=== PATIENT | female | born 1955 | race African-American/Black ===

== ENCOUNTER 2017-07-08 17:13 | Inpatient (IN) | payer MEDICARE, MEDICAID ==
[2017-07-08 17:47] LABS: #Eosinphils 0.1 thou/uL (0.0-0.7); #Lymphocytes 1.6 thou/uL (1.20-3.40); #Monocytes 0.5 thou/uL (0.11-0.59); #Neutrophils 2.5 thou/uL (1.40-6.50); %Basophils 0.7 % (0.0-1.0); %Eosinophils 2.2 % (0.0-10.0); %Lymphocytes 33.7 % (21.0-51.0); %Monocytes 11.2 % (0.0-10.0); Hematocrit 31.4 % (36.0-47.0); Mean Platelet Volume 9.4 fL (7.4-10.4); Red Blood Cell (RBC) Count 3.44 mill/uL (4.20-5.40); White Blood Cell (WBC) Count 4.7 thou/uL (4.8-10.8)
[2017-07-08 17:50] LABS: PTT 38.6 SEC (22.9-36.1); Prothrombin Time 14.4 SEC (12.0-14.7)
[2017-07-08] MEDS ORDERED: Nitroglycerin 2% Ointment 1 INCH/1 GM Packet ONE (18:01)
[2017-07-08 18:07] LABS: ALT (SGPT) 12 U/L (8-55); AST (SGOT) 22 U/L (5-34); Alkaline Phosphatase 155 U/L (40-150); Anion Gap 27 mmol/L (10-20); BUN (Urea Nitrogen) 70 mg/dL (9.8-20.1); Bilirubin, Total 0.5 mg/dL (0.2-1.2); CK (CPK) 141 U/L (29-168); Calc. Creatinine Clearance 0 mL/min (70-130); Calcium 7.8 mg/dL (7.8-10.44); Carbon Dioxide 21 mmol/L (23-31); Chloride 103 mmol/L (98-107); Estimated GFR-MDRD 5; Globulin 4.5 g/dL (2.4-3.5); Protein, Total 8.1 g/dL (6.0-8.3)
[2017-07-08] MEDS ORDERED: Acetaminophen 500 MG TAB ONE (18:34)
--- NOTE | 2017-07-08 19:10 | RAD ---
FRONTAL VIEW CHEST: 07/08/17 COMPARISON: 04/14/17 INDICATION: Chest pain. FINDINGS: There is an enlarged cardiac silhouette with bilateral pulmonary vascular congestion. Bibasilar alve olar opacities are present. No significant effusion or discrete pneumothorax. Chest is otherwise sim ilar in appearance. IMPRESSION: 1. Findings which favor decompensated CHF with superimposed edema. 2. Pneumonia not excluded. Recommend correlation clinically as well as imaging followup to conf irm resolution. POS: CARLOS
[2017-07-09] MEDS ORDERED: Acetaminophen 325 MG TAB PO PRN (00:55)
[2017-07-09] MEDS ORDERED: hydrALAZINE 20 MG/ML VIAL SLOW IVP PRN (00:55)
[2017-07-09] MEDS ORDERED: Zolpidem Tartrate 5 MG TAB PO PRN (00:55)
[2017-07-09] MEDS ORDERED: Morphine PF 1 MG/ML SYR IVP PRN (00:57)
[2017-07-09] MEDS ORDERED: Dextrose 50% Abboject 50 ML SYRINGE SLOW IVP PRN (01:58)
[2017-07-09] MEDS ORDERED: Dextrose 5% in Water 1,000 ML IV PRN (01:58)
[2017-07-09] MEDS ORDERED: HumaLOG 300 UNITS/3 ML VIAL SC PRN (01:58)
[2017-07-09] MEDS ORDERED: Nitroglycerin 0.4 MG TAB (25 Tab Bottle) PO PRN (01:58)
[2017-07-09] MEDS ORDERED: Nitroglycerin 2% Ointment 1 INCH/1 GM Packet TOP SCH (02:00)
[2017-07-09] MEDS ORDERED: Vancomycin HCl 1 GM in Premix Bag 1 BAG IVPB SCH ×2 (02:15→02:30)
[2017-07-09] MEDS ORDERED: HOLD VANCOMYCIN FOR LEVEL >20 FS SCH (02:30)
[2017-07-09] MEDS ORDERED: Vancomycin HCl 1.25 GM in Sodium Chloride 0.9% 250 ML 250 ML IVPB SCH ×4 (02:30)
[2017-07-09] MEDS ORDERED: Vancomycin HCl 750 MG in Sodium Chloride 0.9% 250 ML 250 ML IVPB SCH (02:30)
[2017-07-09 02:47] LABS: #Basophils 0.1 thou/uL (0.0-0.2); #Eosinphils 0.1 thou/uL (0.0-0.7); #Lymphocytes 1.6 thou/uL (1.20-3.40); #Monocytes 0.7 thou/uL (0.11-0.59); #Neutrophils 2.2 thou/uL (1.40-6.50); %Basophils 1.4 % (0.0-1.0); %Eosinophils 3.2 % (0.0-10.0); %Lymphocytes 33.8 % (21.0-51.0); %Monocytes 14.7 % (0.0-10.0); Hematocrit 29.8 % (36.0-47.0); Mean Platelet Volume 9.8 fL (7.4-10.4); Red Blood Cell (RBC) Count 3.24 mill/uL (4.20-5.40); White Blood Cell (WBC) Count 4.6 thou/uL (4.8-10.8)
[2017-07-09] MEDS: HYDROcodone/Acetaminophen 5/325 mg Tablet PO PRN ×3 (02:59→14:15)
[2017-07-09 03:13] LABS: Troponin I 0.077 ng/mL (< 0.028)
[2017-07-09 03:40] LABS: Anion Gap 18 mmol/L (10-20); BUN (Urea Nitrogen) 40 mg/dL (9.8-20.1); Calc. Creatinine Clearance 0 mL/min (70-130); Calcium 8.3 mg/dL (7.8-10.44); Carbon Dioxide 23 mmol/L (23-31); Chloride 101 mmol/L (98-107); Estimated GFR-MDRD 8
[2017-07-09] MEDS ORDERED: Piperacillin/Tazobactam 3.375 GM in Sodium Chloride 0.9% 100 ML IVPB SCH ×2 (04:00→06:00)
--- NOTE | 2017-07-09 05:38 | HP ---
CHIEF COMPLAINT: \\\\"I missed dialysis and I have chest pain\\\\". HISTORY OF PRESENT ILLNESS: This is a 61-year-old pleasant lady who went for dialysis today, but anuj pacheco missed it, so when she was coming back on her way from [place] started having some chest pain and h ence she came into the hospital for further evaluation and treatment. The pain was pressure-like in nature, not radiating anywhere, not associated with shortness of breath and not exacerbated or reli eved by anything. The patient also of note has been being treated for a left ring finger cellulitis /gangrene for the past whole month with clindamycin. She has also developed diarrhea which has been on and off and severe for the last 2-3 weeks. The patient denies any fever or chills currently. T he patient complains of extreme pain in the left ring finger. She was apparently going to have one of the surgeons at [facility] and Brenda at [facility] to take a look at it, but she could not make it so far. She has also end-stage renal disease and Dr. Monreal is her product safety associate. PAST MEDICAL HISTORY: Diastolic congestive heart failure with ejection fraction of 50%, end-stage r enal disease with dialysis Thursday, Thursday, Thursday, insulin-dependent diabetes, COPD, hypertension , hyperlipidemia, depression and anxiety. PAST SURGICAL HISTORY: Carpal tunnel surgery, fistula placed in the left arm. ALLERGIES: LISINOPRIL, TRAMADOL, HEPARIN, AMITRIPTYLINE. MEDICATIONS: Please see MAR. FAMILY HISTORY: Mom with diabetes and myocardial infarction, sister with unknown type of cancer. SOCIAL HISTORY: She used to smoke a pack every 2-3 days for a couple of years when she was younger. Drinks alcohol occasionally. No drug use. She is , has 1 child who is . REVIEW OF SYSTEMS: Significant for left finger pain, chest pain, shortness of breath, otherwise no fever, no chills, no headache, no appetite change, no . No cough. Positive for diarrhea, 2-3 times a day at least, no dysuria, no polyuria, no memory or mood changes. No neck pain. PHYSICAL EXAMINATION: VITAL SIGNS: Blood pressure is 172/77, breathing at 18-20 per minute, afebrile with a pulse of 90. GENERAL: Patient is lying in bed in mild to moderate distress because of the left finger pain. HEENT: Atraumatic, normocephalic. Pupils equally round, react to light. Extraocular movements int act. Mucous membranes are moist. NECK: Supple. No JVD. CHEST: Chest wall examination, there is pressure on the chest wall over the chest pain, reproduces the pain. RESPIRATORY: Some bibasilar rales, otherwise clear on the upper zones. HEART: S1, S2 normal. No murmurs or gallops. ABDOMEN: Soft, obese, bowel sounds present. No tenderness. EXTREMITIES: No cyanosis, clubbing, edema. Distal pulses present. NEUROLOGICAL: Alert, awake, oriented. No cranial deficits. No sensorimotor deficits. SKIN: Skin over the left finger is covered in dressing. The patient's finger shows some gangrenous changes. LABORATORY DATA: EKG normal sinus rhythm at 70. Chest x-ray: Cardiomegaly and congestion. WBC co unt is 4.7, creatinine is 9.8, hemoglobin is 10.6, INR 1.1, potassium is 4.5, creatinine is 9.8. So dium is 146. ASSESSMENT AND PLAN: 1. Diastolic congestive heart failure exacerbation because the patient missed dialysis. Patient patino s already got 2 hours of dialysis this evening and she is feeling much better. We will trend tropon ins and do the need for. 2. Chest pain, rule out acute coronary syndrome. We will trend troponins, appears to be more chest wall in nature. We will give some pain medications as well. 3. End-stage renal disease. Dr. Monreal has been consulted. 4. Left finger pain with gangrenous changes probably secondary to vascular disease and diabetic c er, diabetic infection. We will consult Dr. Patterson, IV vancomycin and Zosyn and see if there could b e surgical interventions this hospital stay. 5. Diarrhea, rule out Clostridium difficile. We will do cultures. The patient has been on clindam ycin for the last 1 month. 6. Nausea and vomiting on and off because of antibiotic use. We will give Zofran and p.o. Pepcid. 7. Diabetes. We will continue insulin sliding scale. 8. Chronic obstructive pulmonary disease, p.r.n. nebs. 9. SCDs for deep venous thrombosis prophylaxis. I will work with the consultants in further caring for the patient. Follow blood cultures as well.
[2017-07-09 07:57] VITALS: BMI 32.2
[2017-07-09 08:08] LABS: Troponin I 0.071 ng/mL (< 0.028)
--- NOTE | 2017-07-09 09:11 | CON ---
DATE OF CONSULTATION: 07/08/2017 Please note that patient was seen in the ER on 07/08/2017. CONSULTING PHYSICIAN: Dr. Gutierrez. REASON FOR CONSULTATION: End-stage renal disease evaluation and care. REASON FOR ADMISSION: Chest pain. HISTORY OF PRESENT ILLNESS: This is a 61-year-old female with history of CHF and end-stage renal disease, type 2 diabetes, COPD, hypertension who came to the hospital with chest pain. She missed dialysis this week and she had a few hours of dialysis Thursday. No fever or chills. No nausea, vomiting, no shortness of breath or chest pain. PAST MEDICAL HISTORY: Positive for congestive heart failure, end-stage renal disease, type 2 diabetes, hypertension, COPD, hyperlipidemia, depression and anxiety. PAST SURGICAL HISTORY: Dialysis access surgery, carpal tunnel surgery. HOME MEDICATIONS: Include Coreg, PhosLo, Lipitor, albuterol, Desyrel, prednisone, Renvela, Zoloft, Lyrica, Protonix, Cozaar, Humulin 70-30. ALLERGIES: LISINOPRIL, AMITRIPTYLINE, TRAMADOL, HEPARIN. SOCIAL HISTORY: She smokes half a pack a day and occasional alcohol use, no illicit drug abuse. FAMILY HISTORY: Positive for heart disease. REVIEW OF SYSTEMS: The following complete review of systems was negative, unless otherwise mentioned in the HPI or below: Constitutional: Weight loss or gain, ability to conduct usual activities. Skin: Rash, itching. Eyes: Double vision, pain. Ent/mouth: Nose bleeding, neck stiffness, pain, tenderness. Cardiovascular: Palpitations, dyspnea on exertion, orthopnea. Respiratory: Shortness of breath, wheezing, cough, hemoptysis, fever or night sweats. Gastrointestinal: Poor appetite, abdominal pain, heartburn, nausea,vomiting, constipation, or diarrhea. Genitourinary: Urgency, frequency, dysuria, nocturia. Musculoskeletal: Pain, swelling. Neurologic/psychiatric: Anxiety, depression. Allergy/immunologic: Skin rash, bleeding tendency. PHYSICAL EXAMINATION: GENERAL: This is a well-built female in no apparent distress. VITAL SIGNS: Temperature 97, pulse 60, respirations 18, blood pressure 190/80. HEENT: Atraumatic, normocephalic. Oral mucosa is moist. NECK: Supple, no masses. CARDIOVASCULAR: S1, S2 heard. Rate and rhythm regular. RESPIRATORY: Clear. ABDOMEN: Soft. MUSCULOSKELETAL: 1+ edema. DERMATOLOGIC: No skin rash. NEUROLOGIC: Alert, awake. PSYCHIATRIC: Mood and affect normal. LABS: Hemoglobin 10.3, potassium is 3.6, BUN 40, creatinine 6.3, but yesterday was 4.5, BUN 70, creatinine 9.8. ASSESSMENT AND PLAN: 1. End-stage renal disease. Plan is to continue on dialysis. We will have 2 hours of dialysis on 07/08/2017 and then continue on dialysis Thursday, Thursday , and Thursday. Advised to limit the fluid. 2. Fluid overload. Limit fluid intake and continue on dialysis as tolerated. 3. Hypertension, stable. 4. Edema. 5. Cardiorenal syndrome. 6. Anemia, mild. 7. Noncompliance, counseled. The plan is to continue dialysis as tolerated. We will remove fluid with dialysis. Thank you for the consult. CELINE
[2017-07-09 13:35] LABS: Vancomycin, Random 16.9 ug/mL (See Comment)
--- NOTE | 2017-07-09 14:07 | CON ---
DATE OF CONSULTATION: 07/09/2017 REASON FOR CONSULTATION: Ischemia, left hand. HISTORY OF PRESENT ILLNESS: A 61-year-old patient who has a history of type 2 diabetes with end-stage renal disease on hemodialysis through an AV fistula, ischemic cardiomyopathy, COPD, hypertension who missed one dialysis treatment and developed chest pain and then she noticed progressively worsening pain in the left hand ring finger with changes consistent with ischemia. The changes actually had been noticed quite a few weeks before admission and failed management with outpatient antimicrobial therapy. She developed diarrhea for the past 2-3 weeks, possibly antibiotic associated. No fever, chills or headaches, no change in visual symptoms, sore throat, odynophagia, dysphagia, no dyspnea, no cough or sputum production. She has noticed pain in the left lateral rib cage region for the past few days. She did have some coughing spells recently, which subsided. PAST MEDICAL HISTORY: CHF associated with ischemic cardiomyopathy, EF 50%, end- stage renal disease associated with diabetes mellitus type 2 with dialysis through an AV fistula in the left upper extremity, COPD, hypertension, hyperlipidemia, depression. PAST SURGICAL HISTORY: Carpal tunnel surgery. ALLERGIES: LISINOPRIL, TRAMADOL, HEPARIN, AMITRIPTYLINE. FAMILY HISTORY: Type 2 diabetes, coronary artery disease. CURRENT MEDICATIONS: Hydrocodone, DuoNeb, Coreg, Pepcid, glucagon, insulin, Apresoline, Nitrostat, Zosyn, and vancomycin. SOCIAL HISTORY: Former smoker, quit many years ago. Drinks occasionally. . PHYSICAL EXAMINATION: VITAL SIGNS: T-max 98.5, blood pressure 160/60, pulse 63, respirations 16-18, O2 sat 98%. SKIN: Shows a dark discoloration of the distal aspect of the left index finger. No lymphadenopathy. HEENT: Ocular movements are conjugate. The left upper extremity AV fistula is accessed at this time. NECK: No jugular venous distention. LUNGS: Clear. HEART: S1, S2, regular rate. ABDOMEN: Soft, distended. No ascites. Question of bladder distention. EXTREMITIES: No joint inflammatory activity elsewhere outside the area of involvement. Pulses are diminished in dorsalis pedis. I could not feel any radialis or ulnar pulses in either hand. NEUROLOGIC: Awake and alert, oriented. Follows commands. LABORATORY DATA: White cell count 4.6, hemoglobin 10.3, platelets 100, 46% neutrophils. INR 1.1. Sodium 138, creatinine 6.39, alkaline phosphatase 155, transaminases normal, bilirubin 0.5. CK was 141. X-RAY FINDINGS: Chest x-ray, CHF. ASSESSMENT: 1. Coronary artery disease. 2. Peripheral vascular disease. 3. End-stage renal disease on hemodialysis through an AV fistula in the left upper extremity. 4. Ischemia with gangrenous changes, left fourth finger. DISCUSSION: The changes are consistent ischemia with gangrenous changes most likely due to peripheral vascular disease with superimposed steal syndrome associated with AV fistula. We would recommend a vascular evaluation of the left upper extremity, may need a procedure to increase the arterial inflow towards the left hand to prevent progression of the changes towards the other digits. Typically those procedures are done by the same surgeon that worked on her AV fistula, in her case, dr. Tesfaye in [place]. HEALTH SYSTEMDayami
[2017-07-09] MEDS: Vancomycin HCl 500 MG in Sodium Chloride 0.9% 100 ML IVPB SCH (14:16)
[2017-07-09 14:17] LABS: Troponin I 0.059 ng/mL (< 0.028)
[2017-07-09] MEDS: Carvedilol 3.125 MG TAB PO SCH ×2 (16:30→21:21)
[2017-07-09] MEDS: Pregabalin 75 MG CAP PO SCH ×2 (16:30→21:22)
[2017-07-09] MEDS: Ondansetron HCl/PF 4 MG/2 ML Vial IVP PRN (16:32)
[2017-07-09] MEDS: Aspirin 81 mg Enteric Coated Tablet PO SCH (16:37)
[2017-07-09] MEDS: Famotidine 20 MG TAB PO SCH (16:37)
[2017-07-09] MEDS: Piperacillin/Tazobactam 2.25 GM in Sodium Chloride 0.9% 100 ML IVPB SCH (18:30)
[2017-07-09] MEDS ORDERED: Insulin NPH/Reg Insulin Hm 300 UNITS/3 ML VIAL SC SCH (21:00)
[2017-07-09] MEDS: cloNIDine 0.3 MG TAB PO SCH (21:22)
[2017-07-09] MEDS: Zolpidem Tartrate 5 MG TAB PO SCH (21:22)
[2017-07-09] MEDS: Insulin Detemir 100 UNITS/ML 25 UNITS in Pre-Filled Syringe 1 EACH SC SCH (21:23)
--- NOTE | 2017-07-09 23:24 | PRG ---
DATE OF SERVICE: 07/09/2017 SUBJECTIVE: The patient was seen and examined at the bedside and overnight events noted. The patie nt denies any shortness of breath, chest pain, or palpitation. No history of nausea, vomiting, diar erica, fever, chills, or cramps. OBJECTIVE: GENERAL: This is a well-built female in no apparent distress. VITAL SIGNS: Temperature 97, pulse 65, respiratory rate 18, blood pressure 162/69. HEENT: Atraumatic, normocephalic. Oral mucosa is moist. NECK: Supple. CARDIOVASCULAR: S1, S2 heard. Rate and rhythm regular. RESPIRATORY: Clear to auscultation. GASTROINTESTINAL: Abdomen is soft. MUSCULOSKELETAL: No tenderness. No edema. DERMATOLOGIC: No skin rash. NEUROLOGIC: Alert, awake, and oriented x3. No focal neurologic deficits. Moving all the extremitie s. PSYCHIATRIC: Mood and affect normal. LABORATORY DATA: Potassium is 3.6, BUN is 40, creatinine is 6.3. ASSESSMENT AND PLAN: 1. End-stage renal disease. Continue dialysis Thursday, Thursday, Thursday. The plan is to have 2-ho ur dialysis today and then Thursday, Thursday, Thursday. 2. Fluid overload. 3. Hypertension. 4. Edema. 5. was consulted. The plan is to continue dialysis as tolerated Thursday, Thursday, and Thursday.
[2017-07-10] MEDS: Piperacillin/Tazobactam 2.25 GM in Sodium Chloride 0.9% 100 ML IVPB SCH (05:16)
[2017-07-10] MEDS: HYDROcodone/Acetaminophen 5/325 mg Tablet PO PRN ×3 (05:19→20:32)
[2017-07-10 06:50] LABS: Vancomycin, Random 17.2 ug/mL (See Comment)
[2017-07-10] MEDS: Sevelamer Carbonate 800 MG TAB PO SCH ×3 (08:30→16:07)
[2017-07-10] MEDS: Ondansetron HCl/PF 4 MG/2 ML Vial IVP PRN (08:33)
[2017-07-10] MEDS: cloNIDine 0.3 MG TAB PO SCH ×2 (08:40→20:30)
[2017-07-10] MEDS: Carvedilol 3.125 MG TAB PO SCH ×2 (08:45→20:30)
[2017-07-10] MEDS: Pregabalin 75 MG CAP PO SCH ×2 (08:45→20:31)
[2017-07-10] MEDS ORDERED: Insulin NPH/Reg Insulin Hm 300 UNITS/3 ML VIAL SC SCH (09:00)
[2017-07-10] MEDS: Insulin Detemir 100 UNITS/ML 20 UNITS in Pre-Filled Syringe 1 EACH SC SCH (09:00)
[2017-07-10] MEDS: Vancomycin HCl 500 MG in Sodium Chloride 0.9% 100 ML IVPB SCH (11:58)
--- NOTE | 2017-07-10 13:20 | PRG ---
DATE OF SERVICE: 07/10/2017 HISTORY: Ms. Contreras is being dialyzed, still with quite a bit of pain in the ring finger, left valentine d. She is having some tenderness and pain in the left costal area as well. No headaches, no respir atory symptoms, no abdominal pain or diarrhea. OBJECTIVE: VITAL SIGNS: Temperature max 98.6, blood pressure 118/61, pulse 64, respirations 16. GENERAL: Awake, alert, oriented. LUNGS: Clear. EXTREMITIES: The left hand fourth digit with ischemic changes in the distal aspect. No inflammator y changes noted. CHEST: Tenderness on the left rib cage region lateral aspect. ABDOMEN: Soft. Not distended. NEUROLOGIC: Unchanged. White cell count 4.6. Chemistry not remarkable. Microbiology with negative blood cultures thus far . ASSESSMENT AND DISCUSSION: Coronary disease with peripheral vascular disease, end-stage renal disea se on hemodialysis through AV fistula and ischemia with gangrenous changes tip of the left fourth fi nger. Again, changes consistent ischemia with most likely the peripheral vascular disease plus supe rimposed steal syndrome associated with AV fistula. She will need vascular evaluation to revise the AV fistula to increase the flow towards the hand. Discontinue antimicrobial therapy at this point in time. Check x-ray of the left ribcage area. May have had a small hairline fracture associated w ith coughing spells.
--- NOTE | 2017-07-10 15:18 | RAD ---
LEFT RIBS 3 VIEWS: HISTORY: A 61-year-old female with point tenderness over lower left ribs. FINDINGS: Left axillary and subclavian vascular stents. No evidence for acute rib fracture. No pneumothorax or pleural effusion. IMPRESSION: No rib fracture. No pneumothorax or pleural effusion or other acute process. POS: CARLOS
--- NOTE | 2017-07-10 15:37 | PDOC.PN ---
- Subjective Encounter Start Date: 07/09/17 Encounter Start Time: 16:00 Subjective: f/u volume overload and dyspnea in context of ESRD with HD. -: Improved resp after HD. - Objective MAR Reviewed: Yes Vital Signs & Weight: Vital Signs (12 hours) Temp Pulse Resp BP BP BP Pulse Ox 07/10/17 13:56 97.7 F 63 18 122/83 97 07/10/17 12:03 97.7 F 64 16 118/61 98 07/10/17 08:40 170/76 H 07/10/17 08:25 98.6 F 57 L 18 98 07/10/17 06:49 95 07/10/17 03:47 57 L 18 165/77 H Weight Admit Weight 176 lb 3.2 oz Weight 155 lb I&O: 07/09/17 07/10/17 07/11/17 06:59 06:59 06:59 Intake Total 850 480 Output Total 2800 1898 Balance -1950 -1418 Result Diagrams: 07/09/17 02:21 07/09/17 02:21 Additional Labs: Accuchecks 07/10/17 07/10/17 07/09/17 13:22 05:34 20:27 POC Glucose 101 92 83 07/09/17 17:08 POC Glucose 87 Microbiology 07/09/17 02:52 Venous blood - Right Hand Blood Culture - Preliminary Specimen has been received and culture in progress. No Growth to date. 07/09/17 02:21 Venous blood - Right Hand Blood Culture - Preliminary Specimen has been received and culture in progress. No Growth to date. Radiology Reviewed by me: Yes (PCXR - pulm edema) EKG Reviewed by me: Yes (Tele - SR) Phys Exam - Physical Examination Constitutional: NAD HEENT: PERRLA, oral pharynx no lesions Neck: no JVD, supple basilar coarse sounds Respiratory: wheezing present Cardiovascular: RRR Gastrointestinal: soft, non-tender, no distention, positive bowel sounds L ring finger with gangrene at the tip Musculoskeletal: pulses present Neurological: normal sensation, moves all 4 limbs Psychiatric: A&O x 3 Skin: normal turgor, cap refill <2 seconds Dx/Plan (1) Acute pulmonary edema Code(s): J81.0 - ACUTE PULMONARY EDEMA Status: Acute Comment: Improved, continue volume removal with HD, monitor clinically (2) CHF, acute on chronic Code(s): I50.9 - HEART FAILURE, UNSPECIFIED Status: Acute Qualifiers: Congestive heart failure type: combined Qualified Code(s): I50.43 - Acute on chronic combined systolic (congestive) and diastolic (congestive) heart failure Comment: Likely volume mediated to ESRD, improved after HD (3) Gangrene of finger of left hand Code(s): I96 - GANGRENE, NOT ELSEWHERE CLASSIFIED Status: Acute Comment: Supportive care, may need surgical intervention (4) Noncompliance with treatment plan Code(s): Z91.11 - PATIENT'S NONCOMPLIANCE WITH DIETARY REGIMEN Status: Chronic (5) Peripheral neuropathy Code(s): G62.9 - POLYNEUROPATHY, UNSPECIFIED Status: Chronic Comment: Continue Lyrica 150mg BID (6) Volume overload Code(s): E87.70 - FLUID OVERLOAD, UNSPECIFIED Status: Acute Qualifiers: Hypervolemia type: other Qualified Code(s): E87.79 - Other fluid overload Comment: See above (7) Anemia in chronic kidney disease (CKD) Code(s): N18.9 - CHRONIC KIDNEY DISEASE, UNSPECIFIED; D63.1 - ANEMIA IN CHRONIC KIDNEY DISEASE Status: Chronic (8) DM type 2 (diabetes mellitus, type 2) Status: Chronic Qualifiers: Diabetes mellitus complication status: with neurologic complications (9) ESRD (end stage renal disease) on dialysis Code(s): N18.6 - END STAGE RENAL DISEASE; Z99.2 - DEPENDENCE ON RENAL DIALYSIS Status: Chronic Comment: HD per Renal service (10) Hepatitis C Code(s): B19.20 - UNSPECIFIED VIRAL HEPATITIS C WITHOUT HEPATIC COMA Status: Chronic Qualifiers: Viral hepatitis chronicity: chronic Hepatic coma status: without hepatic coma Qualified Code(s): B18.2 - Chronic viral hepatitis C Comment: Chronic, stable - Plan continue antibiotics, PT/OT, social sciences research scientist Stable currently -: Continue local WCT -: Continue Vancomycin sliding scale -: Continue ASA, Coreg -: AM lab: BMP, CBC * .
--- NOTE | 2017-07-10 16:05 | PDOC.PN ---
- Subjective Encounter Start Date: 07/10/17 Encounter Start Time: 14:00 Subjective: f/u volume overload due to missed HD. Feels much better and less SOB > -: Ambulating without difficulty. - Objective MAR Reviewed: Yes Vital Signs & Weight: Vital Signs (12 hours) Temp Pulse Resp BP BP BP Pulse Ox 07/10/17 13:56 97.7 F 63 18 122/83 97 07/10/17 12:03 97.7 F 64 16 118/61 98 07/10/17 08:40 170/76 H 07/10/17 08:25 98.6 F 57 L 18 98 07/10/17 06:49 95 Weight Admit Weight 176 lb 3.2 oz Weight 155 lb I&O: 07/09/17 07/10/17 07/11/17 06:59 06:59 06:59 Intake Total 850 480 Output Total 2800 1898 Balance -1950 -1418 Result Diagrams: 07/09/17 02:21 07/09/17 02:21 Additional Labs: Accuchecks 07/10/17 07/10/17 07/09/17 13:22 05:34 20:27 POC Glucose 101 92 83 07/09/17 17:08 POC Glucose 87 Microbiology 07/09/17 02:52 Venous blood - Right Hand Blood Culture - Preliminary Specimen has been received and culture in progress. No Growth to date. 07/09/17 02:21 Venous blood - Right Hand Blood Culture - Preliminary Specimen has been received and culture in progress. No Growth to date. Laboratory Tests 07/08/17 07/09/17 07/09/17 17:34 02:21 07:36 Troponin I 0.080 H 0.077 H 0.071 H Random Vancomycin 07/09/17 07/09/17 07/10/17 13:00 13:00 06:24 Troponin I 0.059 H Random Vancomycin 16.9 17.2 EKG Reviewed by me: Yes (Tele - SR) Phys Exam - Physical Examination Constitutional: NAD HEENT: PERRLA, oral pharynx no lesions Neck: no JVD, supple few basilar crackles Cardiovascular: RRR Gastrointestinal: soft, non-tender, no distention, positive bowel sounds Musculoskeletal: no edema, pulses present Neurological: normal sensation, moves all 4 limbs Psychiatric: A&O x 3 Skin: normal turgor, cap refill <2 seconds Dx/Plan (1) Acute pulmonary edema Code(s): J81.0 - ACUTE PULMONARY EDEMA Status: Acute Comment: Improved, continue volume removal with HD, monitor clinically, encourage compliance with HD as outpt (2) CHF, acute on chronic Code(s): I50.9 - HEART FAILURE, UNSPECIFIED Status: Acute Qualifiers: Congestive heart failure type: combined Qualified Code(s): I50.43 - Acute on chronic combined systolic (congestive) and diastolic (congestive) heart failure Comment: Likely volume mediated to ESRD, improved after HD, Diastolic dysfunction with EF 50%, Grade I/III diastolic dysfxn (3) Gangrene of finger of left hand Code(s): I96 - GANGRENE, NOT ELSEWHERE CLASSIFIED Status: Acute Comment: Supportive care, may need surgical intervention (4) Noncompliance with treatment plan Code(s): Z91.11 - PATIENT'S NONCOMPLIANCE WITH DIETARY REGIMEN Status: Chronic (5) Peripheral neuropathy Code(s): G62.9 - POLYNEUROPATHY, UNSPECIFIED Status: Chronic Comment: Continue Lyrica 150mg BID (6) Volume overload Code(s): E87.70 - FLUID OVERLOAD, UNSPECIFIED Status: Acute Qualifiers: Hypervolemia type: other Qualified Code(s): E87.79 - Other fluid overload Comment: See above, resolving (7) Anemia in chronic kidney disease (CKD) Code(s): N18.9 - CHRONIC KIDNEY DISEASE, UNSPECIFIED; D63.1 - ANEMIA IN CHRONIC KIDNEY DISEASE Status: Chronic Comment: H/H stable (8) DM type 2 (diabetes mellitus, type 2) Status: Chronic Qualifiers: Diabetes mellitus complication status: with neurologic complications (9) ESRD (end stage renal disease) on dialysis Code(s): N18.6 - END STAGE RENAL DISEASE; Z99.2 - DEPENDENCE ON RENAL DIALYSIS Status: Chronic Comment: HD per Renal service (10) Hepatitis C Code(s): B19.20 - UNSPECIFIED VIRAL HEPATITIS C WITHOUT HEPATIC COMA Status: Chronic Qualifiers: Viral hepatitis chronicity: chronic Hepatic coma status: without hepatic coma Qualified Code(s): B18.2 - Chronic viral hepatitis C Comment: Chronic, stable - Plan PT/OT, geriatric social worker, out of bed/ambulate, DVT proph w/SCDs Stable overall -: Continue HD per Renal service -: Continue Vancomycin sliding scale with HD -: Resume home insulin regimen -: OOB/ambulate * AM lab: BMP, CBC * Likely home in 24h
[2017-07-10] MEDS: predniSONE 5 MG TAB PO SCH (16:06)
[2017-07-10] MEDS: Famotidine 20 MG TAB PO SCH (16:06)
[2017-07-10] MEDS: Aspirin 81 mg Enteric Coated Tablet PO SCH (16:06)
[2017-07-10] MEDS: Zolpidem Tartrate 5 MG TAB PO SCH (20:30)
[2017-07-10] MEDS: Insulin Detemir 100 UNITS/ML 25 UNITS in Pre-Filled Syringe 1 EACH SC SCH (20:32)
--- NOTE | 2017-07-10 21:44 | PRG ---
DATE OF SERVICE: 07/10/2017 SUBJECTIVE: Patient was seen and examined at bedside and overnight events noted. Patient denies an y shortness of breath or chest pain or palpitation. No history of nausea or vomiting or diarrhea or fever or chills or cramps. OBJECTIVE: GENERAL: This is a well-built female, in no apparent distress. VITAL SIGNS: Temperature 97, pulse 63, respiratory rate 18, blood pressure 122/83. HEENT: Atraumatic, normocephalic, Oral mucosa is moist. NECK: Supple. CARDIOVASCULAR: S1, S2 heard, rate and rhythm regular. RESPIRATORY: Clear to auscultation. GASTROINTESTINAL: Abdomen is soft. MUSCULOSKELETAL: No tenderness, no edema. DERMATOLOGIC: No skin rash. NEUROLOGIC: Alert and awake and oriented x3. No focal neurologic deficits. Moving all the extremi ties. PSYCHIATRIC: Mood and affect normal. LABORATORY DATA: Not done today. ASSESSMENT AND PLAN: 1. End-stage renal disease. Continue on hemodialysis as tolerated. 2. Hypertension, stable. 3. Edema, controlled. 4. Anemia, chronic. 5. Noncompliance, counseled. 6. Fluid overload. Remove fluid with dialysis as tolerated. Plan is to continue on dialysis as tolerated Thursday, Thursday, and Thursday.
[2017-07-11 05:56] LABS: Hematocrit 38.8 % (36.0-47.0); Mean Platelet Volume 9.2 fL (7.4-10.4); Neutrophil 48 % (42-75); Red Blood Cell (RBC) Count 4.25 mill/uL (4.20-5.40); White Blood Cell (WBC) Count 4.2 thou/uL (4.8-10.8)
[2017-07-11 05:59] LABS: Anion Gap 16 mmol/L (10-20); BUN (Urea Nitrogen) 20 mg/dL (9.8-20.1); Calc. Creatinine Clearance 16 mL/min (70-130); Calcium 9.1 mg/dL (7.8-10.44); Carbon Dioxide 27 mmol/L (23-31); Chloride 97 mmol/L (98-107); Estimated GFR-MDRD 14
[2017-07-11] MEDS: HYDROcodone/Acetaminophen 5/325 mg Tablet PO PRN ×3 (06:20→16:45)
[2017-07-11] MEDS: Carvedilol 3.125 MG TAB PO SCH (09:01)
[2017-07-11] MEDS: Aspirin 81 mg Enteric Coated Tablet PO SCH (09:01)
[2017-07-11] MEDS: predniSONE 5 MG TAB PO SCH (09:01)
[2017-07-11] MEDS: Famotidine 20 MG TAB PO SCH (09:01)
[2017-07-11] MEDS: cloNIDine 0.3 MG TAB PO SCH (09:01)
[2017-07-11] MEDS: Sevelamer Carbonate 800 MG TAB PO SCH ×3 (09:01→16:45)
[2017-07-11] MEDS: Insulin Detemir 100 UNITS/ML 20 UNITS in Pre-Filled Syringe 1 EACH SC SCH (09:05)
[2017-07-11] MEDS: Pregabalin 75 MG CAP PO SCH (09:11)
--- NOTE | 2017-07-11 12:33 | PRG ---
DATE OF SERVICE: 07/11/2017 SUBJECTIVE: Patient was seen and examined at bedside and overnight events noted. Patient denies an y shortness of breath or chest pain or palpitation. No history of nausea or vomiting or diarrhea or fever or chills or cramps. OBJECTIVE: GENERAL: This is a well-built female in no apparent distress. VITAL SIGNS: Temperature 97.9, pulse 61, respiratory rate 18, blood pressure 111/56. HEENT: Atraumatic, normocephalic. Oral mucosa is moist. NECK: Supple. CARDIOVASCULAR: S1 and S2 heard, rate and rhythm regular. RESPIRATORY: Clear to auscultation. GASTROINTESTINAL: Abdomen is soft. MUSCULOSKELETAL: No tenderness, no edema. DERMATOLOGIC: No skin rash. NEUROLOGIC: Alert and awake and oriented X3. No focal neurologic deficits. Moving all the extremi ties. PSYCHIATRIC: Mood and affect normal. LABORATORY DATA: Potassium is 4.1, BUN is 20, creatinine 3.9. ASSESSMENT AND PLAN: 1. End-stage renal disease. Continue dialysis on Thursday, Thursday, and Thursday feeling much better . 2. Edema. 3. Fluid overload, status post ultrafiltration and feels better. 4. Hypertension. 5. Noncompliance. The patient was counseled to have regular session of dialysis. We will continue on dialysis Thursday, Thursday, and Thursday.
--- NOTE | 2017-07-11 17:00 | DIS ---
DATE OF ADMISSION: 07/08/2017 DATE OF DISCHARGE: 07/11/2017 DISCHARGE DIAGNOSES: 1. Acute volume overload in the context of missed hemodialysis, resolved. 2. End-stage renal disease with hemodialysis. 3. Acute on chronic congestive heart failure with ejection fraction of 50%. Grade I/III diastolic dysfunction. 4. Gangrene of the left ring finger distal tip. 5. Medical noncompliance. 6. Peripheral neuropathy secondary to end-stage renal disease and diabetes mellitus. 7. Anemia of chronic kidney disease. CONSULTATIONS: Dr. Monreal with Nephrology Service. Dr. Patterson with Infectious Disease Service. PERTINENT LAB AND X-RAY FINDINGS: Creatinine ranged between 3.99-9.86 with estimated GFR ranging be tween 5-14. Troponin I ranged between 0.059-0.080. BNP 2854, previously noted 2032 on 03/03/2017. CBC showed a hemoglobin ranging between 10.3-12.5, platelet count ranged between 100-134. Hepatiti s B surface antigen nonreactive on 07/08/2017. Blood cultures x2 dated 07/09/2017 showed no growth to date. Portable chest x-ray dated 07/08/2017 showed pulmonary edema. Two views of the lower left ribs showed no evidence for acute fracture. HOSPITAL COURSE: The patient was admitted to the telemetry unit after initially presenting with enma st pain, shortness of breath in the context of missed hemodialysis. The patient underwent urgent he modialysis with volume removal and overall improvement in dyspnea and pulmonary edema. The patient with prior 2D transthoracic echocardiogram showing ejection fraction of 50% with grade I/III diastol ic dysfunction. The patient with history of missed hemodialysis and noncompliance. The patient was also noted with left ring finger distal gangrenous changes previously treated with antibiotic thera py including clindamycin. The patient was evaluated with recommendations for outpatient evaluation of AV fistula for possible steal syndrome. No antibiotic therapy was recommended per Infectious Dis ease Service. Overall, the patient remained clinically stable and ready for discharge on 07/11/2017 . DISCHARGE MEDICATIONS: 1. Albuterol sulfate 2 puffs inhaled q.6 hours p.r.n. 2. Enteric coated aspirin 81 mg 1 tab p.o. daily. 3. Lipitor 20 mg p.o. at bedtime. 4. Calcium acetate 2000 mg p.o. t.i.d. 5. Coreg 3.125 mg p.o. b.i.d. 6. Drake 5/325 mg 1 tab p.o. q.6 hours p.r.n. pain, #20 given, no refills. 7. NPH insulin 20 units subcutaneously q.a.m. and 25 units subcutaneously at bedtime. 8. Cozaar 50 mg 1 tab p.o. daily. 9. Meloxicam 7.5 mg 1 tab p.o. b.i.d. 10. Protonix 40 mg one tab p.o. daily. 11. Lyrica 150 mg p.o. b.i.d. 12. Zoloft 100 mg p.o. at bedtime. 13. Renvela 1600 mg p.o. t.i.d. 14. Ambien 10 mg p.o. at bedtime. 15. Clonidine 0.3 mg p.o. b.i.d. 16. Prednisone 5 mg p.o. q.a.m. 17. Trazodone 100 mg p.o. at bedtime. FOLLOWUP: The patient will follow up with Dr. Payam Carrasquillo on 07/14/2017 at 11:00 a.m. The beti ent will follow up with Dr. Monreal with hemodialysis on Thursday, Thursday, and Thursday. CONDITION ON DISCHARGE: Fair. ACTIVITY: Ad óscar. DIET: Heart healthy ADA and renal. CODE STATUS: Full. DISPOSITION: Home on 07/11/2017. Total time for preparing and coordinating discharge 34 minutes.
[2017-07-11 17:20] VITALS: BP 169/77; TEMP 97.5
--- NOTE | 2017-08-28 15:00 | EKG ---
Test Reason : Blood Pressure : / mmHG Vent. Rate : 070 BPM Atrial Rate : 070 BPM P-R Int : 176 ms QRS Dur : 086 ms QT Int : 468 ms P-R-T Axes : 074 -03 001 degrees QTc Int : 505 ms Normal sinus rhythm Possible Left atrial enlargement Septal infarct , age undetermined Prolonged QT Abnormal ECG Confirmed by CHIN YANG, MARTIN Zaman ([id number]), photo editor DANTE HERNANDEZ ([id number]) on 08/28/2017 2:59:43 PM Referred By: Confirmed By:MARTIN NEELY MD
== END 2017-07-11 17:38 | disposition home or self-care (01) | DRG 291 ==
LOC: ERS 17:13 → 2NO 23:16
PROVIDERS: ADMIT Internal Medicine; ATTEND Internal Medicine
PROC: 5A1D70Z Performance of Urinary Filtration, Intermittent, Less than 6 Hours Per Day (ICD-10-PCS; principal; 2017-07-08)
DX: I13.2 Hypertensive heart and chronic kidney disease with heart failure and with stage 5 chronic kidney disease, or end stage renal disease (principal); N18.6 End stage renal disease; E11.52 Type 2 diabetes mellitus with diabetic peripheral angiopathy with gangrene; I50.43 Acute on chronic combined systolic (congestive) and diastolic (congestive) heart failure; E11.22 Type 2 diabetes mellitus with diabetic chronic kidney disease; Z99.2 Dependence on renal dialysis; G62.9 Polyneuropathy, unspecified; Z91.15 Patient's noncompliance with renal dialysis; D63.1 Anemia in chronic kidney disease; Z91.11 Patient's noncompliance with dietary regimen; B18.2 Chronic viral hepatitis C; I73.9 Peripheral vascular disease, unspecified; I25.5 Ischemic cardiomyopathy; Z87.891 Personal history of nicotine dependence
CPT/HCPCS: 36415; 36416; 71010; 80048; 80053; 80202; 82550; 82553; 83880; 84484; 85007; 85025; 85027; 85610; 85730; 87040; 87340; 90935; 93005; 93798; 94760; 96374; A4216; G0257; J1815; J2270; J2274; J2405; J2543; J3370; J7050

== ENCOUNTER 2017-08-04 11:32 | Observation (INO) | payer MEDICARE, MEDICAID ==
[2017-08-04 12:05] LABS: #Eosinphils 0.1 thou/uL (0.0-0.7); #Monocytes 0.5 thou/uL (0.11-0.59); %Basophils 0.5 % (0.0-1.0); %Eosinophils 1.8 % (0.0-10.0); %Lymphocytes 22.2 % (21.0-51.0); %Monocytes 10.8 % (0.0-10.0); Hematocrit 35.4 % (36.0-47.0); Mean Platelet Volume 8.4 fL (7.4-10.4); Red Blood Cell (RBC) Count 3.91 mill/uL (4.20-5.40); White Blood Cell (WBC) Count 4.7 thou/uL (4.8-10.8)
[2017-08-04 12:27] LABS: ALT (SGPT) 15 U/L (8-55); AST (SGOT) 32 U/L (5-34); Alkaline Phosphatase 120 U/L (40-150); Anion Gap 19 mmol/L (10-20); BUN (Urea Nitrogen) 40 mg/dL (9.8-20.1); Bilirubin, Total 0.7 mg/dL (0.2-1.2); CK (CPK) 167 U/L (29-168); Calc. Creatinine Clearance 0 mL/min (70-130); Calcium 9.3 mg/dL (7.8-10.44); Carbon Dioxide 30 mmol/L (23-31); Chloride 94 mmol/L (98-107); Estimated GFR-MDRD 8; Globulin 5.1 g/dL (2.4-3.5)
[2017-08-04] MEDS ORDERED: Nitroglycerin 2% Ointment 1 INCH/1 GM Packet ONE (12:28)
--- NOTE | 2017-08-04 12:29 | RAD ---
PORTABLE CHEST: Date: 08/04/17 HISTORY: Cough. Shortness of breath. COMPARISON: 03/03/17. FINDINGS: Heart size is borderline enlarged considering portable technique. There are atherosclerotic changes o f the aorta. There is some linear scarring in the left base. No signs of overt failure or any definit e focal infiltrates. IMPRESSION: 1. Borderline heart size. 2. Linear scarring left lung base. POS: C
[2017-08-04 12:32] LABS: Troponin I 0.128 ng/mL (< 0.028)
[2017-08-04] MEDS ORDERED: Acetaminophen 500 MG TAB ONE (13:22)
[2017-08-04] MEDS ORDERED: Furosemide 40 MG/4 ML VIAL ONE (13:22)
[2017-08-04] MEDS ORDERED: Magnesium Sulfate 1 GM, Admixture Fee 1 EACH in Sodium Chloride 0.9% 100 ML IVPB SCH (14:00)
[2017-08-04] MEDS ORDERED: Ondansetron HCl/PF 4 MG/2 ML Vial ONE (14:29)
[2017-08-04 15:26] LABS: Troponin I 0.133 ng/mL (< 0.028)
[2017-08-04] MEDS ORDERED: Acetaminophen 325 MG TAB PO PRN (17:27)
[2017-08-04] MEDS ORDERED: hydrALAZINE 20 MG/ML VIAL SLOW IVP PRN (17:27)
[2017-08-04] MEDS ORDERED: Ondansetron HCl/PF 4 MG/2 ML Vial IVP PRN (17:27)
[2017-08-04] MEDS ORDERED: Benzonatate 100 MG CAP PO PRN (17:27)
[2017-08-04] MEDS ORDERED: Dextrose 50% Abboject 50 ML SYRINGE SLOW IVP PRN (17:27)
[2017-08-04] MEDS ORDERED: Ondansetron ODT 4 MG TAB PO PRN (17:27)
[2017-08-04] MEDS ORDERED: Dextrose 5% in Water 1,000 ML IV PRN (17:27)
[2017-08-04] MEDS ORDERED: HumaLOG 300 UNITS/3 ML VIAL SC PRN ×2 (17:27)
[2017-08-04 17:30] VITALS: BMI 30.7
[2017-08-04] MEDS ORDERED: Calcium Acetate 667 MG CAP PO SCH (18:45)
[2017-08-04] MEDS ORDERED: Sevelamer Carbonate 800 MG TAB PO SCH (18:45)
[2017-08-04] MEDS ORDERED: cefTRIAXone\\ROCEPHIN 1 GM in Syringe 10 ML SLOW IVP SCH (20:00)
[2017-08-04] MEDS: Atorvastatin Calcium 20 MG TAB PO SCH (20:12)
[2017-08-04] MEDS: cloNIDine 0.3 MG TAB PO SCH (20:12)
[2017-08-04] MEDS: Pregabalin 75 MG CAP PO SCH (20:12)
[2017-08-04] MEDS: traZODone HCl 50 MG TAB PO SCH (20:12)
[2017-08-04] MEDS: Carvedilol 3.125 MG TAB PO SCH (20:13)
[2017-08-04] MEDS: Famotidine/PF 20 mg/2ml Vial SLOW IVP SCH (20:19)
--- NOTE | 2017-08-04 20:30 | HP ---
PRIMARY CARE PHYSICIAN: Dr. Kaplan. CHIEF COMPLAINT: Shortness of breath. HISTORY OF PRESENT ILLNESS: Ms. Contreras is a pleasant 61-year-old female who presents to the emergen cy room with complaints of trouble breathing. She says that she has been having cough productive of yellow or green sputum in the last couple of days. She also says she feels like her chest is heavy l madyson there is some pressure there as well. She says it is worse when she coughs. She also has been h aving some subjective chills as well as some nausea and vomiting she reports. She also says that nor maura she sleeps on three pillows, but in the last couple of days she has had to sleep on 4-5 pillows of each night. When asked if her symptoms are similar to her previous admission with care with tomasa ferreira, she says she does not feel that it is the same. She knows what it feels to be volume ov erloaded and she says that the pressure in her chest is not as severe as when this happens and she sa ys that she has been compliant with her fluid intake and says that she has not been eating much inclu ding salty foods. The patient also admits to having a decrease in appetite. She was evaluated in th e ER and was noted to have a slightly elevated troponin as well as her proBNP was elevated; however, notably it is not as elevated as it has been in the past. She is being placed in observation for fur ther evaluation. REVIEW OF SYSTEMS: Constitutional: There have been subjective chills, but no fevers, no night sweat s, no weight loss. HEENT: She denies any headaches, no dizziness, no visual change, no sore throat, rhinorrhea, neck pain, no adenopathy. Pulmonary: She has had a cough productive of yellow and gree n sputum. No wheezing, but more shortness of breath. Cardiovascular: She complains of some heavine ss and pressure in her chest, which is nonradiating, worse with coughing. She also admits to increas ing orthopnea, but no extremity edema. Gastrointestinal: She says she has had some nausea and vomit ing as well as some diarrhea. Genitourinary: No urinary frequency, hematuria, no hesitancy. Neurol ogic: No focal weakness, numbness, no seizures. Psychiatric: No symptoms of anxiety or depression . Skin and Integument: No skin changes. No rash. PAST MEDICAL HISTORY: Significant for chronic diastolic heart failure with an ejection fraction of 5 0%; end-stage renal disease on hemodialysis Thursday, Thursday, Thursday; history of chronic respiratory failure due to chronic obstructive pulmonary disease; hypertension; and hyperlipidemia. PAST SURGICAL HISTORY: She has had carpal tunnel release and AV fistula placed. ALLERGIES: HEPARIN, AMITRIPTYLINE, LISINOPRIL, and TRAMADOL. FAMILY HISTORY: Significant for diabetes mellitus and coronary artery disease in her mother and canc er in her sister. SOCIAL HISTORY: She is a former smoker. She quit a few years ago. She denies any alcohol use. She is single. She lives alone. MEDICATIONS: Include aspirin 81 mg daily, carvedilol 3.125 mg twice a day, losartan 50 mg daily, ser traline 100 mg daily, trazodone 100 mg daily, albuterol nebs, Colace 100 mg daily, Humulin 70/30 of 2 0 units in the morning and 25 units in the p.m., prednisone 20 mg daily, Lyrica 150 mg twice a day, c lonidine 0.2 mg daily, Mobic 7.5 mg twice a day, Zyvox 600 mg twice a day. PHYSICAL EXAMINATION: GENERAL: She is alert and oriented. She appears to be in no acute distress. VITAL SIGNS: Blood pressure was 140/78, heart rate 85, respiratory rate of 22, O2 sat was 100% on ro om air. HEENT: Pupils are equal, round, and reactive. Extraocular muscles are intact. Her sclerae are anic teric. Throat: No erythema, no exudates. NECK: No adenopathy, no bruits. LUNGS: Potentially quiet breath sounds. There is no wheezing, no rales. CARDIOVASCULAR: She had a normal S1, S2. She does have a significant murmur, grade 3/6 systolic mur mur heard throughout her precordium. ABDOMEN: Soft. She had some mild diffuse tenderness. There is no rebound or guarding. EXTREMITIES: She has got 1+ edema. NEUROLOGICALLY: The exam is grossly nonfocal. LABORATORY DATA: White blood cell count is 4.7, hemoglobin 12, hematocrit is 35.4, platelet count is 200. Sodium 139, potassium 4.3, chloride is 94, CO2 is 30, BUN of 40, creatinine 6.65, glucose is 1 89. Her troponin was slightly elevated at 0.128. Natriuretic peptide is 1041. ASSESSMENT AND PLAN: 1. This is a 61-year-old female that presents to the emergency room complaining of shortness of bubba th, the etiology of which is more or less unclear. I suspect with a cough productive of yellow sputu m, she likely has a chronic obstructive pulmonary disease exacerbation even though her O2 saturations are 100% and her lung sounds are relatively quiet. Heart failure exacerbation as a possibility, but less likely as her proBNP even though is elevated, it is not quite as high as it has been in the pas t, in fact it is half as high as it has been before and it appears as if her ejection fraction is act ually improved over the course of the years. In review of her records, she had an ejection fraction in the 40s and now it is in the 50s. It was also noted her troponin was slightly elevated in the ind eterminate range at 0.128. In review of her records, this is slightly higher than what it has been i n the past. She is at risk of silent ischemia given that she has diabetes and has a history of smoki ng in the past. She has had a nuclear stress test back in 03/2016, which was reported as being negat barrett. At that time, she had some global hypokinesis, but no evidence of ischemia. Normally, I would not repeat a stress test within about a year, but given that she has end-stage renal disease and it w ould be more difficult to evaluate her for coronary artery disease. We will go ahead and repeat this given the elevated troponin and if this is negative, then I suspect that her symptoms are likely pul monary in origin and likely due to chronic obstructive pulmonary disease exacerbation. 2. For this reason, we will go ahead and place her on scheduled DuoNebs, as well as a low dose stero ids, and empiric antibiotics. 3. For end-stage renal disease, we will consult her contracts law professor for her maintenance hemodialysis. 4. For diabetes mellitus, continue her home medications as well as her sliding scale insulin.
[2017-08-04 20:31] LABS: Troponin I 0.133 ng/mL (< 0.028)
[2017-08-04] MEDS: cefTRIAXone\\ROCEPHIN 1 GM in Syringe 10 ML SLOW IVP SCH (20:38)
[2017-08-04] MEDS: Insulin NPH/Reg Insulin Hm 300 UNITS/3 ML VIAL SC SCH (20:48)
[2017-08-04] MEDS ORDERED: Heparin 5,000 UNITS/ML VIAL SC SCH (21:00)
[2017-08-04 21:28] LABS: Troponin I 0.128 ng/mL (< 0.028)
[2017-08-04] MEDS: Nitroglycerin 2% Ointment 1 INCH/1 GM Packet TOP SCH (22:37)
[2017-08-05] MEDS: Nitroglycerin 2% Ointment 1 INCH/1 GM Packet TOP SCH ×3 (05:14→23:05)
[2017-08-05 06:22] LABS: #Lymphocytes 0.6 thou/uL (1.20-3.40); #Monocytes 0.2 thou/uL (0.11-0.59); #Neutrophils 2.3 thou/uL (1.40-6.50); %Eosinophils 0.3 % (0.0-10.0); %Lymphocytes 20.4 % (21.0-51.0); %Monocytes 6.5 % (0.0-10.0); Hematocrit 34.3 % (36.0-47.0); Mean Platelet Volume 7.9 fL (7.4-10.4); Red Blood Cell (RBC) Count 3.77 mill/uL (4.20-5.40); White Blood Cell (WBC) Count 3.2 thou/uL (4.8-10.8)
[2017-08-05 06:27] LABS: Anion Gap 16 mmol/L (10-20); BUN (Urea Nitrogen) 54 mg/dL (9.8-20.1); Calc. Creatinine Clearance 9 mL/min (70-130); Carbon Dioxide 28 mmol/L (23-31); Chloride 98 mmol/L (98-107); Estimated GFR-MDRD 7
[2017-08-05] MEDS ORDERED: Insulin NPH/Reg Insulin Hm 300 UNITS/3 ML VIAL SC SCH (09:00)
--- NOTE | 2017-08-05 12:55 | NM ---
CARDIAC SPECT: HISTORY: A 61-year-old black female with chest pain, CHF, COPD, end-stage renal disease, hypertension, and dys lipidemia. TECHNIQUE: A myocardial perfusion scan was performed using the single-isotope 1-day protocol with Technetium 99m sestamibi. Ten mCi were injected intravenously for the rest exam followed by 33 mCi for the stress study. Pharmacologic stress with LexiScan is monitored and interpreted by Dr. Scott. FINDINGS: Homogeneous tracer distribution is seen in the myocardial segments on stress and rest images without fixed or reversible defects. GATED SPECT LVEF: 44%. WALL MOTION EXAM: Global hypokinesis. IMPRESSION: No evidence of reversible ischemia. POS: [facility]
[2017-08-05] MEDS: Pregabalin 75 MG CAP PO SCH ×2 (13:01→22:50)
[2017-08-05] MEDS: Calcium Acetate 667 MG CAP PO SCH ×3 (13:01→17:26)
[2017-08-05] MEDS: Azithromycin 250 MG TAB PO SCH (13:02)
[2017-08-05] MEDS: Losartan Potassium 25 MG TAB PO SCH (13:02)
[2017-08-05] MEDS: cloNIDine 0.3 MG TAB PO SCH ×2 (13:02→23:06)
[2017-08-05] MEDS: Sevelamer Carbonate 800 MG TAB PO SCH ×3 (13:02→17:26)
[2017-08-05] MEDS: Carvedilol 3.125 MG TAB PO SCH ×2 (13:02→22:52)
--- NOTE | 2017-08-05 14:39 | PDOC.PN ---
- Subjective Encounter Start Date: 08/05/17 Encounter Start Time: 14:37 Ms. Contreras was seen today in follow-up of shortness of breath. - Objective Resuscitation Status: Resuscitation Status FULL:Full Resuscitation MAR Reviewed: Yes Vital Signs & Weight: Vital Signs (12 hours) Temp Pulse Resp BP BP Pulse Ox 08/05/17 13:59 72 16 96 08/05/17 13:02 126/64 08/05/17 11:25 97.3 F L 70 16 187/79 H 99 08/05/17 07:59 98.1 F 74 16 08/05/17 07:54 97.7 F 58 L 16 158/77 H 97 08/05/17 07:27 74 16 96 08/05/17 03:20 98.1 F 65 18 126/64 94 L Weight Weight 165 lb 9.6 oz I&O: 08/04/17 08/05/17 08/06/17 06:59 06:59 06:59 Intake Total 372 250 Balance 372 250 Result Diagrams: 08/05/17 05:58 08/05/17 05:58 Additional Labs: Accuchecks 08/05/17 08/05/17 08/04/17 11:36 05:05 23:26 POC Glucose 176 H 277 H 208 H 08/04/17 20:42 POC Glucose 197 H Phys Exam - Physical Examination HEENT: PERRLA Respiratory: no wheezing, no rales, no rhonchi, clear to auscultation bilateral Cardiovascular: RRR, no significant murmur, no rub Gastrointestinal: soft, non-tender, positive bowel sounds Musculoskeletal: no edema Dx/Plan (1) Acute and chronic respiratory failure Code(s): J96.20 - ACUTE AND CHR RESP FAILURE, UNSP W HYPOXIA OR HYPERCAPNIA Status: Acute (2) COPD exacerbation Code(s): J44.1 - CHRONIC OBSTRUCTIVE PULMONARY DISEASE W (ACUTE) EXACERBATION Status: Acute (3) ESRD (end stage renal disease) on dialysis Code(s): N18.6 - END STAGE RENAL DISEASE; Z99.2 - DEPENDENCE ON RENAL DIALYSIS Status: Chronic Comment: HD per Renal service (4) Hypertension Code(s): I10 - ESSENTIAL (PRIMARY) HYPERTENSION Status: Chronic Qualifiers: (5) Insulin dependent diabetes mellitus Code(s): E11.9 - TYPE 2 DIABETES MELLITUS WITHOUT COMPLICATIONS; Z79.4 - CORRECTION (CURRENT) USE OF INSULIN Status: Chronic - Plan * Shortness of breath- her stress test was negative- I suspect her symptoms are related to a COPD exacerbation * ESRD- stable * HTN- blood pressure is elevated- will add Hydralazine PRN * DM- blood glucose is stable * She is stable for discharge home .
[2017-08-05] MEDS ORDERED: hydrALAZINE 25 MG TAB PO PRN (14:40)
[2017-08-05] MEDS ORDERED: Regadenoson 0.4 MG/5 ML SYRINGE ONE (17:11)
[2017-08-05] MEDS: Insulin NPH/Reg Insulin Hm 300 UNITS/3 ML VIAL SC SCH (22:48)
[2017-08-05] MEDS: Famotidine/PF 20 mg/2ml Vial SLOW IVP SCH (22:49)
[2017-08-05] MEDS: traZODone HCl 50 MG TAB PO SCH (22:50)
[2017-08-05] MEDS: cefTRIAXone\\ROCEPHIN 1 GM in Syringe 10 ML SLOW IVP SCH (22:52)
[2017-08-05] MEDS: Atorvastatin Calcium 20 MG TAB PO SCH (22:52)
[2017-08-06] MEDS: Nitroglycerin 2% Ointment 1 INCH/1 GM Packet TOP SCH (05:57)
[2017-08-06 07:47] VITALS: BP 128/64
[2017-08-06 07:53] VITALS: TEMP 97.7
[2017-08-06] MEDS: Azithromycin 250 MG TAB PO SCH (08:43)
[2017-08-06] MEDS: Sevelamer Carbonate 800 MG TAB PO SCH (08:43)
[2017-08-06] MEDS: Calcium Acetate 667 MG CAP PO SCH (08:43)
[2017-08-06] MEDS: Losartan Potassium 25 MG TAB PO SCH (08:44)
[2017-08-06] MEDS: Carvedilol 3.125 MG TAB PO SCH (08:44)
[2017-08-06] MEDS: cloNIDine 0.3 MG TAB PO SCH (08:44)
[2017-08-06] MEDS: Pregabalin 75 MG CAP PO SCH (08:44)
--- NOTE | 2017-08-06 09:42 | PDOC.EVN ---
Event Note - Event Note Event Note: I went to check on Ms. Contreras, and she was out of the room. she is expected to go home, awaiting her ride. No problems were voiced by the Nursing staff.
--- NOTE | 2017-08-06 12:04 | DIS ---
DATE OF ADMISSION: 08/04/2017 DATE OF DISCHARGE: 08/06/2017 PRIMARY CARE PROVIDER: Dr. Kaplan. DISCHARGE DISPOSITION: Home. PRIMARY DISCHARGE DIAGNOSES: 1. Acute on chronic respiratory failure secondary to chronic obstructive pulmonary disease exacerbat ion. 2. Chronic obstructive pulmonary disease exacerbation. 3. End-stage renal disease, on hemodialysis. 4. Chronic diastolic heart failure. 5. Hypertension. 6. Hyperlipidemia. DISCHARGE MEDICATIONS: Albuterol inhaler 2 puffs q.6 as needed, aspirin 81 mg daily, azithromycin 25 0 mg daily for 3 days, PhosLo 2001 mg t.i.d., carvedilol 3.125 mg twice a day, clonidine 0.3 mg twice daily, Lasix 40 mg daily, Apresoline 25 mg 3 times a day as needed for elevated blood pressure, Norc o 5/325 q.6 as needed, 70/30 insulin 20 units in the a.m. and 25 units in the p.m., Cozaar 50 mg orin y, meloxicam 7.5 mg twice daily, Protonix 40 mg twice a day, Lyrica 150 mg twice daily, Zoloft 100 mg at bedtime, Renvela 1600 mg t.i.d., Zocor 40 mg daily, trazodone 100 mg at bedtime, and Ambien 5 mg at bedtime. PROCEDURES DONE DURING ADMISSION: The patient had a nuclear stress test which was negative for any r eversible ischemia. She had an ejection fraction estimated at 44% as well as some global hypokinesis . CODE STATUS: FULL CODE. ALLERGIES: LISINOPRIL, AMITRIPTYLINE, HEPARIN, and TRAMADOL. HOSPITAL COURSE: Ms. Contreras is a pleasant 61-year-old female, who presented to the emergency room w ith complaints of shortness of breath. She also has a cough productive of some yellowish to green sp utum. She has a history of COPD. Chest x-ray was clear and she had a negative stress test. It is t herefore felt that these symptoms are related to an acute exacerbation of her COPD. She was placed o n antibiotics and DuoNebs and improved overnight and was subsequently able to be discharged home to [facility] emergency close followup with her primary care physician. She was also seen by her corrosion engineer and [facility] during the hospital stay as well.
== END 2017-08-06 09:30 | disposition home or self-care (01) ==
LOC: ERS 11:32 → 2SW 14:39
PROVIDERS: ADMIT Internal Medicine; ATTEND Internal Medicine
DX: J44.1 Chronic obstructive pulmonary disease with (acute) exacerbation (principal); J96.20 Acute and chronic respiratory failure, unspecified whether with hypoxia or hypercapnia; I13.2 Hypertensive heart and chronic kidney disease with heart failure and with stage 5 chronic kidney disease, or end stage renal disease; E11.22 Type 2 diabetes mellitus with diabetic chronic kidney disease; N18.6 End stage renal disease; I50.32 Chronic diastolic (congestive) heart failure; E78.5 Hyperlipidemia, unspecified; Z88.5 Allergy status to narcotic agent; Z88.8 Allergy status to other drugs, medicaments and biological substances; Z79.82 Long term (current) use of aspirin; Z79.4 Long term (current) use of insulin; Z79.899 Other long term (current) drug therapy; Z99.2 Dependence on renal dialysis; Z98.890 Other specified postprocedural states; Z87.891 Personal history of nicotine dependence; Z83.3 Family history of diabetes mellitus; Z82.49 Family history of ischemic heart disease and other diseases of the circulatory system
CPT/HCPCS: 71010; 78452; 80048; 80053; 82550; 82553; 82962 ×3; 83735; 83880; 84484 ×2; 85025 ×2; 87340; 93005; 93017; 94640 ×3; 94760 ×3; 96365; 96375 ×2; 96376 ×2; 97139; 99285; A9500; G0378; 36415; 36416; 90935; A4216; G0257; J0696; J1940; J2405; J2785; J2920; J3475; J7050; J7620; S0028

== ENCOUNTER 2017-11-04 10:47 | Inpatient (IN) | payer MEDICARE, MEDICAID ==
[2017-11-04 11:28] LABS: #Monocytes 0.7 thou/uL (0.11-0.59); %Basophils 0.5 % (0.0-1.0); %Eosinophils 0.5 % (0.0-10.0); %Lymphocytes 14.4 % (21.0-51.0); %Monocytes 10.4 % (0.0-10.0); %Neutrophils 74.3 % (42.0-75.0); Hemoglobin 12.5 g/dL (12.0-16.0); Mean Corpuscular HGB CONC 31.4 g/dL (32.0-36.0); Mean Corpuscular Hemoglobin 29.1 pg (27.0-31.0); Mean Corpuscular Volume 92.7 fl (81.0-99.0); Mean Platelet Volume 9.9 fL (7.4-10.4); Platelet Count 125 thou/uL (130-400); RBC Distribution Width 15.5 % (11.5-14.5); Red Blood Cell (RBC) Count 4.31 mill/uL (4.20-5.40); White Blood Cell (WBC) Count 6.7 thou/uL (4.8-10.8)
[2017-11-04 11:52] LABS: ALT (SGPT) 9 U/L (8-55); AST (SGOT) 19 U/L (5-34); Albumin 4.1 g/dL (3.4-4.8); Alkaline Phosphatase 114 U/L (40-150); Anion Gap 18 mmol/L (10-20); BUN (Urea Nitrogen) 39 mg/dL (9.8-20.1); Bilirubin, Total 1.5 mg/dL (0.2-1.2); CK (CPK) 114 U/L (29-168); Calc. Creatinine Clearance 0 mL/min (70-130); Calcium 9.2 mg/dL (7.8-10.44); Carbon Dioxide 26 mmol/L (23-31); Chloride 100 mmol/L (98-107); Estimated GFR-MDRD 7; Globulin 4.3 g/dL (2.4-3.5); Glucose 197 mg/dL (80-115); Lipase 13 U/L (8-78); Protein, Total 8.4 g/dL (6.0-8.3); Sodium 140 mmol/L (136-145)
--- NOTE | 2017-11-04 11:54 | RAD ---
PORTABLE CHEST: HISTORY: Chest pain. COMPARISON: 08/04/2017 FINDINGS: The heart is mildly enlarged. There are perihilar infiltrates, which may represent edema. Mild vasc ular engorgement. Small effusions cannot be excluded. POS: [facility]
[2017-11-04 11:56] LABS: CKMB 2.3 ng/mL (0-6.6)
[2017-11-04 12:02] LABS: Troponin I 0.362 ng/mL (< 0.028)
[2017-11-04] MEDS ORDERED: Morphine 2 MG/ML SYRINGE ONE (12:02)
[2017-11-04] MEDS ORDERED: hydrALAZINE 25 MG TAB PO PRN (14:29)
[2017-11-04] MEDS ORDERED: PROVENTIL INHALER 6.7 G (200 INHALATIONS) INH PRN (14:29)
[2017-11-04] MEDS ORDERED: Lidocaine 2% Viscous Solution 20 ML, Aluminum & Magnesium Hydroxide 30 ML, Donnatal Eli... SSW SCH (14:30)
[2017-11-04 14:54] LABS: Critical Call Chem Troponin I RESULT DECREASING; Troponin I 0.357 ng/mL (< 0.028)
--- NOTE | 2017-11-04 15:26 | HP ---
DATE OF ADMISSION: 11/04/2017 CHIEF COMPLAINT: Chest pain. HISTORY OF PRESENT ILLNESS: This is a 62-year-old female with a known history of en d-stage renal disease, history of hypertension and hyperlipidemia. 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 She presented today with complaint of chest bella n which started almost a week ago and has been severe 7/10 intensity chest pain located in the left p recordium, not radiating to the arm associated with nausea, no vomiting, no diarrhea, no constipation . Chest pain is aggravated on walking or any physical activity according to her. She tried morphine in the hospital with no help. She has been writhing with pain today. She was seen in the ER. Her initial EKG was normal, but she did have elevated troponins, which was 0.32. The patient did not mis s her dialysis. She had her last dialysis on Thursday and today being her next dialysis. She does not seem to be in volume overload state. She usually goes to [facility] for her medical c are, but because of worsening chest pain, she had to come to the ER. She never had been evaluated fo r cardiac problems in the past according to her. 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 PAST MEDICAL HISTORY: Significant for, 1. Chronic diastolic heart failure with an EF of 50%. 2. End-stage renal disease on Thursday, Thursday, and Thursday dialysis. 3. History of COPD. 4. History of hypertension. 5. History of hyperlipidemia. PAST SURGICAL HISTORY: History of carpal tunnel syndrome and AV fistula placement in the left arm. ALLERGIES: HEPARIN, AMITRIPTYLINE, LISINOPRIL and TRAMADOL. FAMILY HISTORY: Significant for diabetes and coronary artery disease in her mother and cancer in her sister, not sure what type of cancer it was. SOCIAL HISTORY: The patient is a former smoker. She quit smoking many years ago. No history of alc ohol, no history of illicit drug use. She lives alone. HOME MEDICATIONS: 1. Albuterol inhaler 2 puffs inhalation q.6 hours. 2. Aspirin 81 mg p.o. daily. 3. Azithromycin 250 mg p.o. daily. 4. Calcium acetate 2000 mg p.o. t.i.d. 5. Coreg 3.125 mg p.o. daily. 6. Clonidine 0.3 mg p.o. b.i.d. 7. Lasix 40 mg p.o. daily. 8. Hydralazine 25 mg p.o. t.i.d. 9. Hydrocodone. 10. Insulin, she takes 20 units in the morning and 25 units in the evening that is NPH. 11. Losartan 50 mg p.o. daily. 12. Meloxicam 1 tablet p.o. b.i.d. 13. Pantoprazole 40 mg p.o. b.i.d. 14. Pregabalin 150 mg capsule b.i.d. 15. Sertraline 100 mg p.o. at bedtime. 16. Sevelamer 600 mg p.o. t.i.d. 17. Simvastatin 40 mg p.o. at bedtime. 18. Trazodone 100 mg p.o. at bedtime. 19. Zolpidem 5 mg p.o. at bedtime. REVIEW OF SYSTEMS: All 12 systems are reviewed with the patient thoroughly and found to be negative at this time. Systems reviewed are HEENT, CVS, CONTACT LENS MOLDER, respiratory, GI, , musculoskeletal, skin, inte gument, and psychiatric. The following complete review of systems was negative, unless otherwise men tioned in the HPI or below: Constitutional: Weight loss or gain, sense of well-being, ability to conduct usual activities, exerc ise tolerance. Skin/Breast: Rash, itching, changes in hair growth or loss, nail changes, breast lumps, tenderness, swelling, nipple discharge. Eyes: Vision, double vision, tearing, blind spots, pain. ENT/Mouth: Headaches (location, time of onset, duration, precipitating factors), vertigo, lightheade dness, injury. Vision, double vision, tearing, blind spots, pain, nose bleeding, colds, obstruction, discharge, dental difficulties, gingival bleeding, dentures, neck stiffness, pain, tenderness, masses in thyroid or other areas Cardiovascular: Precordial pain, substernal distress, palpitations, syncope, dyspnea on exertion, or thopnea, nocturnal paroxysmal dyspnea, edema, cyanosis, hypertension, heart murmurs, varicosities, ph lebitis, claudication. Respiratory: Pain, shortness of breath, wheezing, stridor, cough, hemoptysis, fever or night sweats Gastrointestinal: Poor appetite, dysphagia, indigestion, abdominal pain, heartburn, eructation, naus ea, vomiting, hematemesis, jaundice, constipation, or diarrhea, abnormal stools (deyanira-colored, tarry, bloody, greasy, foul smelling), flatulence, hemorrhoids, recent changes in bowel habits. Genitourinary: Urgency, frequency, dysuria, nocturia, hematuria, polyuria, oliguria, unusual (or callie nge in) color of urine, stones, hesitancy, change in size of stream, dribbling, acute retention or in continence, libido, potency. Musculoskeletal: Pain, swelling, redness or heat of muscles or joints, limitation, of motion, muscul ar weakness, atrophy, cramps. Neurologic/Psychiatric: Convulsions, paralyses, tremor, incoordination, paraesthesias, difficulties with memory of speech, sensory or motor disturbances, or muscular coordination (ataxia, tremor), emot ional problems, anxiety, depression, previous psychiatric care, unusual perceptions, hallucinations. Allergy/Immunologic: Skin rash, anemia, bleeding tendency, polydipsia, polyuria, intolerance to heat or cold. PHYSICAL EXAMINATION: VITAL SIGNS: Blood pressure 130/88, heart rate is 89, respiratory rate is 18, saturation 98%. GENERAL: The patient is moderately built and moderately nourished. She does not appears to be in an y acute distress at this time. She is alert and oriented x3. HEENT: Atraumatic, normocephalic. PERRLA. Extraocular muscles were intact. Oral mucosa is pink an d moist. NECK: No JVD, no thyromegaly and no lymphadenopathy were noted. CARDIOVASCULAR: S1, S2 normal. No murmurs, no rubs, no gallops. LUNGS: Bilateral air entry was equal. No wheezing and no crackles. ABDOMEN: Soft, nontender, no guarding, no rebound tenderness. Bowel sounds normal. MUSCULOSKELETAL: No calf tenderness. No pedal edema. No joint tenderness, no joint swelling. SKIN: No cyanosis, no erythema, no rash, no pallor. NEUROLOGIC: Cranial nerve examination II-XII intact. No focal deficits were noted at this time. PSYCHIATRIC: No signs of suicidal ideation. No signs of coretta. LYMPHATICS: No evidence of any generalized lymph nodes were noted. LABORATORY DATA: WBC 6.7, hemoglobin is 12.5, hematocrit is 39.9, and platelets 125. Sodium is 140, potassium is 4.0, chloride is 100, bicarbonate is 26, BUN is 39, creatinine is 7.13, blood glucose 1 97. His total bilirubin is 1.5. Troponin is 0.362. IMAGING: Chest x-ray was done today showing evidence of enlarged heart, perihilar infiltrates which may represent edema. Small effusions cannot be excluded. ASSESSMENT AND PLAN: 1. Pfo-[id number] elevation myocardial infarction. 2. Possible gastritis. 3. History of chronic obstructive pulmonary disease. 4. Acute diastolic heart failure. 5. End-stage renal disease on hemodialysis. 6. Hypertension. 7. Hyperlipidemia. PLAN: 1. Plan is to closely monitor this patient. The patient has been having ongoing chest pain with zi vated troponins, but her EKG was normal which was reviewed along with the ER physician. At this time , we will continue the patient on aspirin, which she is already on 81 mg and simvastatin home dose an d continue with beta kushal 3.125 mg p.o. b.i.d. We will do a nitropatch on her q.8 hours and we wi ll also consult Cardiology as the patient never had any cardiac evaluations in the past. We will do a stat echo to look for any evidence of wall motion abnormalities and slowly monitor the troponins. 2. Patient has a history of gastritis and she is on meloxicam and the pain has been typical of gastr itis as the pain has been going on for almost a week. So we will try the GI cocktail at this time an d we will continue the patient on Protonix 40 mg twice a day and along with it, we will start the pat ient on Carafate 1 gram p.o. b.i.d. 3. Patient has known history of diabetes, well controlled at this time. We will continue the patien t's home dose of NPH insulin and closely monitor to keep the blood sugars in 140-180. 4. The patient has a history of end-stage renal disease on hemodialysis. Dr. Monreal has been consu lted. We will follow with his recommendations. The patient will have dialysis today. She has evide nce of bilateral pleural effusions suggestive of mild respiratory distress. 5. The patient has enlarged heart and we will do echo today as discussed above. Look for ejection f raction. Most likely, she has a diastolic dysfunction based on her volume overload status. 6. DVT prophylaxis, Lovenox 30 mg subcutaneously daily. I spent 75 minutes on this patient.
[2017-11-04] MEDS ORDERED: Acetaminophen 325 MG TAB PO PRN (15:38)
[2017-11-04] MEDS ORDERED: Mag-Al 1200 mg/1200 mg/30 ML UDCUP PO PRN (15:38)
[2017-11-04 15:55] VITALS: BMI 29.3
[2017-11-04] MEDS ORDERED: Aspirin 325 MG TAB PO SCH (16:00)
[2017-11-04] MEDS: Sucralfate 1 GM TAB PO SCH ×2 (17:49→21:43)
[2017-11-04] MEDS: Sevelamer Carbonate 800 MG TAB PO SCH (17:49)
[2017-11-04] MEDS: Calcium Acetate 667 MG CAP PO SCH (17:49)
[2017-11-04] MEDS ORDERED: Albuterol Sulfate 2.5 mg/3 ml Neb NEB PRN (17:51)
[2017-11-04] MEDS ORDERED: Furosemide 40 MG/4 ML VIAL SLOW IVP SCH (18:00)
[2017-11-04 19:36] LABS: Troponin I 0.385 ng/mL (< 0.028)
--- NOTE | 2017-11-04 20:04 | CON ---
DATE OF CONSULTATION: 11/04/2017 NEPHROLOGY CONSULTATION CONSULTING PHYSICIAN: Landon Vivar MD REASON FOR CONSULTATION: End-stage renal disease evaluation and care. REASON FOR ADMISSION: Chest pain. HISTORY OF PRESENT ILLNESS: This is a 62-year-old female with history of end-stage renal disease, CH F, COPD, hypertension came to the hospital with chest pain and is being evaluated. The patient gets dialysis on Thursday, Thursday, and Thursday. Today is her regular day. Nephrology consulted on hemodialysis. No fever or chills. No nausea or vomiting. Still having mild chest pain. Her troponin is being trended, which is slightly higher than her usual. No skin rash. PAST MEDICAL HISTORY: Positive for end-stage renal disease on hemodialysis Thursday, Thursday, Thursday ; CHF; COPD; hypertension; hyperlipidemia. PAST SURGICAL HISTORY: Dialysis access placements, carpal tunnel surgery. HOME MEDICATIONS: Albuterol, aspirin, calcium acetate, Coreg, clonidine, Lasix, hydralazine, losarta n, Meloxicam, sertraline, sevelamer, simvastatin, trazodone, zolpidem. ALLERGIES: LISINOPRIL, AMITRIPTYLINE, HEPARIN, TRAMADOL. SOCIAL HISTORY: No smoking, alcohol, or drug use. FAMILY HISTORY: No history of kidney disease. REVIEW OF SYSTEMS: The following complete review of systems was negative, unless otherwise mentioned in the HPI or below: Constitutional: Weight loss or gain, ability to conduct usual activities. Skin: Rash, itching. Eyes: Double vision, pain. ENT/Mouth: Nose bleeding, neck stiffness, pain, tenderness. Cardiovascular: Palpitations, dyspnea on exertion, orthopnea. Respiratory: Shortness of breath, wheezing, cough, hemoptysis, fever or night sweats. Gastrointestinal: Poor appetite, abdominal pain, heartburn, nausea, vomiting, constipation, or diarr hea. Genitourinary: Urgency, frequency, dysuria, nocturia. Musculoskeletal: Pain, swelling. Neurologic/Psychiatric: Anxiety, depression. Allergy/Immunologic: Skin rash, bleeding tendency. PHYSICAL EXAMINATION: GENERAL: This is a well-built female in no apparent distress. VITAL SIGNS: Temperature 98.3, pulse 112, respiratory rate 18, blood pressure 162/100. HEENT: Atraumatic, normocephalic. Oral mucosa is moist. NECK: Supple, no masses. CARDIOVASCULAR: S1, S2 heard. Rate and rhythm normal. RESPIRATORY: Clear. ABDOMEN: Soft. MUSCULOSKELETAL: 1+ edema. DERMATOLOGIC: No skin rash. NEUROLOGIC: Alert, awake. PSYCHIATRIC: Mood and affect normal. LABORATORY DATA: Hemoglobin is 12.5, potassium 4, BUN is 39, creatinine is 7.1. ASSESSMENT: 1. End-stage renal disease, on hemodialysis. We will continue on hemodialysis as tolerated. 2. Hypertension, stable. 3. Edema, controlled 4. Anemia. Hemoglobin is stable. PLAN: Plan is to continue on dialysis as tolerated. Plan is to have dialysis today. Dialysis nurse notified on dialysis as tolerated. Thank you for the consult.
[2017-11-04] MEDS ORDERED: Famotidine/PF 20 mg/2ml Vial SLOW IVP SCH (21:00)
[2017-11-04] MEDS: Nitroglycerin 2% Ointment 1 INCH/1 GM Packet TOP SCH (21:42)
[2017-11-04] MEDS: cloNIDine 0.3 MG TAB PO SCH (21:42)
[2017-11-04] MEDS: Carvedilol 3.125 MG TAB PO SCH (21:43)
[2017-11-04] MEDS: traZODone HCl 50 MG TAB PO SCH (21:43)
[2017-11-04] MEDS: Zolpidem Tartrate 5 MG TAB PO SCH (21:43)
[2017-11-04] MEDS: Atorvastatin Calcium 20 MG TAB PO SCH (21:44)
[2017-11-04] MEDS: Docusate 100 MG CAP PO SCH (21:45)
[2017-11-04] MEDS: HYDROcodone/Acetaminophen 5/325 mg Tablet PO PRN (21:51)
[2017-11-05 05:51] LABS: Band 1 % (5-11); Hemoglobin 11.6 g/dL (12.0-16.0); Lymphocytes 36 % (21-51); MDiff Complete? YES; Mean Corpuscular Hemoglobin 29.2 pg (27.0-31.0); Mean Corpuscular Volume 91.2 fl (81.0-99.0); Mean Platelet Volume 9.5 fL (7.4-10.4); Monocytes 6 % (0-10); Myelocyte 1 % (0-0); Neutrophil 55 % (42-75); PLT Morphology Comment Appears Decreased; Platelet Count 108 thou/uL (130-400); RBC Distribution Width 15.2 % (11.5-14.5); Red Blood Cell (RBC) Count 3.97 mill/uL (4.20-5.40)
[2017-11-05] MEDS: Nitroglycerin 2% Ointment 1 INCH/1 GM Packet TOP SCH ×4 (06:19→20:56)
[2017-11-05 08:14] LABS: BUN (Urea Nitrogen) 24 mg/dL (9.8-20.1); Calc. Creatinine Clearance 13 mL/min (70-130); Chloride 101 mmol/L (98-107); Cholesterol 113 mg/dl (< 200 Desired); Estimated GFR-MDRD 10; HDL Cholesterol 38 mg/dL (>60 Neg Risk); LDL Cholesterol, Calculated 53 mg/dL; Triglycerides 109 mg/dL (Less than 150)
[2017-11-05 09:31] LABS: Anion Gap 16 mmol/L (10-20); Calcium 8.6 mg/dL (7.8-10.44); Carbon Dioxide 26 mmol/L (23-31); Glucose 176 mg/dL (80-115); Potassium 3.7 mmol/L (3.5-5.1); Sodium 139 mmol/L (136-145)
--- NOTE | 2017-11-05 09:42 | PRG ---
DATE OF SERVICE: 11/05/2017 SUBJECTIVE: Patient was seen and examined at bedside and overnight events noted. Patient denies any shortness of breath or chest pain or palpitation. No history of nausea or vomiting or diarrhea or f ever or chills or cramps. OBJECTIVE: GENERAL: This is a well-built female in no apparent distress. VITAL SIGNS: Temperature 98.7, pulse 74, respiratory rate 18, blood pressure 119/63. HEENT: Atraumatic, normocephalic. Oral mucosa is moist. NECK: Supple. CARDIOVASCULAR: S1, S2 heard. Rate and rhythm regular. RESPIRATORY: Clear to auscultation. GASTROINTESTINAL: Abdomen is soft. MUSCULOSKELETAL: No tenderness. No edema. DERMATOLOGIC: No skin rash. NEUROLOGIC: Alert and awake and oriented x3. No focal neurologic deficits. Moving all the extremiti es. PSYCHIATRIC: Mood and affect normal. LABORATORY DATA: No labs done today. ASSESSMENT AND PLAN: 1. End-stage renal disease, hemodialysis as tolerated on Thursday, Thursday, and Thursday. Had dialysi s today, tolerated well. 2. Anemia. Hemoglobin is stable. 3. Hypertension. 4. Edema. 5. Cardiorenal syndrome. 6. Chest pain. Follow with primary care. 7. Overall tolerating dialysis. We will continue dialysis on Thursday, Thursday, and Thursday.
[2017-11-05] MEDS: Sucralfate 1 GM TAB PO SCH ×4 (09:53→20:49)
[2017-11-05] MEDS: Calcium Acetate 667 MG CAP PO SCH ×3 (09:53→16:48)
[2017-11-05] MEDS: Sevelamer Carbonate 800 MG TAB PO SCH ×3 (09:53→16:48)
[2017-11-05] MEDS: Aspirin 325 MG TAB PO SCH ×2 (09:54→10:13)
[2017-11-05] MEDS: Carvedilol 3.125 MG TAB PO SCH ×2 (09:55→20:49)
[2017-11-05] MEDS: Enoxaparin Sodium 30 MG/0.3 ML SYRINGE SC SCH ×2 (09:55→12:56)
[2017-11-05] MEDS: Docusate 100 MG CAP PO SCH ×3 (09:55→20:51)
[2017-11-05] MEDS: Losartan 25 MG TAB PO SCH (09:56)
[2017-11-05] MEDS: Pregabalin 75 MG CAP PO SCH (09:56)
[2017-11-05] MEDS: Furosemide 40 MG TAB PO SCH (09:56)
[2017-11-05] MEDS: cloNIDine 0.3 MG TAB PO SCH ×2 (12:55→20:49)
[2017-11-05] MEDS: Insulin NPH/Reg Insulin Hm 300 UNITS/3 ML VIAL SC SCH (13:05)
--- NOTE | 2017-11-05 13:37 | PDOC.PN ---
- Subjective Encounter Start Date: 11/05/17 Encounter Start Time: 11:00 PAtient is seen today, alert and oriented. C/o Right lower Extremity pain with swelling on Tibia shaft. Persistant Bonifacio pain. releived with Morphine. - Objective MAR Reviewed: Yes Vital Signs & Weight: Vital Signs (12 hours) Temp Pulse Resp BP BP Pulse Ox 11/05/17 12:55 117/64 11/05/17 12:00 97.3 F L 68 16 111/63 92 L 11/05/17 09:15 97.3 F L 68 16 95 11/05/17 04:00 97.7 F 59 L 18 119/63 95 Weight Weight 160 lb 6.4 oz I&O: 11/04/17 11/05/17 11/06/17 06:59 06:59 06:59 Output Total 1889 Balance -1889 Result Diagrams: 11/05/17 05:05 11/05/17 07:35 Additional Labs: Accuchecks 11/05/17 11/05/17 11/05/17 11:35 09:46 06:03 POC Glucose 196 H 184 H 230 H 11/04/17 20:41 POC Glucose 97 Radiology Reviewed by me: Yes EKG Reviewed by me: Yes Phys Exam - Physical Examination HEENT: PERRLA, moist MMs Neck: no nodes, no JVD Respiratory: no wheezing, no rales Cardiovascular: RRR, no significant murmur Gastrointestinal: soft, non-tender Musculoskeletal: no edema, pulses present Nodular tender Swelling over the Right Shaft of Tibia. Neurological: non-focal, normal sensation Lymphatic: no nodes Psychiatric: normal affect Skin: no rash, normal turgor Dx/Plan (1) Acute pulmonary edema Code(s): J81.0 - ACUTE PULMONARY EDEMA Status: Acute Comment: Improved, continue volume removal with HD, monitor clinically, encourage compliance with HD as outpt (2) Anxiety Code(s): F41.9 - ANXIETY DISORDER, UNSPECIFIED Status: Acute Comment: Continue with Ativan as needed. (3) Atypical chest pain Code(s): R07.89 - OTHER CHEST PAIN Status: Acute Comment: Waiitng Cardiology evalaution, pt has persistant Trop elevation but is tredning down today, EKG repat were normnal. Echo is pending too. (4) CHF exacerbation Code(s): I50.9 - HEART FAILURE, UNSPECIFIED Status: Acute Comment: Improving with HD, continue on home dose of lasix. Lopez Diastolic diysfucntion., EF>40% previous echo. (5) Elevated troponin Code(s): R79.89 - OTHER SPECIFIED ABNORMAL FINDINGS OF BLOOD CHEMISTRY Status : Acute Comment: See above plan. (6) ESRD (end stage renal disease) on dialysis Code(s): N18.6 - END STAGE RENAL DISEASE; Z99.2 - DEPENDENCE ON RENAL DIALYSIS Status: Chronic Comment: HD per Renal service (7) Hypertension Code(s): I10 - ESSENTIAL (PRIMARY) HYPERTENSION Status: Chronic Qualifiers: Comment: well controlled , today low BP, will hold Clonidine. - Plan cont current plan of care, syed catheter, PT/OT, respiratory therapy, incentive spirometry, DVT proph w/SCDs * . - Discharge Day Encounter end time: 11:35 Review of Systems - Review of Systems Eyes: negative: Pain, Vision Change, Conjunctivae Inflammation, Eyelid Inflammation, Redness, Other ENT: negative: Ear Pain, Ear Discharge, Nose Pain, Nose Discharge, Nose Congestion, Mouth Pain, Mouth Swelling, Throat Pain, Throat Swelling, Other Respiratory: negative: Cough, Dry, Shortness of Breath, Hemoptysis, SOB with Excertion, Pleuritic Pain, Sputum, Wheezing Cardiovascular: negative: chest pain, palpitations, orthopnea, paroxysmal nocturnal dyspnea, edema, light headedness, other Gastrointestinal: negative: Nausea, Vomiting, Abdominal Pain, Diarrhea, Constipation, Melena, Hematochezia, Other Musculoskeletal: Leg Pain. negative: Neck Pain, Shoulder Pain, Arm Pain, Back Pain, Hand Pain, Foot Pain, Other Skin: negative: Rash, Lesions, [place], Bruising, Other Neurological: negative: Weakness, Numbness, Incoordination, Change in Speech, Confusion, Seizures, Other - Medications/Allergies Allergies/Adverse Reactions: Allergies Allergy/AdvReac Type Severity Reaction Status Date / Time lisinopril Allergy Severe Verified 07/08/17 23:57 amitriptyline HCl Allergy Swelling Verified 07/08/17 23:57 [From Elavil] heparin Allergy Rash Verified 08/04/17 20:07 tramadol Allergy Nausea Verified 07/08/17 23:57 Medications: Current Medications Acetaminophen (Tylenol) 650 mg PO Q4H PRN PRN Reason: Headache/Fever or Pain Hydrocodone Bitart/Acetaminophen ([place] 5/325) 1 tab PO Q4H PRN PRN Reason: Moderate Pain (4-6) Last Admin: 11/04/17 21:51 Dose: 1 tab Al Hydroxide/Mg Hydroxide (Maalox) 30 ml PO Q6H PRN PRN Reason: Heartburn or Indigestion Albuterol Sulfate (Proventil Hfa) 2 puff INH Q6H PRN PRN Reason: SOB &/or Wheezing Albuterol Sulfate (Ventolin) 2.5 mg NEB Q2H PRN PRN Reason: SOB &/or Wheezing Aspirin (Aspirin) 325 mg PO DAILY [facility] Last Admin: 11/05/17 10:13 Dose: 325 mg Atorvastatin Calcium (Lipitor) 20 mg PO HS [facility] Last Admin: 11/04/17 21:44 Dose: 20 mg Calcium Acetate (Phoslo) 2,001 mg PO TID-WM [facility] Last Admin: 11/05/17 13:12 Dose: 2,001 mg Carvedilol (Coreg) 3.125 mg PO BID [facility] Last Admin: 11/05/17 09:55 Dose: 3.125 mg Clonidine (Catapres) 0.3 mg PO BID [facility] Last Admin: 11/05/17 12:55 Dose: Not Given Docusate Sodium (Colace) 100 mg PO BID [facility] Last Admin: 11/05/17 10:14 Dose: Not Given Enoxaparin Sodium (Lovenox) 30 mg SC 0900 [facility] Last Admin: 11/05/17 12:56 Dose: Not Given Furosemide (Lasix) 40 mg PO DAILY [facility] Last Admin: 11/05/17 09:56 Dose: 40 mg Hydralazine HCl (Apresoline) 25 mg PO TID PRN PRN Reason: SBP Greater Than 170 Insulin Human Isoph/Insulin Regular (Humulin 70/30) 20 units SC QAM [facility] Last Admin: 11/05/17 13:05 Dose: 20 unit Losartan Potassium (Cozaar) 50 mg PO DAILY [facility] Last Admin: 11/05/17 09:56 Dose: 50 mg Nitroglycerin (Nitro-Bid 2% Ointment) 0.5 inch TOP Q8HR [facility] Last Admin: 11/05/17 06:19 Dose: 0.5 inch Ondansetron HCl (Zofran Odt) 4 mg PO Q6H PRN PRN Reason: Nausea/Vomiting Pantoprazole Sodium (Protonix) 40 mg PO BID [facility] Last Admin: 11/05/17 09:56 Dose: 40 mg Pregabalin (Lyrica) 75 mg PO DAILY [facility] Last Admin: 11/05/17 09:56 Dose: 75 mg Sertraline HCl (Zoloft) 100 mg PO [facility] Last Admin: 11/04/17 21:44 Dose: 100 mg Sevelamer Carbonate (Renvela) 1,600 mg PO TID-[facility] Last Admin: 11/05/17 13:05 Dose: 1,600 mg Sucralfate (Carafate) 1 gm PO [facility] Last Admin: 11/05/17 13:05 Dose: 1 gm Trazodone HCl (Desyrel) 100 mg PO [facility] Last Admin: 11/04/17 21:43 Dose: 100 mg Zolpidem Tartrate (Ambien) 5 mg PO [facility] Last Admin: 11/04/17 21:43 Dose: 5 mg
[2017-11-05] MEDS: HYDROcodone/Acetaminophen 5/325 mg Tablet PO PRN (14:32)
--- NOTE | 2017-11-05 16:18 | RAD ---
RIGHT LOWER LEG TWO VIEWS 11/05/17 HISTORY: Right leg mass. FINDINGS: Tibia and fibula are intact. No acute fracture, dislocation, aggressive osseous erosions or soft tiss ue opacities are apparent. Calcification is demonstrated within the arterial structures. IMPRESSION: 1. No acute osseous abnormalities are demonstrated. 2. Atherosclerosis. POS: [facility]
--- NOTE | 2017-11-05 16:27 | PDOC.CTH ---
<Shae Edmonds - Last Filed: 11/05/17 16:24> Cardiology Progress Note - Subjective The pt seen and examined. No overnight events. She still complains of CP in mediastinal area when she moves and coughs. She also complains of pain to her RLE. X ray showed no evidences of any abnormalities. - Objective Vital Signs Temp Pulse Resp BP BP Pulse Ox 11/05/17 12:55 117/64 11/05/17 12:00 97.3 F L 68 16 111/63 92 L 11/05/17 09:15 97.3 F L 68 16 95 Weight 160 lb 6.4 oz 11/04/17 11/05/17 11/06/17 06:59 06:59 06:59 Output Total 1889 Balance -1889 - Physical Examination General/Neuro: alert & oriented x3 Neck: no JVD present Lungs: CTA (diminished at bases) Heart: RRR Abdomen: soft Extremities: other: (No edema; 2+ pulses in BLE) - Telemetry Telemetry Rhythm: SR - Labs Result Diagrams: 11/05/17 05:05 11/05/17 07:35 Troponin/CKMB CK-MB (CK-2) 2.3 ng/mL (0-6.6) 11/04/17 10:54 Troponin I 0.220 ng/mL (< 0.028) H 11/05/17 11:33 - Assessment/Plan 1. Resp. failure 2ndary to Acute pulmonary edema - stable with RA; managed by pcp 2. Chronic diastolic HF - stable with Lasix 40mg daily, BBlocker, and ARB. 3. HTN - well controlled with current medication 4. ESRD with HD on MWF - managed by manager of software 5. DM type 2 - on SS Insulin; managed by PCP 6. Anxiety - stable MAR reviewed Review of Systems - Review of Systems Constitutional: reports: no symptoms reported EENTM: reports: no symptoms reported Respiratory: reports: no symptoms reported Cardiac (ROS): reports: no symptoms reported ABD/GI: reports: no symptoms reported : reports: no symptoms reported Musculoskeletal: reports: no symptoms reported <Carl Harris - Last Filed: 11/05/17 19:18> Cardiology Progress Note - Objective Vital Signs Temp Pulse Resp BP BP Pulse Ox 11/05/17 12:55 117/64 11/05/17 12:00 97.3 F L 68 16 111/63 92 L 11/05/17 09:15 97.3 F L 68 16 95 Weight 160 lb 6.4 oz 11/04/17 11/05/17 11/06/17 06:59 06:59 06:59 Output Total 1889 Balance -1889 - Labs Result Diagrams: 11/05/17 05:05 11/05/17 07:35 Troponin/CKMB CK-MB (CK-2) 2.3 ng/mL (0-6.6) 11/04/17 10:54 Troponin I 0.220 ng/mL (< 0.028) H 11/05/17 11:33 - Assessment/Plan Pt. was seen and eval. by me. I agree with the A/P by the UNIVERSITY ADMINISTRATOR.Her pain is atypical for CAD.She had a normal cardiac cath in 2014 and the EF was considered normal. The elevated CIE's do not indicate a true DC probably in tis case. She is stable from a cardoiac standpoint and I will sign off.
[2017-11-05] MEDS: Ondansetron ODT 4 MG TAB PO PRN (16:49)
[2017-11-05] MEDS: traZODone HCl 50 MG TAB PO SCH (20:49)
[2017-11-05] MEDS: Atorvastatin Calcium 20 MG TAB PO SCH (20:50)
[2017-11-05] MEDS: Zolpidem Tartrate 5 MG TAB PO SCH (20:50)
[2017-11-06 05:13] LABS: #Basophils 0.1 thou/uL (0.0-0.2); #Eosinphils 0.1 thou/uL (0.0-0.7); #Lymphocytes 1.2 thou/uL (1.20-3.40); #Monocytes 0.5 thou/uL (0.11-0.59); #Neutrophils 2.7 thou/uL (1.40-6.50); %Basophils 1.2 % (0.0-1.0); %Eosinophils 1.5 % (0.0-10.0); %Lymphocytes 27.1 % (21.0-51.0); %Monocytes 11.2 % (0.0-10.0); %Neutrophils 59.1 % (42.0-75.0); Mean Corpuscular Hemoglobin 29.2 pg (27.0-31.0); Mean Corpuscular Volume 91.3 fl (81.0-99.0); Mean Platelet Volume 9.4 fL (7.4-10.4); Platelet Count 112 thou/uL (130-400); RBC Distribution Width 14.8 % (11.5-14.5); Red Blood Cell (RBC) Count 4.11 mill/uL (4.20-5.40); White Blood Cell (WBC) Count 4.6 thou/uL (4.8-10.8)
[2017-11-06 05:19] LABS: Anion Gap 16 mmol/L (10-20); BUN (Urea Nitrogen) 36 mg/dL (9.8-20.1); Calc. Creatinine Clearance 11 mL/min (70-130); Calcium 8.5 mg/dL (7.8-10.44); Carbon Dioxide 23 mmol/L (23-31); Chloride 99 mmol/L (98-107); Estimated GFR-MDRD 9; Glucose 136 mg/dL (80-115); Potassium 4.8 mmol/L (3.5-5.1); Sodium 133 mmol/L (136-145)
[2017-11-06] MEDS: Nitroglycerin 2% Ointment 1 INCH/1 GM Packet TOP SCH ×2 (05:36→15:09)
[2017-11-06] MEDS: Aspirin 325 MG TAB PO SCH (11:36)
[2017-11-06] MEDS: Calcium Acetate 667 MG CAP PO SCH ×2 (11:36→15:08)
[2017-11-06] MEDS: Sevelamer Carbonate 800 MG TAB PO SCH ×2 (11:36→15:09)
[2017-11-06] MEDS: Sucralfate 1 GM TAB PO SCH ×2 (11:36→15:08)
[2017-11-06] MEDS: Carvedilol 3.125 MG TAB PO SCH (11:36)
[2017-11-06] MEDS: Insulin NPH/Reg Insulin Hm 300 UNITS/3 ML VIAL SC SCH (11:39)
[2017-11-06] MEDS: Enoxaparin Sodium 30 MG/0.3 ML SYRINGE SC SCH (11:42)
[2017-11-06] MEDS: Ondansetron ODT 4 MG TAB PO PRN (11:48)
[2017-11-06] MEDS: Losartan 25 MG TAB PO SCH (12:07)
[2017-11-06] MEDS: Furosemide 40 MG TAB PO SCH (12:08)
[2017-11-06] MEDS: Pregabalin 75 MG CAP PO SCH (12:08)
[2017-11-06] MEDS: cloNIDine 0.3 MG TAB PO SCH (12:09)
[2017-11-06] MEDS: Docusate 100 MG CAP PO SCH (12:10)
[2017-11-06 15:10] VITALS: BP 122/59; TEMP 98
[2017-11-06] MEDS: HYDROcodone/Acetaminophen 5/325 mg Tablet PO PRN (15:53)
--- NOTE | 2017-11-06 19:33 | PRG ---
DATE OF SERVICE: 11/06/2017 SUBJECTIVE: Patient was seen and examined at bedside and overnight events noted. Patient denies any shortness of breath or chest pain or palpitation. No history of nausea or vomiting or diarrhea or f ever or chills or cramps. OBJECTIVE: GENERAL: This is a well-built female in no apparent distress. VITAL SIGNS: Temperature 98.0, pulse 56, respiratory 16, blood pressure 131/73. HEENT: Atraumatic, normocephalic. Oral mucosa is moist. NECK: Supple. CARDIOVASCULAR: S1, S2 heard. Rate and rhythm regular. RESPIRATORY: Clear to auscultation. GASTROINTESTINAL: Abdomen is soft. MUSCULOSKELETAL: No tenderness, no edema. DERMATOLOGIC: No skin rash. NEUROLOGIC: Alert and awake and oriented x3. No focal neurologic deficits. Moving all the extremit ies. PSYCHIATRIC: Mood and affect normal. LABORATORY DATA: Potassium is 4.8, BUN is 36, creatinine is 5.9. ASSESSMENT AND PLAN: 1. End-stage renal disease on hemodialysis. Plan is to continue on dialysis as tolerated. 2. Hypertension. Control blood pressure and monitor blood pressure. 3. Edema, remove fluid. 4. Cardiorenal syndrome. Plan is to continue on dialysis as tolerated.
--- NOTE | 2017-11-07 17:34 | EKG ---
Test Reason : Blood Pressure : / mmHG Vent. Rate : 100 BPM Atrial Rate : 093 BPM P-R Int : 144 ms QRS Dur : 084 ms QT Int : 392 ms P-R-T Axes : 074 -09 265 degrees QTc Int : 505 ms Sinus rhythm with Premature supraventricular complexes Septal infarct , age undetermined Abnormal ECG Confirmed by STEPHANIE YANG, ISSA ([id number]), non linear editor DANTE HERNANDEZ ([id number]) on 11/07/2017 5:33:46 PM Referred By: Confirmed By:ISSA BROWN MD
--- NOTE | 2017-11-11 06:51 | EKG ---
Test Reason : C/O CHEST PAIN Blood Pressure : / mmHG Vent. Rate : 063 BPM Atrial Rate : 063 BPM P-R Int : 146 ms QRS Dur : 084 ms QT Int : 522 ms P-R-T Axes : 078 -08 259 degrees QTc Int : 534 ms Sinus rhythm with Premature atrial complexes Nonspecific ST and T wave abnormality Prolonged QT Abnormal ECG When compared with ECG of 04-NOV-2017 10:57, (Unconfirmed) Vent. rate has decreased BY 37 BPM Criteria for Septal infarct are no longer Present T wave inversion now evident in Anterior leads Confirmed by DR. Zeferino DELANEY ([id number]) on 11/11/2017 6:51:17 AM Referred By: MEMO Confirmed By:DR. Zeferino DELANEY
== END 2017-11-06 18:16 | disposition home or self-care (01) | DRG 291 ==
LOC: ERS 10:47 → 2SW 13:38 → OBSVTOIN 15:38 → 2NO 21:04
PROVIDERS: ADMIT Family Medicine; ATTEND Family Medicine
PROC: 5A1D70Z Performance of Urinary Filtration, Intermittent, Less than 6 Hours Per Day (ICD-10-PCS; principal; 2017-11-04)
PROC: 5A1D70Z Performance of Urinary Filtration, Intermittent, Less than 6 Hours Per Day (ICD-10-PCS; 2017-11-05)
DX: I13.2 Hypertensive heart and chronic kidney disease with heart failure and with stage 5 chronic kidney disease, or end stage renal disease (principal); N18.6 End stage renal disease; J96.90 Respiratory failure, unspecified, unspecified whether with hypoxia or hypercapnia; I50.33 Acute on chronic diastolic (congestive) heart failure; E11.22 Type 2 diabetes mellitus with diabetic chronic kidney disease; Z99.2 Dependence on renal dialysis; Z79.4 Long term (current) use of insulin; F41.9 Anxiety disorder, unspecified; R79.89 Other specified abnormal findings of blood chemistry; J44.9 Chronic obstructive pulmonary disease, unspecified; Z91.15 Patient's noncompliance with renal dialysis; F32.9 Major depressive disorder, single episode, unspecified; Z87.891 Personal history of nicotine dependence; E78.5 Hyperlipidemia, unspecified; D64.9 Anemia, unspecified; I25.10 Atherosclerotic heart disease of native coronary artery without angina pectoris
CPT/HCPCS: 36415; 36416; 71045; 80048; 80053; 80061; 82553; 83690; 84484; 85025; 90935; 93005; 93010; 93306; 94760; 96374; G0257; J1650; J2270; Q0162

== ENCOUNTER 2017-11-18 17:17 | Emergency (ER) | payer MEDICARE, MEDICAID ==
[2017-11-18 21:04] LABS: ALT (SGPT) 7 U/L (8-55); AST (SGOT) 14 U/L (5-34); Albumin 3.7 g/dL (3.4-4.8); Alkaline Phosphatase 160 U/L (40-150); Anion Gap 22 mmol/L (10-20); BUN (Urea Nitrogen) 67 mg/dL (9.8-20.1); Bilirubin, Total 0.8 mg/dL (0.2-1.2); CK (CPK) 64 U/L (29-168); Calc. Creatinine Clearance 0 mL/min (70-130); Carbon Dioxide 23 mmol/L (23-31); Chloride 100 mmol/L (98-107); Estimated GFR-MDRD 5; Globulin 4.3 g/dL (2.4-3.5); Glucose 215 mg/dL (80-115); Lipase 13 U/L (8-78); Magnesium 2.3 mg/dL (1.6-2.6); Potassium 5.1 mmol/L (3.5-5.1); Sodium 140 mmol/L (136-145)
[2017-11-18 21:07] LABS: CKMB 2.4 ng/mL (0-6.6); Troponin I 0.069 ng/mL (< 0.028)
--- NOTE | 2017-11-18 21:55 | RAD ---
RADIOGRAPH CHEST 1 VIEW: Date: 11/18/17 Time: 9:03 p.m. HISTORY: 62-year-old female with acute chest pain. COMPARISON: 11/04/17 FINDINGS: Again noted is the cardiomegaly. There is prominence of the upper lobe pulmonary vessels. Bilateral p erihilar haziness, but less prominent than on the prior study, especially on the right. No pneumothor ax. Again noted are the left subclavian vascular and axillary vascular stents. IMPRESSION: 1. Cardiomegaly. 2. Probable mild pulmonary interstitial edema, which is evidence for congestive heart failure. MAYURI [] POS: [facility]
[2017-11-18] MEDS ORDERED: Nitroglycerin 0.4 MG TAB (25 Tab Bottle) ONE (23:18)
[2017-11-18] MEDS ORDERED: Morphine 10 MG/ML VIAL ONE (23:25)
[2017-11-18] MEDS ORDERED: Ondansetron HCl/PF 4 MG/2 ML Vial ONE (23:25)
[2017-11-19] MEDS ORDERED: Furosemide 40 MG/4 ML VIAL ONE (00:41)
[2017-11-19 01:14] LABS: Troponin I 0.091 ng/mL (< 0.028)
[2017-11-19] MEDS ORDERED: HYDROcodone/Acetaminophen 5/325 mg Tablet ONE (01:25)
== END 2017-11-19 01:33 | disposition home or self-care (01) ==
LOC: ERS 17:17
DX: J44.1 Chronic obstructive pulmonary disease with (acute) exacerbation (principal); I11.0 Hypertensive heart disease with heart failure; I50.9 Heart failure, unspecified; E11.9 Type 2 diabetes mellitus without complications; F32.9 Major depressive disorder, single episode, unspecified; F41.9 Anxiety disorder, unspecified; Z87.891 Personal history of nicotine dependence; Z79.82 Long term (current) use of aspirin; Z79.899 Other long term (current) drug therapy; Z79.4 Long term (current) use of insulin
CPT/HCPCS: 36415; 71045; 80053; 82553; 83690; 83735; 83880; 84484; 93005; 94640; 96374; 96375; J1940; J2270; J2405; J7620

== ENCOUNTER 2017-11-24 12:20 | Observation (INO) | payer MEDICARE, MEDICAID ==
[2017-11-24 13:46] LABS: Hemoglobin 12.1 g/dL (12.0-16.0); Mean Corpuscular HGB CONC 32.4 g/dL (32.0-36.0); Mean Corpuscular Hemoglobin 28.7 pg (27.0-31.0); Mean Corpuscular Volume 88.6 fl (81.0-99.0); Mean Platelet Volume 9.2 fL (7.4-10.4); Platelet Count 119 thou/uL (130-400); RBC Distribution Width 15.2 % (11.5-14.5); White Blood Cell (WBC) Count 4.8 thou/uL (4.8-10.8)
[2017-11-24 14:09] LABS: Anisocytosis SLIGHT = 6-15 cells (100X) (0-5/hpf); Band 2 % (5-11); Lymphocytes 27 % (21-51); MDiff Complete? YES; Monocytes 7 % (0-10); Neutrophil 64 % (42-75); Ovalocytes SLIGHT = 2-5 cells (100X) (0-1/hpf); PLT Morphology Comment Appears Decreased; Polychromasia SLIGHT = 2-3 cells (100X) (0-2/hpf)
[2017-11-24 14:10] LABS: ALT (SGPT) 8 U/L (8-55); AST (SGOT) 14 U/L (5-34); Albumin 3.6 g/dL (3.4-4.8); Alkaline Phosphatase 95 U/L (40-150); Anion Gap 20 mmol/L (10-20); BUN (Urea Nitrogen) 50 mg/dL (9.8-20.1); Bilirubin, Total 0.9 mg/dL (0.2-1.2); CK (CPK) 87 U/L (29-168); CKMB 2.3 ng/mL (0-6.6); Calc. Creatinine Clearance 0 mL/min (70-130); Calcium 8.1 mg/dL (7.8-10.44); Carbon Dioxide 27 mmol/L (23-31); Chloride 100 mmol/L (98-107); Estimated GFR-MDRD 6; Globulin 3.6 g/dL (2.4-3.5); Glucose 75 mg/dL (80-115); Potassium 4.5 mmol/L (3.5-5.1); Protein, Total 7.2 g/dL (6.0-8.3); Sodium 142 mmol/L (136-145); Troponin I 0.094 ng/mL (< 0.028)
[2017-11-24] MEDS ORDERED: Furosemide 40 MG/4 ML VIAL ONE (14:12)
[2017-11-24] MEDS ORDERED: Nitroglycerin 2% Ointment 1 INCH/1 GM Packet ONE ×2 (14:13)
--- NOTE | 2017-11-24 14:16 | RAD ---
PORTABLE CHEST ONE VIEW: Date: 11-24-17 Time: 1:13 p.m. History: Shortness of breath, chest pain, dialysis patient. FINDINGS/IMPRESSION: Comparison is made with exam of 11-18-17. The heart is enlarged. There is bilateral interstitial perihilar edema. No pneumothoraces or pleural effusions are seen. POS: C
[2017-11-24] MEDS ORDERED: Acetaminophen 500 MG TAB ONE (14:25)
[2017-11-24] MEDS ORDERED: cloNIDine 0.1 MG TAB ONE ×2 (15:11)
[2017-11-24] MEDS ORDERED: HYDROcodone/Acetaminophen 7.5/325 mg Tablet ONE (17:27)
[2017-11-24 18:38] LABS: Troponin I 0.101 ng/mL (< 0.028)
[2017-11-24] MEDS ORDERED: Senokot 8.6 MG TAB PO PRN (18:52)
[2017-11-24] MEDS ORDERED: Dextrose 5% in Water 1,000 ML IV PRN (18:52)
[2017-11-24] MEDS ORDERED: HumaLOG 300 UNITS/3 ML VIAL SC PRN (18:52)
[2017-11-24] MEDS ORDERED: hydrALAZINE 25 MG TAB PO PRN (18:52)
[2017-11-24] MEDS ORDERED: Guaifenesin DM 100-10/5 ML UDCUP PO PRN (18:52)
[2017-11-24] MEDS ORDERED: Ondansetron HCl/PF 4 MG/2 ML Vial IVP PRN (18:52)
[2017-11-24] MEDS ORDERED: Dextrose 50% Abboject 50 ML SYRINGE SLOW IVP PRN (18:52)
[2017-11-24] MEDS ORDERED: Fleet Enema 133 ML BOT PR PRN (18:52)
[2017-11-24] MEDS: Docusate 100 MG CAP PO SCH (21:01)
[2017-11-24] MEDS: Simvastatin 40 MG TAB PO SCH (21:02)
[2017-11-24] MEDS: Acetaminophen 325 MG TAB PO PRN (21:02)
[2017-11-24] MEDS: Famotidine 20 MG TAB PO SCH (21:02)
[2017-11-24] MEDS: Carvedilol 6.25 MG TAB PO SCH (21:02)
[2017-11-24] MEDS: cloNIDine 0.3 MG TAB PO SCH (21:02)
--- NOTE | 2017-11-24 22:03 | HP ---
REASON FOR ADMISSION: Volume overload. HISTORY OF PRESENT ILLNESS: Patient gives history of having shortness of breath , which started early this morning. She vomited nearly 3 to 4 times. She was also having slurred speech when she was talking in the morning. She describes a feeling as being muggy. Her home health nurse came by around 9:30 in the morning, she had come to get blood for blood work. She prompted her to go to the ER, as she was not looking good. Patient states she had dialysis done yesterday, which was a 3-1/2-hour session. She has dry cough and has been using nearly 3 pillows to sleep. She gets dialyzed on Thursday, Wednesdays, and Fridays. No complaints of chest pain or palpitation. No complaints of fever or altered expectoration at present. PAST MEDICAL AND SURGICAL HISTORY: History of end-stage renal disease on hemodialysis, CHF with diastolic dysfunction, hypertension, diabetes mellitus type 2, history of COPD, dyslipidemia, carpal tunnel syndrome, left upper extremity dialysis access procedures. PERSONAL HISTORY: Does not abuse alcohol or drugs. Quit smoking 5 years ago, prior to which has smoked 5-10 cigarettes a day for at least 5-10 years. FAMILY HISTORY: Mother in her 60s. She has had history of end-stage renal disease and was on dialysis. She also had heart failure and coronary artery disease. Father when she was 10 years old and does not know the cause of his . Code status: FULL. Power of employment attorney is her sister, Ms. Amador. ALLERGIC: LISINOPRIL, AMITRIPTYLINE, HEPARIN, and TRAMADOL. HOME MEDICATIONS: Albuterol inhaler q.6 hourly p.r.n., aspirin 81 mg daily, PhosLo 667 mg capsule 2 capsules 3 times a day, Coreg 6.25 mg p.o. twice daily, clonidine 0.3 mg 3 times a day, Lasix 40 mg daily, hydralazine 25 mg 3 times daily, [place] p.r.n. for pain, Humulin 70/30 4 units subcutaneously twice daily, Cozaar 50 mg daily, Protonix 40 mg twice daily, Lyrica 75 mg daily, Zoloft 100 mg p.o. at bedtime, Zocor 40 mg p.o. at bedtime, sucralfate 1 gram before meals and at bedtime, Ambien 5 mg p.o. at bedtime. REVIEW OF SYSTEMS: The following complete review of systems was negative, unless otherwise mentioned in the HPI or below: Constitutional: Weight loss or gain, ability to conduct usual activities. Skin: Rash, itching. Eyes: Double vision, pain. ENT/Mouth: Nose bleeding, neck stiffness, pain, tenderness. Cardiovascular: Palpitations, dyspnea on exertion, orthopnea. Respiratory: Shortness of breath, wheezing, cough, hemoptysis, fever, or night sweats. Gastrointestinal: Poor appetite, abdominal pain, heartburn, nausea, vomiting, constipation, or diarrhea. Genitourinary: Urgency, frequency, dysuria, nocturia. Musculoskeletal: Pain, swelling. Neurologic/Psychiatric: Anxiety, depression. Allergy/Immunologic: Skin rash, bleeding tendency. PHYSICAL EXAMINATION: GENERAL: The patient is a 62-year-old female who is currently not in any acute distress. VITAL SIGNS: Blood pressure 174/86, pulse 76 per minute, respiratory rate is 18 per minute. Patient is afebrile at present, saturating 95% on room air. NECK: Supple, no elevated JVD. HEENT: Extraocular muscles intact. Pupils reacting to light. Oral cavity, mucous membranes are moist. No exudates or congestion. CARDIOVASCULAR: S1, S2 heard. Regular rhythm. Patient has engorged veins in the left upper neck and chest area, likely from her dialysis access procedures. RESPIRATORY: Air entry 1+ bilateral rales plus in the intrascapular and infrascapular area. ABDOMEN: Soft, bowel sounds heard. No tenderness, rigidity, or guarding. EXTREMITIES: There appears to be a right knee effusion with mild patellar tap being positive, no peripheral edema. VASCULAR: Peripheral pulses are 1+ bilateral, no ischemic ulcerations or gangrene. CENTRAL NERVOUS SYSTEM: No gross focal deficits seen. Patient is alert and oriented well. PSYCHIATRIC: The patient's mood is euthymic. No hallucinations or delusions. LABORATORY AND X-RAY FINDINGS: White count of 4, H&H 12 and 37, platelet count 119, MCV is 88 with 64% neutrophils. Potassium 4.5, sodium 142, BUN 50, creatinine 7.6, serum bicarbonate 27. Serum glucose 75. Liver enzymes within normal limits. BNP is 6554, albumin is 3.6, troponin I 0.09. Chest x-ray done shows pulmonary vascular congestion. There is cardiomegaly. EKG done shows normal sinus rhythm at 72 beats per minute. CLINICAL IMPRESSION AND PLAN: Patient will be placed under observation on telemetry for volume overload. Patient had her dialysis on Thursday, but it is unclear if she had enough fluid removed. I have spoken to Dr. Powell who will be dialyzing her tomorrow, which is also her dialysis day. We will continue her on aspirin, Coreg, clonidine, albuterol inhaler p.r.n., Lasix, 70/30 insulin 4 units twice daily, Cozaar, Lyrica, Zocor, Zoloft as before. The plan is to discharge her once enough volume is removed with hemodialysis and if she ambulates well and is not orthopneic in the morning. Code status was discussed with her, and she is a FULL CODE. Power of employment attorney is her sister, Ms. Vo. CELINE
[2017-11-24] MEDS: Calcium Acetate 667 MG CAP PO SCH (22:05)
[2017-11-24] MEDS ORDERED: Morphine 5 MG/ML SYRINGE SLOW IVP SCH (22:30)
[2017-11-24 23:02] LABS: CKMB 2.2 ng/mL (0-6.6); Troponin I 0.085 ng/mL (< 0.028)
[2017-11-25] MEDS: PROVENTIL INHALER 6.7 G (200 INHALATIONS) INH SCH ×4 (02:05→19:03)
[2017-11-25 05:55] LABS: #Eosinphils 0.1 thou/uL (0.0-0.7); #Lymphocytes 1.4 thou/uL (1.20-3.40); #Monocytes 0.4 thou/uL (0.11-0.59); #Neutrophils 1.8 thou/uL (1.40-6.50); %Basophils 0.5 % (0.0-1.0); %Eosinophils 2.1 % (0.0-10.0); %Lymphocytes 38.1 % (21.0-51.0); %Monocytes 10.9 % (0.0-10.0); %Neutrophils 48.4 % (42.0-75.0); Hemoglobin 11.3 g/dL (12.0-16.0); Mean Corpuscular HGB CONC 31.9 g/dL (32.0-36.0); Mean Corpuscular Hemoglobin 28.2 pg (27.0-31.0); Mean Corpuscular Volume 88.4 fl (81.0-99.0); Mean Platelet Volume 9.3 fL (7.4-10.4); Platelet Count 157 thou/uL (130-400); RBC Distribution Width 15.4 % (11.5-14.5); Red Blood Cell (RBC) Count 4.01 mill/uL (4.20-5.40); White Blood Cell (WBC) Count 3.8 thou/uL (4.8-10.8)
[2017-11-25 06:12] LABS: Albumin 3.4 g/dL (3.4-4.8); Anion Gap 17 mmol/L (10-20); BUN (Urea Nitrogen) 51 mg/dL (9.8-20.1); BUN/Creatinine Ratio 6.42; Calc. Creatinine Clearance 9 mL/min (70-130); Carbon Dioxide 28 mmol/L (23-31); Chloride 98 mmol/L (98-107); Estimated GFR-MDRD 6; Glucose 152 mg/dL (80-115); Phosphorus 4.8 mg/dL (2.3-4.7); Potassium 4.4 mmol/L (3.5-5.1); Sodium 139 mmol/L (136-145)
[2017-11-25] MEDS: Pregabalin 75 MG CAP PO SCH (08:20)
[2017-11-25] MEDS: Acetaminophen 325 MG TAB PO PRN ×2 (08:20→18:00)
--- NOTE | 2017-11-25 10:26 | PRG ---
DATE OF SERVICE: 11/25/2017 SUBJECTIVE: A 62-year-old female being seen for end-stage renal disease. The patient denies any obdulio sea, vomiting or chest pain. PHYSICAL EXAMINATION: GENERAL: Patient is awake, alert. VITAL SIGNS: Afebrile, pulse 57, breathing 16, blood pressure 141/69. HEAD/NECK: Normocephalic. Atraumatic. EYES: EOMI. No deformity. EARS: Clear. No ulcers. NOSE: Intact. No lesions. MOUTH: Clear. No discharge. THROAT: Clear. No exudate. LUNGS: Clear. No crackles. CARDIAC: S1, S2. No rub. ABDOMEN: Benign. BS+. GENITALIA/RECTUM: Brannon absent. BACK/EXTREMITIES: Edema 0+ Ulcer- NEUROLOGICAL: Alert and motor intact. SKIN: Rash- Bruise- LYMPHATICS: Edema- Ulcer- LABORATORY DATA: Show hemoglobin 11.3, potassium 4.1. ASSESSMENT AND PLAN: 1. Stage 6 chronic kidney disease, plan dialysis. 2. Hypertension, stable. 3. Anemia, stable. 4. Medications based on glomerular filtration rate are appropriate.
--- NOTE | 2017-11-25 12:14 | CON ---
DATE OF CONSULTATION: 11/24/2017 NEPHROLOGY CONSULTATION REASON FOR CONSULTATION: Stage 3 chronic kidney disease and volume overload. HISTORY OF PRESENT ILLNESS: This is a very pleasant 62-year-old female who has history of recurrent hospitalization, presented to the hospital for dyspnea. This is the second admission this month. She has no significant cardiac issues. The patient denies any nausea, vomiting or chest pain at this time and is comfortable lying flat. PAST MEDICAL HISTORY: End-stage renal disease, hypertension, CHF, COPD, hyperlipidemia, tobacco abuse, dialysis access, and carpal tunnel surgery. HOME MEDICATIONS: List reviewed. HOSPITAL MEDICATIONS: List reviewed. ALLERGIES: Reviewed. SOCIAL HISTORY: No alcohol or drug use. REVIEW OF SYSTEMS: A 15-point review of systems was performed and negative except for positives noted above. GENERAL: Weakness- HEAD: Headache- NECK: No swelling or lumps. NOSE: No epistaxis or discharge. EYES: No diplopia or pain. RESPIRATORY: Dyspnea- CARDIOVASCULAR: Chest pain- GASTROINTESTINAL: Nausea- /S[employer] NATIONAL ACCOUNT MANAGER: Hematuria- MUSCULOSKELETAL: No joint pain. NEUROPSYCHIATIC SYSTEMS: No suicidal ideation. No ideation. SKIN: Denies any rash or ulcer. CONSTITUTIONAL: No fever or chills. PHYSICAL EXAMINATION: GENERAL: The patient is awake and alert. VITAL SIGNS: Afebrile, pulse 70, breathing 16, blood pressure 158/78. GENERAL APPEARANCE AND MENTAL STATUS: Fair. HEAD/NECK: Normocephalic. Atraumatic. EYES: EOMI. No deformity. EARS: Clear. No ulcers. NOSE: Intact. No lesions. MOUTH: Clear. No discharge. THROAT: Clear. No exudate. LUNGS: Clear. No crackles. CARDIAC: S1, S2. No rub. ABDOMEN: Benign. BS+. GENITALIA/RECTUM: Brannon absent. BACK/EXTREMITIES: Edema 0+ Ulcer- NEUROLOGICAL: Alert and motor intact. SKIN: Rash- Bruise- LYMPHATICS: Edema- Ulcer- LABORATORY DATA: Potassium is 4.5. ASSESSMENT AND RECOMMENDATIONS: 1. ESRD Stage 6 Plan hemodialysis. 2. Hypertension, stable. 3. Anemia, stable. 4. Hyperkalemia, stable. Compliance with fluid intake has been advised to the patient again and again. [facility]
[2017-11-25] MEDS ORDERED: Nitroglycerin 0.4 MG TAB (25 Tab Bottle) ONE (16:37)
[2017-11-25] MEDS ORDERED: Promethazine HCl 25 MG/ML VIAL IM/IV PRN (16:54)
[2017-11-25] MEDS: Calcium Acetate 667 MG CAP PO SCH ×3 (17:57→20:35)
[2017-11-25] MEDS: cloNIDine 0.3 MG TAB PO SCH ×3 (17:57→20:36)
[2017-11-25] MEDS: Carvedilol 6.25 MG TAB PO SCH ×2 (17:57→20:36)
[2017-11-25] MEDS: Insulin NPH/Reg Insulin Hm 300 UNITS/3 ML VIAL SC SCH (17:58)
[2017-11-25] MEDS: Docusate 100 MG CAP PO SCH ×2 (17:58→20:36)
[2017-11-25] MEDS: Losartan 25 MG TAB PO SCH ×2 (17:59→19:38)
[2017-11-25] MEDS: Furosemide 40 MG TAB PO SCH ×2 (17:59→19:38)
--- NOTE | 2017-11-25 19:26 | PDOC.PN ---
- Objective Vital Signs & Weight: Vital Signs (12 hours) Temp Pulse Pulse Pulse Pulse Resp Resp 11/25/17 19:03 75 18 11/25/17 18:09 97.7 F 71 20 11/25/17 17:57 11/25/17 16:34 69 71 72 18 11/25/17 12:54 57 L 15 11/25/17 11:37 97.4 F L 57 L 16 11/25/17 07:45 97.6 F 57 L 16 11/25/17 07:29 97.5 F L 57 L 16 11/25/17 07:27 57 L 16 Resp Resp BP BP BP BP BP 11/25/17 19:03 11/25/17 18:09 190/88 H 11/25/17 17:57 159/72 H 11/25/17 16:34 17 18 171/85 H 175/76 H 162/89 H 11/25/17 12:54 11/25/17 11:37 148/70 H 11/25/17 07:45 11/25/17 07:29 141/69 H 11/25/17 07:27 Pulse Ox 11/25/17 19:03 94 L 11/25/17 18:09 93 L 11/25/17 17:57 11/25/17 16:34 11/25/17 12:54 100 11/25/17 11:37 94 L 11/25/17 07:45 11/25/17 07:29 95 11/25/17 07:27 98 Weight Weight 163 lb 14.4 oz I&O: 11/24/17 11/25/17 11/26/17 06:59 06:59 06:59 Intake Total 480 Output Total 3000 Balance -2520 Result Diagrams: 11/25/17 05:41 11/25/17 05:41 Additional Labs: Accuchecks 11/25/17 11/25/17 11/24/17 11:42 06:10 22:09 POC Glucose 139 H 161 H 146 H Dx/Plan - Plan * .
[2017-11-25] MEDS: Simvastatin 40 MG TAB PO SCH (20:36)
[2017-11-25] MEDS: Famotidine 20 MG TAB PO SCH (20:36)
[2017-11-26] MEDS: PROVENTIL INHALER 6.7 G (200 INHALATIONS) INH SCH ×4 (01:20→19:14)
[2017-11-26] MEDS: cloNIDine 0.3 MG TAB PO SCH ×2 (07:43→15:26)
[2017-11-26] MEDS: Calcium Acetate 667 MG CAP PO SCH ×2 (07:43→15:25)
[2017-11-26] MEDS: Docusate 100 MG CAP PO SCH (07:44)
[2017-11-26] MEDS: Carvedilol 6.25 MG TAB PO SCH (07:44)
[2017-11-26] MEDS: Furosemide 40 MG TAB PO SCH (07:44)
[2017-11-26] MEDS: Insulin NPH/Reg Insulin Hm 300 UNITS/3 ML VIAL SC SCH ×2 (07:45→16:42)
[2017-11-26] MEDS: Losartan 25 MG TAB PO SCH (07:45)
[2017-11-26] MEDS: Pregabalin 75 MG CAP PO SCH (07:53)
--- NOTE | 2017-11-26 09:51 | PRG ---
DATE OF SERVICE: 11/26/2017 SUBJECTIVE: A 62-year-old female being seen for end-stage renal disease. The patient denies any obdulio sea, vomiting or chest pain. PHYSICAL EXAMINATION: GENERAL: Patient is awake, alert. VITAL SIGNS: Afebrile, pulse 50, breathing 16, blood pressure 171/85. OBJECTIVE: See above. Awake, alert, in no acute distress. GENERAL APPEARANCE AND MENTAL STATUS: Fair. HEAD/NECK: Normocephalic. Atraumatic. EYES: EOMI. No deformity. EARS: Clear. No ulcers. NOSE: Intact. No lesions. MOUTH: Clear. No discharge. THROAT: Clear. No exudate. LUNGS: Clear. No crackles. CARDIAC: S1, S2. No rub. ABDOMEN: Benign. BS+. GENITALIA/RECTUM: Brannon absent. BACK/EXTREMITIES: Edema 0+ Ulcer- NEUROLOGICAL: Alert and motor intact. SKIN: Rash- Bruise- LYMPHATICS: Edema- Ulcer- LABORATORY: Hemoglobin 11.3, potassium 4.5. ASSESSMENT: 1. Stage 6 chronic kidney disease, stable. 2. Hypertension. 3. Anemia, stable. 4. Medication based on glomerular filtration rate are appropriate.
[2017-11-26] MEDS ORDERED: Lidocaine 2% Viscous Solution 10 ML, Aluminum & Magnesium Hydroxide 30 ML SSW SCH ×2 (15:45)
[2017-11-26 20:18] VITALS: BP 162/77; TEMP 97.3
[2017-11-26] MEDS ORDERED: Famotidine 20 MG TAB PO SCH (21:00)
== END 2017-11-26 21:04 | disposition home or self-care (01) ==
LOC: ERS 12:20 → 2SW 19:45
PROVIDERS: ADMIT Internal Medicine; ATTEND Internal Medicine
DX: E11.22 Type 2 diabetes mellitus with diabetic chronic kidney disease (principal); I13.2 Hypertensive heart and chronic kidney disease with heart failure and with stage 5 chronic kidney disease, or end stage renal disease; I50.9 Heart failure, unspecified; N18.6 End stage renal disease; J44.9 Chronic obstructive pulmonary disease, unspecified; E78.5 Hyperlipidemia, unspecified; D63.1 Anemia in chronic kidney disease; E87.5 Hyperkalemia; Z99.2 Dependence on renal dialysis; Z79.82 Long term (current) use of aspirin; Z79.4 Long term (current) use of insulin; Z79.899 Other long term (current) drug therapy; Z88.5 Allergy status to narcotic agent; Z88.8 Allergy status to other drugs, medicaments and biological substances; Z98.890 Other specified postprocedural states; Z87.891 Personal history of nicotine dependence
CPT/HCPCS: 71045; 80053; 80069; 82550; 82553 ×2; 82962 ×3; 83880; 84484 ×2; 85025 ×2; 86480; 93005 ×2; 93798 ×2; 94640 ×3; 94664; 94760; 96372; 96374; 96375 ×2; 99291; G0378; 36415; 36416; 90935; 93010; J2270; A4216; G0257; J1940; J2405; J2550; J7620

== ENCOUNTER 2017-12-11 17:38 | Emergency (ER) | payer MEDICARE, OTHER ==
--- NOTE | 2017-12-11 18:16 | RAD ---
TWO VIEWS OF THE LEFT HUMERUS: 12/11/17 COMPARISON: None. HISTORY: Fall today with left arm pain. FINDINGS: Two views of the left humerus shows no evidence of acute fracture or dislocation. There is a high rid ing humeral head which may be a sign of a chronic rotator cuff tear. There are radiopaque structures in the arm which may represent coils within superficial veins. There is a stent in the left subclavia n region. IMPRESSION: No evidence of acute abnormality. POS: [facility]
[2017-12-11 18:17] LABS: Hemoglobin 12.4 g/dL (12.0-16.0); Mean Corpuscular HGB CONC 31.4 g/dL (32.0-36.0); Mean Platelet Volume 8.6 fL (7.4-10.4); Platelet Count 152 thou/uL (130-400); RBC Distribution Width 14.7 % (11.5-14.5); Red Blood Cell (RBC) Count 4.44 mill/uL (4.20-5.40); White Blood Cell (WBC) Count 6.4 thou/uL (4.8-10.8)
[2017-12-11 18:22] LABS: Bicarbonate (HCO3v) 24.3 mmol/L (1.0-85.0); CO2 Tension (PvCO2) 41.8 mmHg (41.0-51.0); Calcium, Ionized 0.94 mmol/L (1.12-1.32); Hemoglobin - Calc 13.6 g/dL (12.0-18.0); O2 Tension (PvO2) 156.8 mmHg (35.0-45.0); Potassium 6.6 mmol/L (3.4-4.7); T. Carbon Dioxide 25.6 mmol/L (1.0-85.0); pH (Venous) 7.372 (7.35-7.45); vO2 Saturation-calc 99.3 % (94-98)
--- NOTE | 2017-12-11 18:28 | CT ---
CT OF THE BRAIN WITHOUT CONTRAST: 12/11/17 COMPARISON: 01/26/17 HISTORY: Fall with head trauma and neck pain. TECHNIQUE: Multiple contiguous axial images were obtained in a CT of the brain without contrast. FINDINGS: There is scattered hypodensities in the subcortical and periventricular white matter, likely secondar y to small vessel ischemic disease. Basal ganglia calcifications are seen. There is no evidence of hy drocephalus, intracranial hemorrhage or extra-axial fluid collections. The calvarium and overlying soft tissues are unremarkable. The visualized paranasal sinuses and masto id air cells are well aerated. IMPRESSION: No evidence of acute intracranial abnormality. POS: [facility]
--- NOTE | 2017-12-11 18:32 | CT ---
CT OF THE CERVICAL SPINE WITHOUT CONTRAST: 12/11/17 COMPARISON: 06/11/14 HISTORY: Fall today with head trauma and neck pain. TECHNIQUE: Multiple contiguous axial images were obtained in a CT of the cervical spine without contrast. Sagitt al and coronal reformats were performed. FINDINGS: The patient is status post fusion of C2 and C3 with anterior plate and screws. There are moderate deg enerative changes throughout the cervical spine. There is no evidence of acute fracture or subluxatio n. No prevertebral soft tissue swelling is seen. The posterior facets are well aligned. Normal alignment of the skull base with the cervical spine is seen. IMPRESSION: Postsurgical and degenerative changes of the cervical spine without acute osseous abnormality. POS: [facility]
--- NOTE | 2017-12-11 18:42 | CT ---
CT OF THE THORACIC SPINE WITHOUT CONTRAST: 12/11/17 COMPARISON: None. HISTORY: Fall today with back pain and left arm pain. Patient is a dialysis patient and missed dialysis today because she was not feeling well. TECHNIQUE: Multiple contiguous axial images were obtained in a CT of the thoracic spine without contrast. Sagitt al and coronal reformats were performed. FINDINGS: There are mild degenerative changes throughout the thoracic spine. the vertebral bodies and intervert ebral discs demonstrate normal height and alignment without acute fracture or subluxation. No prevert ebral soft tissue swelling is seen. Atelectasis is seen in the lung bases. Dense calcifications are s een in the arterial structures. The other visualized prevertebral and paraspinal soft tissues are unr emarkable. IMPRESSION: No evidence of acute osseous abnormality of the thoracic spine. POS: [facility]
[2017-12-11 18:43] LABS: Magnesium 2.3 mg/dL (1.6-2.6); Phosphorus 3.9 mg/dL (2.3-4.7)
[2017-12-11 18:44] LABS: Band 1 % (5-11); Lymphocytes 23 % (21-51); MDiff Complete? YES; Monocytes 5 % (0-10); Myelocyte 2 % (0-0); Neutrophil 64 % (42-75); Reactive Lymphocytes 4 % (0-10)
--- NOTE | 2017-12-11 18:44 | CT ---
CT OF THE LUMBAR SPINE WITHOUT CONTRAST 12/11/17 COMPARISON: None. HISTORY: Fall today with back pain. TECHNIQUE: Multiple contiguous axial images were obtained in a CT of the lumbar spine without contrast. Sagittal and coronal reformats were performed. FINDINGS: There are mild degenerative changes in the lumbar spine. The vertebral bodies and intervertebral disc s demonstrate normal height and alignment without acute fracture or subluxation. Vascular calcifications are seen in the arterial structures in the prevertebral soft tissues. The oth er prevertebral and paraspinal soft tissues are unremarkable. No prevertebral soft tissue swelling is seen. IMPRESSION: No evidence of acute osseous abnormality of the lumbar spine. POS: [facility]
[2017-12-11 18:59] LABS: Albumin 3.7 g/dL (3.4-4.8)
[2017-12-11 19:00] LABS: Chloride 101 mmol/L (98-107); Potassium 6.5 mmol/L (3.5-5.1); Sodium 135 mmol/L (136-145)
[2017-12-11 19:01] LABS: Calcium 9.3 mg/dL (7.8-10.44)
[2017-12-11 19:02] LABS: Globulin 3.9 g/dL (2.4-3.5); Glucose 110 mg/dL (80-115); Protein, Total 7.6 g/dL (6.0-8.3)
[2017-12-11 19:03] LABS: Carbon Dioxide 19 mmol/L (23-31)
[2017-12-11 19:04] LABS: Alkaline Phosphatase 116 U/L (40-150); Bilirubin, Total 0.8 mg/dL (0.2-1.2)
[2017-12-11 19:05] LABS: Calc. Creatinine Clearance 0 mL/min (70-130); Estimated GFR-MDRD 5
[2017-12-11 19:06] LABS: BUN (Urea Nitrogen) 70 mg/dL (9.8-20.1)
[2017-12-11 19:07] LABS: AST (SGOT) 25 U/L (5-34)
[2017-12-11] MEDS ORDERED: Dextrose 50% Abboject 50 ML SYRINGE ONE (19:11)
[2017-12-11] MEDS ORDERED: Calcium Chloride 1 GM/10 ML Abboject SYRINGE ONE (19:11)
[2017-12-11] MEDS ORDERED: Insulin Regular 300 UNITS/3 ML VIAL ONE (19:11)
[2017-12-11 19:48] LABS: ALT (SGPT) 11 U/L (8-55); CK (CPK) 215 U/L (29-168)
[2017-12-11 20:03] LABS: Anion Gap 22 mmol/L (10-20)
[2017-12-11] MEDS ORDERED: Morphine 4 MG/ML VIAL ONE (20:09)
[2017-12-11] MEDS ORDERED: HYDROcodone/Acetaminophen 5/325 mg Tablet ONE (23:49)
== END 2017-12-12 00:25 | disposition home or self-care (01) ==
LOC: ERS 17:38
DX: M79.1 Myalgia (principal); E87.5 Hyperkalemia; I13.2 Hypertensive heart and chronic kidney disease with heart failure and with stage 5 chronic kidney disease, or end stage renal disease; I50.9 Heart failure, unspecified; N18.6 End stage renal disease; E11.9 Type 2 diabetes mellitus without complications; J44.9 Chronic obstructive pulmonary disease, unspecified; Z99.2 Dependence on renal dialysis; F41.9 Anxiety disorder, unspecified; F32.9 Major depressive disorder, single episode, unspecified
CPT/HCPCS: 36416; 70450; 72125; 72128; 72131; 80053; 82330; 82550; 82803; 83735; 84100; 85025; 93005; 96374; 96375; J1815; J2270

== ENCOUNTER 2018-01-04 17:52 | Inpatient (IN) | payer MEDICARE, MEDICAID ==
--- NOTE | 2018-01-04 19:05 | RAD ---
CHEST ONE VIEW: HISTORY: Shortness of breath. COMPARISON: 11/24/2017 FINDINGS: Heart size is enlarged. Perihilar markings are prominent. Some of this, I think is actually related to prominent main pulmonary arteries. There is some increased opacification over the left chest, wi th some obscuration of the left heart border, although these changes are also fairly similar to the p rior exam. I am not certain how much of this is just entirely chronic in nature in this patient. A left subclavian axillary stent is noted. IMPRESSION: Cardiomegaly with prominent hilar regions. I think a large part of this is related to prominent pulm onary arteries, but some element of edema could be present. There is also obscuration along the left heart border, suggesting some lingular parenchymal change. This may be chronic in nature. It is ve ry similar in appearance to a 11/24/2017 study. POS: [facility]
[2018-01-04] MEDS ORDERED: Nitroglycerin 2% Ointment 1 INCH/1 GM Packet ONE (19:28)
[2018-01-04 19:32] LABS: #Eosinphils 0.1 thou/uL (0.0-0.7); #Lymphocytes 1.3 thou/uL (1.20-3.40); #Monocytes 0.8 thou/uL (0.11-0.59); #Neutrophils 3.7 thou/uL (1.40-6.50); %Basophils 0.3 % (0.0-1.0); %Lymphocytes 22.5 % (21.0-51.0); %Monocytes 13.7 % (0.0-10.0); %Neutrophils 62.5 % (42.0-75.0); Hemoglobin 12.2 g/dL (12.0-16.0); Mean Corpuscular HGB CONC 31.8 g/dL (32.0-36.0); Mean Corpuscular Hemoglobin 28.2 pg (27.0-31.0); Mean Corpuscular Volume 88.8 fl (81.0-99.0); Mean Platelet Volume 10.1 fL (7.4-10.4); Platelet Count 110 thou/uL (130-400); RBC Distribution Width 16.3 % (11.5-14.5); Red Blood Cell (RBC) Count 4.31 mill/uL (4.20-5.40); White Blood Cell (WBC) Count 5.9 thou/uL (4.8-10.8)
[2018-01-04 19:49] LABS: ALT (SGPT) Less than 7 U/L (8-55); AST (SGOT) 16 U/L (5-34); Albumin 3.6 g/dL (3.4-4.8); Alkaline Phosphatase 110 U/L (40-150); Anion Gap 19 mmol/L (10-20); Anisocytosis SLIGHT = 6-15 cells (100X) (0-5/hpf); BUN (Urea Nitrogen) 31 mg/dL (9.8-20.1); Bilirubin, Total 1.2 mg/dL (0.2-1.2); CK (CPK) 136 U/L (29-168); Calc. Creatinine Clearance 0 mL/min (70-130); Calcium 8.4 mg/dL (7.8-10.44); Carbon Dioxide 29 mmol/L (23-31); Chloride 97 mmol/L (98-107); Estimated GFR-MDRD 9; Globulin 4.3 g/dL (2.4-3.5); Glucose 140 mg/dL (80-115); MDiff Complete? YES; PLT Morphology Comment Appears Decreased; Potassium 3.8 mmol/L (3.5-5.1); Protein, Total 7.9 g/dL (6.0-8.3); Sodium 141 mmol/L (136-145)
[2018-01-04 19:53] LABS: CKMB 2.2 ng/mL (0-6.6); Troponin I 0.115 ng/mL (< 0.028)
[2018-01-04 22:51] VITALS: BMI 27.1
[2018-01-05] MEDS ORDERED: Nitroglycerin 0.4 MG TAB (25 Tab Bottle) PO PRN (00:39)
[2018-01-05] MEDS ORDERED: Ondansetron HCl/PF 4 MG/2 ML Vial IVP PRN (00:39)
[2018-01-05] MEDS ORDERED: Senokot 8.6 MG TAB PO PRN (00:39)
[2018-01-05] MEDS ORDERED: Dextrose 50% Abboject 50 ML SYRINGE SLOW IVP PRN (00:40)
[2018-01-05] MEDS ORDERED: Dextrose 5% in Water 1,000 ML IV PRN (00:40)
[2018-01-05] MEDS ORDERED: Insulin Regular 300 UNITS/3 ML VIAL SC PRN ×2 (00:40)
[2018-01-05] MEDS ORDERED: cloNIDine 0.1 MG TAB PO PRN (00:43)
[2018-01-05] MEDS ORDERED: hydrALAZINE 20 MG/ML VIAL SLOW IVP PRN (00:44)
[2018-01-05] MEDS: Acetaminophen 325 MG TAB PO PRN ×2 (00:48→09:16)
--- NOTE | 2018-01-05 01:43 | HP ---
DATE OF ADMISSION: 01/05/2018 Patient was seen and examined on 01/05/2018. CHIEF COMPLAINT: Shortness of breath and chest discomfort during hemodialysis today. PRIMARY CARE PHYSICIAN: Bobby Galeano. PRIMARY PIECE MARKER SMALL ARMS: Dr. Powell. HISTORY OF PRESENT ILLNESS: Patient is a 62-year-old -Polish female with end-stage renal di sease on hemodialysis, chronic diastolic heart failure, hypertension, and diabetes mellitus type 2 pr esented to the emergency room with shortness of breath and chest discomfort during hemodialysis. The chest discomfort was substernal, felt like tightness, 8/10, without any nausea, vomiting, diaphoresi s. She also had shortness of breath that was mainly during the chest pain episode. She also had brooklynn e dry cough without any wheezing. No fever, chills, recent immobilization, travel, heartburn, or sic k contacts reported. In the emergency room, initial vital signs showed temperature 97.9, respirations 20, pulse rate of 70 with O2 saturation of 97% on room air. She received 1-inch nitropatch along with aspirin with some improvement in chest discomfort and shortness of breath. PAST MEDICAL HISTORY: 1. End-stage renal disease on hemodialysis. 2. Hypertension. 3. Diabetes mellitus, type 2. 4. Chronic diastolic heart failure. 5. Anxiety. 6. Negative cardiac catheterization in the past. 7. History of cocaine abuse. PAST SURGICAL HISTORY: 1. Dialysis access. 2. Cardiac catheterization as discussed above. ALLERGIES: Patient is allergic to LISINOPRIL, AMITRIPTYLINE, HEPARIN and TRAMADOL. CURRENT HOME MEDICATIONS: Patient is unable to recall all of her home medications. Family to get ac curate list of medications. SOCIAL HISTORY: Patient currently lives at home with her family. She makes her own decision with e help of her sister. No current use of smoking, alcohol, or drug use. She quit smoking approximate ly 5 years ago. FAMILY HISTORY: Mother with end-stage renal disease. REVIEW OF SYSTEMS: REVIEW OF SYSTEMS: The following complete review of systems was negative, unless otherwise mentioned in the HPI or below: Constitutional: Weight loss or gain, ability to conduct us ual activities. Skin: Rash, itching. Eyes: Double vision, pain. ENT/Mouth: Nose bleeding, neck stiffness, pain, tenderness. Cardiovascular: Palpitations, dyspnea on exertion, orthopnea. Respira tory: Shortness of breath, wheezing, cough, hemoptysis, fever, or night sweats. Gastrointestinal: Poor appetite, abdominal pain, heartburn, nausea, vomiting, constipation, or diarrhea. Genitourinary : Urgency, frequency, dysuria, nocturia. Musculoskeletal: Pain, swelling. Neurologic/Psychiatric: Anxiety, depression. Allergy/Immunologic: Skin rash, bleeding tendency. PHYSICAL EXAMINATION: VITAL SIGNS: As discussed above. GENERAL: A 62-year-old female in mild respiratory distress while talking. HEENT: Atraumatic, normocephalic. Sclerae anicteric. Moist mucous membrane, no oral lesion. NECK: Supple. Neck veins distended. No carotid bruit. Trachea in midline. HEART: S1, S2 present. Regular rate and rhythm, 2/6 systolic murmur over the mitral area. No heave s or pulsation. LUNGS: There are bilateral crackles. Mild accessory muscle use. There was scattered rhonchi withou t any wheezing. ABDOMEN: Soft, nontender, bowel sounds present. EXTREMITIES: 1+ edema in bilateral lower extremities. SKIN: Warm and dry. LYMPH NODES: No palpable lymph nodes in the neck. PERIPHERAL VASCULAR: Radial pulses palpable bilaterally. MUSCULOSKELETAL: No joint swelling or tenderness. LABORATORY FINDINGS: Troponin 0.115 with normal CK-MB. BNP 4576, creatinine 5.72 with BUN 31. Ches t x-ray showed cardiomegaly with pulmonary vascular congestion. EKG by my review showed sinus rhythm with nonspecific ST-T wave changes in the lateral leads with left ventricular hypertrophy. IMPRESSION: 1. Chest discomfort along with shortness of breath, probably secondary to volume overload. Nephrolo gy will be consulted for hemodialysis. 2. Elevated troponins probably secondary to volume overload/diastolic heart failure. Patient had a negative cardiac catheterization in the past per Cardiology report from 2016. I was unable to find a cardiac catheterization report. 3. End-stage renal disease on hemodialysis. She could not complete hemodialysis session today due t o chest discomfort. 4. Diabetes mellitus, type 2. We will resume home medications once confirmed. We will start her on sliding scale. 5. Hypertension with hypertensive heart disease. We will resume her home regimen once confirmed. 6. Acute on chronic diastolic heart failure. Plan as discussed above. 7. Former smoker. 8. History of cocaine abuse. Last urine drug screen was positive in 2016. 9. Elevated troponins, probably secondary to congestive heart failure with end-stage renal disease. Also, note that patient has chronically elevated troponins. Plan of care was discussed with the patient in detail. She stated understanding. Per discussion by Dr. Naseem Razo and Dr. Mace.
[2018-01-05] MEDS ORDERED: HYDROcodone/Acetaminophen 5/325 mg Tablet PO SCH (05:15)
[2018-01-05] MEDS: cloNIDine 0.2 MG TAB PO SCH ×3 (05:21→20:37)
[2018-01-05] MEDS: PROVENTIL INHALER 6.7 G (200 INHALATIONS) INH SCH ×3 (06:51→18:46)
[2018-01-05] MEDS ORDERED: Pregabalin 75 MG CAP PO SCH (09:00)
[2018-01-05] MEDS: Aspirin 81 mg Enteric Coated Tablet PO SCH (09:06)
[2018-01-05] MEDS: Famotidine 20 MG TAB PO SCH (09:06)
[2018-01-05] MEDS: Docusate 100 MG CAP PO SCH ×2 (09:06→20:37)
[2018-01-05] MEDS: Calcium Acetate 667 MG CAP PO SCH ×3 (09:06→20:37)
[2018-01-05] MEDS: Losartan 25 MG TAB PO SCH (09:06)
[2018-01-05] MEDS: Carvedilol 3.125 MG TAB PO SCH ×2 (09:07→20:37)
[2018-01-05] MEDS: Sevelamer Carbonate 800 MG TAB PO SCH ×3 (09:07→17:53)
[2018-01-05] MEDS: Sucralfate 1 GM TAB PO SCH ×4 (09:07→20:37)
[2018-01-05] MEDS: Furosemide 40 MG TAB PO SCH (09:08)
[2018-01-05] MEDS: Meloxicam 7.5 MG TAB PO SCH (09:16)
--- NOTE | 2018-01-05 09:24 | PDOC.PN ---
- Subjective Encounter Start Date: 01/05/18 Encounter Start Time: 09:22 Ms. Contreras was seen today in follow-up. She complains of continued chest pain. she says it radiates into her left arm, and it is a burning in character. - Objective Resuscitation Status: Resuscitation Status FULL:Full Resuscitation MAR Reviewed: Yes Vital Signs & Weight: Vital Signs (12 hours) Temp Pulse Resp BP BP Pulse Ox 01/05/18 07:50 97.8 F 62 20 148/70 H 100 01/05/18 05:21 172/81 H 01/05/18 04:00 98.1 F 67 18 172/81 H 99 01/05/18 01:04 94 L 01/05/18 00:00 99 01/04/18 22:38 99.1 F 75 20 162/74 H 94 L Weight Weight 163 lb 6 oz Result Diagrams: 01/04/18 19:17 01/04/18 19:17 Additional Labs: Accuchecks 01/05/18 01/04/18 04:36 23:01 POC Glucose 199 H 131 H Phys Exam - Physical Examination HEENT: PERRLA Respiratory: no wheezing, no rales, no rhonchi, clear to auscultation bilateral Cardiovascular: RRR, no significant murmur, no rub Gastrointestinal: soft, non-tender, no distention, positive bowel sounds Musculoskeletal: no edema Dx/Plan (1) Atypical chest pain Code(s): R07.89 - OTHER CHEST PAIN Status: Acute (2) Volume overload Code(s): E87.70 - FLUID OVERLOAD, UNSPECIFIED Status: Acute Qualifiers: Hypervolemia type: other Qualified Code(s): E87.79 - Other fluid overload Comment: See above, resolving (3) COPD (chronic obstructive pulmonary disease) Status: Chronic Qualifiers: (4) DM type 2 (diabetes mellitus, type 2) Status: Chronic Qualifiers: Diabetes mellitus complication status: with neurologic complications (5) ESRD (end stage renal disease) on dialysis Code(s): N18.6 - END STAGE RENAL DISEASE; Z99.2 - DEPENDENCE ON RENAL DIALYSIS Status: Chronic Comment: HD per Renal service (6) Hepatitis C Code(s): B19.20 - UNSPECIFIED VIRAL HEPATITIS C WITHOUT HEPATIC COMA Status: Chronic Qualifiers: Viral hepatitis chronicity: chronic Hepatic coma status: without hepatic coma Qualified Code(s): B18.2 - Chronic viral hepatitis C Comment: Chronic, stable (7) Hypertension Code(s): I10 - ESSENTIAL (PRIMARY) HYPERTENSION Status: Chronic Qualifiers: Comment: well controlled , today low BP, will hold Clonidine. - Plan * Chest pain- is atypical- ? etiology most likely musculoskeletal or GI in origin. I reviewed her previous hospital stays. She has had numerous admissions to the hospital over the past 2 years for chest pain. In 2014 she had a cardiac catheterization which was gustavo. She has also had a perfusion scan of her lungs to rule out PE, on one of the admissions, and she had a more recent stress test which was normal, less than a year ago. She has also had a CT scan of her C- spine which demonstrated some DJD * Will give her a trial of PPI, and can treat other symptoms symptomatically, but will avoid discharging her on anything stronger than Tylenol #3 * ESRD- [employer] willdetermine if she needs an additional dialysis today * HTN- blood pressure is overall stable * DM- blood glucose is stable * Home later today if no dialysis planned
[2018-01-05 10:02] LABS: Anion Gap 19 mmol/L (10-20); BUN (Urea Nitrogen) 38 mg/dL (9.8-20.1); Calc. Creatinine Clearance 11 mL/min (70-130); Carbon Dioxide 27 mmol/L (23-31); Chloride 100 mmol/L (98-107); Estimated GFR-MDRD 8; Glucose 198 mg/dL (80-115); Potassium 3.6 mmol/L (3.5-5.1); Sodium 142 mmol/L (136-145)
--- NOTE | 2018-01-05 10:58 | CON ---
DATE OF CONSULTATION: 01/05/2018 REASON FOR CONSULTATION: Stage 6 chronic kidney disease on maintenance hemodialysis. HISTORY OF PRESENT ILLNESS: This is a very pleasant 62-year-old female who presented to the hospital with dyspnea and chest discomfort during hemodialysis. The patient denies headache, numbness, tingl ing or weakness. Denies any nausea, vomiting or chest pain. PAST MEDICAL HISTORY: Significant for end-stage renal disease, hypertension, diabetes mellitus, chema estive heart failure, cardiac catheterization, history of cocaine use, history of recurrent hospitali zation, history of noncompliance. ALLERGIES: Reviewed. HOME MEDICATIONS: List reviewed. REVIEW OF SYSTEMS: Fifteen point review of systems was performed and negative except all noted above . GENERAL: Weakness- HEAD: Headache- NECK: No swelling or lumps. NOSE: No epistaxis or discharge. EYES: No diplopia or pain. RESPIRATORY: Dyspnea- CARDIOVASCULAR: Chest pain- GASTROINTESTINAL: Nausea- /EDI COORDINATOR: Hematuria- MUSCULOSKELETAL: No joint pain. NEUROPSYCHIATIC SYSTEMS: No suicidal ideation. No ideation. SKIN: Denies any rash or ulcer. CONSTITUTIONAL: No fever or chills. PHYSICAL EXAMINATION: GENERAL: The patient is awake, alert. VITAL SIGNS: Afebrile, pulse is 62, breathing 16, blood pressure 148/70. OBJECTIVE: See above. Awake, alert, in no acute distress. GENERAL APPEARANCE AND MENTAL STATUS: Fair. HEAD/NECK: Normocephalic. Atraumatic. EYES: EOMI. No deformity. EARS: Clear. No ulcers. NOSE: Intact. No lesions. MOUTH: Clear. No discharge. THROAT: Clear. No exudate. LUNGS: Clear. No crackles. CARDIAC: S1, S2. No rub. ABDOMEN: Benign. BS+. GENITALIA/RECTUM: Brannon absent. BACK/EXTREMITIES: Edema 0+ Ulcer- NEUROLOGICAL: Alert and motor intact. SKIN: Rash- Bruise- LYMPHATICS: Edema- Ulcer- LABORATORY: Potassium pending. ASSESSMENT AND RECOMMENDATIONS: 1. Stage 6 chronic kidney disease, plan dialysis Thursday, Thursday, and Thursday. 2. Hypertension, stable. 3. Anemia, stable. 4. Medication based on GFR are appropriate.
[2018-01-05] MEDS: HYDROcodone/Acetaminophen 5/325 mg Tablet PO PRN ×2 (11:25→23:03)
[2018-01-05] MEDS ORDERED: Simvastatin 40 MG TAB PO SCH (21:00)
[2018-01-06] MEDS: PROVENTIL INHALER 6.7 G (200 INHALATIONS) INH SCH ×3 (00:28→13:47)
[2018-01-06] MEDS: Ondansetron ODT 4 MG TAB PO PRN ×2 (02:46→16:21)
[2018-01-06] MEDS: cloNIDine 0.2 MG TAB PO SCH ×3 (05:10→16:25)
--- NOTE | 2018-01-06 07:18 | PDOC.PN ---
- Subjective Encounter Start Date: 01/06/18 Encounter Start Time: 07:16 Subjective: no complaints this AM, min sob - Objective Resuscitation Status: Resuscitation Status FULL:Full Resuscitation MAR Reviewed: Yes Vital Signs & Weight: Vital Signs (12 hours) Temp Pulse Resp BP BP BP Pulse Ox 01/06/18 06:34 100 01/06/18 06:33 52 L 15 100 01/06/18 05:10 123/63 01/06/18 04:00 97.3 F L 55 L 18 123/63 100 01/06/18 02:48 97 01/06/18 00:00 97.7 F 63 18 149/77 H 98 01/05/18 20:37 142/70 H 01/05/18 20:00 97.6 F 58 L 18 98 01/05/18 19:58 97.6 F 58 L 18 142/70 H 98 Weight Weight 161 lb 9.581 oz I&O: 01/05/18 01/06/18 01/07/18 06:59 06:59 06:59 Intake Total 580 Balance 580 Result Diagrams: 01/04/18 19:17 01/05/18 09:27 Additional Labs: Accuchecks 01/06/18 01/05/18 01/05/18 05:58 20:29 18:47 POC Glucose 126 H 122 H 186 H 01/05/18 10:47 POC Glucose 167 H Phys Exam - Physical Examination Constitutional: NAD Neck: no JVD scant L basilar rales Cardiovascular: RRR, no significant murmur Gastrointestinal: soft, non-tender Musculoskeletal: edema present Dx/Plan (1) Atypical chest pain Code(s): R07.89 - OTHER CHEST PAIN Status: Chronic (2) Acute and chronic respiratory failure Code(s): J96.20 - ACUTE AND CHR RESP FAILURE, UNSP W HYPOXIA OR HYPERCAPNIA Status: Acute (3) Volume overload Code(s): E87.70 - FLUID OVERLOAD, UNSPECIFIED Status: Acute Qualifiers: Hypervolemia type: other Qualified Code(s): E87.79 - Other fluid overload Comment: See above, resolving (4) Anemia in chronic kidney disease (CKD) Code(s): N18.9 - CHRONIC KIDNEY DISEASE, UNSPECIFIED; D63.1 - ANEMIA IN CHRONIC KIDNEY DISEASE Status: Chronic Qualifiers: Chronic kidney disease stage: on chronic dialysis Qualified Code(s): N18.6 - End stage renal disease; D63.1 - Anemia in chronic kidney disease; D63.1 - Anemia in chronic kidney disease; Z99.2 - Dependence on renal dialysis; Z99.2 - Dependence on renal dialysis; Z99.2 - Dependence on renal dialysis; Z99.2 - Dependence on renal dialysis Comment: H/H stable (5) DM type 2 (diabetes mellitus, type 2) Status: Chronic Qualifiers: Diabetes mellitus complication status: with kidney complications Diabetes mellitus complication detail: with chronic kidney disease Chronic kidney disease stage: on chronic dialysis (6) ESRD (end stage renal disease) on dialysis Code(s): N18.6 - END STAGE RENAL DISEASE; Z99.2 - DEPENDENCE ON RENAL DIALYSIS Status: Chronic Comment: HD per Renal service (7) Hepatitis C Code(s): B19.20 - UNSPECIFIED VIRAL HEPATITIS C WITHOUT HEPATIC COMA Status: Chronic Qualifiers: Viral hepatitis chronicity: chronic Hepatic coma status: without hepatic coma Qualified Code(s): B18.2 - Chronic viral hepatitis C Comment: Chronic, stable (8) Hypertension Code(s): I10 - ESSENTIAL (PRIMARY) HYPERTENSION Status: Chronic Qualifiers: Hypertension type: essential hypertension Comment: well controlled , today low BP, will hold Clonidine. (9) Noncompliance with treatment plan Code(s): Z91.11 - PATIENT'S NONCOMPLIANCE WITH DIETARY REGIMEN Status: Chronic - Plan cont accu/ss/ insulin -: HD today, discuss with renal -: cont losartan, cerg , etc * .
--- NOTE | 2018-01-06 10:53 | PRG ---
DATE OF SERVICE: 01/06/2018 SUBJECTIVE: A 62-year-old female being seen for end-stage renal disease. The patient denies any obdulio sea, vomiting or chest pain. PHYSICAL EXAMINATION: GENERAL: Patient is awake, alert. VITAL SIGNS: Afebrile, pulse 75, breathing 16, blood pressure is 124/69. HEAD/NECK: Normocephalic. Atraumatic. EYES: EOMI. No deformity. EARS: Clear. No ulcers. NOSE: Intact. No lesions. MOUTH: Clear. No discharge. THROAT: Clear. No exudate. LUNGS: Clear. No crackles. CARDIAC: S1, S2. No rub. ABDOMEN: Benign. BS+. GENITALIA/RECTUM: Brannon absent. BACK/EXTREMITIES: Edema 0+ Ulcer- NEUROLOGICAL: Alert and motor intact. SKIN: Rash- Bruise- LYMPHATICS: Edema- Ulcer- LABORATORY DATA: Show potassium 3.6. ASSESSMENT AND RECOMMENDATIONS: 1. Stage 6 chronic kidney disease, continue hemodialysis. 2. Hypertension, stable. 3. Anemia, stable. 4. Medications based on glomerular filtration rate are appropriate.
[2018-01-06] MEDS: Calcium Acetate 667 MG CAP PO SCH ×2 (12:32→16:26)
[2018-01-06] MEDS: Sucralfate 1 GM TAB PO SCH ×2 (12:32→12:47)
[2018-01-06] MEDS: Docusate 100 MG CAP PO SCH (12:33)
[2018-01-06] MEDS: HYDROcodone/Acetaminophen 5/325 mg Tablet PO PRN (12:40)
[2018-01-06] MEDS: Meloxicam 7.5 MG TAB PO SCH (12:47)
[2018-01-06] MEDS: Famotidine 20 MG TAB PO SCH (12:48)
[2018-01-06] MEDS: Losartan 25 MG TAB PO SCH (12:48)
[2018-01-06] MEDS: Carvedilol 3.125 MG TAB PO SCH (12:48)
[2018-01-06] MEDS: Sevelamer Carbonate 800 MG TAB PO SCH ×2 (12:49)
[2018-01-06] MEDS: Furosemide 40 MG TAB PO SCH (12:49)
[2018-01-06] MEDS: Aspirin 81 mg Enteric Coated Tablet PO SCH (12:49)
--- NOTE | 2018-01-06 16:09 | DIS ---
DATE OF ADMISSION: 01/04/2018 DATE OF DISCHARGE: 01/06/2018 PRIMARY CARE PROVIDER: Rajwinder Paula. DISCHARGE DISPOSITION: Home. FINAL DIAGNOSES: Volume overload, end-stage renal disease on hemodialysis, diabetes mellitus type 2 with kidney complications, hypertension, atypical chest pain, history of asthma, anxiety, diastolic h eart failure. DISCHARGE MEDICATIONS: PhosLo 2 caps t.i.d., aspirin 81 mg a day, albuterol 2 puffs inhaled q.6 hour s p.r.n., meloxicam 1 tablet daily, Cozaar 50 mg a day, NPH 70/30 4 units subcu twice a day, Lasix 40 mg a day, Pepcid 20 mg twice a day, Coreg 6.25 mg twice a day, Lyrica 75 mg a day, Carafate 1 gram a .c. and at bedtime, Zocor 40 mg a day, Renvela 1600 mg p.o. t.i.d. with meals, Zoloft 100 mg bedtime, clonidine 0.3 mg t.i.d. ALLERGIES: LISINOPRIL, AMITRIPTYLINE, HEPARIN, TRAMADOL. CODE STATUS: FULL. PENDING AT THE TIME OF DISCHARGE: Nothing. HOSPITAL COURSE: Patient was admitted through [facility] Emergency Department to the [facility] list Service with shortness of breath and chest discomfort. BNP was elevated at 4576, creatinine 5.7 , and BUN 31. Chest x-ray showed cardiomegaly with pulmonary vascular congestion. Admitting diagnos is was volume overload. Dr. Angelito Powell was consulted for hemodialysis. The patient was hemodialyzed on 01/05/[address] Powell says she is stable to go home today. She is being discharged home o n her home medications to keep her Thursday, Thursday, and Thursday hemodialysis appointments. Has been instructed to use at 1200 mL fluid restriction. Her atypical chest pain has been worked up signific antly in the past. She had a stress test on 07/2017 with no reversible ischemia. She has had a card iac catheterization in the past with no coronary artery disease in 11/2014. Accu-Cheks were monitore d during the hospital stay and in the last 24 hours, that ranged 167, 186, 122 and 126. Followup wit h PCP in 1 week. Follow up with Thursday, Thursday and Thursday hemodialysis.
[2018-01-06 17:03] VITALS: BP 162/77; TEMP 97.1
[2018-01-06] MEDS ORDERED: Pregabalin 75 MG CAP PO SCH (21:00)
== END 2018-01-06 17:15 | disposition home or self-care (01) | DRG 291 ==
LOC: ERS 17:52 → 2NO 20:30
PROVIDERS: ADMIT Emergency Medicine; ATTEND Emergency Medicine
PROC: 5A1D70Z Performance of Urinary Filtration, Intermittent, Less than 6 Hours Per Day (ICD-10-PCS; principal; 2018-01-05)
DX: I13.2 Hypertensive heart and chronic kidney disease with heart failure and with stage 5 chronic kidney disease, or end stage renal disease (principal); I50.33 Acute on chronic diastolic (congestive) heart failure; N18.6 End stage renal disease; E11.22 Type 2 diabetes mellitus with diabetic chronic kidney disease; Z99.2 Dependence on renal dialysis; F41.9 Anxiety disorder, unspecified; Z87.891 Personal history of nicotine dependence; D64.9 Anemia, unspecified; B19.20 Unspecified viral hepatitis C without hepatic coma
CPT/HCPCS: 36415; 36416; 71045; 80048; 80053; 82550; 82553; 83880; 84484; 85025; 90935; 93005; 94760; G0257; J2405; Q0162

== ENCOUNTER 2018-02-25 07:41 | Inpatient (IN) | payer MEDICARE, MEDICAID ==
[2018-02-25 08:32] LABS: #Eosinphils 0.1 thou/uL (0.0-0.7); #Lymphocytes 1.1 thou/uL (1.20-3.40); #Monocytes 0.6 thou/uL (0.11-0.59); #Neutrophils 2.4 thou/uL (1.40-6.50); %Lymphocytes 25.6 % (21.0-51.0); %Monocytes 14.7 % (0.0-10.0); %Neutrophils 56.7 % (42.0-75.0); Hemoglobin 11.9 g/dL (12.0-16.0); Mean Corpuscular Hemoglobin 27.3 pg (27.0-31.0); Mean Platelet Volume 11.6 fL (7.4-10.4); Platelet Count 74 thou/uL (130-400); RBC Distribution Width 16.4 % (11.5-14.5); Red Blood Cell (RBC) Count 4.37 mill/uL (4.20-5.40); White Blood Cell (WBC) Count 4.3 thou/uL (4.8-10.8)
[2018-02-25 08:51] LABS: ALT (SGPT) 8 U/L (8-55); AST (SGOT) 18 U/L (5-34); Albumin 3.6 g/dL (3.4-4.8); Alkaline Phosphatase 121 U/L (40-150); Anion Gap 16 mmol/L (10-20); BUN (Urea Nitrogen) 37 mg/dL (9.8-20.1); Bilirubin, Total 1.5 mg/dL (0.2-1.2); CK (CPK) 195 U/L (29-168); Calc. Creatinine Clearance 0 mL/min (70-130); Calcium 9.2 mg/dL (7.8-10.44); Carbon Dioxide 31 mmol/L (23-31); Chloride 96 mmol/L (98-107); Estimated GFR-MDRD 9; Globulin 3.8 g/dL (2.4-3.5); Glucose 175 mg/dL (80-115); Potassium 3.9 mmol/L (3.5-5.1); Protein, Total 7.4 g/dL (6.0-8.3); Sodium 139 mmol/L (136-145)
[2018-02-25 08:56] LABS: CKMB 3.3 ng/mL (0-6.6); Troponin I 0.152 ng/mL (< 0.028)
[2018-02-25] MEDS ORDERED: Morphine 10 MG/ML VIAL ONE (08:59)
[2018-02-25] MEDS ORDERED: Nitroglycerin 2% Ointment 1 INCH/1 GM Packet ONE (09:59)
[2018-02-25] MEDS ORDERED: Piperacillin/Tazobactam 3.375 GM VIAL ONE (09:59)
[2018-02-25] MEDS ORDERED: Acetaminophen 500 MG TAB ONE (09:59)
--- NOTE | 2018-02-25 10:04 | RAD ---
SINGLE VIEW OF THE CHEST: Comparison: 01-04-18 History: Dependent edema in the bilateral lower extremities with blistering and open wounds to the fe et. Congestive heart failure. On dialysis. FINDINGS: Single view of the chest shows an enlarged but stable cardiomediastinal silhouette. Bilateral pulmona ry vascular congestion is seen. There is no evidence of consolidation, mass, or pleural effusions. A stent is seen in the left subclavian region. IMPRESSION: Cardiomegaly and bilateral pulmonary vascular congestion. POS: CARLOS
[2018-02-25] MEDS ORDERED: VANCOMYCIN IVPB PRN (11:40)
[2018-02-25] MEDS ORDERED: Dextrose 5% in Water 1,000 ML IV PRN (11:40)
[2018-02-25] MEDS ORDERED: Sodium Chloride 0.65% Nasal 44 ML BOT EA NARE PRN (11:40)
[2018-02-25] MEDS ORDERED: Ondansetron HCl/PF 4 MG/2 ML Vial IVP PRN (11:40)
[2018-02-25] MEDS ORDERED: Mag-Al 1200 mg/1200 mg/30 ML UDCUP PO PRN (11:40)
[2018-02-25] MEDS ORDERED: Milk Of Magnesia 30 ML UDCUP PO PRN (11:40)
[2018-02-25] MEDS ORDERED: Senokot 8.6 MG TAB PO PRN (11:40)
[2018-02-25] MEDS ORDERED: Zolpidem Tartrate 5 MG TAB PO PRN (11:40)
[2018-02-25] MEDS ORDERED: HumaLOG 300 UNITS/3 ML VIAL SC PRN ×2 (11:40)
[2018-02-25] MEDS ORDERED: Bisacodyl 10 MG SUPP PR SCH (11:40)
[2018-02-25] MEDS ORDERED: Artificial Tears 18 DROP/0.9 ML EA EYE PRN (11:40)
[2018-02-25] MEDS ORDERED: Loratadine 10 MG TAB PO PRN (11:40)
[2018-02-25] MEDS ORDERED: Ondansetron ODT 4 MG TAB PO PRN (11:40)
[2018-02-25] MEDS ORDERED: Diabetic Tussin 200 MG/10 ML UDCUP PO PRN (11:40)
[2018-02-25] MEDS ORDERED: Chloraseptic Spray 180 ml Bottle PO PRN (11:40)
[2018-02-25] MEDS ORDERED: Dextrose 50% Abboject 50 ML SYRINGE SLOW IVP PRN (11:40)
[2018-02-25] MEDS ORDERED: Eucerin (Mineral Oil/Petrolatum,White) 30 gm Jar TOP PRN (11:40)
[2018-02-25] MEDS ORDERED: hydrALAZINE 20 MG/ML VIAL SLOW IVP PRN (11:40)
[2018-02-25] MEDS ORDERED: Loperamide HCl 2 MG CAP PO PRN (11:40)
[2018-02-25] MEDS ORDERED: Vancomycin HCl 750 MG in Sodium Chloride 0.9% 250 ML 250 ML IVPB SCH (12:45)
[2018-02-25 12:46] LABS: Troponin I 0.143 ng/mL (< 0.028)
[2018-02-25] MEDS: cefTRIAXone\\ROCEPHIN 1 GM in Sodium Chloride 0.9% 100 ML IVPB SCH (13:30)
[2018-02-25] MEDS ORDERED: Calcium Acetate 667 MG CAP PO SCH (15:00)
--- NOTE | 2018-02-25 15:09 | HP ---
PRIMARY CARE PHYSICIAN: Bobby Galeano. REASON FOR ADMISSION: Anasarca, bilateral foot blister with cellulitis. HISTORY OF PRESENT ILLNESS: A 62-year-old -[place] female with multiple medical problems inc luding diabetes type 2, hypertension, end-stage renal disease on hemodialysis, who presented to emerg ency room with increasing bilateral lower extremity edema as well as blister over both feet. She als o came to emergency room with chest discomfort. She was describing chest pain, left-sided, sharp in nature, 5/10 in intensity. There was no specific aggravating or relieving factor, but patient was no t able to sleep because of discomfort. She was having shortness of breath and she was having dry cou gh. She was also not able to lie down flat because of shortness of breath. The patient reports that she has increasing edema over both lower extremities for the last 4 days and she started noticing bl ister over both feet since yesterday. She had a dialysis yesterday. At that time, she told the dial ysis nurse, but as she was instructed not to come to the hospital. Her pain was getting worse in her foot as well as in her chest and her edema was getting worse and she was feeling more and more short ness of breath. She also felt nausea and vomiting and that is why she decided to come to emergency r oom for evaluation. In the emergency room, patient was having significant lower extremity edema with blisters as well as tenderness in her both feet. She was also having blisters on both feet. She denies any fever or chi lls. She denies any UTI symptoms. She makes only scant amount of urine. She denies missing dialysi s. She denies any drinking excessive liquid. She denies any constipation, diarrhea, melena or hemat ochezia. She denies any UTI symptoms. The patient reports that she is taking all her medication as prescribed. The patient is going for regular dialysis on Thursday, Thursday and Thursday. Her last minh lysis was yesterday. REVIEW OF SYSTEMS: The following complete review of systems was negative, unless otherwise mentioned in the HPI or below: Constitutional: Weight loss or gain, ability to conduct usual activities. Sk in: Rash, itching. Eyes: Double vision, pain. ENT/Mouth: Nose bleeding, neck stiffness, pain, te nderness. Cardiovascular: Palpitations, dyspnea on exertion, orthopnea. Respiratory: Shortness of breath, wheezing, cough, hemoptysis, fever or night sweats. Gastrointestinal: Poor appetite, abdom inal pain, heartburn, nausea, vomiting, constipation, or diarrhea. Genitourinary: Urgency, frequenc y, dysuria, nocturia. Musculoskeletal: Pain, swelling. Neurologic/Psychiatric: Anxiety, depressio n. Allergy/Immunologic: Skin rash, bleeding tendency. Please see my HPI for pertinent positive and negative. All other review of system reviewed and negat barrett except as mentioned in the HPI. PAST MEDICAL HISTORY: Hypertension; diabetes type 2; chronic diastolic heart failure; ESRD on hemodi alysis Thursday, Thursday, Thursday; history of cocaine abuse; secondary hyperparathyroidism of renal or igin; anemia of renal disease; COPD/asthma; gastroesophageal reflux disease; peripheral neuropathy. PAST PSYCHIATRIC HISTORY: Anxiety and depression. PAST SURGICAL HISTORY: Dialysis access, cardiac catheterization. ALLERGIES: LISINOPRIL, AMITRIPTYLINE, HEPARIN and TRAMADOL. CURRENT HOME MEDICATIONS: Tylenol 650 mg q.4 hourly p.r.n.; Ventolin inhaler 2 puffs q.6 hourly p.r. n.; aspirin 81 mg p.o. daily; PhosLo 667 mg 2 tablets p.o. t.i.d.; Coreg 6.25 mg p.o. b.i.d.; clonidi ne 0.3 mg p.o. t.i.d.; Pepcid 20 mg p.o. b.i.d.; Lasix 40 mg p.o. daily; Humulin 70/30, 4 units subcu taneously b.i.d.; losartan 50 mg p.o. daily; Mobic 7.5 mg p.o. daily; Lyrica 75 mg p.o. daily; Zoloft 100 mg p.o. at bedtime; Renvela 1600 mg p.o. t.i.d.; Zocor 40 mg p.o. at bedtime; sucralfate 1 gram p.o. a.c. and at bedtime. SOCIAL HISTORY: Patient is a former smoker. She denies any alcohol abuse. She denies any other ill icit drug abuse. FAMILY HISTORY: Mother had end-stage renal disease. EMERGENCY ROOM COURSE: Patient is given aspirin 324 mg, vancomycin, Zosyn, Tylenol Extra Strength 1 gram, nitropatch was applied, IV fluid 500 mL and morphine 6 mg given. PHYSICAL EXAMINATION: VITAL SIGNS: Currently, blood pressure 160/86, pulse 74, respiratory rate 21, temperature 98.4, satu ration 93% on room air, weight 76.2 kilograms. GENERAL: Patient is currently alert, awake, no obvious acute distress. HEAD: Normocephalic, atraumatic. EYES: Pupils round, reactive to light. Extraocular muscle intact. ENT: Oropharynx within normal limits. Moist mucous membranes, no oral lesion, no pharyngeal erythem a, no exudate. NECK: Supple, elevated JVD, no thyromegaly, no carotid bruit, no meningeal signs of irritation. LUNGS: Bibasilar rales noted. CARDIAC: S1, S2 regular. Systolic murmur noted. ABDOMEN: Soft, bowel sounds present, nontender, nondistended. No organomegaly, no mass, no suprapub ic tenderness. BACK: Unremarkable, no CVA tenderness. EXTREMITIES: Upper extremity: AV fistula in place, working. Range of motion is normal. Lower extr emities: Bilateral lower extremity edema +4 noted. Patient does have blistering with erythema and t enderness over both feet. NEUROLOGIC: Grossly nonfocal examination. Patient is moving all 4 limbs. No focal neurological def icit noted. SKIN: No skin rash other than blister lesion on both feet and erythema. PSYCHIATRIC: Normal affect. SIGNIFICANT LABORATORY DATA: EKG showing normal sinus rhythm, nonspecific ST-T changes in inferior l dali, left atrial enlargement. Chest x-ray based on my review, cardiomegaly and bilateral pulmonary vascular congestion. CBC: WBC 4.3, hemoglobin 11.9, platelets 74. BMP: Sodium 139, potassium 3.9, chloride 96, carbon dioxide 31, BUN 37, creatinine 5.73, glucose 175, calcium 9.2. LFT: AST 18, AL T 8, alkaline phosphatase 121, albumin 3.6. CK 195, CK-MB 3.3, troponin I 0.152 and then 0.143. ASSESSMENT AND PLAN: 1. Acute on chronic diastolic congestive heart failure. 2. Anasarca. Patient has significant volume overload with bilateral lower extremity edema, pulmonar y vascular congestion. 3. End-stage renal disease, on hemodialysis. 4. Bilateral foot cellulitis with blisters. 5. Diabetes type 2. 6. Hypertension, uncontrolled. 7. Anxiety and depression. 8. Dyslipidemia. 9. Gastroesophageal reflux disease. 10. Secondary hyperparathyroidism of renal origin. 11. Pancytopenia. 12. Demand ischemia of myocardium, chronically elevated troponin. PLAN: Full admission to telemetry floor, serial cardiac enzymes to rule out acute coronary syndrome. Resume selected home medications. Pharmacy adjusted vancomycin dose with dialysis, Rocephin 1 gram q.24 hours, Nephrology will be consulted and patient will need maximum fluid removal. Wound care te am will be consulted for foot care. We will resume her home medication including Ventolin HFA, aspir in, PhosLo, Coreg, clonidine, losartan, Lyrica, Zoloft. DVT prophylaxis. No Lovenox or heparin because of thrombocytopenia. Gastrointestinal prophylaxis, P epcid 20 mg p.o. daily. CODE STATUS: The patient is FULL CODE. The patient does not have any surrogate decision maker, but she makes her own decisions. Disposition plan based on clinical course. We are expecting patient's stay in hospital more than 2 m idnights. Plan of care discussed with the patient in detail.
[2018-02-25 15:29] LABS: Troponin I 0.142 ng/mL (< 0.028)
[2018-02-25] MEDS: Calcium Acetate 667 MG CAP PO SCH ×2 (16:10→20:30)
[2018-02-25] MEDS: cloNIDine 0.3 MG TAB PO SCH ×2 (16:10→20:29)
[2018-02-25] MEDS: Acetaminophen 325 MG TAB PO PRN (16:10)
[2018-02-25] MEDS ORDERED: Insulin NPH/Reg Insulin Hm 300 UNITS/3 ML VIAL SC SCH (16:30)
[2018-02-25] MEDS: Insulin NPH/Reg Insulin Hm 300 UNITS/3 ML VIAL SC SCH (17:00)
[2018-02-25] MEDS: Sucralfate 1 GM TAB PO SCH ×2 (17:01→20:29)
[2018-02-25] MEDS: PROVENTIL INHALER 6.7 G (200 INHALATIONS) INH SCH (18:23)
[2018-02-25] MEDS: Atorvastatin Calcium 20 MG TAB PO SCH (20:29)
[2018-02-25] MEDS: Carvedilol 6.25 MG TAB PO SCH (20:30)
[2018-02-25] MEDS ORDERED: Carvedilol 3.125 MG TAB PO SCH (21:00)
[2018-02-25] MEDS ORDERED: Simvastatin 40 MG TAB PO SCH (21:00)
[2018-02-25] MEDS ORDERED: Non-Formulary Item 1 EACH (Sertraline Hcl [Zoloft] 100 MG) PO SCH (21:00)
[2018-02-26] MEDS: PROVENTIL INHALER 6.7 G (200 INHALATIONS) INH SCH ×5 (00:28→23:04)
[2018-02-26 05:13] LABS: Albumin 3.1 g/dL (3.4-4.8); Anion Gap 17 mmol/L (10-20); BUN (Urea Nitrogen) 41 mg/dL (9.8-20.1); BUN/Creatinine Ratio 6.58; Calc. Creatinine Clearance 13 mL/min (70-130); Carbon Dioxide 29 mmol/L (23-31); Chloride 97 mmol/L (98-107); Estimated GFR-MDRD 8; Glucose 70 mg/dL (80-115); Phosphorus 5.9 mg/dL (2.3-4.7); Potassium 4.3 mmol/L (3.5-5.1); Sodium 139 mmol/L (136-145)
[2018-02-26 05:22] LABS: #Eosinphils 0.1 thou/uL (0.0-0.7); #Lymphocytes 0.6 thou/uL (1.20-3.40); #Monocytes 0.5 thou/uL (0.11-0.59); #Neutrophils 2.7 thou/uL (1.40-6.50); %Basophils 0.8 % (0.0-1.0); %Eosinophils 3.3 % (0.0-10.0); %Monocytes 13.1 % (0.0-10.0); %Neutrophils 68.8 % (42.0-75.0); Hemoglobin 12.6 g/dL (12.0-16.0); Mean Corpuscular HGB CONC 31.2 g/dL (32.0-36.0); Mean Corpuscular Hemoglobin 27.8 pg (27.0-31.0); Mean Corpuscular Volume 88.9 fL (78.0-98.0); Mean Platelet Volume 6.6 fL (7.4-10.4); Platelet Count 62 thou/uL (130-400); RBC Distribution Width 16.4 % (11.5-14.5); Red Blood Cell (RBC) Count 4.53 mill/uL (4.20-5.40); White Blood Cell (WBC) Count 3.9 thou/uL (4.8-10.8)
[2018-02-26] MEDS ORDERED: Vancomycin HCl 750 MG in Sodium Chloride 0.9% 250 ML 250 ML IVPB SCH (11:00)
[2018-02-26] MEDS ORDERED: Vancomycin HCl 1.25 GM in Sodium Chloride 0.9% 250 ML 250 ML IVPB SCH (11:00)
[2018-02-26] MEDS ORDERED: Vancomycin HCl 1 GM in Premix Bag 1 BAG IVPB SCH (11:00)
[2018-02-26] MEDS ORDERED: Vancomycin HCl 500 MG in Sodium Chloride 0.9% 100 ML IVPB SCH (11:00)
[2018-02-26] MEDS ORDERED: HOLD VANCOMYCIN FOR LEVEL >20 FS SCH (11:00)
--- NOTE | 2018-02-26 11:29 | PDOC.PN ---
- Subjective Encounter Start Date: 02/26/18 Encounter Start Time: 10:30 -: old records requested/rev this morning pt was less responsive due to hypoglycemia but after d50 she became normal, her wound dressed by WCT today plan for HD - Objective Resuscitation Status: Resuscitation Status FULL:Full Resuscitation MAR Reviewed: Yes Vital Signs & Weight: Vital Signs (12 hours) Temp Pulse Resp BP Pulse Ox 02/26/18 07:38 97.7 F 60 16 129/64 100 02/26/18 04:00 97.8 F 60 15 135/69 100 02/25/18 23:57 97.4 F L 61 16 140/69 100 Weight Admit Weight 187 lb Weight 187 lb I&O: 02/25/18 02/26/18 02/27/18 06:59 06:59 06:59 Intake Total 800 Balance 800 Result Diagrams: 02/26/18 04:05 02/26/18 04:05 Additional Labs: Accuchecks 02/26/18 02/26/18 02/26/18 11:16 08:27 07:58 POC Glucose 112 H 129 H 67 L 02/25/18 02/25/18 20:19 16:47 POC Glucose 121 H 103 EKG Reviewed by me: Yes (nsr) Phys Exam - Physical Examination Constitutional: NAD HEENT: PERRLA, moist MMs, sclera anicteric Neck: no JVD, supple Respiratory: no wheezing, no rhonchi basilar rales Cardiovascular: RRR, no rub SM+ Gastrointestinal: soft, non-tender, no distention, positive bowel sounds Musculoskeletal: edema present feet with dressing Neurological: non-focal, normal sensation, moves all 4 limbs Psychiatric: normal affect, A&O x 3 Skin: no rash, normal turgor Dx/Plan (1) Acute on chronic diastolic ACC/AHA stage C congestive heart failure Code(s): I50.33 - ACUTE ON CHRONIC DIASTOLIC (CONGESTIVE) HEART FAILURE Status : Acute (2) Anasarca Code(s): R60.1 - GENERALIZED EDEMA Status: Acute (3) Cellulitis of both feet Code(s): L03.115 - CELLULITIS OF RIGHT LOWER LIMB; L03.116 - CELLULITIS OF LEFT LOWER LIMB Status: Acute (4) Hypoglycemia Code(s): E16.2 - HYPOGLYCEMIA, UNSPECIFIED Status: Acute (5) Volume overload Code(s): E87.70 - FLUID OVERLOAD, UNSPECIFIED Status: Acute Comment: See above, resolving (6) Anemia in chronic kidney disease (CKD) Code(s): N18.9 - CHRONIC KIDNEY DISEASE, UNSPECIFIED; D63.1 - ANEMIA IN CHRONIC KIDNEY DISEASE Status: Chronic Qualifiers: Comment: H/H stable (7) Asthma Code(s): J45.909 - UNSPECIFIED ASTHMA, UNCOMPLICATED Status: Chronic (8) COPD (chronic obstructive pulmonary disease) Status: Chronic Qualifiers: (9) DM type 2 (diabetes mellitus, type 2) Status: Chronic (10) ESRD (end stage renal disease) on dialysis Code(s): N18.6 - END STAGE RENAL DISEASE; Z99.2 - DEPENDENCE ON RENAL DIALYSIS Status: Chronic Comment: HD per Renal service (11) Elevated troponin Code(s): R79.89 - OTHER SPECIFIED ABNORMAL FINDINGS OF BLOOD CHEMISTRY Status : Chronic Comment: See above plan. (12) Hepatitis C Code(s): B19.20 - UNSPECIFIED VIRAL HEPATITIS C WITHOUT HEPATIC COMA Status: Chronic Comment: Chronic, stable (13) Hyperlipidemia Code(s): E78.5 - HYPERLIPIDEMIA, UNSPECIFIED Status: Chronic (14) Hypoalbuminemia Code(s): E88.09 - OTH DISORDERS OF PLASMA-PROTEIN METABOLISM, NEC Status: Chronic (15) Noncompliance with treatment plan Code(s): Z91.11 - PATIENT'S NONCOMPLIANCE WITH DIETARY REGIMEN Status: Chronic (16) Normocytic anemia Code(s): D64.9 - ANEMIA, UNSPECIFIED Status: Chronic (17) Obesity (BMI 30.0-34.9) Code(s): E66.9 - OBESITY, UNSPECIFIED Status: Chronic (18) Peripheral neuropathy Code(s): G62.9 - POLYNEUROPATHY, UNSPECIFIED Status: Chronic (19) Secondary hyperparathyroidism of renal origin Code(s): N25.81 - SECONDARY HYPERPARATHYROIDISM OF RENAL ORIGIN Status: Chronic (20) Thrombocytopenia Code(s): D69.6 - THROMBOCYTOPENIA, UNSPECIFIED Status: Chronic - Plan cont current plan of care, continue antibiotics * continue vancomycin and rocephin * continue wound care * she will need more fluid removed with HD * medication reviewed as below * symptomatic treatment * will continue her selected home medication. Review of Systems - Review of Systems Eyes: negative: Pain, Vision Change, Conjunctivae Inflammation, Eyelid Inflammation, Redness, Other ENT: negative: Ear Pain, Ear Discharge, Nose Pain, Nose Discharge, Nose Congestion, Mouth Pain, Mouth Swelling, Throat Pain, Throat Swelling, Other Respiratory: Cough, Shortness of Breath, SOB with Excertion. negative: Dry, Hemoptysis, Pleuritic Pain, Sputum, Wheezing Cardiovascular: edema. negative: chest pain, palpitations, orthopnea, paroxysmal nocturnal dyspnea, light headedness, other Gastrointestinal: negative: Nausea, Vomiting, Abdominal Pain, Diarrhea, Constipation, Melena, Hematochezia, Other Genitourinary: negative: Dysuria, Frequency, Incontinence, Hematuria, Retention , Other Musculoskeletal: negative: Neck Pain, Shoulder Pain, Arm Pain, Back Pain, Hand Pain, Leg Pain, Foot Pain, Other Skin: negative: Rash, Lesions, [place], Bruising, Other - Medications/Allergies Allergies/Adverse Reactions: Allergies Allergy/AdvReac Type Severity Reaction Status Date / Time lisinopril Allergy Severe Verified 11/24/17 23:34 amitriptyline HCl Allergy Swelling Verified 11/24/17 23:34 [From Elavil] heparin Allergy Rash Verified 11/24/17 23:34 tramadol Allergy Nausea Verified 11/24/17 23:34 Medications: Current Medications Acetaminophen (Tylenol) 650 mg PO Q4H PRN PRN Reason: Headache/Fever or Pain Last Admin: 02/25/18 16:10 Dose: 650 mg Al Hydroxide/Mg Hydroxide (Maalox) 30 ml PO Q6H PRN PRN Reason: Heartburn or Indigestion Albuterol Sulfate (Proventil Hfa) 2 puff INH [id number] [facility] Last Admin: 02/26/18 07:36 Dose: 2 puff Albuterol/Ipratropium (Duoneb) 3 ml NEB [id number] PRN PRN Reason: SOB &/or Wheezing Artificial Tears (Tears Naturale) 0 drop EA EYE PRN PRN PRN Reason: Dry Eyes Aspirin (Aspirin Chewable) 81 mg PO DAILY [facility] Atorvastatin Calcium (Lipitor) 20 mg PO HS [facility] Last Admin: 02/25/18 20:29 Dose: 20 mg Calcium Acetate (Phoslo) 1,334 mg PO TID [facility] Last Admin: 02/25/18 20:30 Dose: 1,334 mg Carvedilol (Coreg) 6.25 mg PO BID [facility] Last Admin: 02/25/18 20:30 Dose: 6.25 mg Clonidine (Catapres) 0.3 mg PO TID [facility] Last Admin: 02/25/18 20:29 Dose: 0.3 mg Dextrose/Water (Dextrose 50%) 25 gm SLOW IVP PRN PRN PRN Reason: Hypoglycemia Last Admin: 02/26/18 08:01 Dose: 25 gm Glucagon (Glucagon) 1 mg IM PRN PRN PRN Reason: Hypoglycemia Guaifenesin (Robitussin Sf) 200 mg PO Q4H PRN PRN Reason: Cough Hydralazine HCl (Apresoline) 10 mg SLOW IVP Q4H PRN PRN Reason: Systolic BP > 180 Ceftriaxone Sodium 1 gm/ (Sodium Chloride) 100 mls @ 200 mls/hr IVPB Q24HR [facility] Last Admin: 02/25/18 13:30 Dose: 100 mls Dextrose/Water (D5w) 1,000 mls @ 0 mls/hr IV .Q0M PRN; As Directed PRN Reason: Hypoglycemia Vancomycin HCl 1.25 gm/ Sodium (Chloride) 250 mls @ 166.667 mls/hr IVPB WILLCALL [facility] Vancomycin HCl 1 gm/ Device 200 mls @ 200 mls/[facility] Vancomycin HCl 750 mg/ Sodium (Chloride) 250 mls @ 250 mls/[facility] Vancomycin HCl 500 mg/ Sodium (Chloride) 100 mls @ 100 mls/hr IVPB [facility]CALL [facility] Insulin Human Isoph/Insulin Regular (Humulin 70/30) 4 units SC BID-[facility] Last Admin: 02/25/18 17:00 Dose: 4 unit Insulin Human Lispro (Humalog) 0 units SC .MODERATE SLIDING SC PRN PRN Reason: Moderate Correctional Scale Insulin Human Lispro (Humalog) 0 units SC .BEDTIME SLIDING SC PRN PRN Reason: Bedtime Correctional Scale Loperamide HCl (Imodium) 2 mg PO PRN PRN PRN Reason: Diarrhea/Loose Stools Loratadine (Claritin) 10 mg PO DAILYPRN PRN PRN Reason: Sinus Symptoms Losartan Potassium (Cozaar) 50 mg PO DAILY [facility] Magnesium Hydroxide (Milk Of Magnesium) 30 ml PO DAILYPRN PRN PRN Reason: Constipation Mineral Oil/White Petrolatum (Eucerin Cream) 0 gm TOP BIDPRN PRN PRN Reason: Dry Skin Miscellaneous Medication (Pharmacy To Dose) 1 each IVPB DAILYPRN PRN PRN Reason: LABS Hold Vancomycin For (Level >20) 0 each FS .AT DIALYSIS [facility] Ondansetron HCl (Zofran Odt) 4 mg PO Q6H PRN PRN Reason: Nausea/Vomiting Ondansetron HCl (Zofran) 4 mg IVP Q6H PRN PRN Reason: Nausea/Vomiting Phenol (Chloraseptic [place] 180 Ml Bot) 0 ml PO PRN PRN PRN Reason: Sore Throat Polyethylene Glycol (Miralax) 17 gm PO DAILY [facility] Pregabalin (Lyrica) 75 mg PO DAILY [facility] Saccharomyces Boulardii (Florastor) 250 mg PO DAILY [facility] Senna (Senokot) 2 tab PO HSPRN PRN PRN Reason: Constipation Sertraline HCl (Zoloft) 100 mg PO [facility] Last Admin: 02/25/18 20:30 Dose: Not Given Sodium Chloride ([place] Nasal [place] 0.65%) 0 ml EA NARE QIDPRN PRN PRN Reason: Nasal Congestion Sodium Chloride (Flush - Normal Saline) 10 ml IVF Q12HR [facility] Last Admin: 02/25/18 20:27 Dose: 10 ml Sodium Chloride (Flush - Normal Saline) 10 ml IVF PRN PRN PRN Reason: Saline Flush Sucralfate (Carafate) 1 gm PO [facility] Last Admin: 02/25/18 20:29 Dose: 1 gm Zolpidem Tartrate (Ambien) 5 mg PO HSPRN PRN PRN Reason: Insomnia
[2018-02-26 11:34] LABS: Vancomycin, Random 14.5 ug/mL (See Comment)
[2018-02-26] MEDS: Sucralfate 1 GM TAB PO SCH ×3 (14:17→22:17)
[2018-02-26] MEDS: Insulin NPH/Reg Insulin Hm 300 UNITS/3 ML VIAL SC SCH ×2 (14:17→17:27)
[2018-02-26] MEDS: cloNIDine 0.3 MG TAB PO SCH ×3 (14:18→22:17)
[2018-02-26] MEDS: Calcium Acetate 667 MG CAP PO SCH ×3 (14:18→22:16)
[2018-02-26] MEDS: Polyethylene Glycol 3350 17 GM Packet PO SCH (16:35)
[2018-02-26] MEDS: Saccharomyces boulardii 250 MG CAP PO SCH (16:35)
[2018-02-26] MEDS: Losartan 25 MG TAB PO SCH (16:35)
[2018-02-26] MEDS: Pregabalin 75 MG CAP PO SCH (16:36)
[2018-02-26] MEDS: cefTRIAXone\\ROCEPHIN 1 GM in Sodium Chloride 0.9% 100 ML IVPB SCH (16:39)
[2018-02-26] MEDS: Carvedilol 6.25 MG TAB PO SCH ×2 (16:49→22:16)
--- NOTE | 2018-02-26 20:45 | CON ---
DATE OF CONSULTATION: 02/26/2018 CONSULTING PHYSICIAN: Dr. Loomis. REASON FOR CONSULTATION: End-stage renal disease evaluation and care. REASON FOR ADMISSION: edema and sob HISTORY OF PRESENT ILLNESS: A 62-year-old female with history of end-stage renal disease, hypertension, noncompliance, coronary artery disease , COPD, who came to the hospital with fluid overload. Patient was having 17 kilos of fluid on dialysis Thursday and she is not able to get good ultrafiltration hemodialysis. Patient was having fluid overload and was sent to the hospital. No fever or chills. No nausea or vomiting. The patient was seen during dialysis and was getting dialysis today. PAST MEDICAL HISTORY: Possible end-stage renal disease, type 2 diabetes, hypertension, anemia, COPD. PAST SURGICAL HISTORY: Dialysis access cardiac catheterization. HOME MEDICATIONS: Tylenol, Ventolin, aspirin, PhosLo, Coreg, clonidine, Pepcid , Lasix, Humulin, losartan, Mobic, Lyrica, Zoloft, Renvela, Zocor. ALLERGIES: LISINOPRIL, AMITRIPTYLINE, HEPARIN, TRAMADOL. SOCIAL HISTORY: Former smoker. No alcohol or illicit drug abuse. FAMILY HISTORY: Positive for renal disease. REVIEW OF SYSTEMS: The following complete review of systems was negative, unless otherwise mentioned in the HPI or below: Constitutional: Weight loss or gain, ability to conduct usual activities. Skin: Rash, itching. Eyes: Double vision, pain. ENT/Mouth: Nose bleeding, neck stiffness, pain, tenderness. Cardiovascular: Palpitations, dyspnea on exertion, orthopnea. Respiratory: Shortness of breath, wheezing, cough, hemoptysis, fever or night sweats. Gastrointestinal: Poor appetite, abdominal pain, heartburn, nausea, vomiting, constipation, or diarrhea. Genitourinary: Urgency, frequency, dysuria, nocturia. Musculoskeletal: Pain, swelling. Neurologic/Psychiatric: Anxiety, depression. Allergy/Immunologic: Skin rash, bleeding tendency. PHYSICAL EXAMINATION: GENERAL: This is a well-built female in no apparent distress. VITAL SIGNS: Temperature 97.7, pulse 60, respiratory rate 16, blood pressure 129/64. HEENT: Atraumatic, normocephalic. Oral mucosa is moist. Facial puffiness present. NECK: Supple. CARDIOVASCULAR: S1, S2 heard. Rate and rhythm regular. RESPIRATORY: Clear. GASTROINTESTINAL: Abdomen is soft. MUSCULOSKELETAL: A 2-3+ edema. DERMATOLOGIC: No skin rash. NEUROLOGIC: Sleepy and lethargic. PSYCHIATRIC: Not assessed. LABORATORY DATA: Hemoglobin is 12.6. Potassium 4.3, BUN is 41, creatinine 6.3. ASSESSMENT AND PLAN: 1. End-stage renal disease. Continue on hemodialysis as tolerated Thursday, Thursday, and Thursday. 2. Edema with fluid overload. We will remove fluid. 3. Hypertension. We will remove fluid. 4. Anemia, stable. Plan is to remove fluid with dialysis as tolerated. MTDD
[2018-02-26] MEDS: Atorvastatin Calcium 20 MG TAB PO SCH (22:16)
[2018-02-27] MEDS: PROVENTIL INHALER 6.7 G (200 INHALATIONS) INH SCH ×3 (08:35→19:15)
[2018-02-27] MEDS: Calcium Acetate 667 MG CAP PO SCH ×3 (09:23→21:34)
[2018-02-27] MEDS: Insulin NPH/Reg Insulin Hm 300 UNITS/3 ML VIAL SC SCH ×2 (09:23→21:35)
[2018-02-27] MEDS: Polyethylene Glycol 3350 17 GM Packet PO SCH (09:23)
[2018-02-27] MEDS: cloNIDine 0.3 MG TAB PO SCH ×3 (09:24→21:34)
[2018-02-27] MEDS: Pregabalin 75 MG CAP PO SCH (09:24)
[2018-02-27] MEDS: Sucralfate 1 GM TAB PO SCH ×4 (09:24→21:35)
[2018-02-27] MEDS: Carvedilol 6.25 MG TAB PO SCH ×2 (09:24→21:35)
[2018-02-27] MEDS: Losartan 25 MG TAB PO SCH (09:25)
[2018-02-27] MEDS: Acetaminophen 325 MG TAB PO PRN ×2 (09:25→18:08)
[2018-02-27] MEDS: Saccharomyces boulardii 250 MG CAP PO SCH (09:28)
[2018-02-27] MEDS: cefTRIAXone\\ROCEPHIN 1 GM in Sodium Chloride 0.9% 100 ML IVPB SCH (12:15)
--- NOTE | 2018-02-27 13:39 | PDOC.PN ---
- Subjective Encounter Start Date: 02/27/18 Encounter Start Time: 13:38 Subjective: feels sleepy.reports that her leg swelling is much better -: no new complaints. no CP/SOB - Objective Resuscitation Status: Resuscitation Status FULL:Full Resuscitation MAR Reviewed: Yes Vital Signs & Weight: Vital Signs (12 hours) Temp Pulse Resp BP BP Pulse Ox 02/27/18 12:10 98.2 F 59 L 20 121/61 02/27/18 09:24 148/73 H 02/27/18 08:35 68 16 02/27/18 07:55 98.1 F 68 16 148/73 H 02/27/18 04:56 97.5 F L 60 16 143/68 H 94 L 02/27/18 02:38 95 Weight Admit Weight 187 lb Weight 187 lb I&O: 02/26/18 02/27/18 02/28/18 06:59 06:59 06:59 Intake Total 800 1110 Output Total 5100 Balance 800 -3990 Result Diagrams: 02/26/18 04:05 02/26/18 04:05 Additional Labs: Accuchecks 02/27/18 02/27/18 02/26/18 10:42 05:54 19:48 POC Glucose 119 H 98 156 H 02/26/18 02/26/18 16:56 05:42 POC Glucose 171 H 74 Microbiology 02/25/18 10:10 Foot - Pending Bacterial Culture - Final 02/25/18 10:10 Foot - Pending Bacterial Culture - Preliminary 02/25/18 08:22 Venous blood - Right Hand Blood Culture - Preliminary Specimen has been received and culture in progress. No Growth to date. 02/25/18 08:22 Venous blood - Right Hand Blood Culture - Preliminary NO GROWTH AT 48 HOURS 02/25/18 08:08 Venous blood - Right Hand Blood Culture - Preliminary Specimen has been received and culture in progress. No Growth to date. 02/25/18 08:08 Venous blood - Right Hand Blood Culture - Preliminary NO GROWTH AT 48 HOURS Laboratory Tests 12/11/17 01/04/18 02/25/18 17:54 19:17 08:27 Plt Count 152 110 L Troponin I 0.152 H 02/25/18 02/25/18 02/25/18 08:27 12:11 14:56 Plt Count 74 L Troponin I 0.143 H 0.142 H 02/26/18 04:05 Plt Count 62 L Troponin I labs reviewed Phys Exam - Physical Examination Constitutional: NAD HEENT: PERRLA, moist MMs, sclera anicteric, oral pharynx no lesions Neck: no nodes, no JVD, supple, full ROM Respiratory: no wheezing, no rales, no rhonchi, clear to auscultation bilateral Cardiovascular: RRR, no significant murmur, no rub Gastrointestinal: soft, non-tender, no distention, positive bowel sounds Musculoskeletal: pulses present, edema present Neurological: non-focal, normal sensation, moves all 4 limbs Psychiatric: normal affect, A&O x 3 Skin: no rash Dx/Plan (1) Acute on chronic diastolic ACC/AHA stage C congestive heart failure Code(s): I50.33 - ACUTE ON CHRONIC DIASTOLIC (CONGESTIVE) HEART FAILURE Status : Acute Comment: ECHO 10/2017-Diastolic dysfunction (2) Anasarca Code(s): R60.1 - GENERALIZED EDEMA Status: Acute (3) Cellulitis of both feet Code(s): L03.115 - CELLULITIS OF RIGHT LOWER LIMB; L03.116 - CELLULITIS OF LEFT LOWER LIMB Status: Acute (4) Volume overload Code(s): E87.70 - FLUID OVERLOAD, UNSPECIFIED Status: Acute Comment: See above, resolving (5) Anemia in chronic kidney disease (CKD) Code(s): N18.9 - CHRONIC KIDNEY DISEASE, UNSPECIFIED; D63.1 - ANEMIA IN CHRONIC KIDNEY DISEASE Status: Chronic Qualifiers: Comment: H/H stable (6) COPD (chronic obstructive pulmonary disease) Status: Chronic Qualifiers: (7) DM type 2 (diabetes mellitus, type 2) Status: Chronic (8) ESRD (end stage renal disease) on dialysis Code(s): N18.6 - END STAGE RENAL DISEASE; Z99.2 - DEPENDENCE ON RENAL DIALYSIS Status: Chronic Comment: HD per Renal service (9) Hepatitis C Code(s): B19.20 - UNSPECIFIED VIRAL HEPATITIS C WITHOUT HEPATIC COMA Status: Chronic Comment: Chronic, stable (10) Hyperlipidemia Code(s): E78.5 - HYPERLIPIDEMIA, UNSPECIFIED Status: Chronic (11) Hypoalbuminemia Code(s): E88.09 - OTH DISORDERS OF PLASMA-PROTEIN METABOLISM, NEC Status: Chronic (12) Obesity (BMI 30.0-34.9) Code(s): E66.9 - OBESITY, UNSPECIFIED Status: Chronic (13) Secondary hyperparathyroidism of renal origin Code(s): N25.81 - SECONDARY HYPERPARATHYROIDISM OF RENAL ORIGIN Status: Chronic (14) Thrombocytopenia Code(s): D69.6 - THROMBOCYTOPENIA, UNSPECIFIED Status: Chronic - Plan continue antibiotics, PT/OT, out of bed/ambulate, DVT proph w/SCDs cont empiric ABx.follow Cx.negative so far -: fluid removal with Hd as tolerated -: rehab on DC. CM to assist -: AM labs. home meds as bellow -: cloinically better * . Review of Systems - Review of Systems Constitutional: weakness, malaise. negative: fever, chills, sweats, other ENT: negative: Ear Pain, Ear Discharge, Nose Pain, Nose Discharge, Nose Congestion, Mouth Pain, Mouth Swelling, Throat Pain, Throat Swelling, Other Respiratory: negative: Cough, Dry, Shortness of Breath, Hemoptysis, SOB with Excertion, Pleuritic Pain, Sputum, Wheezing Cardiovascular: edema. negative: chest pain, palpitations, orthopnea, paroxysmal nocturnal dyspnea, light headedness, other Gastrointestinal: negative: Nausea, Vomiting, Abdominal Pain, Diarrhea, Constipation, Melena, Hematochezia, Other Genitourinary: negative: Dysuria, Frequency, Incontinence, Hematuria, Retention , Other Musculoskeletal: negative: Neck Pain, Shoulder Pain, Arm Pain, Back Pain, Hand Pain, Leg Pain, Foot Pain, Other Skin: negative: Rash, Lesions, [place], Bruising, Other Neurological: negative: Weakness, Numbness, Incoordination, Change in Speech, Confusion, Seizures, Other - Medications/Allergies Allergies/Adverse Reactions: Allergies Allergy/AdvReac Type Severity Reaction Status Date / Time lisinopril Allergy Severe Verified 11/24/17 23:34 amitriptyline HCl Allergy Swelling Verified 11/24/17 23:34 [From Elavil] heparin Allergy Rash Verified 11/24/17 23:34 tramadol Allergy Nausea Verified 11/24/17 23:34 Medications: Current Medications Acetaminophen (Tylenol) 650 mg PO Q4H PRN PRN Reason: Headache/Fever or Pain Last Admin: 02/27/18 09:25 Dose: 650 mg Al Hydroxide/Mg Hydroxide (Maalox) 30 ml PO Q6H PRN PRN Reason: Heartburn or Indigestion Albuterol Sulfate (Proventil Hfa) 2 puff INH [id number] [facility] Last Admin: 02/27/18 08:35 Dose: 2 puff Albuterol/Ipratropium (Duoneb) 3 ml NEB [id number] PRN PRN Reason: SOB &/or Wheezing Artificial Tears (Tears Naturale) 0 drop EA EYE PRN PRN PRN Reason: Dry Eyes Aspirin (Aspirin Chewable) 81 mg PO DAILY [facility] Last Admin: 02/27/18 09:24 Dose: 81 mg Atorvastatin Calcium (Lipitor) 20 mg PO HS [facility] Last Admin: 02/26/18 22:16 Dose: Not Given Calcium Acetate (Phoslo) 1,334 mg PO TID [facility] Last Admin: 02/27/18 09:23 Dose: 1,334 mg Carvedilol (Coreg) 6.25 mg PO BID [facility] Last Admin: 02/27/18 09:24 Dose: 6.25 mg Clonidine (Catapres) 0.3 mg PO TID [facility] Last Admin: 02/27/18 09:24 Dose: 0.3 mg Dextrose/Water (Dextrose 50%) 25 gm SLOW IVP PRN PRN PRN Reason: Hypoglycemia Last Admin: 02/26/18 08:01 Dose: 25 gm Glucagon (Glucagon) 1 mg IM PRN PRN PRN Reason: Hypoglycemia Guaifenesin (Robitussin Sf) 200 mg PO Q4H PRN PRN Reason: Cough Hydralazine HCl (Apresoline) 10 mg SLOW IVP Q4H PRN PRN Reason: Systolic BP > 180 Ceftriaxone Sodium 1 gm/ (Sodium Chloride) 100 mls @ 200 mls/hr IVPB Q24HR [facility] Last Admin: 02/27/18 12:15 Dose: 100 mls Dextrose/Water (D5w) 1,000 mls @ 0 mls/hr IV .Q0M PRN; As Directed PRN Reason: Hypoglycemia Vancomycin HCl 1.25 gm/ Sodium (Chloride) 250 mls @ 166.667 mls/hr IVPB WILLCALL [facility] Vancomycin HCl 1 gm/ Device 200 mls @ 200 mls/hr IVPB [facility] Vancomycin HCl 750 mg/ Sodium (Chloride) 250 mls @ 250 mls/hr IVPB [facility] Vancomycin HCl 500 mg/ Sodium (Chloride) 100 mls @ 100 mls/hr IVPB [facility] Insulin Human Isoph/Insulin Regular (Humulin 70/30) 4 units SC BID-AC [facility] Last Admin: 02/27/18 09:23 Dose: 4 unit Insulin Human Lispro (Humalog) 0 units SC .MODERATE SLIDING SC PRN PRN Reason: Moderate Correctional Scale Insulin Human Lispro (Humalog) 0 units SC .BEDTIME SLIDING SC PRN PRN Reason: Bedtime Correctional Scale Loperamide HCl (Imodium) 2 mg PO PRN PRN PRN Reason: Diarrhea/Loose Stools Loratadine (Claritin) 10 mg PO DAILYPRN PRN PRN Reason: Sinus Symptoms Losartan Potassium (Cozaar) 50 mg PO DAILY [facility] Last Admin: 02/27/18 09:25 Dose: 50 mg Magnesium Hydroxide (Milk Of Magnesium) 30 ml PO DAILYPRN PRN PRN Reason: Constipation Mineral Oil/White Petrolatum (Eucerin Cream) 0 gm TOP BIDPRN PRN PRN Reason: Dry Skin Miscellaneous Medication (Pharmacy To Dose) 1 each IVPB DAILYPRN PRN PRN Reason: LABS Hold Vancomycin For (Level >20) 0 each FS .AT DIALYSIS [facility] Ondansetron HCl (Zofran Odt) 4 mg PO Q6H PRN PRN Reason: Nausea/Vomiting Last Admin: 02/27/18 13:07 Dose: 4 mg Ondansetron HCl (Zofran) 4 mg IVP Q6H PRN PRN Reason: Nausea/Vomiting Phenol (Chloraseptic [place] 180 Ml Bot) 0 ml PO PRN PRN PRN Reason: Sore Throat Polyethylene Glycol (Miralax) 17 gm PO DAILY [facility] Last Admin: 02/27/18 09:23 Dose: 17 gm Pregabalin (Lyrica) 75 mg PO DAILY [facility] Last Admin: 02/27/18 09:24 Dose: 75 mg Saccharomyces Boulardii (Florastor) 250 mg PO DAILY [facility] Last Admin: 02/27/18 09:28 Dose: 250 mg Senna (Senokot) 2 tab PO HSPRN PRN PRN Reason: Constipation Sertraline HCl (Zoloft) 100 mg PO [facility] Last Admin: 02/26/18 22:17 Dose: Not Given Sodium Chloride ([place] Nasal [place] 0.65%) 0 ml EA NARE QIDPRN PRN PRN Reason: Nasal Congestion Sodium Chloride (Flush - Normal Saline) 10 ml IVF Q12HR [facility] Last Admin: 02/27/18 09:23 Dose: 10 ml Sodium Chloride (Flush - Normal Saline) 10 ml IVF PRN PRN PRN Reason: Saline Flush Sucralfate (Carafate) 1 gm PO ACHS [facility] Last Admin: 02/27/18 12:16 Dose: 1 gm Zolpidem Tartrate (Ambien) 5 mg PO HSPRN PRN PRN Reason: Insomnia
--- NOTE | 2018-02-27 15:20 | EKG ---
Test Reason : Blood Pressure : / mmHG Vent. Rate : 073 BPM Atrial Rate : 073 BPM P-R Int : 172 ms QRS Dur : 088 ms QT Int : 444 ms P-R-T Axes : 078 -07 082 degrees QTc Int : 489 ms Normal sinus rhythm Possible Left atrial enlargement Septal infarct , age undetermined Inferior infarct , age undetermined Abnormal ECG Confirmed by GERBER CONROY MD ([id number]), general expeditor AGATHA ARREDONDO ([id number]) on 02/27/2018 3:19:50 PM Referred By: Confirmed By:GERBER CONROY MD
[2018-02-27] MEDS ORDERED: traMADol HCl 50 MG TAB PO PRN (18:37)
[2018-02-27] MEDS: Atorvastatin Calcium 20 MG TAB PO SCH (21:35)
[2018-02-28] MEDS: PROVENTIL INHALER 6.7 G (200 INHALATIONS) INH SCH ×5 (00:30→23:49)
[2018-02-28] MEDS: HYDROcodone/Acetaminophen 5/325 mg Tablet PO PRN ×3 (04:10→23:07)
[2018-02-28 05:15] LABS: #Eosinphils 0.2 thou/uL (0.0-0.7); #Lymphocytes 0.7 thou/uL (1.20-3.40); #Monocytes 0.6 thou/uL (0.11-0.59); #Neutrophils 2.9 thou/uL (1.40-6.50); %Lymphocytes 14.8 % (21.0-51.0); %Monocytes 13.4 % (0.0-10.0); %Neutrophils 66.9 % (42.0-75.0); Hemoglobin 11.8 g/dL (12.0-16.0); Mean Corpuscular HGB CONC 31.2 g/dL (32.0-36.0); Mean Corpuscular Hemoglobin 27.4 pg (27.0-31.0); Mean Platelet Volume 10.9 fL (7.4-10.4); Platelet Count 72 thou/uL (130-400); RBC Distribution Width 15.9 % (11.5-14.5); Red Blood Cell (RBC) Count 4.31 mill/uL (4.20-5.40); White Blood Cell (WBC) Count 4.4 thou/uL (4.8-10.8)
[2018-02-28 05:31] LABS: Anion Gap 15 mmol/L (10-20); BUN (Urea Nitrogen) 30 mg/dL (9.8-20.1); Calc. Creatinine Clearance 15 mL/min (70-130); Calcium 8.7 mg/dL (7.8-10.44); Carbon Dioxide 28 mmol/L (23-31); Chloride 97 mmol/L (98-107); Estimated GFR-MDRD 10; Glucose 78 mg/dL (80-115); Potassium 3.9 mmol/L (3.5-5.1); Sodium 136 mmol/L (136-145)
[2018-02-28] MEDS: Insulin NPH/Reg Insulin Hm 300 UNITS/3 ML VIAL SC SCH ×2 (09:02→17:26)
[2018-02-28] MEDS: Calcium Acetate 667 MG CAP PO SCH ×3 (09:03→21:36)
[2018-02-28] MEDS: Sucralfate 1 GM TAB PO SCH ×4 (09:03→21:34)
[2018-02-28] MEDS: Polyethylene Glycol 3350 17 GM Packet PO SCH (09:05)
[2018-02-28] MEDS: Pregabalin 75 MG CAP PO SCH (09:08)
[2018-02-28] MEDS: Saccharomyces boulardii 250 MG CAP PO SCH (09:09)
[2018-02-28] MEDS: Carvedilol 6.25 MG TAB PO SCH ×2 (09:29→21:35)
[2018-02-28] MEDS: cloNIDine 0.3 MG TAB PO SCH ×3 (09:35→21:34)
[2018-02-28] MEDS: Losartan 25 MG TAB PO SCH (09:35)
--- NOTE | 2018-02-28 14:02 | PRG ---
DATE OF SERVICE: 02/28/2018 SUBJECTIVE: Patient was seen and examined at bedside and overnight events noted. Patient denies any shortness of breath or chest pain or palpitation. No history of nausea or vomiting or diarrhea or f ever or chills or cramps. OBJECTIVE: GENERAL: This is a well-built female, in no acute distress VITAL SIGNS: Temperature 98.5, pulse 50, respiratory rate 18, blood pressure 107/50. HEENT: Atraumatic, normocephalic. Oral mucosa is moist. NECK: Supple. CARDIOVASCULAR: S1 and S2 heard. Rate and rhythm regular. RESPIRATORY: Clear to auscultation. GASTROINTESTINAL: Abdomen is soft. MUSCULOSKELETAL: No tenderness. No edema. DERMATOLOGIC: No skin rash. NEUROLOGIC: Alert and awake and oriented x3. No focal neurologic deficits. Moving all the extremitie s. PSYCHIATRIC: Mood and affect normal. LABORATORY DATA: Potassium 3.9, BUN 30, creatinine is 5.2. ASSESSMENT AND PLAN: 1. End-stage renal disease. Continue hemodialysis as tolerated. 2. Edema, remove fluid. 3. Hypertension, stable. 4. Anemia, stable. Plan is to continue on dialysis. We will have dialysis today and then continue dialysis Thursday, , and Thursday. Limit fluid and salt intake. We will continue dialysis. We will follow.
--- NOTE | 2018-02-28 14:30 | PDOC.PN ---
- Subjective Encounter Start Date: 02/28/18 Encounter Start Time: 14:28 Subjective: reports recurrent severe burning pain in legs and chest -: feels something is crawling on her skin -: nursing report low BP & HR this am - Objective Resuscitation Status: Resuscitation Status FULL:Full Resuscitation MAR Reviewed: Yes Vital Signs & Weight: Vital Signs (12 hours) Temp Pulse Resp BP Pulse Ox 02/28/18 12:12 58 L 12 02/28/18 11:59 97.9 F 58 L 20 133/64 98 02/28/18 08:59 98.5 F 58 L 20 107/58 L 98 02/28/18 04:00 98.3 F 57 L 16 116/59 L 96 Weight Admit Weight 187 lb Weight 187 lb I&O: 02/27/18 02/28/18 03/01/18 06:59 06:59 06:59 Intake Total 1110 1320 Output Total 5100 0 Balance -3990 1320 Result Diagrams: 02/28/18 04:47 02/28/18 04:47 Additional Labs: Accuchecks 02/28/18 02/28/18 02/27/18 11:12 05:20 20:24 POC Glucose 153 H 91 344 H Microbiology 02/25/18 10:10 Foot - Pending Bacterial Culture - Final 02/25/18 08:22 Venous blood - Right Hand Blood Culture - Preliminary NO GROWTH AT 48 HOURS 02/25/18 08:08 Venous blood - Right Hand Blood Culture - Preliminary NO GROWTH AT 48 HOURS labs reviewed Phys Exam - Physical Examination Constitutional: NAD HEENT: PERRLA, moist MMs, sclera anicteric, oral pharynx no lesions Neck: no nodes, no JVD, supple, full ROM Respiratory: no wheezing, no rales, no rhonchi, clear to auscultation bilateral Cardiovascular: RRR, no significant murmur, no rub Gastrointestinal: soft, non-tender, no distention, positive bowel sounds Musculoskeletal: pulses present, edema present (much improved) Neurological: non-focal, normal sensation, moves all 4 limbs Psychiatric: normal affect, A&O x 3 Skin: no rash Dx/Plan (1) Acute on chronic diastolic ACC/AHA stage C congestive heart failure Code(s): I50.33 - ACUTE ON CHRONIC DIASTOLIC (CONGESTIVE) HEART FAILURE Status : Acute Comment: ECHO 10/2017-Diastolic dysfunction (2) Anasarca Code(s): R60.1 - GENERALIZED EDEMA Status: Acute Comment: Fluid removal with HD as tolerated. 4 L rmoved yesterday (3) Cellulitis of both feet Code(s): L03.115 - CELLULITIS OF RIGHT LOWER LIMB; L03.116 - CELLULITIS OF LEFT LOWER LIMB Status: Acute Comment: on Rocephin and renally dosed Vancomycin (4) Volume overload Code(s): E87.70 - FLUID OVERLOAD, UNSPECIFIED Status: Acute Comment: See above, resolving (5) Anemia in chronic kidney disease (CKD) Code(s): N18.9 - CHRONIC KIDNEY DISEASE, UNSPECIFIED; D63.1 - ANEMIA IN CHRONIC KIDNEY DISEASE Status: Chronic Qualifiers: Comment: H/H stable (6) COPD (chronic obstructive pulmonary disease) Status: Chronic Qualifiers: (7) DM type 2 (diabetes mellitus, type 2) Status: Chronic (8) ESRD (end stage renal disease) on dialysis Code(s): N18.6 - END STAGE RENAL DISEASE; Z99.2 - DEPENDENCE ON RENAL DIALYSIS Status: Chronic Comment: HD per Renal service (9) Hepatitis C Code(s): B19.20 - UNSPECIFIED VIRAL HEPATITIS C WITHOUT HEPATIC COMA Status: Chronic Comment: Chronic, stable (10) Hyperlipidemia Code(s): E78.5 - HYPERLIPIDEMIA, UNSPECIFIED Status: Chronic (11) Hypoalbuminemia Code(s): E88.09 - OTH DISORDERS OF PLASMA-PROTEIN METABOLISM, NEC Status: Chronic (12) Obesity (BMI 30.0-34.9) Code(s): E66.9 - OBESITY, UNSPECIFIED Status: Chronic (13) Secondary hyperparathyroidism of renal origin Code(s): N25.81 - SECONDARY HYPERPARATHYROIDISM OF RENAL ORIGIN Status: Chronic (14) Thrombocytopenia Code(s): D69.6 - THROMBOCYTOPENIA, UNSPECIFIED Status: Chronic - Plan continue antibiotics, PT/OT, respiratory therapy, incentive spirometry, out of bed/ambulate, DVT proph w/SCDs add neurontin for possible diabetic neuropathic pain -: reduce Coreg dose given low BP and HR.Hold parametrs given -: rehab eval. -: AM labs * . Review of Systems - Review of Systems Constitutional: weakness, malaise. negative: fever, chills, sweats, other Respiratory: negative: Cough, Dry, Shortness of Breath, Hemoptysis, SOB with Excertion, Pleuritic Pain, Sputum, Wheezing Cardiovascular: chest pain. negative: palpitations, orthopnea, paroxysmal nocturnal dyspnea, edema, light headedness, other Gastrointestinal: negative: Nausea, Vomiting, Abdominal Pain, Diarrhea, Constipation, Melena, Hematochezia, Other Genitourinary: negative: Dysuria, Frequency, Incontinence, Hematuria, Retention , Other Musculoskeletal: Leg Pain. negative: Neck Pain, Shoulder Pain, Arm Pain, Back Pain, Hand Pain, Foot Pain, Other Skin: negative: Rash, Lesions, [place], Bruising, Other Neurological: negative: Weakness, Numbness, Incoordination, Change in Speech, Confusion, Seizures, Other - Medications/Allergies Allergies/Adverse Reactions: Allergies Allergy/AdvReac Type Severity Reaction Status Date / Time lisinopril Allergy Severe Verified 11/24/17 23:34 amitriptyline HCl Allergy Swelling Verified 11/24/17 23:34 [From [facility]] heparin Allergy Rash Verified 11/24/17 23:34 tramadol Allergy Nausea Verified 11/24/17 23:34 Medications: Current Medications Acetaminophen (Tylenol) 650 mg PO Q4H PRN PRN Reason: Headache/Fever or Pain Last Admin: 02/27/18 18:08 Dose: 650 mg Hydrocodone Bitart/Acetaminophen ([place] 5/325) 1 tab PO Q6H PRN PRN Reason: Pain Last Admin: 02/28/18 04:10 Dose: 1 tab Al Hydroxide/Mg Hydroxide (Maalox) 30 ml PO Q6H PRN PRN Reason: Heartburn or Indigestion Albuterol Sulfate (Proventil Hfa) 2 puff INH [id number] [facility] Last Admin: 02/28/18 12:12 Dose: 2 puff Albuterol/Ipratropium (Duoneb) 3 ml NEB [id number] PRN PRN Reason: SOB &/or Wheezing Artificial Tears (Tears Naturale) 0 drop EA EYE PRN PRN PRN Reason: Dry Eyes Aspirin (Aspirin Chewable) 81 mg PO DAILY [facility] Last Admin: 02/28/18 09:03 Dose: 81 mg Atorvastatin Calcium (Lipitor) 20 mg PO HS [facility] Last Admin: 02/27/18 21:35 Dose: 20 mg Calcium Acetate (Phoslo) 1,334 mg PO TID [facility] Last Admin: 02/28/18 09:03 Dose: 1,334 mg Carvedilol (Coreg) 3.125 mg PO BID [facility] Clonidine (Catapres) 0.3 mg PO TID [facility] Last Admin: 02/28/18 09:35 Dose: Not Given Dextrose/Water (Dextrose 50%) 25 gm SLOW IVP PRN PRN PRN Reason: Hypoglycemia Last Admin: 02/26/18 08:01 Dose: 25 gm Gabapentin (Neurontin) 300 mg PO TID [facility] Glucagon (Glucagon) 1 mg IM PRN PRN PRN Reason: Hypoglycemia Guaifenesin (Robitussin Sf) 200 mg PO Q4H PRN PRN Reason: Cough Hydralazine HCl (Apresoline) 10 mg SLOW IVP Q4H PRN PRN Reason: Systolic BP > 180 Ceftriaxone Sodium 1 gm/ (Sodium Chloride) 100 mls @ 200 mls/hr IVPB Q24HR [facility] Last Admin: 02/27/18 12:15 Dose: 100 mls Dextrose/Water (D5w) 1,000 mls @ 0 mls/hr IV .Q0M PRN; As Directed PRN Reason: Hypoglycemia Vancomycin HCl 1.25 gm/ Sodium (Chloride) 250 mls @ 166.667 mls/hr IVPB WILLCALL [facility] Vancomycin HCl 1 gm/ Device 200 mls @ 200 [facility]ls[facility] Vancom[facility] 750 mg/ Sodium (Chloride) 250 mls @ 250 mls/hr IVPB [facility] Vancomycin HCl 500 mg/ Sodium (Chloride) 100 mls @ 100 mls/hr IVPB [facility] Insulin Human Isoph/Insulin Regular (Humulin 70/30) 4 units SC BID-[facility] Last Admin: 02/28/18 09:02 Dose: 4 unit Insulin Human Lispro (Humalog) 0 units SC .MODERATE SLIDING SC PRN PRN Reason: Moderate Correctional Scale Insulin Human Lispro (Humalog) 0 units SC .BEDTIME SLIDING SC PRN PRN Reason: Bedtime Correctional Scale Last Admin: 02/27/18 21:43 Dose: 4 unit Loperamide HCl (Imodium) 2 mg PO PRN PRN PRN Reason: Diarrhea/Loose Stools Loratadine (Claritin) 10 mg PO DAILYPRN PRN PRN Reason: Sinus Symptoms Losartan Potassium (Cozaar) 50 mg PO DAILY [facility] Last Admin: 02/28/18 09:35 Dose: Not Given Magnesium Hydroxide (Milk Of Magnesium) 30 ml PO DAILYPRN PRN PRN Reason: Constipation Mineral Oil/White Petrolatum (Eucerin Cream) 0 gm TOP BIDPRN PRN PRN Reason: Dry Skin Miscellaneous Medication (Pharmacy To Dose) 1 each IVPB DAILYPRN PRN PRN Reason: LABS Hold Vancomycin For (Level >20) 0 each FS .AT DIALYSIS [facility] Ondansetron HCl (Zofran Odt) 4 mg PO Q6H PRN PRN Reason: Nausea/Vomiting Last Admin: 02/27/18 13:07 Dose: 4 mg Ondansetron HCl (Zofran) 4 mg IVP Q6H PRN PRN Reason: Nausea/Vomiting Phenol (Chloraseptic [place] 180 Ml Bot) 0 ml PO PRN PRN PRN Reason: Sore Throat Polyethylene Glycol (Miralax) 17 gm PO DAILY [facility] Last Admin: 02/28/18 09:05 Dose: 17 gm Pregabalin (Lyrica) 75 mg PO DAILY [facility] Last Admin: 02/28/18 09:08 Dose: 75 mg Saccharomyces Boulardii (Florastor) 250 mg PO DAILY [facility] Last Admin: 02/28/18 09:09 Dose: 250 mg Senna (Senokot) 2 tab PO HSPRN PRN PRN Reason: Constipation Sertraline HCl (Zoloft) 100 mg PO [facility] Last Admin: 02/27/18 21:35 Dose: 100 mg Sodium Chloride ([place] Nasal [place] 0.65%) 0 ml EA NARE QIDPRN PRN PRN Reason: Nasal Congestion Sodium Chloride (Flush - Normal Saline) 10 ml IVF Q12HR [facility] Last Admin: 02/28/18 09:09 Dose: 10 ml Sodium Chloride (Flush - Normal Saline) 10 ml IVF PRN PRN PRN Reason: Saline Flush Sucralfate (Carafate) 1 gm PO ACHS [facility] Last Admin: 02/28/18 12:03 Dose: 1 gm Zinc Acetate/Diphenhydramine (Benadryl 2% Cream) 0 gm TOP BIDPRN PRN PRN Reason: Itching Zolpidem Tartrate (Ambien) 5 mg PO HSPRN PRN PRN Reason: Insomnia
[2018-02-28] MEDS: Gabapentin 300 MG CAP PO SCH ×2 (15:30→21:35)
[2018-02-28] MEDS: cefTRIAXone\\ROCEPHIN 1 GM in Sodium Chloride 0.9% 100 ML IVPB SCH (17:20)
[2018-02-28] MEDS: Atorvastatin Calcium 20 MG TAB PO SCH (21:35)
[2018-03-01] MEDS: HYDROcodone/Acetaminophen 5/325 mg Tablet PO PRN ×2 (06:27→14:53)
[2018-03-01] MEDS: PROVENTIL INHALER 6.7 G (200 INHALATIONS) INH SCH ×3 (06:54→19:16)
[2018-03-01 08:59] LABS: Vancomycin, Trough 13.1 ug/mL
[2018-03-01] MEDS: Calcium Acetate 667 MG CAP PO SCH ×3 (09:21→21:41)
[2018-03-01] MEDS: Sucralfate 1 GM TAB PO SCH ×4 (09:21→21:43)
[2018-03-01] MEDS: Polyethylene Glycol 3350 17 GM Packet PO SCH (09:22)
[2018-03-01] MEDS: Gabapentin 300 MG CAP PO SCH ×3 (09:22→21:41)
[2018-03-01] MEDS: cloNIDine 0.3 MG TAB PO SCH ×3 (09:22→21:41)
--- NOTE | 2018-03-01 09:29 | PRG ---
DATE OF SERVICE: 03/01/2018 SUBJECTIVE: This is a 62-year-old female being seen for end-stage renal disease. The patient denies any nausea, vomiting or chest pain. MEDICATIONS: List reviewed. PHYSICAL EXAMINATION: GENERAL: Patient is awake, alert. VITAL SIGNS: Afebrile, pulse 79, breathing at 16, blood pressure 150/70. OBJECTIVE: See above. Awake, alert, in no acute distress. GENERAL APPEARANCE AND MENTAL STATUS: Fair. HEAD/NECK: Normocephalic. Atraumatic. EYES: EOMI. No deformity. EARS: Clear. No ulcers. NOSE: Intact. No lesions. MOUTH: Clear. No discharge. THROAT: Clear. No exudate. LUNGS: Clear. No crackles. CARDIAC: S1, S2. No rub. ABDOMEN: Benign. BS+. GENITALIA/RECTUM: Brannon absent. BACK/EXTREMITIES: Edema 0+ Ulcer- NEUROLOGICAL: Alert and motor intact. SKIN: Rash- Bruise- LYMPHATICS: Edema- Ulcer- LABORATORY: Hemoglobin 11.8, potassium 3.9. ASSESSMENT AND RECOMMENDATIONS: 1. Stage 6 chronic kidney disease. We will plan dialysis today. 2. Hypertension, stable. 3. Anemia, stable. 4. Secondary hyperparathyroidism. Continue low phosphorus diet. 5. Medications based on glomerular filtration rate are appropriate.
[2018-03-01] MEDS: Carvedilol 6.25 MG TAB PO SCH ×2 (12:50→21:42)
[2018-03-01] MEDS: Losartan 25 MG TAB PO SCH (12:52)
[2018-03-01] MEDS: Pregabalin 75 MG CAP PO SCH (12:52)
[2018-03-01] MEDS: Saccharomyces boulardii 250 MG CAP PO SCH (12:53)
[2018-03-01] MEDS: cefTRIAXone\\ROCEPHIN 1 GM in Sodium Chloride 0.9% 100 ML IVPB SCH (12:55)
[2018-03-01] MEDS: diphenhydrAMINE 2% CREAM 28.4 GM TUBE TOP PRN ×2 (12:59→21:43)
--- NOTE | 2018-03-01 14:37 | PDOC.PN ---
- Subjective Encounter Start Date: 03/01/18 Encounter Start Time: 14:35 Subjective: feels tired. c/p pain in buttock area -: c/o being sleepy .no CP/SOB.leg pain is better - Objective Resuscitation Status: Resuscitation Status FULL:Full Resuscitation MAR Reviewed: Yes Vital Signs & Weight: Vital Signs (12 hours) Temp Pulse Resp BP Pulse Ox 03/01/18 13:43 69 18 100 03/01/18 12:48 98.6 F 71 18 153/71 H 98 03/01/18 07:19 97.6 F 59 L 20 143/70 H 93 L 03/01/18 06:54 60 14 99 03/01/18 04:57 98.2 F 54 L 16 110/55 L 96 Weight Admit Weight 187 lb Weight 168 lb 10.458 oz I&O: 02/28/18 03/01/18 03/02/18 06:59 06:59 06:59 Intake Total 1320 1280 Output Total 0 0 Balance 1320 1280 Result Diagrams: 02/28/18 04:47 02/28/18 04:47 Additional Labs: Accuchecks 03/01/18 02/28/18 02/28/18 04:54 20:59 17:12 POC Glucose 97 72 126 H Microbiology 02/25/18 10:10 Foot - Pending Bacterial Culture - Final 02/25/18 08:22 Venous blood - Right Hand Blood Culture - Preliminary NO GROWTH AT 48 HOURS 02/25/18 08:08 Venous blood - Right Hand Blood Culture - Preliminary NO GROWTH AT 48 HOURS labs reviewed Phys Exam - Physical Examination Constitutional: NAD sleepy. seen in hemodialysis HEENT: PERRLA, moist MMs, sclera anicteric, oral pharynx no lesions Neck: no nodes, no JVD, supple, full ROM Respiratory: no wheezing, no rales, no rhonchi, clear to auscultation bilateral Cardiovascular: RRR, no significant murmur, no rub Gastrointestinal: soft, non-tender, no distention, positive bowel sounds Musculoskeletal: no edema, pulses present Neurological: non-focal, normal sensation, moves all 4 limbs Psychiatric: normal affect, A&O x 3 Skin: no rash Dx/Plan (1) Acute on chronic diastolic ACC/AHA stage C congestive heart failure Code(s): I50.33 - ACUTE ON CHRONIC DIASTOLIC (CONGESTIVE) HEART FAILURE Status : Acute Comment: ECHO 10/2017-Diastolic dysfunction (2) Anasarca Code(s): R60.1 - GENERALIZED EDEMA Status: Acute Comment: Fluid removal with HD as tolerated. 4 L rmoved yesterday (3) Cellulitis of both feet Code(s): L03.115 - CELLULITIS OF RIGHT LOWER LIMB; L03.116 - CELLULITIS OF LEFT LOWER LIMB Status: Acute Comment: on Rocephin and renally dosed Vancomycin (4) Volume overload Code(s): E87.70 - FLUID OVERLOAD, UNSPECIFIED Status: Acute Comment: See above, resolving (5) Anemia in chronic kidney disease (CKD) Code(s): N18.9 - CHRONIC KIDNEY DISEASE, UNSPECIFIED; D63.1 - ANEMIA IN CHRONIC KIDNEY DISEASE Status: Chronic Qualifiers: Comment: H/H stable (6) COPD (chronic obstructive pulmonary disease) Status: Chronic Qualifiers: (7) DM type 2 (diabetes mellitus, type 2) Status: Chronic (8) ESRD (end stage renal disease) on dialysis Code(s): N18.6 - END STAGE RENAL DISEASE; Z99.2 - DEPENDENCE ON RENAL DIALYSIS Status: Chronic Comment: HD per Renal service (9) Hepatitis C Code(s): B19.20 - UNSPECIFIED VIRAL HEPATITIS C WITHOUT HEPATIC COMA Status: Chronic Comment: Chronic, stable (10) Hyperlipidemia Code(s): E78.5 - HYPERLIPIDEMIA, UNSPECIFIED Status: Chronic (11) Hypoalbuminemia Code(s): E88.09 - OTH DISORDERS OF PLASMA-PROTEIN METABOLISM, NEC Status: Chronic (12) Obesity (BMI 30.0-34.9) Code(s): E66.9 - OBESITY, UNSPECIFIED Status: Chronic (13) Secondary hyperparathyroidism of renal origin Code(s): N25.81 - SECONDARY HYPERPARATHYROIDISM OF RENAL ORIGIN Status: Chronic (14) Thrombocytopenia Code(s): D69.6 - THROMBOCYTOPENIA, UNSPECIFIED Status: Chronic - Plan PT/OT, out of bed/ambulate, DVT proph w/SCDs Close to baseline.DC planning. Pt wanted rehab then refused/ -: reassess. not safe for DC home as lives alone -: AM labs.hemodialysis per nephrology -: Hemodynamically stable. BP stable w reduction in dose of BB. monitor -: reduce pain meds. cont neurontin * . Review of Systems - Review of Systems Constitutional: weakness, malaise. negative: fever, chills, sweats, other ENT: negative: Ear Pain, Ear Discharge, Nose Pain, Nose Discharge, Nose Congestion, Mouth Pain, Mouth Swelling, Throat Pain, Throat Swelling, Other Respiratory: negative: Cough, Dry, Shortness of Breath, Hemoptysis, SOB with Excertion, Pleuritic Pain, Sputum, Wheezing Cardiovascular: negative: chest pain, palpitations, orthopnea, paroxysmal nocturnal dyspnea, edema, light headedness, other Gastrointestinal: negative: Nausea, Vomiting, Abdominal Pain, Diarrhea, Constipation, Melena, Hematochezia, Other Genitourinary: negative: Dysuria, Frequency, Incontinence, Hematuria, Retention , Other Musculoskeletal: negative: Neck Pain, Shoulder Pain, Arm Pain, Back Pain, Hand Pain, Leg Pain, Foot Pain, Other Skin: negative: Rash, Lesions, [place], Bruising, Other Neurological: negative: Weakness, Numbness, Incoordination, Change in Speech, Confusion, Seizures, Other - Medications/Allergies Allergies/Adverse Reactions: Allergies Allergy/AdvReac Type Severity Reaction Status Date / Time lisinopril Allergy Severe Verified 11/24/17 23:34 amitriptyline HCl Allergy Swelling Verified 11/24/17 23:34 [From [facility]] heparin Allergy Rash Verified 11/24/17 23:34 tramadol Allergy Nausea Verified 11/24/17 23:34 Medications: Current Medications Acetaminophen (Tylenol) 650 mg PO Q4H PRN PRN Reason: Headache/Fever or Pain Last Admin: 02/27/18 18:08 Dose: 650 mg Hydrocodone Bitart/Acetaminophen ([place] 5/325) 1 tab PO Q6H PRN PRN Reason: Pain Last Admin: 03/01/18 06:27 Dose: 1 tab Al Hydroxide/Mg Hydroxide (Maalox) 30 ml PO Q6H PRN PRN Reason: Heartburn or Indigestion Albuterol Sulfate (Proventil Hfa) 2 puff INH [id number] [id number] Last Admin: 03/01/18 13:43 Dose: 2 puff Albuterol/Ipratropium (Duoneb) 3 ml NEB [id number] PRN PRN Reason: SOB &/or Wheezing Artificial Tears (Tears Naturale) 0 drop EA EYE PRN PRN PRN Reason: Dry Eyes Aspirin (Aspirin Chewable) 81 mg PO DAILY [facility] Last Admin: 03/01/18 12:49 Dose: 81 mg Atorvastatin Calcium (Lipitor) 20 mg PO HS [facility] Last Admin: 02/28/18 21:35 Dose: 20 mg Calcium Acetate (Phoslo) 1,334 mg PO TID [facility] Last Admin: 03/01/18 09:21 Dose: Not Given Carvedilol (Coreg) 3.125 mg PO BID [facility] Last Admin: 03/01/18 12:50 Dose: 3.125 mg Clonidine (Catapres) 0.3 mg PO TID [facility] Last Admin: 03/01/18 09:22 Dose: Not Given Dextrose/Water (Dextrose 50%) 25 gm SLOW IVP PRN PRN PRN Reason: Hypoglycemia Last Admin: 02/26/18 08:01 Dose: 25 gm Gabapentin (Neurontin) 300 mg PO TID [facility] Last Admin: 03/01/18 09:22 Dose: Not Given Glucagon (Glucagon) 1 mg IM PRN PRN PRN Reason: Hypoglycemia Guaifenesin (Robitussin Sf) 200 mg PO Q4H PRN PRN Reason: Cough Hydralazine HCl (Apresoline) 10 mg SLOW IVP Q4H PRN PRN Reason: Systolic BP > 180 Ceftriaxone Sodium 1 gm/ (Sodium Chloride) 100 mls @ 200 mls/hr IVPB Q24HR [facility] Last Admin: 03/01/18 12:55 Dose: 100 mls Dextrose/Water (D5w) 1,000 mls @ 0 mls/hr IV .Q0M PRN; As Directed PRN Reason: Hypoglycemia Vancomycin HCl 1.25 gm/ Sodium (Chloride) 250 mls @ 166.667 mls/hr IVPB [facility] Vancomycin HCl 1 gm/ Device 200 mls @ 200 [facility]ls[facility] Vancom[facility] HCl 750 mg/ Sodium (Chloride) 250 mls @ 250 mls/hr IVPB [facility] Last Admin: 03/01/18 10:44 Dose: 250 mls Vancomycin HCl 500 mg/ Sodium (Chloride) 100 mls @ 100 mls[facility] Insulin Human Isoph/Insulin Regular (Humulin 70/30) 4 units SC BID-AC [facility] Last Admin: 02/28/18 17:26 Dose: 4 unit Insulin Human Lispro (Humalog) 0 units SC .MODERATE SLIDING SC PRN PRN Reason: Moderate Correctional Scale Insulin Human Lispro (Humalog) 0 units SC .BEDTIME SLIDING SC PRN PRN Reason: Bedtime Correctional Scale Last Admin: 02/27/18 21:43 Dose: 4 unit Loperamide HCl (Imodium) 2 mg PO PRN PRN PRN Reason: Diarrhea/Loose Stools Loratadine (Claritin) 10 mg PO DAILYPRN PRN PRN Reason: Sinus Symptoms Losartan Potassium (Cozaar) 50 mg PO DAILY [facility] Last Admin: 03/01/18 12:52 Dose: 50 mg Magnesium Hydroxide (Milk Of Magnesium) 30 ml PO DAILYPRN PRN PRN Reason: Constipation Mineral Oil/White Petrolatum (Eucerin Cream) 0 gm TOP BIDPRN PRN PRN Reason: Dry Skin Miscellaneous Medication (Pharmacy To Dose) 1 each IVPB DAILYPRN PRN PRN Reason: LABS Hold Vancomycin For (Level >20) 0 each FS .AT DIALYSIS [facility] Ondansetron HCl (Zofran Odt) 4 mg PO Q6H PRN PRN Reason: Nausea/Vomiting Last Admin: 02/27/18 13:07 Dose: 4 mg Ondansetron HCl (Zofran) 4 mg IVP Q6H PRN PRN Reason: Nausea/Vomiting Phenol (Chloraseptic [place] 180 Ml Bot) 0 ml PO PRN PRN PRN Reason: Sore Throat Polyethylene Glycol (Miralax) 17 gm PO DAILY [facility] Last Admin: 03/01/18 09:22 Dose: Not Given Pregabalin (Lyrica) 75 mg PO DAILY [facility] Last Admin: 03/01/18 12:52 Dose: 75 mg Saccharomyces Boulardii (Florastor) 250 mg PO DAILY [facility] Last Admin: 03/01/18 12:53 Dose: 250 mg Senna (Senokot) 2 tab PO HSPRN PRN PRN Reason: Constipation Sertraline HCl (Zoloft) 100 mg PO HS [facility] Last Admin: 02/28/18 21:35 Dose: 100 mg Sodium Chloride ([place] Nasal [place] 0.65%) 0 ml EA NARE QIDPRN PRN PRN Reason: Nasal Congestion Sodium Chloride (Flush - Normal Saline) 10 ml IVF Q12HR [facility] Last Admin: 03/01/18 12:54 Dose: 10 ml Sodium Chloride (Flush - Normal Saline) 10 ml IVF PRN PRN PRN Reason: Saline Flush Sucralfate (Carafate) 1 gm PO ACHS [facility] Last Admin: 03/01/18 12:55 Dose: 1 gm Zinc Acetate/Diphenhydramine (Benadryl 2% Cream) 0 gm TOP BIDPRN PRN PRN Reason: Itching Last Admin: 03/01/18 12:59 Dose: 1 applic Zolpidem Tartrate (Ambien) 5 mg PO HSPRN PRN PRN Reason: Insomnia
[2018-03-01] MEDS: Insulin NPH/Reg Insulin Hm 300 UNITS/3 ML VIAL SC SCH ×2 (14:41→16:48)
[2018-03-01] MEDS: Atorvastatin Calcium 20 MG TAB PO SCH (21:42)
--- NOTE | 2018-03-02 00:13 | PRG ---
DATE OF SERVICE: 02/27/2018 SUBJECTIVE: Patient was seen and examined at bedside and overnight events noted. Patient denies any shortness of breath or chest pain or palpitation. No history of nausea or vomiting or diarrhea or f ever or chills or cramps. OBJECTIVE: GENERAL: This is a well-built female, in no apparent distress. VITAL SIGNS: Temperature 98.2, pulse 59, respiratory rate 20, blood pressure 121/61. HEENT: Facial puffiness. NECK: Supple. CARDIOVASCULAR: S1 S2 heard. Rate and rhythm regular. RESPIRATORY: Clear to auscultation. GASTROINTESTINAL: Abdomen is soft. MUSCULOSKELETAL: No tenderness, no edema. DERMATOLOGIC: No skin rash. NEUROLOGIC: Alert and awake and oriented x3. No focal neurologic deficits. Moving all the extremit ies. PSYCHIATRIC: Mood and affect normal. LABORATORY DATA: Not done today. ASSESSMENT AND PLAN: 1. End-stage renal disease. We will continue on dialysis as tolerated with ultrafiltration. 2. Edema with fluid overload. Plan is to remove fluid with dialysis. 3. Hypertension, remove fluid. 4. Anemia. Monitor hemoglobin. Plan is to continue on dialysis with fluid removal as tolerated, advised to limit fluid and salt intbeckie slade.
[2018-03-02] MEDS: PROVENTIL INHALER 6.7 G (200 INHALATIONS) INH SCH ×3 (00:41→12:35)
[2018-03-02 05:30] LABS: Anion Gap 13 mmol/L (10-20); BUN (Urea Nitrogen) 17 mg/dL (9.8-20.1); Calc. Creatinine Clearance 19 mL/min (70-130); Calcium 8.9 mg/dL (7.8-10.44); Carbon Dioxide 29 mmol/L (23-31); Chloride 97 mmol/L (98-107); Estimated GFR-MDRD 15; Glucose 93 mg/dL (80-115); Potassium 4.7 mmol/L (3.5-5.1); Sodium 134 mmol/L (136-145)
[2018-03-02] MEDS: diphenhydrAMINE 2% CREAM 28.4 GM TUBE TOP PRN (06:25)
[2018-03-02] MEDS: Calcium Acetate 667 MG CAP PO SCH ×2 (08:44→14:13)
[2018-03-02] MEDS: Carvedilol 6.25 MG TAB PO SCH (08:45)
[2018-03-02] MEDS: Losartan 25 MG TAB PO SCH (08:45)
[2018-03-02] MEDS: Gabapentin 300 MG CAP PO SCH ×2 (08:45→14:13)
[2018-03-02] MEDS: Sucralfate 1 GM TAB PO SCH ×3 (08:47→18:51)
[2018-03-02] MEDS: Pregabalin 75 MG CAP PO SCH (08:48)
[2018-03-02] MEDS: cloNIDine 0.3 MG TAB PO SCH ×2 (08:48→14:14)
[2018-03-02] MEDS: Polyethylene Glycol 3350 17 GM Packet PO SCH (08:49)
[2018-03-02] MEDS: Saccharomyces boulardii 250 MG CAP PO SCH (08:49)
[2018-03-02] MEDS: Insulin NPH/Reg Insulin Hm 300 UNITS/3 ML VIAL SC SCH ×2 (08:50→18:51)
--- NOTE | 2018-03-02 09:56 | PRG ---
DATE OF SERVICE: 03/02/2018 SUBJECTIVE: This is 62-year-old female being seen for end-stage renal disease. The patient denies any nausea, vomiting or chest pain. PHYSICAL EXAMINATION: GENERAL: Patient is awake, alert. VITAL SIGNS: Afebrile, pulse 62, breathing 16, blood pressure 129/68. OBJECTIVE: See above. Awake, alert, in no acute distress. GENERAL APPEARANCE AND MENTAL STATUS: Fair. HEAD/NECK: Normocephalic. Atraumatic. EYES: EOMI. No deformity. EARS: Clear. No ulcers. NOSE: Intact. No lesions. MOUTH: Clear. No discharge. THROAT: Clear. No exudate. LUNGS: Clear. No crackles. CARDIAC: S1, S2. No rub. ABDOMEN: Benign. BS+. GENITALIA/RECTUM: Rbannon absent. BACK/EXTREMITIES: Edema 0+ Ulcer- NEUROLOGICAL: Alert and motor intact. SKIN: Rash- Bruise- LYMPHATICS: Edema- Ulcer- LABORATORY: Hemoglobin 11.8. ASSESSMENT AND RECOMMENDATIONS: 1. Stage 6 chronic kidney disease. Continue hemodialysis. 2. Hypertension. 3. Anemia, stable. 4. Medication based on glomerular filtration rate are appropriate.
--- NOTE | 2018-03-02 13:34 | PDOC.PN ---
- Subjective Encounter Start Date: 03/02/18 Encounter Start Time: 13:32 Subjective: no new complaints. says that she wants to go to rehab if arranged -: denies any SOB/MASON.leg swelling is improving - Objective Resuscitation Status: Resuscitation Status FULL:Full Resuscitation Vital Signs & Weight: Vital Signs (12 hours) Temp Pulse Pulse Pulse Resp BP BP 03/02/18 12:35 64 12 03/02/18 12:06 97.8 F 65 16 03/02/18 08:48 129/68 03/02/18 08:45 129/68 03/02/18 07:16 56 L 59 L 129/68 03/02/18 07:15 97.7 F 56 L 18 03/02/18 07:10 97.7 F 56 L 18 03/02/18 06:45 61 14 03/02/18 03:47 98.2 F 55 L 17 BP BP Pulse Ox 03/02/18 12:35 97 03/02/18 12:06 120/63 99 03/02/18 08:48 03/02/18 08:45 03/02/18 07:16 125/64 03/02/18 07:15 100 03/02/18 07:10 129/68 100 03/02/18 06:45 98 03/02/18 03:47 117/63 94 L Weight Admit Weight 187 lb Weight 164 lb 7.437 oz I&O: 03/01/18 03/02/18 03/03/18 06:59 06:59 06:59 Intake Total 1280 1590 Output Total 0 0 Balance 1280 1590 Result Diagrams: 02/28/18 04:47 03/02/18 04:50 Additional Labs: Accuchecks 03/02/18 03/02/18 03/01/18 11:09 06:19 23:42 POC Glucose 158 H 77 221 H 03/01/18 03/01/18 03/01/18 21:00 17:47 16:54 POC Glucose 59 L* 77 104 03/01/18 10:51 POC Glucose 84 Microbiology 02/25/18 10:10 Foot - Pending Bacterial Culture - Final 02/25/18 08:22 Venous blood - Right Hand Blood Culture - Preliminary NO GROWTH AT 48 HOURS 02/25/18 08:08 Venous blood - Right Hand Blood Culture - Preliminary NO GROWTH AT 48 HOURS labs reviewed Phys Exam - Physical Examination Constitutional: NAD sleepy but arousable HEENT: PERRLA, moist MMs, sclera anicteric, oral pharynx no lesions Neck: no nodes, no JVD, supple, full ROM Respiratory: no wheezing, no rales, no rhonchi, clear to auscultation bilateral Cardiovascular: RRR, no significant murmur Gastrointestinal: soft, non-tender, no distention, positive bowel sounds Musculoskeletal: no edema, pulses present blisters improved Neurological: non-focal, normal sensation, moves all 4 limbs Lymphatic: no nodes Dx/Plan (1) Acute on chronic diastolic ACC/AHA stage C congestive heart failure Code(s): I50.33 - ACUTE ON CHRONIC DIASTOLIC (CONGESTIVE) HEART FAILURE Status : Acute Comment: ECHO 10/2017-Diastolic dysfunction (2) Anasarca Code(s): R60.1 - GENERALIZED EDEMA Status: Acute Comment: Fluid removal with HD as tolerated. 4 L rmoved yesterday (3) Cellulitis of both feet Code(s): L03.115 - CELLULITIS OF RIGHT LOWER LIMB; L03.116 - CELLULITIS OF LEFT LOWER LIMB Status: Acute Comment: on Rocephin and renally dosed Vancomycin (4) Volume overload Code(s): E87.70 - FLUID OVERLOAD, UNSPECIFIED Status: Acute Comment: See above, resolving (5) Anemia in chronic kidney disease (CKD) Code(s): N18.9 - CHRONIC KIDNEY DISEASE, UNSPECIFIED; D63.1 - ANEMIA IN CHRONIC KIDNEY DISEASE Status: Chronic Qualifiers: Comment: H/H stable (6) COPD (chronic obstructive pulmonary disease) Status: Chronic Qualifiers: (7) DM type 2 (diabetes mellitus, type 2) Status: Chronic (8) ESRD (end stage renal disease) on dialysis Code(s): N18.6 - END STAGE RENAL DISEASE; Z99.2 - DEPENDENCE ON RENAL DIALYSIS Status: Chronic Comment: HD per Renal service (9) Hepatitis C Code(s): B19.20 - UNSPECIFIED VIRAL HEPATITIS C WITHOUT HEPATIC COMA Status: Chronic Comment: Chronic, stable (10) Hyperlipidemia Code(s): E78.5 - HYPERLIPIDEMIA, UNSPECIFIED Status: Chronic (11) Hypoalbuminemia Code(s): E88.09 - OTH DISORDERS OF PLASMA-PROTEIN METABOLISM, NEC Status: Chronic (12) Obesity (BMI 30.0-34.9) Code(s): E66.9 - OBESITY, UNSPECIFIED Status: Chronic (13) Secondary hyperparathyroidism of renal origin Code(s): N25.81 - SECONDARY HYPERPARATHYROIDISM OF RENAL ORIGIN Status: Chronic (14) Thrombocytopenia Code(s): D69.6 - THROMBOCYTOPENIA, UNSPECIFIED Status: Chronic - Plan continue antibiotics, PT/OT, out of bed/ambulate, DVT proph w/SCDs hemodynamically stable and back to baseline. -: OK to DC.Rehab eval in progress -: change abx to PO. -: HD per nephrology as an Outpt * . Review of Systems - Review of Systems Constitutional: weakness. negative: fever, chills, sweats, malaise, other Respiratory: negative: Cough, Dry, Shortness of Breath, Hemoptysis, SOB with Excertion, Pleuritic Pain, Sputum, Wheezing Cardiovascular: negative: chest pain, palpitations, orthopnea, paroxysmal nocturnal dyspnea, edema, light headedness, other Gastrointestinal: negative: Nausea, Vomiting, Abdominal Pain, Diarrhea, Constipation, Melena, Hematochezia, Other Genitourinary: negative: Dysuria, Frequency, Incontinence, Hematuria, Retention , Other Musculoskeletal: negative: Neck Pain, Shoulder Pain, Arm Pain, Back Pain, Hand Pain, Leg Pain, Foot Pain, Other Neurological: negative: Weakness, Numbness, Incoordination, Change in Speech, Confusion, Seizures, Other - Medications/Allergies Allergies/Adverse Reactions: Allergies Allergy/AdvReac Type Severity Reaction Status Date / Time lisinopril Allergy Severe Verified 11/24/17 23:34 amitriptyline HCl Allergy Swelling Verified 11/24/17 23:34 [From Elavil] heparin Allergy Rash Verified 11/24/17 23:34 tramadol Allergy Nausea Verified 11/24/17 23:34 Medications: Current Medications Acetaminophen (Tylenol) 650 mg PO Q4H PRN PRN Reason: Headache/Fever or Pain Last Admin: 02/27/18 18:08 Dose: 650 mg Hydrocodone Bitart/Acetaminophen ([place] 5/325) 1 tab PO Q6H PRN PRN Reason: Pain Last Admin: 03/01/18 14:53 Dose: 1 tab Al Hydroxide/Mg Hydroxide (Maalox) 30 ml PO Q6H PRN PRN Reason: Heartburn or Indigestion Albuterol Sulfate (Proventil Hfa) 2 puff INH [id number] [facility] Last Admin: 03/02/18 12:35 Dose: 2 puff Albuterol/Ipratropium (Duoneb) 3 ml NEB [id number] PRN PRN Reason: SOB &/or Wheezing Artificial Tears (Tears Naturale) 0 drop EA EYE PRN PRN PRN Reason: Dry Eyes Aspirin (Aspirin Chewable) 81 mg PO DAILY [facility] Last Admin: 03/02/18 08:45 Dose: 81 mg Atorvastatin Calcium (Lipitor) 20 mg PO HS [facility] Last Admin: 03/01/18 21:42 Dose: 20 mg Calcium Acetate (Phoslo) 1,334 mg PO TID [facility] Last Admin: 03/02/18 08:44 Dose: 1,334 mg Carvedilol (Coreg) 3.125 mg PO BID [facility] Last Admin: 03/02/18 08:45 Dose: 3.125 mg Clonidine (Catapres) 0.3 mg PO TID [facility] Last Admin: 03/02/18 08:48 Dose: 0.3 mg Dextrose/Water (Dextrose 50%) 25 gm SLOW IVP PRN PRN PRN Reason: Hypoglycemia Last Admin: 02/26/18 08:01 Dose: 25 gm Gabapentin (Neurontin) 300 mg PO TID [facility] Last Admin: 03/02/18 08:45 Dose: 300 mg Glucagon (Glucagon) 1 mg IM PRN PRN PRN Reason: Hypoglycemia Guaifenesin (Robitussin Sf) 200 mg PO Q4H PRN PRN Reason: Cough Hydralazine HCl (Apresoline) 10 mg SLOW IVP Q4H PRN PRN Reason: Systolic BP > 180 Ceftriaxone Sodium 1 gm/ (Sodium Chloride) 100 mls @ 200 mls/hr IVPB Q24HR [facility] Last Admin: 03/01/18 12:55 Dose: 100 mls Dextrose/Water (D5w) 1,000 mls @ 0 mls/hr IV .Q0M PRN; As Directed PRN Reason: Hypoglycemia Vancomycin HCl 1.25 gm/ Sodium (Chloride) 250 mls @ 166.667 mls/hr IVPB WILLCALL [facility] Vancomycin HCl 1 gm/ Device 200 mls @ 200 mls/hr IVPB WILLCALL [facility] Vancomycin HCl 750 mg/ Sodium (Chloride) 250 mls @ 250 mls/hr IVPB WILLCALL [facility] Last Admin: 03/01/18 10:44 Dose: 250 mls Vancomycin HCl 500 mg/ Sodium (Chloride) 100 mls @ 100 mls/hr IVPB WILLCALL [facility] Insulin Human Isoph/Insulin Regular (Humulin 70/30) 4 units SC BID-AC [facility] Last Admin: 03/02/18 08:50 Dose: 4 unit Insulin Human Lispro (Humalog) 0 units SC .MODERATE SLIDING SC PRN PRN Reason: Moderate Correctional Scale Insulin Human Lispro (Humalog) 0 units SC .BEDTIME SLIDING SC PRN PRN Reason: Bedtime Correctional Scale Last Admin: 02/27/18 21:43 Dose: 4 unit Loperamide HCl (Imodium) 2 mg PO PRN PRN PRN Reason: Diarrhea/Loose Stools Loratadine (Claritin) 10 mg PO DAILYPRN PRN PRN Reason: Sinus Symptoms Losartan Potassium (Cozaar) 50 mg PO DAILY [facility] Last Admin: 03/02/18 08:45 Dose: 50 mg Magnesium Hydroxide (Milk Of Magnesium) 30 ml PO DAILYPRN PRN PRN Reason: Constipation Mineral Oil/White Petrolatum (Eucerin Cream) 0 gm TOP BIDPRN PRN PRN Reason: Dry Skin Miscellaneous Medication (Pharmacy To Dose) 1 each IVPB DAILYPRN PRN PRN Reason: LABS Hold Vancomycin For (Level >20) 0 each FS .AT DIALYSIS [facility] Ondansetron HCl (Zofran Odt) 4 mg PO Q6H PRN PRN Reason: Nausea/Vomiting Last Admin: 02/27/18 13:07 Dose: 4 mg Ondansetron HCl (Zofran) 4 mg IVP Q6H PRN PRN Reason: Nausea/Vomiting Phenol (Chloraseptic Rex 180 Ml Bot) 0 ml PO PRN PRN PRN Reason: Sore Throat Polyethylene Glycol (Miralax) 17 gm PO DAILY [facility] Last Admin: 03/02/18 08:49 Dose: Not Given Pregabalin (Lyrica) 75 mg PO DAILY [facility] Last Admin: 03/02/18 08:48 Dose: 75 mg Saccharomyces Boulardii (Florastor) 250 mg PO DAILY [facility] Last Admin: 03/02/18 08:49 Dose: 250 mg Senna (Senokot) 2 tab PO HSPRN PRN PRN Reason: Constipation Sertraline HCl (Zoloft) 100 mg PO HS [facility] Last Admin: 03/01/18 21:41 Dose: 100 mg Sodium Chloride (Gregg Nasal Rex 0.65%) 0 ml EA NARE QIDPRN PRN PRN Reason: Nasal Congestion Sodium Chloride (Flush - Normal Saline) 10 ml IVF Q12HR [facility] Last Admin: 03/02/18 08:48 Dose: 10 ml Sodium Chloride (Flush - Normal Saline) 10 ml IVF PRN PRN PRN Reason: Saline Flush Sucralfate (Carafate) 1 gm PO [facility] Last Admin: 03/02/18 11:54 Dose: 1 gm Zinc Acetate/Diphenhydramine (Benadryl 2% Cream) 0 gm TOP BIDPRN PRN PRN Reason: Itching Last Admin: 03/02/18 06:25 Dose: 1 applic Zolpidem Tartrate (Ambien) 5 mg PO HSPRN PRN PRN Reason: Insomnia
[2018-03-02] MEDS: cefTRIAXone\\ROCEPHIN 1 GM in Sodium Chloride 0.9% 100 ML IVPB SCH (14:36)
[2018-03-02 18:53] VITALS: BP 122/64; TEMP 98.1
--- NOTE | 2018-03-03 12:18 | DIS ---
DATE OF ADMISSION: 02/25/2018 DATE OF DISCHARGE: 03/02/2018 PRIMARY CARE PHYSICIAN: Bobby Galeano. CONDITION AT THE TIME OF DISCHARGE: Stable and improved. DISCHARGE DISPOSITION: [facility] rehabilitation CONDITION AT THE TIME OF DISCHARGE: Stable and improved. DISCHARGE DIAGNOSES: 1. Acute on chronic diastolic congestive heart failure, ACC stage C. 2. Anasarca secondary to #1. 3. Lower extremity cellulitis. 4. Volume overload secondary to #1. 5. Anemia and chronic kidney disease. 6. Chronic obstructive pulmonary disease, compensated. 7. Diabetes mellitus type 2. 8. End-stage renal disease. 9. Chronic hepatitis C. 10. Thrombocytopenia secondary to cirrhosis of the liver. 11. Hyperlipidemia. 12. Hypoalbuminemia. 13. Obesity. 14. Secondary hyperparathyroidism of chronic kidney disease. DISCHARGE MEDICATIONS: Albuterol inhaler as needed, losartan 50 mg daily, 70/30 Humulin 4 units subc u b.i.d., Lasix 40 mg daily, Pepcid 20 mg daily, carvedilol 6.25 mg p.o. b.i.d., PhosLo 2 capsules p. o. t.i.d., aspirin 81 mg daily, clonidine 0.3 mg p.o. t.i.d., sucralfate 1 gram a.c. and at bedtime, Zocor 40 mg daily, Renvela 1600 mg t.i.d., Zoloft 100 mg daily, Lyrica 75 mg daily, Florastor 250 mg daily p.r.n., Zofran p.r.n., Milk of Magnesia p.r.n., Claritin p.r.n., DuoNeb p.r.n., [place], Neuront in is a new medication 300 mg p.o. t.i.d. and new medicine Keflex 500 mg p.o. b.i.d. for 7 more days. PROCEDURES DONE IN THE HOSPITAL: 1. Chest x-ray. 2. Hemodialysis. CONSULTATIONS: Nephrology doctors, Laura. HISTORY OF PRESENTING ILLNESS: Ms. Contreras is a 62-year-old -[place] female with history of end-stage renal disease on hemodialysis, who presented to the emergency room with complaints of exces sive swelling and blisters on both of her legs. At the time of presentation, she also complained of chest pain, shortness of breath, dry cough, orthopnea and PND. She has been compliant with her dialy sis. In the emergency room, she was found to have significant lower extremity edema with blisters as well as tenderness in her both feet. She was otherwise hemodynamically stable with a blood pressure 160/86 and oxygen saturation 93% on room air. Chest x-ray showed bilateral pulmonary vascular conge stion. EKG showed chronic changes. She was admitted with a presumptive diagnosis of acute on chroni c diastolic congestive heart failure and anasarca secondary to that. Nephrology was consulted. Woun d Care team was consulted as well. She was started on empiric antibiotics for lower extremity cellul itis. Please see admission history and physical for further details. HOSPITAL COURSE: The patient had slow improvement in her symptoms. Wound care saw her and with flui d removal with dialysis, her low anasarca improved significantly. Eventually, she was able to be tra nsitioned to next level of care. She requested rehabilitation which was arranged for her. She remai coretta hemodynamically stable throughout the rest of her hospitalization. Eventually, her antibiotics w ere changed to oral. Blood cultures and cultures from the foot were negative until date. She was seen and examined prior to discharge. Please see hospitalist progress note from the date of discharge for further detail including [id number] interaction.
== END 2018-03-02 19:05 | DRG 291 ==
LOC: ERS 07:41 → IMCU/EMU 09:48 → 2NO 02-26 23:03
PROVIDERS: ADMIT Internal Medicine; ATTEND Internal Medicine
PROC: 5A1D70Z Performance of Urinary Filtration, Intermittent, Less than 6 Hours Per Day (ICD-10-PCS; principal; 2018-02-27)
PROC: 5A1D70Z Performance of Urinary Filtration, Intermittent, Less than 6 Hours Per Day (ICD-10-PCS; 2018-02-28)
PROC: 5A1D70Z Performance of Urinary Filtration, Intermittent, Less than 6 Hours Per Day (ICD-10-PCS; 2018-03-01)
DX: I13.2 Hypertensive heart and chronic kidney disease with heart failure and with stage 5 chronic kidney disease, or end stage renal disease (principal); I50.33 Acute on chronic diastolic (congestive) heart failure; N18.6 End stage renal disease; L03.116 Cellulitis of left lower limb; L03.115 Cellulitis of right lower limb; N25.81 Secondary hyperparathyroidism of renal origin; I24.8 Other forms of acute ischemic heart disease; D61.818 Other pancytopenia; B96.89 Other specified bacterial agents as the cause of diseases classified elsewhere; E11.22 Type 2 diabetes mellitus with diabetic chronic kidney disease; F14.21 Cocaine dependence, in remission; K21.9 Gastro-esophageal reflux disease without esophagitis; E11.65 Type 2 diabetes mellitus with hyperglycemia; D63.1 Anemia in chronic kidney disease; J44.9 Chronic obstructive pulmonary disease, unspecified; B18.2 Chronic viral hepatitis C; D69.59 Other secondary thrombocytopenia; K74.60 Unspecified cirrhosis of liver; E78.5 Hyperlipidemia, unspecified; E66.9 Obesity, unspecified; F41.9 Anxiety disorder, unspecified; Z99.2 Dependence on renal dialysis; Z79.4 Long term (current) use of insulin; Z87.891 Personal history of nicotine dependence; F32.9 Major depressive disorder, single episode, unspecified; Z91.19 Patient's noncompliance with other medical treatment and regimen; Z68.30 Body mass index [BMI] 30.0-30.9, adult
CPT/HCPCS: 36415; 36416; 71045; 80048; 80053; 80069; 80202; 82553; 83605; 84484; 85025; 87040; 87070; 87205; 90935; 93005; 94760; 96361; 96365; 96375; A4216; G0257; G8978-GP-CL; G8979-GP-CJ; G8987-GO-CK; G8988-GO-CI; J0696; J2270; J2405; J2543; J3370; J7050; Q0162

== ENCOUNTER 2018-03-20 09:27 | Inpatient (IN) | payer MEDICARE, MEDICAID ==
[2018-03-20] MEDS ORDERED: Ondansetron HCl/PF 4 MG/2 ML Vial ONE (09:37)
[2018-03-20] MEDS ORDERED: Promethazine HCl 25 MG/ML VIAL ONE (09:59)
[2018-03-20 10:01] LABS: #Lymphocytes 1.1 thou/uL (1.20-3.40); #Monocytes 0.7 thou/uL (0.11-0.59); #Neutrophils 3.7 thou/uL (1.40-6.50); %Basophils 0.4 % (0.0-1.0); %Eosinophils 0.7 % (0.0-10.0); %Monocytes 12.1 % (0.0-10.0); %Neutrophils 66.8 % (42.0-75.0); Hemoglobin 13.4 g/dL (12.0-16.0); Mean Corpuscular HGB CONC 32.4 g/dL (32.0-36.0); Mean Corpuscular Hemoglobin 27.5 pg (27.0-31.0); Mean Corpuscular Volume 84.6 fL (78.0-98.0); Mean Platelet Volume 9.4 fL (7.4-10.4); Platelet Count 137 thou/uL (130-400); RBC Distribution Width 16.1 % (11.5-14.5); White Blood Cell (WBC) Count 5.5 thou/uL (4.8-10.8)
[2018-03-20 10:19] LABS: ALT (SGPT) 13 U/L (8-55); AST (SGOT) 28 U/L (5-34); Albumin 4.1 g/dL (3.4-4.8); Alkaline Phosphatase 133 U/L (40-150); Anion Gap 19 mmol/L (10-20); BUN (Urea Nitrogen) 25 mg/dL (9.8-20.1); Bilirubin, Total 1.8 mg/dL (0.2-1.2); CK (CPK) 86 U/L (29-168); Calc. Creatinine Clearance 0 mL/min (70-130); Calcium 10.1 mg/dL (7.8-10.44); Carbon Dioxide 27 mmol/L (23-31); Chloride 99 mmol/L (98-107); Estimated GFR-MDRD 14; Glucose 181 mg/dL (80-115); Lipase 20 U/L (8-78); Potassium 3.4 mmol/L (3.5-5.1); Protein, Total 9.1 g/dL (6.0-8.3); Sodium 142 mmol/L (136-145)
[2018-03-20 10:23] LABS: CKMB 1.9 ng/mL (0-6.6); Troponin I 0.071 ng/mL (< 0.028)
[2018-03-20] MEDS ORDERED: Diltiazem 125 MG/25 ML ONE (10:44)
--- NOTE | 2018-03-20 10:45 | RAD ---
AP VIEW OF THE CHEST: INDICATION: Chest pain. COMPARISON: Prior exam dated 02/17/18. FINDINGS: There is moderate cardiomegaly with pulmonary vascular congestion. There is bilateral perihilar kimmy a. There are small pleural effusions. Endovascular stent involving the left subclavian region is st able. No acute osseous abnormality is evident. IMPRESSION: Findings of volume overload or congestive heart failure. POS: CARLOS
[2018-03-20] MEDS ORDERED: Adacel (T-DAP) 0.5 ML VIAL ONE (11:39)
[2018-03-20] MEDS ORDERED: Fentanyl 100 MCG/2 ML VIAL ONE (12:20)
[2018-03-20] MEDS ORDERED: Haloperidol Lactate 5 MG/ML VIAL ONE (12:21)
[2018-03-20] MEDS ORDERED: cloNIDine 0.1 MG TAB ONE (12:23)
--- NOTE | 2018-03-20 14:51 | HP ---
PRIMARY CARE PHYSICIAN: Dionne Kaplan M.D. CHIEF COMPLAINT: Shortness of breath. HISTORY OF PRESENT ILLNESS: Ms. Contreras is a pleasant 62-year-old lady who was seen at [facility] on 03/20/2018. She has end-stage renal disease and is on hemodialysis. Her bobbin marker is Dr. Monreal. She reports that she has been compliant with dialysis and was dialyzed 4 times during the last week. When I saw her, she is unable to provide any history. History was obtained from discussion with the emergency room physician and review of medical records. Patient reportedly also complained of chest pain, but she is now shaking her head when asked about the chest pain. She reported nausea and vomi ting. REVIEW OF SYSTEMS: Could not be completed secondary to patient's lethargic status. PAST MEDICAL HISTORY: Hypertension, diabetes mellitus type 2, chronic diastolic heart failure, end-s tage renal disease on hemodialysis Thursday, Thursday, and Thursday, cocaine abuse, secondary hyperparat hyroidism of renal origin, anemia of renal disease, COPD/asthma, gastroesophageal reflux disease and peripheral neuropathy. PAST SURGICAL HISTORY: Dialysis access and cardiac catheterization. PSYCHIATRIC HISTORY: Anxiety and depression. SOCIAL HISTORY: The patient denies tobacco use, alcohol use or recreational drug use. FAMILY HISTORY: End-stage renal disease in mother. CURRENT MEDICATIONS: Aspirin 81 mg daily, Coreg 3.125 mg 2 times a day, losartan 50 mg daily, sertra line 100 mg daily, trazodone 100 mg daily, albuterol p.r.n., Colace 100 mg daily, Humulin 70/30 20 un its in the morning and 25 units in the evening, calcium acetate 2001 mg 3 times a day, prednisone 5 m g daily, Lyrica 150 mg 2 times a day, clonidine 0.2 mg daily, Mobic 7.5 mg 2 times a day, Tylenol #4 one tablet 2 times a day. PHYSICAL EXAMINATION: GENERAL: On examination, Ms. Contreras is sleepy, but arousable, not in acute distress. VITAL SIGNS: Blood pressure is 146/81, pulse 79, respiratory rate 13, and oxygen saturation 97% on r oom air. She is afebrile. She was hypertensive earlier in the emergency room, with blood pressure a s high as 201/121. EYES: No scleral icterus. No conjunctival pallor. ENT: Moist mucosal membranes, no oropharyngeal erythema or exudates. NECK: Supple, nontender, trachea is midline. RESPIRATORY: Accessory muscles of breathing are not active. Chest wall movements are symmetric bila terally. LUNGS: Examination reveals bibasilar crackles. CARDIOVASCULAR: S1 and S2 are heard, regular. Peripheral pulses palpable. No carotid bruit, no per icardial rub. NEUROLOGIC: Full neurologic examination not possible secondary to patient's lethargic condition. No facial droop. Deep tendon reflexes are 2+, plantar reflexes downgoing bilaterally. MUSCULOSKELETAL: The patient is moving all four extremities. She has bilateral lower extremity kimmy a. SKIN: No rashes or subcutaneous nodules. LYMPHATIC: No cervical lymphadenopathy. PSYCHIATRIC: Normal mood, normal affect, patient appears to be oriented to person, but not to place or time. IMAGING DATA AND LABORATORY DATA: Ms. Contreras' labs and investigations were reviewed. I reviewed he r electrocardiogram, which shows sinus tachycardia with premature atrial complexes, no ST changes to suggest an acute coronary syndrome. I also reviewed her chest x-ray, which shows bilateral perihilar edema. She has normal white count, normal hemoglobin, normal platelet count, normal sodium, decreas ed potassium of 3.4, elevated blood urea nitrogen of 25, elevated creatinine of 3.95, unremarkable li aleksandar profile, indeterminate troponin I of 0.071 and elevated BNP of 12,067 ASSESSMENT AND PLAN: Ms. Contreras is a pleasant 62-year-old lady who was seen at [facility] on 03/20/2018. Her problem list includes: 1. Shortness of breath: Most likely secondary to volume overload. Patient will be admitted to the hospital for further management. 2. Volume overload: Nephrology Service is being consulted for emergent hemodialysis. 3. Acute encephalopathy: Patient has altered mental status at this time, most likely secondary to f entanyl given to the patient. If she does not improve, we will investigate further. 4. Hypertension: Monitor vital signs, titrate antihypertensives as needed. 5. Diabetes mellitus type 2: Start Accu-Cheks, insulin sliding scale. 6. Chronic obstructive pulmonary disease: Appears to be stable. 7. Gastroesophageal reflux disease: Appears to be stable. Many thanks for allowing me to participate in your patient's care. Please feel free to contact me wi th any questions or concerns. LEVEL OF RISK: High. LEVEL OF COMPLEXITY: High.
--- NOTE | 2018-03-20 18:38 | CON ---
DATE OF CONSULTATION: 03/20/2018 REASON FOR CONSULTATION: Pulmonary edema and dyspnea. HISTORY OF PRESENT ILLNESS: This is a very pleasant 62-year-old female who has a history of noncompl iance presented to the hospital after having dialysis Thursday, Thursday, and Thursday; and bilateral ge neralized swelling and dyspnea with minimal exertion. The patient is lying in bed with 100% oxygen s aturation, but her chest x-ray shows pulmonary edema. The patient can give no further history. PAST MEDICAL HISTORY: Significant for end-stage renal disease, diabetes mellitus, hypertension, chema estive heart failure, anemia, COPD, GERD, peripheral neuropathy, anxiety, depression, tunneled dialys is catheter, cardiac catheterization, noncompliance. HOME MEDICATIONS: Reviewed. HOSPITAL MEDICATIONS: Reviewed. ALLERGIES: Reviewed. REVIEW OF SYSTEMS: Fifteen-point review of systems was performed and negative except for positive no fredy above. General: Weakness-. Head: Headache-. Neck: No swelling or lumps. Nose: No epistaxi s or discharge. Eyes: No diplopia or pain. Respiratory: Dyspnea-. Cardiovascular: Chest pain-. Gastrointestinal: Nausea-. 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 Musculoskeletal: N o joint pain. Neuropsychiatric Systems: No suicidal ideation. No ideation. Skin: Denies any rash or ulcer. Constitutional: No fever or chills. PHYSICAL EXAMINATION: GENERAL: The patient is awake and alert. VITAL SIGNS: Afebrile, pulse 93, breathing at 16, blood pressure was 190/110. GENERAL APPEARANCE AND MENTAL STATUS: Fair. HEAD/NECK: Normocephalic. Atraumatic. EYES: EOMI. No deformity. EARS: Clear. No ulcers. NOSE: Intact. No lesions. MOUTH: Clear. No discharge. THROAT: Clear. No exudate. LUNGS: Clear. No crackles. CARDIAC: S1, S2. No rub. ABDOMEN: Benign. BS+. GENITALIA/RECTUM: Brannon absent. BACK/EXTREMITIES: Edema 0+ Ulcer-. NEUROLOGICAL: Alert and motor intact. SKIN: Rash-. Bruise- . LYMPHATICS: Edema-. Ulcer-. LABORATORY DATA: Potassium 3.4, creatinine 3.9. ASSESSMENT AND PLAN: 1. Stage 6 chronic kidney disease. We will plan dialysis and gentle ultrafiltration. 2. Hypokalemia. We will do a 3K bath. 3. Anemia, stable. Medications based on GFR as appropriate. 4. Congestive heart failure. Plan ultrafiltration. 5. Hypertension. We will start taking the patient's clonidine as she has rebound hypertension, nonc ompliance, and followup with physician advice is a major issue.
[2018-03-20] MEDS ORDERED: Ondansetron HCl/PF 4 MG/2 ML Vial IVP PRN (20:08)
[2018-03-20] MEDS ORDERED: Ondansetron ODT 4 MG TAB SL PRN (20:08)
[2018-03-20] MEDS ORDERED: hydrALAZINE 20 MG/ML VIAL SLOW IVP PRN (20:11)
[2018-03-20 20:58] VITALS: BMI 25.0
[2018-03-21] MEDS ORDERED: Acetaminophen 650 MG Suppository PR PRN (09:09)
[2018-03-21] MEDS ORDERED: Bisacodyl 5 MG TAB PO PRN (09:09)
[2018-03-21] MEDS ORDERED: PROVENTIL INHALER 6.7 G (200 INHALATIONS) INH PRN (09:11)
[2018-03-21] MEDS ORDERED: Loratadine 10 MG TAB PO PRN (09:11)
[2018-03-21] MEDS ORDERED: HYDROcodone/Acetaminophen 5/325 mg Tablet PO PRN (09:11)
[2018-03-21] MEDS ORDERED: Milk Of Magnesia 30 ML UDCUP PO PRN (09:11)
[2018-03-21] MEDS ORDERED: Ondansetron ODT 4 MG TAB PO PRN (09:11)
[2018-03-21 09:24] LABS: Hemoglobin 15.7 g/dL (12.0-16.0); Mean Corpuscular HGB CONC 32.4 g/dL (32.0-36.0); Mean Corpuscular Hemoglobin 27.7 pg (27.0-31.0); Mean Corpuscular Volume 85.7 fL (78.0-98.0); Platelet Count 129 thou/uL (130-400); RBC Distribution Width 16.3 % (11.5-14.5); Red Blood Cell (RBC) Count 5.67 mill/uL (4.20-5.40); White Blood Cell (WBC) Count 5.4 thou/uL (4.8-10.8)
[2018-03-21 09:42] LABS: Anion Gap 19 mmol/L (10-20); BUN (Urea Nitrogen) 19 mg/dL (9.8-20.1); Calc. Creatinine Clearance 16 mL/min (70-130); Calcium 10.5 mg/dL (7.8-10.44); Carbon Dioxide 24 mmol/L (23-31); Chloride 98 mmol/L (98-107); Estimated GFR-MDRD 15; Glucose 106 mg/dL (80-115); Potassium 3.9 mmol/L (3.5-5.1); Sodium 137 mmol/L (136-145)
[2018-03-21 09:47] LABS: Anisocytosis SLIGHT = 6-15 cells (100X) (0-5/hpf); Eosinophils 1 % (0-10); Lymphocytes 17 % (21-51); MDiff Complete? YES; Monocytes 8 % (0-10); Neutrophil 72 % (42-75); PLT Morphology Comment Appears Decreased; Reactive Lymphocytes 1 % (0-10)
[2018-03-21] MEDS: Acetaminophen 325 MG TAB PO PRN (10:24)
[2018-03-21] MEDS: Sevelamer Carbonate 800 MG TAB PO SCH ×2 (12:02→16:57)
[2018-03-21] MEDS: Sucralfate 1 GM TAB PO SCH ×3 (12:03→20:51)
--- NOTE | 2018-03-21 13:17 | PDOC.PN ---
- Subjective Encounter Start Date: 03/21/18 Encounter Start Time: 07:00 Pt seen for followup re: acute encephalopathy. Awake, alert, denies chest pain. Shortness of breath is better. No nausea or vomiting. - Objective Vital Signs & Weight: Vital Signs (12 hours) Temp Pulse Resp BP Pulse Ox 03/21/18 12:00 98.0 F 90 16 135/75 97 03/21/18 07:45 97.9 F 91 18 144/80 H 95 03/21/18 03:53 98.1 F 88 12 145/78 H 93 L Weight Weight 139 lb 5 oz I&O: 03/20/18 03/21/18 03/22/18 06:59 06:59 06:59 Intake Total 240 Output Total 0 Balance 240 Result Diagrams: 03/21/18 09:16 03/21/18 09:16 Additional Labs: Accuchecks 03/21/18 03/20/18 06:02 21:47 POC Glucose 88 81 Phys Exam - Physical Examination Constitutional: NAD HEENT: moist MMs, sclera anicteric, oral pharynx no lesions, 2+ tonsils Neck: no nodes, supple, full ROM JVD Respiratory: no wheezing, no rhonchi Jason crackles Cardiovascular: RRR, no rub S1, S2 Gastrointestinal: soft, non-tender, no distention, positive bowel sounds Neurological: moves all 4 limbs Psychiatric: normal affect Deviation from normal: Oriented to person and place, not to time Dx/Plan (1) Acute encephalopathy Code(s): G93.40 - ENCEPHALOPATHY, UNSPECIFIED Status: Acute Comment: Improving, likely due to medications (2) Volume overload Code(s): E87.70 - FLUID OVERLOAD, UNSPECIFIED Status: Acute Comment: Improving s/p dialysis (3) ESRD (end stage renal disease) on dialysis Code(s): N18.6 - END STAGE RENAL DISEASE; Z99.2 - DEPENDENCE ON RENAL DIALYSIS Status: Chronic Comment: dialysis per Renal service (4) DM type 2 (diabetes mellitus, type 2) Status: Chronic Comment: continue accuchecks, insulin sliding scale (5) Hyperlipidemia Code(s): E78.5 - HYPERLIPIDEMIA, UNSPECIFIED Status: Chronic Comment: continue atorvastatin - Plan * . Review of Systems - Review of Systems Constitutional: negative: fever, chills, sweats, weakness, malaise Respiratory: Shortness of Breath, SOB with Excertion. negative: Cough, Dry, Hemoptysis, Pleuritic Pain, Sputum, Wheezing Cardiovascular: negative: chest pain, palpitations, orthopnea, paroxysmal nocturnal dyspnea, edema, light headedness Gastrointestinal: negative: Nausea, Vomiting, Abdominal Pain, Diarrhea, Constipation, Melena, Hematochezia Genitourinary: negative: Dysuria, Frequency, Incontinence, Hematuria, Retention Musculoskeletal: Foot Pain (Jason foot pain, chronic). negative: Neck Pain, Shoulder Pain, Arm Pain, Back Pain, Hand Pain, Leg Pain - Medications/Allergies Allergies/Adverse Reactions: Allergies Allergy/AdvReac Type Severity Reaction Status Date / Time lisinopril Allergy Severe Verified 03/20/18 21:44 amitriptyline HCl Allergy Swelling Verified 03/20/18 21:44 [From [facility]] heparin Allergy Rash Verified 03/20/18 21:44 tramadol Allergy Nausea Verified 03/20/18 21:44 Medications: Current Medications Acetaminophen (Tylenol) 650 mg PO Q4H PRN PRN Reason: Headache/Fever or Pain Last Admin: 03/21/18 10:24 Dose: 650 mg Acetaminophen (Tylenol) 650 mg [place] Q4H PRN PRN Reason: Headache/Fever or Pain Hydrocodone Bitart/Acetaminophen ([place] 5/325) 1 tab PO Q6H PRN PRN Reason: Pain Albuterol Sulfate (Proventil Hfa) 2 puff INH Q6H PRN PRN Reason: SOB &/or Wheezing Albuterol/Ipratropium (Duoneb) 3 ml NEB [id number] PRN PRN Reason: SOB &/or Wheezing Aspirin (Aspirin Chewable) 81 mg PO DAILY [facility] Atorvastatin Calcium (Lipitor) 20 mg PO HS [facility] Bisacodyl (Dulcolax) 10 mg PO DAILYPRN PRN PRN Reason: Constipation Last Admin: 03/21/18 12:04 Dose: 10 mg Calcium Acetate (Phoslo) 1,334 mg PO TID [facility] Carvedilol (Coreg) 3.125 mg PO BID [facility] Clonidine (Catapres) 0.3 mg PO TID [facility] Docusate Sodium (Colace) 100 mg PO DAILY [facility] Famotidine (Pepcid) 20 mg PO 2100 [facility] Furosemide (Lasix) 40 mg PO DAILY [facility] Insulin Human Isoph/Insulin Regular (Humulin 70/30) 25 units SC DAILY-AC [facility] Insulin Human Isoph/Insulin Regular (Humulin 70/30) 30 units SC 1630 [facility] Loratadine (Claritin) 10 mg PO DAILYPRN PRN PRN Reason: Sinus Symptoms Losartan Potassium (Cozaar) 50 mg PO DAILY [facility] Magnesium Hydroxide (Milk Of Magnesium) 30 ml PO DAILYPRN PRN PRN Reason: Constipation Ondansetron HCl (Zofran Odt) 4 mg PO Q6H PRN PRN Reason: Nausea/Vomiting Pregabalin (Lyrica) 75 mg PO BID [facility] Saccharomyces Boulardii (Florastor) 250 mg PO DAILY [facility] Sertraline HCl (Zoloft) 100 mg PO [facility] Sevelamer Carbonate (Renvela) 1,600 mg PO TID-[facility] Last Admin: 03/21/18 12:02 Dose: 1,600 mg Sucralfate (Carafate) 1 gm PO [facility] Last Admin: 03/21/18 12:03 Dose: 1 gm Trazodone HCl (Desyrel) 100 mg PO HS [facility]
--- NOTE | 2018-03-21 13:22 | PRG ---
DATE OF SERVICE: 03/21/2018 SUBJECTIVE: This is a 62-year-old female, being seen for end-stage renal disease. The patient denie s any nausea, vomiting, or chest pain. OBJECTIVE: See above. GENERAL: Patient is awake, alert. VITAL SIGNS: Afebrile, pulse 88, breathing at 16, blood pressure 140/80. GENERAL APPEARANCE AND MENTAL STATUS: Fair. HEAD/NECK: Normocephalic. Atraumatic. EYES: EOMI. No deformity. EARS: Clear. No ulcers. NOSE: Intact. No lesions. MOUTH: Clear. No discharge. THROAT: Clear. No exudate. LUNGS: Clear. No crackles. CARDIAC: S1, S2. No rub. ABDOMEN: Benign. BS+. GENITALIA/RECTUM: Brannon absent. BACK/EXTREMITIES: Edema 0+, ulcer. NEUROLOGICAL: Alert and motor intact. SKIN: Rash - bruise. LYMPHATICS: Edema - ulcer LABORATORY DATA: Labs show potassium 3.9. ASSESSMENT AND RECOMMENDATIONS: 1. Stage 6 chronic kidney disease, stable. 2. Hypertension. 3. Anemia, stable. Noncompliance with dialysis was discussed.
[2018-03-21] MEDS: cloNIDine 0.3 MG TAB PO SCH ×2 (14:27→20:51)
[2018-03-21] MEDS: Calcium Acetate 667 MG CAP PO SCH ×2 (14:27→20:51)
[2018-03-21] MEDS: traZODone HCl 50 MG TAB PO SCH (20:50)
[2018-03-21] MEDS: Pregabalin 75 MG CAP PO SCH (20:50)
[2018-03-21] MEDS: Atorvastatin Calcium 20 MG TAB PO SCH (20:51)
[2018-03-21] MEDS: Carvedilol 3.125 MG TAB PO SCH (20:51)
[2018-03-21] MEDS: Famotidine 20 MG TAB PO SCH (20:51)
[2018-03-22 04:58] LABS: Anion Gap 21 mmol/L (10-20); BUN (Urea Nitrogen) 29 mg/dL (9.8-20.1); Calc. Creatinine Clearance 11 mL/min (70-130); Calcium 11.4 mg/dL (7.8-10.44); Carbon Dioxide 24 mmol/L (23-31); Chloride 98 mmol/L (98-107); Estimated GFR-MDRD 11; Glucose 127 mg/dL (80-115); Potassium 4.1 mmol/L (3.5-5.1); Sodium 139 mmol/L (136-145)
[2018-03-22 05:18] LABS: Eosinophils 1 % (0-10); Hemoglobin 16.3 g/dL (12.0-16.0); Lymphocytes 19 % (21-51); MDiff Complete? YES; Mean Corpuscular HGB CONC 31.2 g/dL (32.0-36.0); Mean Corpuscular Hemoglobin 26.9 pg (27.0-31.0); Mean Corpuscular Volume 86.4 fL (78.0-98.0); Mean Platelet Volume 10.9 fL (7.4-10.4); Monocytes 29 % (0-10); Neutrophil 51 % (42-75); Platelet Count 131 thou/uL (130-400); RBC Distribution Width 16.8 % (11.5-14.5); Red Blood Cell (RBC) Count 6.05 mill/uL (4.20-5.40); White Blood Cell (WBC) Count 5.2 thou/uL (4.8-10.8)
[2018-03-22] MEDS: Insulin NPH/Reg Insulin Hm 300 UNITS/3 ML VIAL SC SCH ×2 (08:47→17:29)
[2018-03-22] MEDS: Sucralfate 1 GM TAB PO SCH ×4 (08:48→19:53)
[2018-03-22] MEDS: Sevelamer Carbonate 800 MG TAB PO SCH ×3 (08:48→17:30)
[2018-03-22] MEDS: Calcium Acetate 667 MG CAP PO SCH ×3 (08:48→19:52)
[2018-03-22] MEDS: Acetaminophen 325 MG TAB PO PRN (08:53)
[2018-03-22] MEDS: cloNIDine 0.3 MG TAB PO SCH ×3 (10:59→19:52)
[2018-03-22] MEDS: Losartan 25 MG TAB PO SCH (10:59)
[2018-03-22] MEDS: Carvedilol 3.125 MG TAB PO SCH ×2 (10:59→19:52)
[2018-03-22] MEDS: Saccharomyces boulardii 250 MG CAP PO SCH (10:59)
[2018-03-22] MEDS: Furosemide 40 MG TAB PO SCH (10:59)
[2018-03-22] MEDS: Pregabalin 75 MG CAP PO SCH ×2 (10:59→19:53)
[2018-03-22] MEDS: Docusate 100 MG CAP PO SCH (10:59)
--- NOTE | 2018-03-22 12:04 | PQF ---
CLINICAL DOCUMENTATION IMPROVEMENT CLARIFICATION FORM: ICD-10 Updated PLEASE DO AN ADDENDUM TO THE PROGRESS NOTE WITH ANY DOCUMENTATION UPDATES OR ADDITIONS AND CARRY THROUGH TO DC SUMMARY. THANK YOU. DATE: 03/22/18 ATTN: DR. CARBALLO Please exercise your independent, professional judgment in responding to the clarification form. Clinical indicators are provided on the bottom of this form for your review Please check appropriate box(s): HEART FAILURE: A. TYPE: [ ] Systolic / HFrEF [ ] Diastolic / HFpEF [ ] Combined Systolic / Diastolic B. ACUITY [ ] Acute [ ] Acute on Chronic [ ] Chronic [ ] Other diagnosis [ ] Unable to determine In addition, please specify: Present on Admission (POA): [ ] Yes [ ] No [ ] Unable to determine For continuity of documentation, please document condition throughout progress notes and discharge summary. Thank You. CLINICAL INDICATORS - SIGNS / SYMPTOMS / LABS BNP 24546.2 CHEST XRAY: "THERE IS MODERATE CARDIOMEGALY WITH PULMONARY VASCULAR CONGESTION. THERE IS BILATERAL PERIHILAR EDEMA. THERE ARE SMALL PLEURAL EFFUSIONS." RISKS: H/O CHF TREATMENT: COREG CARDIAC MONITORING LASIX (This form is maintained as a part of the permanent medical record) 2014 [employer]. All Rights Reserved [email or web address] Office: [phone] [facility] THOMPSON HOSPITALDayami
--- NOTE | 2018-03-22 17:38 | PDOC.PN ---
- Subjective Encounter Start Date: 03/22/18 Encounter Start Time: 07:00 Pt seen for followup re: volume overload. Sleepy but arousable, denies chest pain. Shortness of breath is better. No nausea or vomiting. - Objective MAR Reviewed: Yes Vital Signs & Weight: Vital Signs (12 hours) Temp Pulse Resp BP BP Pulse Ox 03/22/18 15:05 97.6 F 89 16 93/63 94 L 03/22/18 11:35 97.6 F 81 18 106/57 L 95 03/22/18 07:30 97.6 F 87 12 Weight Weight 134 lb 5 oz I&O: 03/21/18 03/22/18 03/23/18 06:59 06:59 06:59 Intake Total 240 840 Output Total 0 Balance 240 840 Result Diagrams: 03/22/18 03:42 03/22/18 03:42 Additional Labs: Accuchecks 03/22/18 03/22/18 03/21/18 16:56 05:52 21:02 POC Glucose 146 H 148 H 106 EKG Reviewed by me: Yes (Tele: NSR) Phys Exam - Physical Examination Constitutional: NAD HEENT: moist MMs Neck: supple Respiratory: clear to auscultation bilateral Cardiovascular: RRR Gastrointestinal: soft Neurological: moves all 4 limbs Psychiatric: normal affect Deviation from normal: Oriented to person and place but not to time Dx/Plan (1) Volume overload Code(s): E87.70 - FLUID OVERLOAD, UNSPECIFIED Status: Acute Comment: Improving, for dialysis today (2) Acute encephalopathy Code(s): G93.40 - ENCEPHALOPATHY, UNSPECIFIED Status: Acute Comment: pt drowsy today as well, ? medication-induced. Hold Lyrica (3) ESRD (end stage renal disease) on dialysis Code(s): N18.6 - END STAGE RENAL DISEASE; Z99.2 - DEPENDENCE ON RENAL DIALYSIS Status: Chronic Comment: dialysis per nephrology (4) DM type 2 (diabetes mellitus, type 2) Status: Chronic Comment: accuchecks, insulin sliding scale (5) Hyperlipidemia Code(s): E78.5 - HYPERLIPIDEMIA, UNSPECIFIED Status: Chronic Comment: on atorvastatin (6) Chronic diastolic CHF (congestive heart failure), NYHA class 3 Code(s): I50.32 - CHRONIC DIASTOLIC (CONGESTIVE) HEART FAILURE Status: Chronic Comment: Improving symptomatically - Plan * . Review of Systems - Review of Systems Respiratory: SOB with Excertion. negative: Cough, Shortness of Breath, Pleuritic Pain, Wheezing Cardiovascular: negative: chest pain, palpitations, orthopnea, paroxysmal nocturnal dyspnea, edema, light headedness - Medications/Allergies Allergies/Adverse Reactions: Allergies Allergy/AdvReac Type Severity Reaction Status Date / Time lisinopril Allergy Severe Verified 03/20/18 21:44 amitriptyline HCl Allergy Swelling Verified 03/20/18 21:44 [From Elavil] heparin Allergy Rash Verified 03/20/18 21:44 tramadol Allergy Nausea Verified 03/20/18 21:44 Medications: Current Medications Acetaminophen (Tylenol) 650 mg PO Q4H PRN PRN Reason: Headache/Fever or Pain Last Admin: 03/22/18 08:53 Dose: 650 mg Acetaminophen (Tylenol) 650 mg MD Q4H PRN PRN Reason: Headache/Fever or Pain Hydrocodone Bitart/Acetaminophen ([place] 5/325) 1 tab PO Q6H PRN PRN Reason: Pain Albuterol Sulfate (Proventil Hfa) 2 puff INH Q6H PRN PRN Reason: SOB &/or Wheezing Albuterol/Ipratropium (Duoneb) 3 ml NEB [id number] PRN PRN Reason: SOB &/or Wheezing Aspirin (Aspirin Chewable) 81 mg PO DAILY [facility] Last Admin: 03/22/18 10:58 Dose: Not Given Atorvastatin Calcium (Lipitor) 20 mg PO HS [facility] Last Admin: 03/21/18 20:51 Dose: 20 mg Bisacodyl (Dulcolax) 10 mg PO DAILYPRN PRN PRN Reason: Constipation Last Admin: 03/21/18 12:04 Dose: 10 mg Calcium Acetate (Phoslo) 1,334 mg PO TID [facility] Last Admin: 03/22/18 15:08 Dose: Not Given Carvedilol (Coreg) 3.125 mg PO BID [facility] Last Admin: 03/22/18 10:59 Dose: Not Given Clonidine (Catapres) 0.3 mg PO TID [facility] Last Admin: 03/22/18 15:08 Dose: Not Given Docusate Sodium (Colace) 100 mg PO DAILY [facility] Last Admin: 03/22/18 10:59 Dose: Not Given Famotidine (Pepcid) 20 mg PO 2100 [facility] Last Admin: 03/21/18 20:51 Dose: 20 mg Furosemide (Lasix) 40 mg PO DAILY [facility] Last Admin: 03/22/18 10:59 Dose: Not Given Insulin Human Isoph/Insulin Regular (Humulin 70/30) 25 units SC DAILY-AC [facility] Last Admin: 03/22/18 08:47 Dose: Not Given Insulin Human Isoph/Insulin Regular (Humulin 70/30) 30 units SC 1630 [facility] Last Admin: 03/22/18 17:29 Dose: Not Given Loratadine (Claritin) 10 mg PO DAILYPRN PRN PRN Reason: Sinus Symptoms Losartan Potassium (Cozaar) 50 mg PO DAILY [facility] Last Admin: 03/22/18 10:59 Dose: Not Given Magnesium Hydroxide (Milk Of Magnesium) 30 ml PO DAILYPRN PRN PRN Reason: Constipation Ondansetron HCl (Zofran Odt) 4 mg PO Q6H PRN PRN Reason: Nausea/Vomiting Last Admin: 03/22/18 11:41 Dose: 4 mg Pregabalin (Lyrica) 75 mg PO BID [facility] Last Admin: 03/22/18 10:59 Dose: Not Given Saccharomyces Boulardii (Florastor) 250 mg PO DAILY [facility] Last Admin: 03/22/18 10:59 Dose: Not Given Sertraline HCl (Zoloft) [address] [facility] Last Admin: 03/21/18 20:51 Dose: 100 mg Sevelamer Carbonate (Renvela) 1,600 mg PO TID-[facility] Last Admin: 03/22/18 17:30 Dose: Not Given Sucralfate (Carafate) 1 gm PO [facility] Last Admin: 03/22/18 17:30 Dose: Not Given Trazodone HCl (Desyrel) [address] [facility] Last Admin: 03/21/18 20:50 Dose: 100 mg
[2018-03-22] MEDS: Atorvastatin Calcium 20 MG TAB PO SCH (19:52)
[2018-03-22] MEDS: traZODone HCl 50 MG TAB PO SCH (19:53)
[2018-03-22] MEDS: Famotidine 20 MG TAB PO SCH (19:53)
--- NOTE | 2018-03-22 22:06 | PRG ---
DATE OF SERVICE: 03/21/2018 SUBJECTIVE: This is a 62-year-old female being seen for end-stage renal disease. Patient denies any nausea, vomiting, chest pain. PHYSICAL EXAMINATION: GENERAL: Patient is awake, alert. VITAL SIGNS: Afebrile, pulse 89, breathing at 16, blood pressure 135/81. HEAD/NECK: Normocephalic. Atraumatic. EYES: EOMI. No deformity. EARS: Clear. No ulcers. NOSE: Intact. No lesions. MOUTH: Clear. No discharge. THROAT: Clear. No exudate. LUNGS: Clear. No crackles. CARDIAC: S1, S2. No rub. ABDOMEN: Benign. BS+. GENITALIA/RECTUM: Brannon absent. BACK/EXTREMITIES: Edema 0+ Ulcer- NEUROLOGICAL: Alert and motor intact. SKIN: Rash- Bruise- LYMPHATICS: Edema- Ulcer- LABORATORY DATA: Show hemoglobin 15.7. ASSESSMENT AND RECOMMENDATIONS: 1. Stage 6 chronic kidney disease, continue hemodialysis. 2. Hypertension, stable. 3. Anemia, stable. 4. Medications based on glomerular filtration rate are appropriate. I would hold the dose of Epogen .
[2018-03-23 05:00] LABS: Anion Gap 19 mmol/L (10-20); BUN (Urea Nitrogen) 23 mg/dL (9.8-20.1); Calc. Creatinine Clearance 13 mL/min (70-130); Calcium 10.4 mg/dL (7.8-10.44); Carbon Dioxide 25 mmol/L (23-31); Chloride 99 mmol/L (98-107); Estimated GFR-MDRD 12; Glucose 165 mg/dL (80-115); Potassium 3.6 mmol/L (3.5-5.1); Sodium 139 mmol/L (136-145)
[2018-03-23 07:13] LABS: Hemoglobin 17.2 g/dL (12.0-16.0); Mean Corpuscular HGB CONC 32.2 g/dL (32.0-36.0); Mean Corpuscular Hemoglobin 27.6 pg (27.0-31.0); Mean Corpuscular Volume 85.9 fL (78.0-98.0); Mean Platelet Volume 10.7 fL (7.4-10.4); Platelet Count 121 thou/uL (130-400); RBC Distribution Width 16.8 % (11.5-14.5); Red Blood Cell (RBC) Count 6.24 mill/uL (4.20-5.40); White Blood Cell (WBC) Count 6.9 thou/uL (4.8-10.8)
[2018-03-23 07:18] LABS: Band 4 % (5-11); Eosinophils 4 % (0-10); Lymphocytes 38 % (21-51); MDiff Complete? YES; Monocytes 21 % (0-10); Neutrophil 31 % (42-75); PLT Morphology Comment Appears Decreased; RBC Morphology Normal; Reactive Lymphocytes 2 % (0-10)
[2018-03-23] MEDS: Insulin NPH/Reg Insulin Hm 300 UNITS/3 ML VIAL SC SCH ×2 (08:44→18:03)
[2018-03-23] MEDS: Saccharomyces boulardii 250 MG CAP PO SCH (08:45)
[2018-03-23] MEDS: Sucralfate 1 GM TAB PO SCH ×3 (08:45→18:03)
[2018-03-23] MEDS: Pregabalin 75 MG CAP PO SCH (08:45)
[2018-03-23] MEDS: Carvedilol 3.125 MG TAB PO SCH (08:45)
[2018-03-23] MEDS: Docusate 100 MG CAP PO SCH (08:46)
[2018-03-23] MEDS: Furosemide 40 MG TAB PO SCH (08:47)
[2018-03-23] MEDS: Losartan 25 MG TAB PO SCH (08:47)
[2018-03-23] MEDS: Calcium Acetate 667 MG CAP PO SCH ×2 (10:02→16:03)
[2018-03-23] MEDS: Sevelamer Carbonate 800 MG TAB PO SCH ×3 (10:02→18:03)
[2018-03-23] MEDS: cloNIDine 0.3 MG TAB PO SCH ×2 (10:11→16:02)
[2018-03-23 12:58] LABS: Band 1 % (5-11); Eosinophils 6 % (0-10); Hemoglobin 16.7 g/dL (12.0-16.0); Lymphocytes 38 % (21-51); MDiff Complete? YES; Mean Corpuscular HGB CONC 31.9 g/dL (32.0-36.0); Mean Corpuscular Hemoglobin 27.5 pg (27.0-31.0); Mean Corpuscular Volume 86.3 fL (78.0-98.0); Mean Platelet Volume 9.5 fL (7.4-10.4); Monocytes 16 % (0-10); Neutrophil 37 % (42-75); Platelet Count 135 thou/uL (130-400); RBC Distribution Width 16.8 % (11.5-14.5); RBC Morphology Normal; Reactive Lymphocytes 2 % (0-10); Red Blood Cell (RBC) Count 6.06 mill/uL (4.20-5.40); White Blood Cell (WBC) Count 5.9 thou/uL (4.8-10.8)
[2018-03-23 18:08] VITALS: BP 127/61; TEMP 98.4
--- NOTE | 2018-03-23 21:47 | CON ---
DATE OF CONSULTATION: 03/23/2018 REASON FOR CONSULTATION: Erythrocytosis. HISTORY OF PRESENT ILLNESS: Ms. Contreras is a 62-year-old -Martiniquais female who was seen for shortness of breath and volume overload, states she had dialysis 4 times last week and has had two dialysis treatments since admission on the . Her CBC on the showed a white count of 5.5 and hemoglobin 13.4, hematocrit 41.5. This morning, her hemoglobin was 16.7, hematocrit was 52.3. She complains of a headache and back pain. She occasionally has some nausea. Workup has been negative except for the increase in hemoglobin. The patient denies any tobacco use. She does take low dose steroids daily. PAST MEDICAL HISTORY: 1. End-stage renal disease on dialysis. 2. Hypertension. 3. Diabetes mellitus, type 2. 4. Secondary hyperparathyroidism. 5. Anemia of renal disease. 6. COPD/asthma. 7. Gastroesophageal reflux disease. 8. Peripheral neuropathy. PAST SURGICAL HISTORY: 1. Dialysis access. 2. Cardiac catheterization. ALLERGIES: LISINOPRIL, AMITRIPTYLINE, HEPARIN, and TRAMADOL. CURRENT MEDICATIONS: Include, 1. Proventil inhaler p.r.n. 2. Aspirin 81 mg daily. 3. Lipitor 20 mg daily. 4. PhosLo t.i.d. 5. Coreg 3.125 b.i.d. 6. Catapres 0.3 mg t.i.d. 7. Colace daily. 8. Pepcid daily. 9. Lasix 40 mg daily. 10. Insulin p.r.n. 11. Cozaar 50 mg daily. 12. Lyrica 75 mg b.i.d. 13. Zoloft 100 mg daily. 14. Renvela t.i.d. 15. Carafate daily. 16. Trazodone daily. FAMILY HISTORY: No history of hematological disorder, known hematological disorder. SOCIAL HISTORY: No alcohol, tobacco, or illicit drug use. REVIEW OF SYSTEMS: A 12-point review of systems is negative except for noted in HPI. PHYSICAL EXAMINATION: VITAL SIGNS: Temperature is 97.7, pulse is 83, respiratory rate 16, BP is 111/ 67. She is 94% on room air. GENERAL: Well-developed, well-nourished female in no acute distress. HEENT: Normocephalic, atraumatic. Pupils equal and reactive to light. NECK: Supple. CARDIOVASCULAR: Regular rate and rhythm. She has a 4/6 murmur. LUNGS: Clear. ABDOMEN: Soft, nontender, bowel sounds are positive. EXTREMITIES: 1+ bilateral lower extremity edema. SKIN: No rash. HEMATOLOGIC: No petechia or purpura. NEUROLOGIC: Nonfocal. PSYCHIATRIC: The patient is alert and oriented and appropriate. PERTINENT LABORATORY AND X-RAYS: Current WBCs are 5.9, hemoglobin 16.7, hematocrit 52.3, platelet count 135,000, 37% neutrophils, 1% bands, 38% lymphocytes, 16% monocytes. Sodium is 139, potassium 3.6, chloride 99, CO2 is 25, BUN is 23, creatinine 4.35, calcium is 10.4. ASSESSMENT: 1. End-stage renal disease on hemodialysis. 2. Erythrocytosis, likely secondary to plasma volume depletion. DISCUSSION: The patient has had a dialysis the past 6 of 9 days. Her hemoglobin and hematocrit were normal upon admission and have been increased over the past 3 days. This is likely secondary to volume depletion from hemodialysis. She takes an aspirin daily. I would continue aspirin. Continue dialysis per the director of litigation. It does not appear that she receives erythropoietin after her dialysis. Repeat CBC next week, if her hemoglobin continues to remain elevated she can follow up in our clinic. CELINE
--- NOTE | 2018-03-23 21:54 | DIS ---
DATE OF ADMISSION: 03/20/2018 DATE OF DISCHARGE: 03/23/2018 PRIMARY CARE PROVIDER: Dionne Kaplan M.D. DISCHARGE DIAGNOSES: 1. Volume overload. 2. Chronic diastolic congestive heart failure. CONDITION OF PATIENT ON THE DAY OF DISCHARGE: Stable. I assessed Ms. Contreras on the day of discharg e. She denies any chest pain or shortness of breath. She denies any fevers or chills. Vital signs are stable. S1 and S2 are heard, regular. Lungs are clear to auscultation bilaterally. CONSULTATIONS DURING THIS HOSPITALIZATION: Nephrology, Dr. Powell. HOSPITAL COURSE: Ms. Contreras is a pleasant 62-year-old lady who was admitted to [facility] on 03/20/2018 for volume overload. She was seen by Nephrology Service and underwent he modialysis. Her symptoms improved. She had hemodialysis on 03/22/2018 as well and is being discharg ed home in a stable condition. She had episodes of lethargy during this hospitalization. She is adv ised to follow up with her primary care provider regarding adjustments to her Lyrica dose. DISCHARGE MEDICATIONS: No change was made to her preadmission home medications as dictated on my his tory and physical note from 03/20/2018. On the day of discharge, she has white count 6900, hemoglobin 17.2, platelet count 121,000. Normal e lectrolytes, elevated blood urea nitrogen of 23 and elevated creatinine of 4.35. DISCHARGE DESTINATION: Home. TOTAL AMOUNT OF TIME SPENT COORDINATING THIS DISCHARGE: 33 minutes.
--- NOTE | 2018-03-24 02:37 | PRG ---
DATE OF SERVICE: 03/23/2018 SUBJECTIVE: Patient was seen and examined at bedside and overnight events noted. Patient denies any shortness of breath or chest pain or palpitation. No history of nausea or vomiting or diarrhea or f ever or chills or cramps. OBJECTIVE: GENERAL: This is a well-built female, in no apparent distress. VITAL SIGNS: Temperature 98.4, pulse 94, respiratory rate 20, blood pressure 127/61. HEENT: Atraumatic, normocephalic, oral mucosa is moist. NECK: Supple. CARDIOVASCULAR: S1, S2 heard, rate and rhythm regular. RESPIRATORY: Clear to auscultation. GASTROINTESTINAL: Abdomen is soft. MUSCULOSKELETAL: No tenderness, no edema. DERMATOLOGIC: No skin rash. NEUROLOGIC: Alert and awake and oriented x3, no focal neurologic deficits. Moving all the extremiti es. PSYCHIATRIC: Mood and affect normal. LABORATORY DATA: Potassium is 3.6, BUN is 23, ____. ASSESSMENT AND PLAN: 1. End-stage renal disease. Continue dialysis Thursday, Thursday, and Thursday. 2. Edema, controlled. ____. 3. Hypertension, stable. 4. Hyperkalemia, better. 5. Anemia. Monitor hemoglobin. Plan is to continue on dialysis as tolerated.
--- NOTE | 2018-03-25 12:21 | EKG ---
Test Reason : Blood Pressure : / mmHG Vent. Rate : 117 BPM Atrial Rate : 117 BPM P-R Int : 160 ms QRS Dur : 090 ms QT Int : 408 ms P-R-T Axes : 032 -21 023 degrees QTc Int : 569 ms Sinus tachycardia with Premature atrial complexes with Abberant conduction Possible Left atrial enlargement Septal infarct , age undetermined Possible Inferior infarct , age undetermined Prolonged QT Abnormal ECG Confirmed by LINH YANG, CURTIS ([id number]), video editor DANTE HERNANDEZ ([id number]) on 03/25/2018 12:21:18 PM Referred By: Confirmed By:CURTIS MELTON MD
== END 2018-03-23 17:55 | disposition home or self-care (01) | DRG 291 ==
LOC: ERS 09:27 → ERHOLD 12:27 → 2NO 18:19
PROVIDERS: ADMIT Internal Medicine; ATTEND Internal Medicine
PROC: 5A1D70Z Performance of Urinary Filtration, Intermittent, Less than 6 Hours Per Day (ICD-10-PCS; principal; 2018-03-20)
PROC: 5A1D70Z Performance of Urinary Filtration, Intermittent, Less than 6 Hours Per Day (ICD-10-PCS; 2018-03-22)
DX: I13.2 Hypertensive heart and chronic kidney disease with heart failure and with stage 5 chronic kidney disease, or end stage renal disease (principal); G93.40 Encephalopathy, unspecified; N18.6 End stage renal disease; I50.32 Chronic diastolic (congestive) heart failure; N25.81 Secondary hyperparathyroidism of renal origin; E11.22 Type 2 diabetes mellitus with diabetic chronic kidney disease; Z99.2 Dependence on renal dialysis; F14.10 Cocaine abuse, uncomplicated; D63.1 Anemia in chronic kidney disease; J44.9 Chronic obstructive pulmonary disease, unspecified; K21.9 Gastro-esophageal reflux disease without esophagitis; E87.5 Hyperkalemia; D75.1 Secondary polycythemia; E11.42 Type 2 diabetes mellitus with diabetic polyneuropathy; F41.9 Anxiety disorder, unspecified; F32.9 Major depressive disorder, single episode, unspecified; Z79.82 Long term (current) use of aspirin; Z79.4 Long term (current) use of insulin; Z84.1 Family history of disorders of kidney and ureter
CPT/HCPCS: 36415; 36416; 71045; 80048; 80053; 82553; 83690; 83880; 84484; 85025; 85060; 90715; 90935; 93005; 96374; 96375; G0257; J1630; J2405; J2550; J3010; Q0162

== ENCOUNTER 2018-04-03 23:03 | Inpatient (IN) | payer MEDICARE, MEDICAID ==
[2018-04-03 23:24] LABS: #Eosinphils 0.2 thou/uL (0.0-0.7); #Lymphocytes 1.7 thou/uL (1.20-3.40); #Monocytes 0.6 thou/uL (0.11-0.59); #Neutrophils 5.5 thou/uL (1.40-6.50); %Basophils 0.4 % (0.0-1.0); %Eosinophils 2.6 % (0.0-10.0); %Lymphocytes 21.5 % (21.0-51.0); %Monocytes 7.7 % (0.0-10.0); %Neutrophils 67.9 % (42.0-75.0); Hemoglobin 14.1 g/dL (12.0-16.0); Mean Corpuscular HGB CONC 32.4 g/dL (32.0-36.0); Mean Corpuscular Hemoglobin 27.6 pg (27.0-31.0); Mean Corpuscular Volume 85.3 fL (78.0-98.0); Mean Platelet Volume 9.4 fL (7.4-10.4); Platelet Count 153 thou/uL (130-400); RBC Distribution Width 16.2 % (11.5-14.5)
[2018-04-03 23:30] LABS: INR-International Normal Ratio 1.2; PTT 32.2 SEC (22.9-36.1)
[2018-04-03 23:36] LABS: ALT (SGPT) 11 U/L (8-55); AST (SGOT) 16 U/L (5-34); Albumin 3.8 g/dL (3.4-4.8); Alkaline Phosphatase 147 U/L (40-150); Anion Gap 23 mmol/L (10-20); BUN (Urea Nitrogen) 57 mg/dL (9.8-20.1); Bilirubin, Total 1.2 mg/dL (0.2-1.2); CK (CPK) 56 U/L (29-168); Calc. Creatinine Clearance 0 mL/min (70-130); Calcium 9.3 mg/dL (7.8-10.44); Carbon Dioxide 27 mmol/L (23-31); Chloride 97 mmol/L (98-107); Estimated GFR-MDRD 5; Globulin 4.6 g/dL (2.4-3.5); Glucose 108 mg/dL (80-115); Potassium 4.9 mmol/L (3.5-5.1); Protein, Total 8.4 g/dL (6.0-8.3); Sodium 142 mmol/L (136-145)
[2018-04-03 23:40] LABS: CKMB 1.7 ng/mL (0-6.6); Troponin I 0.076 ng/mL (< 0.028)
[2018-04-03] MEDS ORDERED: Labetalol HCl 100 MG/20 ML VIAL ONE (23:57)
[2018-04-03] MEDS ORDERED: Nitroglycerin 2% Ointment 1 INCH/1 GM Packet ONE (23:57)
--- NOTE | 2018-04-04 | CT ---
CT HEAD NONCONTRAST: 04/03/18 INDICATION: Stroke, altered mental status. FINDINGS: There is no evidence of intracranial hemorrhage, mass effect, midline shift, or ventriculomegaly. Mil d chronic ischemic disease is present involving the cerebral white matter. IMPRESSION: No acute intracranial hemorrhage or mass effect. Findings telephoned to ER physician, Rodríguez Fisher, 2322 hours, 04/03/18. Code CR POS: [facility]
[2018-04-04 00:01] LABS: Bilirubin Small (Negative); Blood, Urine Large (Negative); Glucose, Urine (Dipstick) Negative (Negative); Leukocyte Large (Negative); Nitrite Positive (Negative); Protein, Urine (Dipstick) 100 mg/dL (Neg-Trace); Specific Gravity, Urine 1.025 (1.005-1.030); Urobilinogen 0.2 mg/dL (0.2-1.0); pH, Urine 7.5 (5.0-9.0)
[2018-04-04 00:03] LABS: Clarity Turbid (Clear)
[2018-04-04 00:08] LABS: RBC/HPF 21-50 HPF (0-3); Squamous Epithelial None Seen HPF (0-3)
[2018-04-04 00:09] LABS: Bacteria/HPF 3+ HPF (None Seen)
[2018-04-04 00:22] LABS: Amphetamine Not Detected (NotDetected); Barbiturates Screen Not Detected (NotDetected); Benzodiazepine Screen Not Detected (NotDetected); Cocaine Metabolite Screen Detected (NotDetected); Medtox Control Line Valid? VALID (VALID); Medtox Reader # READER 4; Methadone Not Detected (NotDetected); Methamphetamine Not Detected (NotDetected); Opiate Screen Detected (NotDetected); Oxycodone Screen Not Detected (NotDetected); Phencyclidine (PCP) Not Detected (NotDetected); THC/Cannabinoid Screen Not Detected (NotDetected); Tricyclic Screen Not Detected (NotDetected)
[2018-04-04] MEDS ORDERED: cefTRIAXone\\ROCEPHIN 2 GM VIAL ONE (00:51)
[2018-04-04] MEDS ORDERED: Acetaminophen 325 MG TAB PO PRN (03:44)
[2018-04-04] MEDS ORDERED: Ondansetron HCl/PF 4 MG/2 ML Vial IVP PRN (03:44)
[2018-04-04] MEDS ORDERED: Ondansetron ODT 4 MG TAB SL PRN (03:44)
[2018-04-04] MEDS ORDERED: Loratadine 10 MG TAB PO PRN (08:59)
[2018-04-04] MEDS ORDERED: Milk Of Magnesia 30 ML UDCUP PO PRN (08:59)
[2018-04-04] MEDS ORDERED: Zolpidem Tartrate 5 MG TAB PO PRN (08:59)
--- NOTE | 2018-04-04 10:04 | RAD ---
CHEST 1 VIEW: Date: 04/03/18 HISTORY: Altered mental status. COMPARISON: Chest radiograph dated 03/20/18. FINDINGS: Extensive air space opacity throughout the lungs, much worse from the comparison examination. Heart s ize is enlarged. Left subclavian vascular stent is present. No acute osseous abnormality. IMPRESSION: Worsening multifocal air space opacities, concerning for infection. POS: [facility]
[2018-04-04] MEDS: Calcium Acetate 667 MG CAP PO SCH ×3 (10:16→22:26)
[2018-04-04] MEDS: Losartan 25 MG TAB PO SCH (10:16)
[2018-04-04] MEDS: cloNIDine 0.1 MG TAB PO SCH ×3 (10:16→22:26)
[2018-04-04] MEDS: Sevelamer Carbonate 800 MG TAB PO SCH ×2 (10:17→17:49)
[2018-04-04] MEDS: Famotidine 20 MG TAB PO SCH (10:17)
[2018-04-04] MEDS: Baclofen 10 MG TAB PO SCH (10:17)
[2018-04-04] MEDS: Carvedilol 6.25 MG TAB PO SCH ×2 (10:17→22:26)
[2018-04-04] MEDS: Furosemide 40 MG TAB PO SCH (10:18)
[2018-04-04] MEDS: Docusate 100 MG CAP PO SCH (10:18)
[2018-04-04] MEDS ORDERED: Nitroglycerin 0.4 MG TAB (25 Tab Bottle) ONE (11:25)
[2018-04-04] MEDS ORDERED: Nitroglycerin 0.4 MG TAB (25 Tab Bottle) SL PRN (11:26)
[2018-04-04] MEDS: Sucralfate 1 GM TAB PO SCH ×3 (11:35→22:27)
--- NOTE | 2018-04-04 11:50 | CON ---
DATE OF CONSULTATION: 04/04/2018 NEPHROLOGY CONSULTATION REASON FOR CONSULTATION: End-stage renal disease for maintenance hemodialysis. HISTORY OF PRESENTING ILLNESS: This is a 62-year-old female who presented to the hospital with a history of chest pain. The patient had normal potassium. The patient had drug use. The patient can give no further history. PAST MEDICAL HISTORY: Significant for hypertension, anemia, history of drug use , history of end-stage renal disease, history of chest pain, history of secondary hyperparathyroidism, anemia, COPD, drug use, dialysis access, cardiac catheterization. HOME MEDICATIONS: List reviewed. HOSPITAL MEDICATIONS: List reviewed. ALLERGIES: Reviewed. REVIEW OF SYSTEMS: Unobtainable, patient is confused. PHYSICAL EXAMINATION: GENERAL: Patient is awake, alert. VITAL SIGNS: Afebrile, pulse 61, breathing 16, blood pressure 135/62. HEAD/NECK: Normocephalic. Atraumatic. EYES: EOMI. No deformity. EARS: Clear. No ulcers. NOSE: Intact. No lesions. MOUTH: Clear. No discharge. THROAT: Clear. No exudate. LUNGS: Clear. No crackles. CARDIAC: S1, S2. No rub. ABDOMEN: Benign. BS+. GENITALIA/RECTUM: Brannon absent. BACK/EXTREMITIES: Edema 0+ Ulcer- NEUROLOGICAL: The patient is somnolent. SKIN: Rash- Bruise- LYMPHATICS: Edema- Ulcer- LABORATORY DATA: Show potassium 4.9. ASSESSMENT AND RECOMMENDATIONS: 1. Stage 6 chronic kidney disease. We will plan dialysis. 2. Hypertension, stable. 3. Anemia, stable. 4. Medications based on glomerular filtration rate are appropriate. We will recheck stat labs today to see what the potassium is. [facility]
[2018-04-04 12:10] LABS: Anion Gap 22 mmol/L (10-20); BUN (Urea Nitrogen) 59 mg/dL (9.8-20.1); Calc. Creatinine Clearance 6 mL/min (70-130); Calcium 8.5 mg/dL (7.8-10.44); Carbon Dioxide 25 mmol/L (23-31); Chloride 98 mmol/L (98-107); Estimated GFR-MDRD 5; Glucose 199 mg/dL (80-115); Potassium 4.5 mmol/L (3.5-5.1); Sodium 140 mmol/L (136-145)
--- NOTE | 2018-04-04 18:40 | HP ---
CHIEF COMPLAINT: The patient was brought in by EMS for unresponsiveness. HISTORIAN: Electronic medical records, nurse and patient. Patient is somewhat unreliable. HISTORY OF PRESENT ILLNESS: Patient is a 62-year-old woman with past medical history of end-stage renal disease, on hemodialysis Thursday, Thursday, and Thursday, chronic heart failure, COPD, asthma, depression and anxiety who is presenting to the ED for unresponsiveness. The patient was brought in by an ambulance. Per the patient, she does not know what happened to her. She was hanging out with her half brother and some of her friends and she just noticed that she woke up without knowing what had happened. Per EMS, the patient was found unresponsive and when they got to the patient, patient was unresponsive. Per the records-- the family members who called EMS states that the patient was sleeping throughout the day. The patient was found on the floor in her bedroom. Patient was put back on her bed; however, they noted that the patient was not at her baseline. Therefore, EMS was called. En route, a stroke screen was attempted; however, the patient refused to participate. In the ED, the patient did not have any facial droop and patient was moving all her extremities. Upon further investigation, it was stated in the patient's chart that patient had not gone through dialysis; however, when we spoke to the nurse , nurse states that the patient stated that she went on Thursday; however, this information is not clear at this time. Upon further evaluation, it was noted that patient was recently discharged from the hospital on 03/23/2018 for fluid overload, chronic diastolic congestive heart failure. Patient denied any fever , nausea, vomiting; however, admitted to some chest pain and suprapubic abdominal pain. Upon further questioning, the patient stated that pain in the abdomen was due to constipation. Otherwise, patient denied any urinary incontinence, any weakness, numbness or palpitations. REVIEW OF SYSTEMS: Positive for chest pain, abdominal pain, but negative for other ones stated in the HPI. PAST MEDICAL HISTORY: 1. End-stage renal disease, hemodialysis Thursday, Wednesdays and Fridays. 2. CHF 3. COPD. 4. Asthma. 5. Depression. 6. Anxiety. PAST SURGICAL HISTORY: Left upper extremity fistula, carpal tunnel surgical procedure, left foot fracture fixation and surgical procedure. PSYCHIATRIC HISTORY: The patient has anxiety and depression. SOCIAL HISTORY: Patient is a smoker for 5 years. Patient lives alone by herself in the house. Patient is from the because the had HIV. FAMILY HISTORY: The patient states that her mother had malignancy. Her sister is 30 years old and she also has malignancy. She does not know what type of malignancy they have. Father has hypertension and diabetes. They are both . ALLERGIES: The patient is allergic to LISINOPRIL, AMITRIPTYLINE, HEPARIN, TRAMADOL. MEDICATIONS: 1. Patient is on trazodone 100 mg p.o. at bedtime. The patient is on clonidine 0.1 mg p.o. t.i.d. 2. Zolpidem 5 mg p.o. at bedtime p.r.n. 3. Carafate 1 gram p.o. before meals and at bedtime. 4. Simvastatin 40 mg p.o. at bedtime. 5. Renvela 1200 mg p.o. t.i.d. 6. Sertraline 100 mg p.o. at bedtime. 7. Pregabalin 150 mg p.o. at bedtime. 8. Zofran 4 mg p.o. q.6 p.r.n. 9. Magnesium hydroxide 30 mL p.o. daily p.r.n. 10. Cozaar 50 mg p.o. daily. 11. Claritin 10 mg p.o. daily. 12. DuoNeb 3 nebs q.6 each hour RT p.r.n. 13. Insulin 20 units daily. 14. Insulin NPH 25 units subcu daily. 15. [place] 1 tab p.o. q.6 hours p.r.n. 16. Furosemide 40 mg p.o. daily. 17. Advair. 18. Promethazine 20 mg b.i.d. 19. Docusate 100 mg p.o. b.i.d. 20. Coreg 6.25 p.o. b.i.d. 21. PhosLo 2 cap p.o. t.i.d. 22. Baclofen 10 mg p.o. daily. 23. Aspirin 81 mg daily. 24. Albuterol 2 puffs inhalation q.6 each hour p.r.n. 25. Tylenol with Codeine b.i.d. p.r.n. CODE STATUS: Discussion with code status. Patient was not completely alert and comprehending to question pertaining to my code status. Patient stated that she is forgetting a lot of things. Therefore, discussions about code status was stopped, we will reconsider some of the time. The patient's primary care doctor is Dr. Dionne Kaplan. PHYSICAL EXAMINATION: VITAL SIGNS: The patient's vitals on admission, temperature 99, pulse 70, respiratory rate is 18, blood pressure is 171/84, 98% at room air. GENERAL APPEARANCE: Patient is lying in bed. Patient appears unkempt, however , very pleasant and cachectic looking. HEENT: Normocephalic, atraumatic. Pupils are equal, round, and reactive to light. Extraocular movements are intact. Patient has a 2 liter nasal cannula in nostrils. NECK: No JVD: Supple. Trachea is midline. CARDIOVASCULAR: Positive S1, S2. No murmurs are appreciated. No rubs, no gallops. LUNGS: Clear to auscultation bilaterally in other anterior lung craig and posterior lung craig. No rales, no rhonchi is appreciated at this time. ABDOMEN: Patient's abdomen is soft and nontender. EXTREMITIES: The patient's left upper extremity has a fistula which has a palpable thrill. The patient does not have any edema. NEUROLOGIC: Patient has weakness of the lower extremities bilaterally, 4/4 lower extremity strength bilaterally. PSYCHIATRIC: The patient has normal affect. Alert and oriented x2. Somehow confused about what day and time it is today. SKIN: Warm, dry and intact. Patient has a fistula located at the left upper extremity. LABORATORY DATA: Patient's WBC is 8.0 on admission, hemoglobin is 4.1, hematocrit is 43.5, platelets 153. Coagulation: PT is 15.0, INR is 1.2, PTT is 32.2. Chemistry: Sodium 142, potassium 4.9, chloride 97, carbon dioxide 27 , BUN is 57, creatinine is 10.10, BNP is 11,636. Troponin 0.076. Urinalysis shows patient has large leukoesterase, positive nitrite. Toxicology showed that patient had cocaine in the urine and opioids. ASSESSMENT AND PLAN: This is a 52-year-old female with multiple comorbidities being admitted for: 1. Encephalopathy, likely secondary to toxic metabolic. Patient's urinalysis showed the patient had cocaine and opioids in her urine. The patient might have had an overdose of illicit drugs. We will continue to monitor the patient and continue supportive care. We will continue to control the patient's blood pressure. 2. Acute respiratory failure, Hypoxic. On admission, patient was placed on 2 liters of nasal cannula to help the patient with her oxygen saturation since the patient was found unresponsive at home. 3. Questionable uremia. The patient's BUN is 57 and creatinine is 10.10 and per notes, it was unclear whether patient received dialysis or patient missed dialysis; therefore uremia is up in our differential. We will follow up with Nephrology; however, on physical, uremia is highly unlikely since patient does not have asterixis or pericardial rub. However, we will keep this differential high on our problem list and we will get dialysis for the patient as soon as possible. 4. Urinary tract infection. We will start the patient on antibiotics since patient was complaining of abdominal pain when patient was brought to the ED. 5. History of end-stage renal disease on hemodialysis. We will continue patient's hemodialysis as scheduled. 6. History of chronic obstructive pulmonary disease. We have started the patient on her home medications and added Advair to continue DuoNebs. We will continue to monitor the patient. 7. Asthma. We will continue the patient on DuoNeb treatment. 8. Depression and anxiety. We will start the patient on her psych medication. The patient is actually currently forgetful and patient states that whatever that happened to her home has probably had an impact on her memory. 9. Deep venous thrombosis and gastrointestinal prophylaxis. We will continue patient on prophylaxis at this time and we will continue to monitor the patient. MTDD
[2018-04-04] MEDS: Mometasone/Formoterol 120 PUFF INHALER INH SCH (19:39)
[2018-04-04] MEDS: Pregabalin 75 MG CAP PO SCH (22:26)
[2018-04-04] MEDS: Atorvastatin Calcium 20 MG TAB PO SCH (22:26)
[2018-04-05] MEDS ORDERED: cefTRIAXone\\ROCEPHIN 1 GM in Sodium Chloride 0.9% 100 ML IVPB SCH (01:00)
[2018-04-05 05:09] LABS: #Eosinphils 0.3 thou/uL (0.0-0.7); #Lymphocytes 1.3 thou/uL (1.20-3.40); #Monocytes 0.7 thou/uL (0.11-0.59); %Basophils 0.6 % (0.0-1.0); %Eosinophils 4.4 % (0.0-10.0); %Lymphocytes 20.6 % (21.0-51.0); %Monocytes 10.4 % (0.0-10.0); %Neutrophils 63.9 % (42.0-75.0); Hemoglobin 12.5 g/dL (12.0-16.0); Mean Corpuscular HGB CONC 32.6 g/dL (32.0-36.0); Mean Corpuscular Hemoglobin 27.9 pg (27.0-31.0); Mean Corpuscular Volume 85.7 fL (78.0-98.0); Platelet Count 127 thou/uL (130-400); RBC Distribution Width 16.1 % (11.5-14.5); Red Blood Cell (RBC) Count 4.47 mill/uL (4.20-5.40); White Blood Cell (WBC) Count 6.3 thou/uL (4.8-10.8)
[2018-04-05 05:26] LABS: Anion Gap 23 mmol/L (10-20); BUN (Urea Nitrogen) 69 mg/dL (9.8-20.1); Calc. Creatinine Clearance 6 mL/min (70-130); Calcium 9.1 mg/dL (7.8-10.44); Carbon Dioxide 22 mmol/L (23-31); Chloride 99 mmol/L (98-107); Estimated GFR-MDRD 5; Glucose 122 mg/dL (80-115); Potassium 4.8 mmol/L (3.5-5.1); Sodium 139 mmol/L (136-145)
[2018-04-05] MEDS: Mometasone/Formoterol 120 PUFF INHALER INH SCH ×2 (07:13→17:54)
[2018-04-05] MEDS ORDERED: Dextrose 50% Abboject 50 ML SYRINGE SLOW IVP PRN (07:24)
[2018-04-05] MEDS ORDERED: HumaLOG 300 UNITS/3 ML VIAL SC PRN (07:24)
[2018-04-05] MEDS ORDERED: Dextrose 5% in Water 1,000 ML IV PRN (07:24)
--- NOTE | 2018-04-05 08:29 | PDOC.PN ---
- Subjective Encounter Start Date: 04/05/18 Encounter Start Time: 08:28 Subjective: confused - Objective MAR Reviewed: Yes Vital Signs & Weight: Vital Signs (12 hours) Temp Pulse Resp BP Pulse Ox 04/05/18 07:14 97 04/05/18 07:13 67 14 97 04/05/18 04:00 96.6 F L 67 16 177/86 H 93 L Weight Weight 148 lb 11.2 oz Result Diagrams: 04/05/18 04:57 04/05/18 04:57 Additional Labs: Accuchecks 04/05/18 04/04/18 04/04/18 06:24 21:12 16:37 POC Glucose 123 H 169 H 153 H 04/04/18 10:58 POC Glucose 215 H Phys Exam - Physical Examination post rhonchi, diffuse Cardiovascular: RRR Gastrointestinal: soft, non-tender, positive bowel sounds Musculoskeletal: edema present Dx/Plan (1) Acute encephalopathy Code(s): G93.40 - ENCEPHALOPATHY, UNSPECIFIED Status: Acute Comment: pt drowsy today as well, ? medication-induced. Hold Lyrica (2) COPD (chronic obstructive pulmonary disease) Status: Chronic Qualifiers: (3) Chronic diastolic CHF (congestive heart failure), NYHA class 3 Code(s): I50.32 - CHRONIC DIASTOLIC (CONGESTIVE) HEART FAILURE Status: Chronic Comment: Improving symptomatically (4) DM type 2 (diabetes mellitus, type 2) Status: Chronic Qualifiers: Diabetes mellitus residential insulin use: with residential use Diabetes mellitus complication status: with kidney complications Diabetes mellitus complication detail: with chronic kidney disease Chronic kidney disease stage : on chronic dialysis Qualified Code(s): E11.22 - Type 2 diabetes mellitus with diabetic chronic kidney disease; N18.6 - End stage renal disease; N18.6 - End stage renal disease; N18.6 - End stage renal disease; N18.6 - End stage renal disease; Z79.4 - oil heaterman (current) use of insulin; Z79.4 - oil heaterman ( current) use of insulin; Z79.4 - shelter (current) use of insulin; Z79.4 - oil heaterman (current) use of insulin; Z99.2 - Dependence on renal dialysis; Z99.2 - Dependence on renal dialysis; Z99.2 - Dependence on renal dialysis; Z99.2 - Dependence on renal dialysis Comment: tonio insulin sliding scale (5) ESRD (end stage renal disease) on dialysis Code(s): N18.6 - END STAGE RENAL DISEASE; Z99.2 - DEPENDENCE ON RENAL DIALYSIS Status: Chronic Comment: dialysis per nephrology (6) Hepatitis C Code(s): B19.20 - UNSPECIFIED VIRAL HEPATITIS C WITHOUT HEPATIC COMA Status: Chronic Qualifiers: Viral hepatitis chronicity: chronic Comment: Chronic, stable (7) Hyperlipidemia Code(s): E78.5 - HYPERLIPIDEMIA, UNSPECIFIED Status: Chronic Comment: on atorvastatin (8) Noncompliance with treatment plan Code(s): Z91.11 - PATIENT'S NONCOMPLIANCE WITH DIETARY REGIMEN Status: Chronic (9) Uremia Code(s): N19 - UNSPECIFIED KIDNEY FAILURE Status: Chronic - Plan cont to be encephalopathic, multifactoral- cocaine, urememia, etc -: urgent hd -: selected home meds -: discuss with renal -: cxr worrisome for PNA- cont antibx * .
[2018-04-05] MEDS ORDERED: Ondansetron HCl/PF 4 MG/2 ML Vial SLOW IVP PRN (09:28)
[2018-04-05] MEDS: Sucralfate 1 GM TAB PO SCH ×2 (10:22→20:52)
[2018-04-05] MEDS: Sevelamer Carbonate 800 MG TAB PO SCH ×2 (10:22→20:53)
[2018-04-05] MEDS: Carvedilol 6.25 MG TAB PO SCH (10:23)
[2018-04-05] MEDS: Baclofen 10 MG TAB PO SCH (10:23)
[2018-04-05] MEDS: Furosemide 40 MG TAB PO SCH (10:23)
[2018-04-05] MEDS: cloNIDine 0.1 MG TAB PO SCH ×2 (10:23→20:53)
[2018-04-05] MEDS: Famotidine 20 MG TAB PO SCH (10:23)
[2018-04-05] MEDS: Calcium Acetate 667 MG CAP PO SCH ×2 (10:23→20:53)
[2018-04-05] MEDS: Docusate 100 MG CAP PO SCH (10:23)
[2018-04-05] MEDS: Losartan 25 MG TAB PO SCH (10:23)
--- NOTE | 2018-04-05 16:37 | PRG ---
DATE OF SERVICE: 04/05/2018 SUBJECTIVE: Patient was seen and examined at bedside and overnight events noted. Patient denies any shortness of breath or chest pain or palpitation. No history of nausea or vomiting or diarrhea or f ever or chills or cramps. OBJECTIVE: GENERAL: This is a thin-built -[place] female in no apparent distress. VITAL SIGNS: Temperature 98.7, pulse 60, respiratory rate 18, blood pressure 142/67. HEENT: Atraumatic, normocephalic. Oral mucosa is moist. NECK: Supple. CARDIOVASCULAR: S1, S2 heard. Rate and rhythm regular. RESPIRATORY: Clear to auscultation. GASTROINTESTINAL: Abdomen is soft. MUSCULOSKELETAL: No tenderness. No edema. DERMATOLOGIC: No skin rash. NEUROLOGIC: Alert and awake and oriented x3. No focal neurologic deficits. Moving all the extremiti es. PSYCHIATRIC: Mood and affect normal. LABORATORY DATA: Potassium is 4.8, BUN 69, creatinine is 10.4. ASSESSMENT AND PLAN: 1. End-stage renal disease on hemodialysis. We will have dialysis today. 2. Hypertension, stable. 3. Anemia. 4. Edema, remove fluid. 5. Prognosis guarded. 6. Substance abuse. We will guidance counselor. Continue on dialysis Thursday, Thursday, and Thursday.
[2018-04-05] MEDS ORDERED: Haloperidol Lactate 5 MG/ML VIAL SLOW IVP PRN (18:18)
[2018-04-05] MEDS: Insulin NPH/Reg Insulin Hm 300 UNITS/3 ML VIAL SC SCH ×2 (18:21→20:53)
[2018-04-05] MEDS ORDERED: hydrALAZINE 20 MG/ML VIAL SLOW IVP PRN (20:21)
[2018-04-05] MEDS ORDERED: Labetalol 100 MG/20 ML MDV SLOW IVP PRN (22:38)
[2018-04-05] MEDS: cloNIDine 0.1mg/24 Hour PATCH TD SCH (22:57)
[2018-04-06] MEDS: cefTRIAXone\\ROCEPHIN 1 GM in Sodium Chloride 0.9% 100 ML IVPB SCH
[2018-04-06] MEDS: Atorvastatin Calcium 20 MG TAB PO SCH ×2 (01:29→20:38)
[2018-04-06] MEDS: Pregabalin 75 MG CAP PO SCH ×2 (01:30→20:37)
[2018-04-06] MEDS: Carvedilol 6.25 MG TAB PO SCH ×3 (01:30→20:38)
[2018-04-06] MEDS: Calcium Acetate 667 MG CAP PO SCH ×4 (01:30→20:36)
[2018-04-06] MEDS: cloNIDine 0.1 MG TAB PO SCH ×4 (01:30→20:36)
[2018-04-06] MEDS: Sucralfate 1 GM TAB PO SCH ×5 (01:34→20:37)
[2018-04-06] MEDS: Mometasone/Formoterol 120 PUFF INHALER INH SCH ×2 (06:47→18:19)
[2018-04-06] MEDS ORDERED: Lorazepam 0.5 MG TAB PO SCH (09:15)
[2018-04-06] MEDS: cloNIDine 0.1mg/24 Hour PATCH TD SCH (09:25)
--- NOTE | 2018-04-06 10:07 | PDOC.PN ---
- Subjective Encounter Start Date: 04/06/18 Encounter Start Time: 10:05 Subjective: oriented to person - Objective Vital Signs & Weight: Vital Signs (12 hours) Temp Pulse Resp BP BP Pulse Ox 04/06/18 08:00 90 16 203/100 H 04/06/18 06:47 65 16 98 04/06/18 04:00 96.7 F L 75 20 165/99 H 94 L 04/06/18 01:42 135/99 H 04/06/18 01:30 237/112 H 04/06/18 00:00 195/110 H Weight Weight 141 lb 14.4 oz Result Diagrams: 04/05/18 04:57 04/05/18 04:57 Additional Labs: Accuchecks 04/06/18 04/05/18 04/05/18 05:01 21:09 11:05 POC Glucose 140 H 127 H 133 H Phys Exam - Physical Examination Neck: no JVD Respiratory: clear to auscultation bilateral anterior exam Cardiovascular: no significant murmur, irregular Gastrointestinal: soft, positive bowel sounds Musculoskeletal: edema present Dx/Plan (1) Acute encephalopathy Code(s): G93.40 - ENCEPHALOPATHY, UNSPECIFIED Status: Acute Comment: pt drowsy today as well, ? medication-induced. Hold Lyrica (2) COPD (chronic obstructive pulmonary disease) Status: Chronic Qualifiers: (3) Chronic diastolic CHF (congestive heart failure), NYHA class 3 Code(s): I50.32 - CHRONIC DIASTOLIC (CONGESTIVE) HEART FAILURE Status: Chronic Comment: Improving symptomatically (4) DM type 2 (diabetes mellitus, type 2) Status: Chronic Qualifiers: Diabetes mellitus roasterman insulin use: with roasterman use Diabetes mellitus complication status: with kidney complications Diabetes mellitus complication detail: with chronic kidney disease Chronic kidney disease stage : on chronic dialysis Qualified Code(s): E11.22 - Type 2 diabetes mellitus with diabetic chronic kidney disease; N18.6 - End stage renal disease; Z99.2 - Dependence on renal dialysis; Z99.2 - Dependence on renal dialysis; Z99.2 - Dependence on renal dialysis; N18.6 - End stage renal disease; N18.6 - End stage renal disease; N18.6 - End stage renal disease; Z79.4 - tank terminal gauger (current ) use of insulin; Z79.4 - tank terminal gauger (current) use of insulin; Z79.4 - senior living (current) use of insulin; Z79.4 - tank terminal gauger (current) use of insulin; Z99.2 - Dependence on renal dialysis Comment: tonio insulin sliding scale (5) ESRD (end stage renal disease) on dialysis Code(s): N18.6 - END STAGE RENAL DISEASE; Z99.2 - DEPENDENCE ON RENAL DIALYSIS Status: Chronic Comment: dialysis per nephrology (6) Hepatitis C Code(s): B19.20 - UNSPECIFIED VIRAL HEPATITIS C WITHOUT HEPATIC COMA Status: Chronic Qualifiers: Viral hepatitis chronicity: chronic Comment: Chronic, stable (7) Hyperlipidemia Code(s): E78.5 - HYPERLIPIDEMIA, UNSPECIFIED Status: Chronic Comment: on atorvastatin (8) Noncompliance with treatment plan Code(s): Z91.11 - PATIENT'S NONCOMPLIANCE WITH DIETARY REGIMEN Status: Chronic (9) Uremia Code(s): N19 - UNSPECIFIED KIDNEY FAILURE Status: Chronic (10) UTI (urinary tract infection), bacterial Code(s): N39.0 - URINARY TRACT INFECTION, SITE NOT SPECIFIED; A49.9 - BACTERIAL INFECTION, UNSPECIFIED Status: Acute - Plan difficult patient, not appropriate -: needs routine HD -: uti-E coli sens to rocephine-cont rx -: cont antihypertensives * .
[2018-04-06] MEDS: Sevelamer Carbonate 800 MG TAB PO SCH ×3 (10:18→18:38)
[2018-04-06] MEDS: Insulin NPH/Reg Insulin Hm 300 UNITS/3 ML VIAL SC SCH ×2 (10:18→18:37)
[2018-04-06] MEDS: Baclofen 10 MG TAB PO SCH (10:19)
[2018-04-06] MEDS: Docusate 100 MG CAP PO SCH (10:20)
[2018-04-06] MEDS: Famotidine 20 MG TAB PO SCH (10:20)
[2018-04-06] MEDS: Losartan 25 MG TAB PO SCH (10:20)
[2018-04-06] MEDS: Furosemide 40 MG TAB PO SCH (10:20)
[2018-04-06] MEDS ORDERED: NIFEdipine XL 60 MG TAB PO SCH (11:15)
--- NOTE | 2018-04-06 11:18 | PRG ---
DATE OF SERVICE: 04/06/2018 SUBJECTIVE: Patient was seen and examined at bedside and overnight events noted. Patient denies any shortness of breath or chest pain or palpitation. No history of nausea or vomiting or diarrhea or f ever or chills or cramps. OBJECTIVE: GENERAL: This is a well-built female in no apparent distress. VITAL SIGNS: Temperature 96.7, pulse 90, respiratory rate 16, blood pressure 203/100. HEENT: Atraumatic, normocephalic. Oral mucosa is moist. NECK: Supple. CARDIOVASCULAR: S1, S2 heard. Rate and rhythm regular. RESPIRATORY: Clear to auscultation. GASTROINTESTINAL: Abdomen is soft. MUSCULOSKELETAL: No tenderness. No edema. DERMATOLOGIC: No skin rash. NEUROLOGIC: Alert and awake and oriented x3. No focal neurologic deficits. Moving all the extremiti es. PSYCHIATRIC: Mood and affect normal. LABORATORY DATA: Not done today. ASSESSMENT AND PLAN: 1. End-stage renal disease. We will continue on dialysis as tolerated. 2. Hypertension. Titrate blood pressure medications and monitor closely. We will increase losartan to 100 mg daily. 3. We will add Procardia 4. Edema, controlled. 5. Anemia, we will monitor. 6. Closely monitor blood pressure. We will follow.
[2018-04-06 15:07] LABS: #Eosinphils 0.1 thou/uL (0.0-0.7); #Lymphocytes 1.3 thou/uL (1.20-3.40); #Monocytes 0.7 thou/uL (0.11-0.59); #Neutrophils 4.6 thou/uL (1.40-6.50); %Basophils 0.4 % (0.0-1.0); %Monocytes 10.8 % (0.0-10.0); %Neutrophils 67.8 % (42.0-75.0); Hemoglobin 14.4 g/dL (12.0-16.0); Mean Corpuscular HGB CONC 32.7 g/dL (32.0-36.0); Mean Corpuscular Hemoglobin 27.8 pg (27.0-31.0); Mean Corpuscular Volume 84.8 fL (78.0-98.0); Mean Platelet Volume 10.4 fL (7.4-10.4); Platelet Count 130 thou/uL (130-400); RBC Distribution Width 16.1 % (11.5-14.5); Red Blood Cell (RBC) Count 5.17 mill/uL (4.20-5.40); White Blood Cell (WBC) Count 6.7 thou/uL (4.8-10.8)
[2018-04-06 15:31] LABS: Anion Gap 23 mmol/L (10-20); BUN (Urea Nitrogen) 31 mg/dL (9.8-20.1); Calc. Creatinine Clearance 10 mL/min (70-130); Calcium 10.1 mg/dL (7.8-10.44); Carbon Dioxide 25 mmol/L (23-31); Chloride 94 mmol/L (98-107); Estimated GFR-MDRD 8; Glucose 99 mg/dL (80-115); Potassium 4.4 mmol/L (3.5-5.1); Sodium 138 mmol/L (136-145)
[2018-04-06] MEDS ORDERED: Haloperidol 5 MG TAB PO PRN (19:15)
[2018-04-07 06:18] VITALS: BMI 27.5
[2018-04-07] MEDS: cefTRIAXone\\ROCEPHIN 1 GM in Sodium Chloride 0.9% 100 ML IVPB SCH (06:34)
[2018-04-07] MEDS: Mometasone/Formoterol 120 PUFF INHALER INH SCH ×2 (07:15→18:58)
[2018-04-07] MEDS ORDERED: NIFEdipine XL 60 MG TAB PO SCH (09:00)
--- NOTE | 2018-04-07 09:37 | PDOC.PN ---
- Subjective Encounter Start Date: 04/07/18 Encounter Start Time: 09:35 Subjective: rambling, non focused - Objective MAR Reviewed: Yes Vital Signs & Weight: Vital Signs (12 hours) Temp Pulse Resp BP Pulse Ox 04/07/18 07:15 66 14 97 04/07/18 04:26 97.5 F L 69 12 111/57 L 04/07/18 00:15 98 F 79 16 129/66 94 L Weight Weight 150 lb 8 oz Result Diagrams: 04/06/18 14:33 04/06/18 14:33 Additional Labs: Accuchecks 04/07/18 04/06/18 04/06/18 05:41 20:29 17:29 POC Glucose 109 92 107 04/06/18 10:57 POC Glucose 95 Phys Exam - Physical Examination Neck: no JVD coarse BS with rhonchi Cardiovascular: RRR, no significant murmur Gastrointestinal: soft, positive bowel sounds Musculoskeletal: no edema Dx/Plan (1) Acute encephalopathy Code(s): G93.40 - ENCEPHALOPATHY, UNSPECIFIED Status: Acute Comment: pt drowsy today as well, ? medication-induced. Hold Lyrica (2) COPD (chronic obstructive pulmonary disease) Status: Chronic Qualifiers: (3) Chronic diastolic CHF (congestive heart failure), NYHA class 3 Code(s): I50.32 - CHRONIC DIASTOLIC (CONGESTIVE) HEART FAILURE Status: Chronic Comment: Improving symptomatically (4) DM type 2 (diabetes mellitus, type 2) Status: Chronic Qualifiers: Diabetes mellitus oil heaterman insulin use: with oil heaterman use Diabetes mellitus complication status: with kidney complications Diabetes mellitus complication detail: with chronic kidney disease Chronic kidney disease stage : on chronic dialysis Qualified Code(s): E11.22 - Type 2 diabetes mellitus with diabetic chronic kidney disease; N18.6 - End stage renal disease; Z99.2 - Dependence on renal dialysis; Z99.2 - Dependence on renal dialysis; Z99.2 - Dependence on renal dialysis; N18.6 - End stage renal disease; N18.6 - End stage renal disease; N18.6 - End stage renal disease; Z79.4 - [facility] (current ) use of insulin; Z79.4 - [facility] (current) use of insulin; Z79.4 - termination clerk (current) use of insulin; Z79.4 - [facility] (current) use of insulin; Z99.2 - Dependence on renal dialysis Comment: accuchecks, insulin sliding scale (5) ESRD (end stage renal disease) on dialysis Code(s): N18.6 - END STAGE RENAL DISEASE; Z99.2 - DEPENDENCE ON RENAL DIALYSIS Status: Chronic Comment: dialysis per nephrology (6) Hepatitis C Code(s): B19.20 - UNSPECIFIED VIRAL HEPATITIS C WITHOUT HEPATIC COMA Status: Chronic Qualifiers: Viral hepatitis chronicity: chronic Comment: Chronic, stable (7) Hyperlipidemia Code(s): E78.5 - HYPERLIPIDEMIA, UNSPECIFIED Status: Chronic Comment: on atorvastatin (8) Noncompliance with treatment plan Code(s): Z91.11 - PATIENT'S NONCOMPLIANCE WITH DIETARY REGIMEN Status: Chronic (9) Uremia Code(s): N19 - UNSPECIFIED KIDNEY FAILURE Status: Chronic (10) UTI (urinary tract infection), bacterial Code(s): N39.0 - URINARY TRACT INFECTION, SITE NOT SPECIFIED; A49.9 - BACTERIAL INFECTION, UNSPECIFIED Status: Acute - Plan needs plaement -: cont HD -: levaquin QOD for UTI -: cont asa, coreg, statin -: cont accu/ss * .
[2018-04-07] MEDS: Insulin NPH/Reg Insulin Hm 300 UNITS/3 ML VIAL SC SCH ×2 (11:39→17:45)
[2018-04-07] MEDS: Calcium Acetate 667 MG CAP PO SCH ×3 (11:40→22:02)
[2018-04-07] MEDS: Sucralfate 1 GM TAB PO SCH ×4 (11:40→22:03)
[2018-04-07] MEDS: Sevelamer Carbonate 800 MG TAB PO SCH ×3 (11:40→17:58)
[2018-04-07] MEDS: Carvedilol 6.25 MG TAB PO SCH ×2 (11:40→22:03)
[2018-04-07] MEDS: cloNIDine 0.1 MG TAB PO SCH ×3 (11:41→22:02)
--- NOTE | 2018-04-07 12:55 | PRG ---
DATE OF SERVICE: 04/07/2018 SUBJECTIVE: Patient was seen and examined at bedside and overnight events noted. Patient denies any shortness of breath or chest pain or palpitation. No history of nausea or vomiting or diarrhea or fever or chills or cramps. OBJECTIVE: GENERAL: This is a thin-built female in no apparent distress. VITAL SIGNS: Temperature 97.5, pulse 64, respiratory rate , blood pressure 130/61. HEENT: Atraumatic, normocephalic. Oral mucosa is moist. NECK: Supple. CARDIOVASCULAR: S1 and S2 heard. Rate and rhythm regular. RESPIRATORY: Clear to auscultation. GASTROINTESTINAL: Abdomen is soft. MUSCULOSKELETAL: No tenderness. No edema. DERMATOLOGIC: No skin rash. NEUROLOGIC: Alert and awake and oriented x3. No focal neurologic deficits. Moving all the extremit ies. PSYCHIATRIC: Mood and affect normal. LABORATORY DATA: No labs done today. ASSESSMENT AND PLAN: 1. End-stage renal disease. Continue on dialysis as tolerated. 2. Hypertension, better. Continue to monitor her blood pressure. Last blood pressure was 130/61. Procardia added. 3. Edema, controlled. 4. Anemia. We will monitor hemoglobin. We will follow.
[2018-04-07] MEDS: Baclofen 10 MG TAB PO SCH (15:33)
[2018-04-07] MEDS: Famotidine 20 MG TAB PO SCH (15:33)
[2018-04-07] MEDS: Docusate 100 MG CAP PO SCH (15:33)
[2018-04-07] MEDS: Furosemide 40 MG TAB PO SCH (15:34)
[2018-04-07] MEDS: Losartan 25 MG TAB PO SCH (15:34)
[2018-04-07] MEDS: NIFEdipine XL 60 MG TAB PO SCH (15:35)
[2018-04-07] MEDS: Pregabalin 75 MG CAP PO SCH (22:02)
[2018-04-07] MEDS: Atorvastatin Calcium 20 MG TAB PO SCH (22:03)
[2018-04-08] MEDS: cefTRIAXone\\ROCEPHIN 1 GM in Sodium Chloride 0.9% 100 ML IVPB SCH (04:45)
[2018-04-08] MEDS: Mometasone/Formoterol 120 PUFF INHALER INH SCH ×2 (06:45→19:21)
[2018-04-08] MEDS: Baclofen 10 MG TAB PO SCH (08:29)
[2018-04-08] MEDS: Sevelamer Carbonate 800 MG TAB PO SCH ×3 (08:29→17:30)
[2018-04-08] MEDS: Losartan 25 MG TAB PO SCH (08:29)
[2018-04-08] MEDS: Calcium Acetate 667 MG CAP PO SCH ×3 (08:29→22:42)
[2018-04-08] MEDS: Docusate 100 MG CAP PO SCH (08:35)
[2018-04-08] MEDS: Sucralfate 1 GM TAB PO SCH ×4 (08:35→22:43)
[2018-04-08] MEDS: cloNIDine 0.1 MG TAB PO SCH ×3 (08:35→22:43)
[2018-04-08] MEDS: NIFEdipine XL 60 MG TAB PO SCH (08:35)
[2018-04-08] MEDS: Furosemide 40 MG TAB PO SCH (08:36)
[2018-04-08] MEDS: Famotidine 20 MG TAB PO SCH (08:36)
[2018-04-08] MEDS: Carvedilol 6.25 MG TAB PO SCH ×2 (08:37→22:43)
--- NOTE | 2018-04-08 09:31 | PDOC.PN ---
- Subjective Encounter Start Date: 04/08/18 Encounter Start Time: 09:29 Subjective: confusion resolving - Objective MAR Reviewed: Yes Vital Signs & Weight: Vital Signs (12 hours) Temp Pulse Resp BP BP Pulse Ox 04/08/18 08:37 134/67 04/08/18 08:35 64 134/67 04/08/18 08:25 97.7 F 64 17 118/80 96 04/08/18 04:00 97.9 F 63 18 116/56 L 96 04/07/18 22:03 134/67 04/07/18 22:02 13467 Weight Weight 135 lb 9.6 oz I&O: 04/07/18 04/08/18 04/09/18 06:59 06:59 06:59 Intake Total 680 Output Total 2000 Balance -1320 Result Diagrams: 04/06/18 14:33 04/06/18 14:33 Additional Labs: Accuchecks 04/07/18 04/07/18 04/07/18 20:40 17:29 11:27 POC Glucose 160 H 107 93 04/07/18 10:49 POC Glucose 429 H Phys Exam - Physical Examination Neck: no JVD Respiratory: clear to auscultation bilateral Cardiovascular: RRR, no significant murmur Gastrointestinal: soft, positive bowel sounds Musculoskeletal: no edema Neurological: non-focal Dx/Plan (1) Acute encephalopathy Code(s): G93.40 - ENCEPHALOPATHY, UNSPECIFIED Status: Resolved Comment: pt drowsy today as well, ? medication-induced. Hold Lyrica (2) COPD (chronic obstructive pulmonary disease) Status: Chronic Qualifiers: (3) Chronic diastolic CHF (congestive heart failure), NYHA class 3 Code(s): I50.32 - CHRONIC DIASTOLIC (CONGESTIVE) HEART FAILURE Status: Chronic Comment: Improving symptomatically (4) DM type 2 (diabetes mellitus, type 2) Status: Chronic Qualifiers: Diabetes mellitus correction insulin use: with terminal worker use Diabetes mellitus complication status: with kidney complications Diabetes mellitus complication detail: with chronic kidney disease Chronic kidney disease stage : on chronic dialysis Qualified Code(s): E11.22 - Type 2 diabetes mellitus with diabetic chronic kidney disease; N18.6 - End stage renal disease; Z99.2 - Dependence on renal dialysis; Z99.2 - Dependence on renal dialysis; Z99.2 - Dependence on renal dialysis; N18.6 - End stage renal disease; N18.6 - End stage renal disease; N18.6 - End stage renal disease; Z79.4 - exterminator helper (current ) use of insulin; Z79.4 - skilled nursing (current) use of insulin; Z79.4 - exterminator helper (current) use of insulin; Z79.4 - exterminator helper (current) use of insulin; Z99.2 - Dependence on renal dialysis Comment: accuchecks, insulin sliding scale (5) ESRD (end stage renal disease) on dialysis Code(s): N18.6 - END STAGE RENAL DISEASE; Z99.2 - DEPENDENCE ON RENAL DIALYSIS Status: Chronic Comment: dialysis per nephrology (6) Hepatitis C Code(s): B19.20 - UNSPECIFIED VIRAL HEPATITIS C WITHOUT HEPATIC COMA Status: Chronic Qualifiers: Viral hepatitis chronicity: chronic Comment: Chronic, stable (7) Hyperlipidemia Code(s): E78.5 - HYPERLIPIDEMIA, UNSPECIFIED Status: Chronic Comment: on atorvastatin (8) Noncompliance with treatment plan Code(s): Z91.11 - PATIENT'S NONCOMPLIANCE WITH DIETARY REGIMEN Status: Chronic (9) Uremia Code(s): N19 - UNSPECIFIED KIDNEY FAILURE Status: Chronic (10) UTI (urinary tract infection), bacterial Code(s): N39.0 - URINARY TRACT INFECTION, SITE NOT SPECIFIED; A49.9 - BACTERIAL INFECTION, UNSPECIFIED Status: Acute - Plan cont scheduled HD -: encephalopathy resolved -: cont po antibx for UTI -: placement * .
[2018-04-08] MEDS: Insulin NPH/Reg Insulin Hm 300 UNITS/3 ML VIAL SC SCH ×2 (10:32→18:29)
--- NOTE | 2018-04-08 21:34 | PRG ---
DATE OF SERVICE: 04/08/2018 SUBJECTIVE: Patient was seen and examined at bedside and overnight events noted. Patient denies any shortness of breath or chest pain or palpitation. No history of nausea or vomiting or diarrhea or f ever or chills or cramps. OBJECTIVE: GENERAL: This is a thin-built female in no apparent distress. VITAL SIGNS: Temperature 97.6, pulse 59, respiratory rate 18, blood pressure 115/63. HEENT: Atraumatic, normocephalic. Oral mucosa is moist. NECK: Supple. CARDIOVASCULAR: S1, S2 heard. Rate and rhythm regular. RESPIRATORY: Clear to auscultation. GASTROINTESTINAL: Abdomen is soft. MUSCULOSKELETAL: No tenderness. No edema. DERMATOLOGIC: No skin rash. NEUROLOGIC: Alert and awake and oriented x3. No focal neurologic deficits. Moving all the extremiti es. PSYCHIATRIC: Mood and affect normal. LABORATORY DATA: Not done today. ASSESSMENT AND PLAN: 1. End-stage renal disease, currently on dialysis. 2. Hypertension. 3. Edema. 4. Anemia. Monitor hemoglobin. We will continue on dialysis Thursday, Thursday, and Thursday.
[2018-04-08] MEDS: Atorvastatin Calcium 20 MG TAB PO SCH (22:44)
[2018-04-08] MEDS: Pregabalin 75 MG CAP PO SCH (22:44)
[2018-04-09] MEDS: Ondansetron ODT 4 MG TAB PO PRN ×2 (01:01→08:36)
[2018-04-09] MEDS ORDERED: Calcium Carbonate 500 MG ChewTAB PO PRN (07:44)
[2018-04-09] MEDS ORDERED: Loperamide HCl 2 MG CAP PO PRN (07:44)
[2018-04-09] MEDS ORDERED: Eucerin (Mineral Oil/Petrolatum,White) 30 gm Jar TOP PRN (07:44)
[2018-04-09] MEDS ORDERED: Diabetic Tussin 200 MG/10 ML UDCUP PO PRN (07:44)
[2018-04-09] MEDS ORDERED: Acetaminophen 325 MG TAB PO PRN (07:44)
[2018-04-09] MEDS ORDERED: Sodium Chloride 0.65% Nasal 44 ML BOT EA NARE PRN (07:44)
[2018-04-09] MEDS ORDERED: Artificial Tears 18 DROP/0.9 ML EA EYE PRN (07:44)
[2018-04-09] MEDS ORDERED: Chloraseptic Spray 180 ml Bottle PO PRN (07:44)
[2018-04-09] MEDS ORDERED: Ondansetron HCl/PF 4 MG/2 ML Vial IVP PRN (07:44)
[2018-04-09] MEDS: Famotidine 20 MG TAB PO SCH (08:36)
[2018-04-09] MEDS: Baclofen 10 MG TAB PO SCH (08:36)
[2018-04-09] MEDS: NIFEdipine XL 60 MG TAB PO SCH (08:36)
[2018-04-09] MEDS: Calcium Acetate 667 MG CAP PO SCH (08:36)
[2018-04-09] MEDS: Carvedilol 6.25 MG TAB PO SCH (08:37)
[2018-04-09] MEDS: Sevelamer Carbonate 800 MG TAB PO SCH ×2 (08:37→13:03)
[2018-04-09] MEDS: cloNIDine 0.1 MG TAB PO SCH (08:37)
[2018-04-09] MEDS: Furosemide 40 MG TAB PO SCH (08:37)
[2018-04-09] MEDS: Losartan 25 MG TAB PO SCH (08:37)
[2018-04-09] MEDS: Sucralfate 1 GM TAB PO SCH ×2 (08:37→13:03)
[2018-04-09] MEDS: Docusate 100 MG CAP PO SCH (08:37)
[2018-04-09] MEDS: Insulin NPH/Reg Insulin Hm 300 UNITS/3 ML VIAL SC SCH (08:45)
[2018-04-09] MEDS: Mometasone/Formoterol 120 PUFF INHALER INH SCH (09:01)
--- NOTE | 2018-04-09 10:51 | PRG ---
DATE OF SERVICE: 04/09/2018 SUBJECTIVE: Patient was seen and examined at bedside and overnight events noted. Patient denies any shortness of breath or chest pain or palpitation. No history of nausea or vomiting or diarrhea or f ever or chills or cramps. OBJECTIVE: GENERAL: This is a thin-built female in no apparent distress. VITAL SIGNS: Temperature 98.2, pulse 61, respiratory 18, blood pressure 112/59. HEENT: Atraumatic, normocephalic. Oral mucosa is moist. NECK: Supple. CARDIOVASCULAR: S1, S2 heard. Rate and rhythm regular. RESPIRATORY: Clear to auscultation. GASTROINTESTINAL: Abdomen is soft. MUSCULOSKELETAL: No tenderness. No edema. DERMATOLOGIC: No skin rash. NEUROLOGIC: Alert and awake and oriented x3. No focal neurologic deficits. Moving all the extremiti es. PSYCHIATRIC: Mood and affect normal. LABORATORY DATA: Not done today. ASSESSMENT AND PLAN: 1. End-stage renal disease. Continue on hemodialysis as tolerated. 2. Hypertension, remove fluid with dialysis. 3. Edema, controlled. 4. Anemia. 5. Altered mentation slowly better. Plan is to continue on dialysis as tolerated.
--- NOTE | 2018-04-09 11:49 | PDOC.PN ---
- Subjective Encounter Start Date: 04/09/18 Encounter Start Time: 07:45 -: old records requested/rev Patient seen and examined. No new complaints. No overnight events - Objective MAR Reviewed: Yes Vital Signs & Weight: Vital Signs (12 hours) Temp Pulse Resp BP BP Pulse Ox 04/09/18 09:01 61 12 04/09/18 08:37 112/59 L 04/09/18 08:36 61 04/09/18 08:11 98.2 F 61 20 96 04/09/18 08:00 98.2 F 61 20 113/61 96 04/09/18 04:03 98 F 61 16 112/59 L 95 Weight Weight 143 lb 12.8 oz I&O: 04/08/18 04/09/18 04/10/18 06:59 06:59 06:59 Intake Total 680 1020 Output Total 2000 0 Balance -1320 1020 Result Diagrams: 04/06/18 14:33 04/06/18 14:33 Additional Labs: Accuchecks 04/09/18 04/08/18 04/08/18 08:44 20:53 17:17 POC Glucose 146 H 93 222 H 04/08/18 11:13 POC Glucose 161 H EKG Reviewed by me: Yes Phys Exam - Physical Examination Constitutional: NAD HEENT: PERRLA, moist MMs, sclera anicteric Neck: no JVD, supple Respiratory: no wheezing, no rales, no rhonchi Cardiovascular: RRR, no significant murmur, no rub Gastrointestinal: soft, non-tender, no distention, positive bowel sounds Musculoskeletal: no edema, pulses present Neurological: non-focal, normal sensation Lymphatic: no nodes Psychiatric: normal affect Skin: no rash, normal turgor Dx/Plan (1) Cocaine abuse Code(s): F14.10 - COCAINE ABUSE, UNCOMPLICATED Status: Acute (2) UTI (urinary tract infection), bacterial Code(s): N39.0 - URINARY TRACT INFECTION, SITE NOT SPECIFIED; A49.9 - BACTERIAL INFECTION, UNSPECIFIED Status: Acute (3) Anemia of renal disease Code(s): D63.1 - ANEMIA IN CHRONIC KIDNEY DISEASE Status: Chronic (4) Asthma Code(s): J45.909 - UNSPECIFIED ASTHMA, UNCOMPLICATED Status: Chronic (5) COPD (chronic obstructive pulmonary disease) Status: Chronic Qualifiers: (6) Chronic diastolic CHF (congestive heart failure), NYHA class 3 Code(s): I50.32 - CHRONIC DIASTOLIC (CONGESTIVE) HEART FAILURE Status: Chronic Comment: Improving symptomatically (7) DM type 2 (diabetes mellitus, type 2) Status: Chronic Qualifiers: Diabetes mellitus chcf insulin use: with geotechnical intern use Diabetes mellitus complication status: with kidney complications Diabetes mellitus complication detail: with chronic kidney disease Chronic kidney disease stage : on chronic dialysis Qualified Code(s): E11.22 - Type 2 diabetes mellitus with diabetic chronic kidney disease; N18.6 - End stage renal disease; Z99.2 - Dependence on renal dialysis; Z99.2 - Dependence on renal dialysis; Z99.2 - Dependence on renal dialysis; N18.6 - End stage renal disease; N18.6 - End stage renal disease; N18.6 - End stage renal disease; Z79.4 - halfway (current ) use of insulin; Z79.4 - halfway (current) use of insulin; Z79.4 - sushi chef (current) use of insulin; Z79.4 - halfway (current) use of insulin; Z99.2 - Dependence on renal dialysis Comment: dinorahs, insulin sliding scale (8) ESRD (end stage renal disease) on dialysis Code(s): N18.6 - END STAGE RENAL DISEASE; Z99.2 - DEPENDENCE ON RENAL DIALYSIS Status: Chronic Comment: dialysis per nephrology (9) Elevated troponin Code(s): R74.8 - ABNORMAL LEVELS OF OTHER SERUM ENZYMES Status: Chronic (10) Hepatitis C Code(s): B19.20 - UNSPECIFIED VIRAL HEPATITIS C WITHOUT HEPATIC COMA Status: Chronic Qualifiers: Viral hepatitis chronicity: chronic Comment: Chronic, stable (11) Hyperlipidemia Code(s): E78.5 - HYPERLIPIDEMIA, UNSPECIFIED Status: Chronic Comment: on atorvastatin (12) Noncompliance with treatment plan Code(s): Z91.11 - PATIENT'S NONCOMPLIANCE WITH DIETARY REGIMEN Status: Chronic (13) Peripheral neuropathy Code(s): G62.9 - POLYNEUROPATHY, UNSPECIFIED Status: Chronic (14) Secondary hyperparathyroidism of renal origin Code(s): N25.81 - SECONDARY HYPERPARATHYROIDISM OF RENAL ORIGIN Status: Chronic (15) Acute encephalopathy Code(s): G93.40 - ENCEPHALOPATHY, UNSPECIFIED Status: Resolved Comment: - Plan cont current plan of care, PT/OT * medication reviewed as below * supportive treatment * stable for discharge today Review of Systems - Review of Systems Other: not reliable due to her cognitive status - Medications/Allergies Allergies/Adverse Reactions: Allergies Allergy/AdvReac Type Severity Reaction Status Date / Time lisinopril Allergy Severe Verified 04/04/18 05:13 amitriptyline HCl Allergy Swelling Verified 04/04/18 05:13 [From Elavil] heparin Allergy Rash Verified 04/04/18 05:13 tramadol Allergy Nausea Verified 04/04/18 05:13 Medications: Current Medications Acetaminophen (Tylenol) 650 mg PO Q4H PRN PRN Reason: Headache/Fever or Mild Pain Albuterol/Ipratropium (Duoneb) 3 ml NEB [id number] PRN PRN Reason: SOB &/or Wheezing Artificial Tears (Tears Naturale) 0 drop EA EYE PRN PRN PRN Reason: Dry Eyes Aspirin (Aspirin Chewable) 81 mg PO DAILY [facility] Last Admin: 04/09/18 08:37 Dose: 81 mg Atorvastatin Calcium (Lipitor) 20 mg PO HS [facility] Last Admin: 04/08/18 22:44 Dose: 20 mg Baclofen (Lioresal) 10 mg PO DAILY [facility] Last Admin: 04/09/18 08:36 Dose: 10 mg Calcium Acetate (Phoslo) 1,334 mg PO TID [facility] Last Admin: 04/09/18 08:36 Dose: 1,334 mg Calcium Carbonate (Tums) 1,000 mg PO Q4H PRN PRN Reason: Heartburn or Indigestion Carvedilol (Coreg) 12.5 mg PO BID [facility] Last Admin: 04/09/18 08:37 Dose: 12.5 mg Clonidine (Catapres) 0.1 mg PO TID [facility] Last Admin: 04/09/18 08:37 Dose: 0.1 mg Clonidine (Zrhfzaml-Uhy-5 Patch) 0.1 mg TD Q7D [facility] Stop: 04/12/18 22:45 Last Admin: 04/06/18 09:25 Dose: 0.1 mg Dextrose/Water (Dextrose 50%) 25 gm SLOW IVP PRN PRN PRN Reason: Hypoglycemia Docusate Sodium (Colace) 100 mg PO DAILY [facility] Last Admin: 04/09/18 08:37 Dose: 100 mg Famotidine (Pepcid) 20 mg PO DAILY [facility] Last Admin: 04/09/18 08:36 Dose: 20 mg Furosemide (Lasix) 40 mg PO DAILY [facility] Last Admin: 04/09/18 08:37 Dose: 40 mg Glucagon (Glucagon) 1 mg IM PRN PRN PRN Reason: Hypoglycemia Guaifenesin (Robitussin Sf) 200 mg PO Q4H PRN PRN Reason: Cough Haloperidol (Haldol) 5 mg PO Q4H PRN PRN Reason: .AGITATION Haloperidol Lactate (Haldol) 5 mg SLOW IVP Q4H PRN PRN Reason: ANXIETY/AGITATION Last Admin: 04/06/18 01:58 Dose: 5 mg Hydralazine HCl (Apresoline) 10 mg SLOW IVP Q4H PRN PRN Reason: SBP Greater Than 170 Last Admin: 04/05/18 21:06 Dose: 10 mg Dextrose/Water (D5w) 1,000 mls @ 0 mls/hr IV .Q0M PRN PRN Reason: Hypoglycemia Insulin Human Isoph/Insulin Regular (Humulin 70/30) 20 units SC DAILY-[facility] Last Admin: 04/09/18 08:45 Dose: Not Given Insulin Human Isoph/Insulin Regular (Humulin 70/30) 25 units SC 1630 [facility] Last Admin: 04/08/18 18:29 Dose: 25 unit Insulin Human Lispro (Humalog) 0 units SC .MILD SLIDING SCALE PRN PRN Reason: Mild Correctional Scale Labetalol HCl (Normodyne) 10 mg SLOW IVP Q4H PRN PRN Reason: SBP > 180, DBP > 100 Last Admin: 04/05/18 22:57 Dose: 10 mg Levofloxacin (Levaquin) 250 mg PO Q2D@2000 [facility] Last Admin: 04/08/18 19:25 Dose: 250 mg Loperamide HCl (Imodium) 2 mg PO PRN PRN PRN Reason: Diarrhea/Loose Stools Loratadine (Claritin) 10 mg PO DAILYPRN PRN PRN Reason: Sinus Symptoms Losartan Potassium (Cozaar) 100 mg PO DAILY [facility] Last Admin: 04/09/18 08:37 Dose: 100 mg Magnesium Hydroxide (Milk Of Magnesium) 30 ml PO DAILYPRN PRN PRN Reason: Constipation Last Admin: 04/07/18 22:10 Dose: 30 ml Mineral Oil/White Petrolatum (Eucerin Cream) 0 gm TOP BIDPRN PRN PRN Reason: Dry Skin Mometasone Furoate/Formoterol Fumar (Dulera 200 Mcg/5 Mcg Inhaler) 2 puff INH BID-RT [facility] Last Admin: 04/09/18 09:01 Dose: 2 puff Nifedipine (Procardia Xl) 60 mg PO DAILY [facility] Last Admin: 04/09/18 08:36 Dose: 60 mg Nitroglycerin (Nitrostat) 0.4 mg SL Q5MIN PRN PRN Reason: Chest Pain Last Admin: 04/04/18 11:29 Dose: 0.4 mg Ondansetron HCl (Zofran Odt) 4 mg PO Q4H PRN PRN Reason: Nausea/Vomiting Last Admin: 04/09/18 08:36 Dose: 4 mg Ondansetron HCl (Zofran) 4 mg IVP Q6H PRN PRN Reason: Nausea/Vomiting Phenol (Chloraseptic [place] 180 Ml Bot) 0 ml PO PRN PRN PRN Reason: Sore Throat Pregabalin (Lyrica) 150 mg PO [facility] Last Admin: 04/08/18 22:44 Dose: 150 mg Sertraline HCl (Zoloft) 100 mg PO [facility] Last Admin: 04/08/18 22:43 Dose: 100 mg Sevelamer Carbonate (Renvela) 1,600 mg PO TID-[facility] Last Admin: 04/09/18 08:37 Dose: 1,600 mg Sodium Chloride ([place] Nasal [place] 0.65%) 0 ml EA NARE QIDPRN PRN PRN Reason: Nasal Congestion Sucralfate (Carafate) 1 gm PO [facility] Last Admin: 04/09/18 08:37 Dose: 1 gm Zolpidem Tartrate (Ambien) 5 mg PO HS PRN PRN Reason: Insomnia
[2018-04-09 12:13] VITALS: BP 116/61; TEMP 98
--- NOTE | 2018-04-09 13:25 | DIS ---
DATE OF ADMISSION: 04/04/2018 DATE OF DISCHARGE: 04/09/2018 PRIMARY CARE PHYSICIAN: [facility] call admission. DISCHARGE DISPOSITION: detention unit. PRIMARY DISCHARGE DIAGNOSES: 1. Acute encephalopathy. 2. Urinary tract infection due to Escherichia coli. 3. Cocaine abuse. SECONDARY DISCHARGE DIAGNOSES: Secondary hyperparathyroidism of renal origin, peripheral neuropathy, noncompliance with treatment, hyperlipidemia, chronic hepatitis C, end-stage renal disease on hemodialysis, chronically elevated troponin, diabetes type 2, chronic obstructive pulmonary disease, chronic diastolic heart failure, asthma/chronic obstructive pulmonary disease, anemia of renal disease. PRIMARY PROCEDURE/OPERATION: Maintenance hemodialysis while in hospital. RADIOLOGICAL INVESTIGATION: CT brain, chest x-ray. SIGNIFICANT LABORATORY DATA: WBC 6.7, hemoglobin 14.4 and platelet 130. INR 1.2, sodium 138, potassium 4.4, BUN 31, creatinine 6.15, calcium 10.1. LFT normal. Troponin 0.076, BNP 11,686. Urinalysis suggestive of UTI. Urine drug screen positive for cocaine. Urine culture positive for E. coli. Blood culture negative. DISCHARGE MEDICATIONS: Ventolin inhaler 2 puffs q.6 hourly p.r.n., Zofran ODT 4 mg q.6 hourly p.r.n., Tylenol #3 one tablet twice daily p.r.n., baclofen 10 mg p.o. daily, PhosLo 667 mg 2 capsules p.o. t.i.d., Coreg 6.25 mg b.i.d., clonidine 0.1 mg p.o. t.i.d., Colace 100 mg p.o. daily, Advair 1 inhalation b.i.d., NPH insulin 20 units subcu daily, Lyrica 25 mg p.o. at bedtime, Zoloft 100 mg p.o. at bedtime, Zocor 40 mg p.o. at bedtime, Ambien 5 mg p.o. at bedtime p.r.n., Levaquin 500 mg every other day for 3 tablets, aspirin 81 mg p.o. daily, DuoNeb q.6 hourly p.r.n., losartan 50 mg p.o. daily and Protonix 40 mg p.o. daily. CONTRAINDICATIONS: None. CODE STATUS: FULL CODE. INPATIENT CONSULTANTS: Dr. Powell and were following for maintenance hemodialysis. TEST RESULTS PENDING ON DISCHARGE: None. ALLERGIES: LISINOPRIL, AMITRIPTYLINE, HEPARIN and TRAMADOL. DISCHARGE PLAN: Post hospital, patient will be discharged to care home unit. HOSPITAL COURSE: A 62-year-old female who was admitted by Dr. Oscar. Please see his H&P for further detail. The patient was admitted for altered mental status. She had cocaine positive. Urinalysis was suggestive of UTI. Her CT brain was negative. We suspected her encephalopathy from infection as well as cocaine. Patient has ESRD and that is why Dr. Powell was consulted for maintenance hemodialysis. Her CT brain was negative. The patient's urine culture grew E. coli. While in hospital, she was given IV antibiotic therapy with Levaquin and subsequently we changed to p.o. Levaquin based on renal dose. The patient's home medication was continued while in hospital. While in hospital, we noted that patient had significant lethargy, sleepiness and that is why we reduced dose of Lyrica. We also discontinued trazodone, Ambien. Patient's other medication was continued as per previous. The patient is seen and examined at bedside today. Paperwork for discharge done. Discharge medication reconciliation done. The patient is cleared for discharge from other organizational development consultant. This patient is continued to be high risk for recurrent admission because of her noncompliance status. Total time spent to arrange this discharge on this day is 32 minutes. [facility]
== END 2018-04-09 14:35 | DRG 91 ==
LOC: ERS 23:03 → 2NO 04-04 01:20
PROVIDERS: ADMIT Hospitalist; ATTEND Hospitalist
PROC: 5A1D70Z Performance of Urinary Filtration, Intermittent, Less than 6 Hours Per Day (ICD-10-PCS; principal; 2018-04-05)
PROC: 5A1D70Z Performance of Urinary Filtration, Intermittent, Less than 6 Hours Per Day (ICD-10-PCS; 2018-04-07)
DX: G92 Toxic encephalopathy (principal); J96.01 Acute respiratory failure with hypoxia; N18.6 End stage renal disease; N39.0 Urinary tract infection, site not specified; I13.2 Hypertensive heart and chronic kidney disease with heart failure and with stage 5 chronic kidney disease, or end stage renal disease; I50.32 Chronic diastolic (congestive) heart failure; Z99.2 Dependence on renal dialysis; J44.9 Chronic obstructive pulmonary disease, unspecified; F32.9 Major depressive disorder, single episode, unspecified; F41.9 Anxiety disorder, unspecified; F17.210 Nicotine dependence, cigarettes, uncomplicated; D63.1 Anemia in chronic kidney disease; F14.10 Cocaine abuse, uncomplicated; E21.3 Hyperparathyroidism, unspecified; E78.5 Hyperlipidemia, unspecified; B18.2 Chronic viral hepatitis C; E11.22 Type 2 diabetes mellitus with diabetic chronic kidney disease; E11.42 Type 2 diabetes mellitus with diabetic polyneuropathy; R74.8 Abnormal levels of other serum enzymes; B96.20 Unspecified Escherichia coli [E. coli] as the cause of diseases classified elsewhere; Z91.11 Patient's noncompliance with dietary regimen; Z88.8 Allergy status to other drugs, medicaments and biological substances; Z88.5 Allergy status to narcotic agent; Z79.82 Long term (current) use of aspirin; Z79.4 Long term (current) use of insulin; Z79.899 Other long term (current) drug therapy
CPT/HCPCS: 36415; 36416; 51701; 70450; 71045; 80048; 80053; 80306; 81003; 81015; 82140; 82553; 83880; 84484; 85025; 85610; 85730; 87040; 87077; 87086; 87186; 90935; 93005; 94664; 96365; 96367; 96375; A4353; G0257; G8978-GP-CK; G8979-GP-CJ; J0696; J2405; J3370; J7050; Q0162

== ENCOUNTER 2018-06-06 19:02 | Inpatient (IN) | payer MEDICARE, MEDICAID ==
[2018-06-06 19:45] LABS: #Eosinphils 0.1 thou/uL (0.0-0.7); #Lymphocytes 1.4 thou/uL (1.20-3.40); #Monocytes 0.6 thou/uL (0.11-0.59); #Neutrophils 3.5 thou/uL (1.40-6.50); %Basophils 0.7 % (0.0-1.0); %Eosinophils 1.9 % (0.0-10.0); %Lymphocytes 25.2 % (21.0-51.0); %Monocytes 11.3 % (0.0-10.0); Hemoglobin 12.1 g/dL (12.0-16.0); Mean Corpuscular Hemoglobin 28.8 pg (27.0-31.0); Mean Platelet Volume 9.7 fL (7.4-10.4); Platelet Count 131 thou/uL (130-400); RBC Distribution Width 13.8 % (11.5-14.5); Red Blood Cell (RBC) Count 4.19 mill/uL (4.20-5.40); White Blood Cell (WBC) Count 5.7 thou/uL (4.8-10.8)
--- NOTE | 2018-06-06 19:52 | RAD ---
PORTABLE UPRIGHT FRONTAL CHEST RADIOGRAPH: 06/06/2018 HISTORY: Chest pain and shortness of breath. COMPARISON: 04/03/2018 FINDINGS: Stent graft material overlies the left axillary region, stable. No pneumothorax is seen. There is p ulmonary vascular congestion with hazy density in the perihilar regions in both lung bases. No large volume pleural effusion or lobar consolidation. Aeration within both lungs is improved when compare d to 04/03/2018. IMPRESSION: Hazy bibasilar and perihilar density. Findings suggest interstitial pulmonary edema or infectious pn eumonitis. Follow-up imaging, following treatment, to document resolution suggested. POS: [facility]
[2018-06-06 20:03] LABS: ALT (SGPT) 26 U/L (8-55); AST (SGOT) 46 U/L (5-34); Albumin 3.8 g/dL (3.4-4.8); Alkaline Phosphatase 110 U/L (40-150); Anion Gap 23 mmol/L (10-20); BUN (Urea Nitrogen) 57 mg/dL (9.8-20.1); CK (CPK) 133 U/L (29-168); Calc. Creatinine Clearance 0 mL/min (70-130); Calcium 8.9 mg/dL (7.8-10.44); Carbon Dioxide 21 mmol/L (23-31); Chloride 93 mmol/L (98-107); Estimated GFR-MDRD 7; Globulin 4.6 g/dL (2.4-3.5); Glucose 86 mg/dL (80-115); Lipase 84 U/L (8-78); Potassium 3.9 mmol/L (3.5-5.1); Protein, Total 8.4 g/dL (6.0-8.3); Sodium 133 mmol/L (136-145)
[2018-06-06 20:07] LABS: CKMB 3.5 ng/mL (0-6.6); Troponin I 0.107 ng/mL (< 0.028)
[2018-06-06] MEDS ORDERED: Nitroglycerin 2% Ointment 1 INCH/1 GM Packet ONE (22:38)
[2018-06-06 23:33] LABS: Troponin I 0.103 ng/mL (< 0.028)
[2018-06-06] MEDS ORDERED: Acetaminophen 325 MG TAB PO PRN (23:51)
[2018-06-06] MEDS ORDERED: Ondansetron ODT 4 MG TAB SL PRN (23:51)
[2018-06-06] MEDS ORDERED: Ondansetron HCl/PF 4 MG/2 ML Vial IVP PRN (23:51)
[2018-06-06 23:58] VITALS: BMI 24.3
[2018-06-07] MEDS ORDERED: Morphine 2 MG/ML SYRINGE SLOW IVP SCH (02:15)
[2018-06-07 02:25] LABS: CKMB 3.4 ng/mL (0-6.6); Troponin I 0.107 ng/mL (< 0.028)
[2018-06-07 04:34] LABS: Anion Gap 21 mmol/L (10-20); BUN (Urea Nitrogen) 58 mg/dL (9.8-20.1); Calc. Creatinine Clearance 9 mL/min (70-130); Calcium 8.5 mg/dL (7.8-10.44); Carbon Dioxide 21 mmol/L (23-31); Chloride 94 mmol/L (98-107); Estimated GFR-MDRD 7; Glucose 77 mg/dL (80-115); Sodium 132 mmol/L (136-145)
[2018-06-07 04:51] LABS: #Eosinphils 0.1 thou/uL (0.0-0.7); #Lymphocytes 1.7 thou/uL (1.20-3.40); #Monocytes 0.7 thou/uL (0.11-0.59); #Neutrophils 2.9 thou/uL (1.40-6.50); %Basophils 0.3 % (0.0-1.0); %Eosinophils 2.1 % (0.0-10.0); %Lymphocytes 31.6 % (21.0-51.0); %Monocytes 13.1 % (0.0-10.0); Mean Corpuscular HGB CONC 33.4 g/dL (32.0-36.0); Mean Corpuscular Hemoglobin 28.8 pg (27.0-31.0); Mean Corpuscular Volume 86.2 fL (78.0-98.0); Platelet Count 118 thou/uL (130-400); RBC Distribution Width 13.6 % (11.5-14.5); Red Blood Cell (RBC) Count 3.82 mill/uL (4.20-5.40); White Blood Cell (WBC) Count 5.5 thou/uL (4.8-10.8)
[2018-06-07] MEDS ORDERED: Dextrose 50% Abboject 50 ML SYRINGE SLOW IVP PRN (05:28)
[2018-06-07] MEDS ORDERED: HumaLOG 300 UNITS/3 ML VIAL SC PRN (05:28)
[2018-06-07] MEDS ORDERED: Dextrose 5% in Water 1,000 ML IV PRN (05:28)
[2018-06-07] MEDS: Nicotine 14 MG PATCH TD SCH (05:30)
--- NOTE | 2018-06-07 06:33 | HP ---
CHIEF COMPLAINT: Chest pain. HISTORY OF PRESENT ILLNESS: A 62-year-old female with past medical history of congestive heart failu re, COPD, diabetes mellitus type 2, hypertension, asthma, end-stage renal disease on hemodialysis on Mondays, Wednesdays, and Fridays, being admitted for chest pain. The patient's chest pain started la st night prior to the day of admission and patient stated the pain was localized substernally and rad iated to the right arm. Per the patient on 0-10 pain scale, the pain was 8/10 and pain was very michelle re. The patient was not able to sleep, and the patient had to be woken up from her sleep because of the pain. The patient also reports nonproductive cough, which has been ongoing for the past 2 weeks. The patient denies any abdominal pain, dysuria, hematuria, but admits to diarrhea for the past 1 we ek. REVIEW OF SYSTEMS: Positive for shortness of breath, chest pain, diarrhea, otherwise as documented i n the HPI, all systems were reviewed and are negative. PAST MEDICAL HISTORY: CHF, chronic obstructive pulmonary disease, diabetes type 2, hypertension, ast hma, renal disease of end-stage renal on hemodialysis on Mondays, Wednesdays, and Fridays. FAMILY HISTORY: Reviewed and noncontributory to this visit. PAST SURGICAL HISTORY: The patient had carpal tunnel surgery, left upper extremity fistula. PSYCHIATRIC HISTORY: The patient has history of anxiety and bipolar depression. SOCIAL HISTORY: The patient is a former tobacco user, smokes cigarettes. Patient used to do cocaine ; however, the patient states that she has not used cocaine in the past 8 months. Patient denies any ethanol use. ALLERGIES: AMITRIPTYLINE, HEPARIN, LISINOPRIL, TRAMADOL. CURRENT MEDICATIONS: 1. Aspirin 81 mg. 2. Carvedilol 3.125 mg b.i.d. 3. Losartan 50 mg. 4. Sertraline 100 mg. 5. Trazodone 100 mg. 6. Albuterol. 7. Colace. 8. Humulin 70/30, 20 units in the a.m. and 25 units in the p.m. 9. Calcium acetate 667 mg. 10. Prednisone 5 mg. 11. Lyrica 150 mg. 12. Clonidine 1 tab of 0.2 mg. 13. Mobic 7.5 mg. 14. Tylenol 300 mg/60 mg. PHYSICAL EXAMINATION: VITAL SIGNS: Blood pressure is 180/97, pulse of 78, respiratory rate of 28, temperature of 98.1, oxy gen saturation of 95 on room air. GENERAL: Patient is hypertensive at this time, appeared to be in mild distress. The patient states that she is in pain. Her pain is 8/10. Otherwise, the patient is alert and oriented x3, and speakin g in full sentences. HEENT: Normocephalic, atraumatic. Extraocular movements are intact. No scleral icterus. Pupils ar e equal, round, and reactive to light. Extraocular muscles are intact. Mucous membranes moist. NECK: Supple. Trachea is midline. LUNGS: Lungs are clear to auscultation bilaterally. No wheezing, no rales, no rhonchi appreciated. CARDIAC: Patient has left sternal border systolic murmur. ABDOMEN: Soft, nontender, nondistended. No palpable masses. 5/5 upper extremities strength and 5/5 lower extremities strength. In the left upper extremity, there is a fistula with a palpable thrill. NEUROLOGIC: Cranial nerves II through XII intact. No focal neurologic deficit noted. SKIN: Referred to description of the upper extremity. Skin is warm, dry, and intact. PSYCHIATRIC: The patient has normal affect. Alert and oriented x3. EKG: A 12-lead EKG shows occasional PVCs, sinus rhythm with a rate of 80. ED COURSE: The patient was placed on nitro transdermal, aspirin. LABORATORY DATA: 1. WBC is 5.7, hemoglobin is 12.1, hematocrit is 36.5, RDW of 13.8, platelet count is 131. 2. Sodium of 133, potassium of 3.9, chloride of 93, carbon dioxide of 21, anion gap of 23, BUN of 57 , creatinine is 7.02. AST is 46, ALT is 26, alkaline phosphatase of 110, creatinine kinase of 133, t roponin 0.107. BNP is 947. Lipase is 84. ASSESSMENT AND PLAN: 1. This is a 62-year-old female being admitted for chest pain, rule out acute coronary syndrome. At this point, the patient's chest pain is reproducible, most likely musculoskeletal in nature. The pa tient did have a habit of drug seeking. We have given the patient 2 mg of morphine and gave patient nitro. Patient continued to ask for morphine. At this point, we will advise that we give patient pa in medication judiciously. We will continue patient on her home medications. 2. Pulmonary edema, likely secondary to end-stage renal disease. The patient received dialysis on M , Wednesdays and Fridays. Patient is going to receive dialysis this morning. 3. Hypertensive emergency. Patient's troponins were elevated from her baseline and currently is 0.1 07. Therefore, we are admitting the patient for hypertensive emergency since the patient has elevate d systolic blood pressure that was 211 with troponins, headache and chest pain. Patient has be en started on nitro transdermal. The patient's blood pressure has been trending down. We will monit or the patient's blood pressure closely. I will downgrade the patient once the patient's blood press ure is stabilized and patient is also going to have dialysis, which is also going to decrease the pat ient's blood pressure to the normal limits. 4. Congestive heart failure. The patient is going to receive dialysis and that is going to help wit h the patient's pulmonary edema due to congestive heart failure. 5. History of chronic obstructive pulmonary disease. We will continue patient on current medication . 6. Diabetes mellitus type 2. We will continue patient on current management. 7. Deep venous thrombosis and gastrointestinal prophylaxis.
[2018-06-07] MEDS ORDERED: PROVENTIL INHALER 6.7 G (200 INHALATIONS) INH PRN (07:53)
[2018-06-07] MEDS ORDERED: Zolpidem Tartrate 5 MG TAB PO PRN (07:53)
--- NOTE | 2018-06-07 08:03 | PDOC.PN ---
- Subjective Encounter Start Date: 06/07/18 Encounter Start Time: 08:01 Ms. Contreras was seen today in follow-up of chest pain. She says she is breathing a little better, but still has some pain in her chest. - Objective Resuscitation Status: Resuscitation Status FULL:Full Resuscitation MAR Reviewed: Yes Vital Signs & Weight: Vital Signs (12 hours) Temp Pulse Resp BP Pulse Ox 06/07/18 07:19 97.3 F L 74 16 155/67 H 97 06/07/18 04:00 97.3 F L 70 16 148/61 H 100 06/06/18 23:31 97.8 F 87 18 183/86 H 97 Weight Weight 150 lb 12.8 oz I&O: 06/06/18 06/07/18 06/08/18 06:59 06:59 06:59 Intake Total 240 Balance 240 Result Diagrams: 06/07/18 03:25 06/07/18 03:25 Additional Labs: Accuchecks 06/07/18 05:28 POC Glucose 78 Phys Exam - Physical Examination HEENT: PERRLA Respiratory: no wheezing, no rhonchi + rales at the left base, good air movement Cardiovascular: RRR, no significant murmur, no rub Gastrointestinal: soft, non-tender, no distention, positive bowel sounds Musculoskeletal: no edema Dx/Plan (1) Chest pain Code(s): R07.9 - CHEST PAIN, UNSPECIFIED Status: Acute (2) Hypertensive urgency Code(s): I16.0 - HYPERTENSIVE URGENCY Status: Acute (3) Acute on chronic diastolic heart failure Code(s): I50.33 - ACUTE ON CHRONIC DIASTOLIC (CONGESTIVE) HEART FAILURE Status : Acute (4) DM type 2 (diabetes mellitus, type 2) Status: Chronic Qualifiers: Comment: tonio, insulin sliding scale (5) ESRD (end stage renal disease) on dialysis Code(s): N18.6 - END STAGE RENAL DISEASE; Z99.2 - DEPENDENCE ON RENAL DIALYSIS Status: Chronic Comment: dialysis per nephrology - Plan * Chest pain- likely as a result of uncontrolled blood pressure- will re-start her home medications ( Chart reviewed- she had negative stress test in July 2017, and negative cardiac cath in 2014) * Hypertensive Urgency- as above- re-start home medications as well as PRN medications * ESRD - today is her dialysis day- Nephrology has been consulted to manage * DM- continue home insulin, and SSI * Acute on chronic diastolic heart failure exacerbation- fluid removal with dialysis, and blood pressure control * Hopefully home later today.
[2018-06-07] MEDS ORDERED: Famotidine 20 MG TAB PO SCH (09:00)
[2018-06-07] MEDS ORDERED: Non-Formulary Item 1 EACH (Fluticasone/Salmeterol [Advair Diskus 250/50] 1 INH) IH SCH (09:00)
[2018-06-07] MEDS: Calcium Acetate 667 MG CAP PO SCH ×3 (12:40→17:28)
[2018-06-07] MEDS: Carvedilol 6.25 MG TAB PO SCH ×2 (12:40→20:49)
[2018-06-07] MEDS: cloNIDine 0.3 MG TAB PO SCH ×3 (12:40→20:51)
[2018-06-07] MEDS: Losartan 25 MG TAB PO SCH (13:35)
[2018-06-07] MEDS: Baclofen 10 MG TAB PO SCH (13:35)
[2018-06-07] MEDS ORDERED: Sodium Chloride 0.9% 500 ML IV SCH (14:15)
--- NOTE | 2018-06-07 14:36 | CON ---
DATE OF CONSULTATION: 06/07/2018 SERVICE: Pulmonary Medicine. REASON FOR CONSULT: IMCU patient. HISTORY OF PRESENT ILLNESS: The patient is a 62-year-old female with past medical h istory significant for end-stage renal disease. She was in her usual state of health when she had on set of chest discomfort that brought to the emergency department. It was 8/10. It has quality of sh arpness, dullness, achiness, and throbbing sensation. It goes into the right arm. She denies any ba ck discomfort. She presented to the Emergency Department. Multiple laboratories were obtained. She had an elevated blood pressure. She got slightly better control of that. She was put into the ICU. She is currently on room air. She has never required any oxygen for the duration of the stay, but did have shortness of breath on presentation. PAST MEDICAL HISTORY 1. End-stage renal disease. 2. Hypertension. 3. Chronic diastolic heart failure. 4. Type 2 diabetes mellitus. 5. Dyslipidemia. 6. Asthma. PAST SURGICAL HISTORY: Carpal tunnel surgery, left upper extremity fistula. FAMILY HISTORY: Noncontributory. SOCIAL HISTORY: She has a remote history of smoking. She uses cocaine, but none in the past 8 month s based on her history. She denies any alcohol or other illicit drug use. She has no exposure to ch emicals, asbestos or tuberculosis. ALLERGIES: AMITRIPTYLINE, HEPARIN, LISINOPRIL, TRAMADOL. MEDICATIONS: List of her inpatient medications were reviewed and updated. REVIEW OF SYSTEMS: Including general, head, eyes, nose, throat, cardiovascular, respiratory, GI, , musculoskeletal, neurologic and skin is negative except as mentioned in the HPI. PHYSICAL EXAMINATION: VITAL SIGNS: Afebrile, pulse 72, blood pressure 146/68, respirations 15, saturation 96% on room air. GENERAL: The patient is awake and alert. She is a little bit of distress associated with discomfort s. CARDIOVASCULAR: Normal rate, regular. HEENT: Normocephalic, atraumatic. Sclerae are white, conjunctivae pink. Oral mucosa is moist witho ut lesions. LUNGS: Excellent air entry. I do not appreciate prolonged expiratory phase or wheezing. ABDOMEN: Soft. It is tender to palpation in the left flank. There is no rebound or guarding presen t. Bowel sounds are quite active. GENITOURINARY: No Brannon catheter. NEUROLOGIC: Grossly nonfocal. LABORATORY DATA: Sodium 132, chloride 94, bicarbonate 21, anion gap 21, creatinine 7.08. Troponins are gently up trending to 0.107. CK, however, falls within the normal range. Calcium 8.5, BNP is in all-time low of 947. Liver function studies are essentially unremarkable except for marginally bump ed AST. IMAGING: Chest x-ray demonstrates perihilar fullness, cardiomegaly, and subtle interstitial infiltra deysi. ASSESSMENT: 1. End-stage renal disease. 2. Dehydration secondary to diarrhea. 3. Diarrhea. 4. Chest pain. 5. Hypertension in the setting of volume depletion, DISCUSSION AND PLAN: I think the patient is volume down. I am going to give her half a liter of flu id. She can be transitioned to the telemetry unit. I will repeat some laboratories in the morning i ncluding a basic metabolic profile, and hemoglobin and hematocrit. We will get a fecal lactoferrin, red blood cell. I will continue to follow for the time being.
[2018-06-07] MEDS: Mometasone/Formoterol 120 PUFF INHALER INH SCH (18:12)
[2018-06-07] MEDS ORDERED: Atorvastatin Calcium 20 MG TAB PO SCH (21:00)
[2018-06-07] MEDS ORDERED: Pregabalin 25 MG CAP PO SCH (21:00)
--- NOTE | 2018-06-07 23:44 | CON ---
DATE OF CONSULTATION: 06/07/2018 CONSULTING PHYSICIAN: Dr. Osacr. REASON FOR CONSULTATION: End-stage renal disease evaluation and care. REASON FOR ADMISSION: Chest pain. HISTORY OF PRESENT ILLNESS: This is a 62-year-old female with history of CHF, COPD, type 2 diabetes, who came to the hospital with chest pain. Nephrology is consulted for maintenance hemodialysis. Th e patient gets dialysis Thursday, Thursday, and Thursday. She denies any shortness of breath. Complain s of chest pain. No nausea or vomiting. PAST MEDICAL HISTORY: Positive for CHF, COPD, type 2 diabetes, hypertension, asthma, and end-stage r enal disease. PAST SURGICAL HISTORY: Dialysis access surgery, carpal tunnel surgery. HOME MEDICATIONS: Aspirin, carvedilol, losartan, sertraline, trazodone, albuterol, Colace, Humulin, calcium acetate, prednisone, Lyrica, clonidine, Mobic, Tylenol. ALLERGIES: AMITRIPTYLINE, HEPARIN, LISINOPRIL, TRAMADOL. SOCIAL HISTORY: No history of smoking and alcohol use. History of cocaine use. FAMILY HISTORY: No history of any kidney disease. REVIEW OF SYSTEMS: The following complete review of systems was negative, unless otherwise mentioned in the HPI or below: Constitutional: Weight loss or gain, ability to conduct usual activities. Sk in: Rash, itching. Eyes: Double vision, pain. ENT/Mouth: Nose bleeding, neck stiffness, pain, te nderness. Cardiovascular: Palpitations, dyspnea on exertion, orthopnea. Respiratory: Shortness of breath, wheezing, cough, hemoptysis, fever or night sweats. Gastrointestinal: Poor appetite, abdom inal pain, heartburn, nausea, vomiting, constipation, or diarrhea. Genitourinary: Urgency, frequenc y, dysuria, nocturia. Musculoskeletal: Pain, swelling. Neurologic/Psychiatric: Anxiety, depressio n. Allergy/Immunologic: Skin rash, bleeding tendency. PHYSICAL EXAMINATION: GENERAL: This is a thin-built female, in no apparent distress. VITAL SIGNS: Temperature 98.1, pulse 72, respiratory rate 18, blood pressure . HEENT: Atraumatic, normocephalic. Oral mucosa is moist. NECK: Supple, no masses. CARDIOVASCULAR: S1, S2 heard. Rate and rhythm regular. RESPIRATORY: Clear. GASTROINTESTINAL: Abdomen is soft. MUSCULOSKELETAL: No tenderness. No edema. DERMATOLOGIC: No skin rash. NEUROLOGIC: Alert and awake. PSYCHIATRIC: Normal mood and affect. LABORATORY DATA: Potassium is 4.0, BUN is 58, creatinine is 7.0. ASSESSMENT AND PLAN: 1. End-stage renal disease. We will have dialysis Thursday, Thursday, and Thursday. 2. Edema, we will remove fluid with dialysis. 3. Hypertension. 4. Anemia, stable. Plan is to continue on dialysis Thursday, Thursday, and Thursday.
[2018-06-08 05:53] LABS: Hemoglobin 11.3 g/dL (12.0-16.0)
[2018-06-08 06:06] LABS: Anion Gap 15 mmol/L (10-20); BUN (Urea Nitrogen) 29 mg/dL (9.8-20.1); Calc. Creatinine Clearance 13 mL/min (70-130); Calcium 8.5 mg/dL (7.8-10.44); Carbon Dioxide 25 mmol/L (23-31); Chloride 97 mmol/L (98-107); Estimated GFR-MDRD 11; Glucose 98 mg/dL (80-115); Sodium 133 mmol/L (136-145)
[2018-06-08] MEDS ORDERED: Insulin NPH/Reg Insulin Hm 300 UNITS/3 ML VIAL SC SCH (07:30)
[2018-06-08] MEDS: Calcium Acetate 667 MG CAP PO SCH ×3 (08:54→17:24)
[2018-06-08] MEDS: Baclofen 10 MG TAB PO SCH (08:54)
[2018-06-08] MEDS: Carvedilol 6.25 MG TAB PO SCH (08:54)
[2018-06-08] MEDS: Losartan 25 MG TAB PO SCH (08:55)
[2018-06-08] MEDS: cloNIDine 0.3 MG TAB PO SCH ×2 (08:55→09:20)
[2018-06-08] MEDS: Mometasone/Formoterol 120 PUFF INHALER INH SCH (09:07)
[2018-06-08] MEDS: cloNIDine 0.1 MG TAB PO SCH ×2 (09:20→16:02)
--- NOTE | 2018-06-08 10:13 | PRG ---
Patient Name: DAVID COKER Date of service: 06/08/2018 Subjective: Patient was seen and examined at bedside and overnight events noted. Patient denies any shortness of breath or chest pain or palpitation. No history of nausea or vomiting or diarrhea or fever or chills or cramps. Objective: General: This is a thin-built female in no apparent distress. Vital signs: Temperature 98.1, pulse 70, respiratory rate 20, blood pressure 130/64. HEENT: Atraumatic, normocephalic. Oral mucosa is moist. Neck: Supple Cardiovascular: S1 S2 heard. Rate and rhythm regular. Respiratory: Clear to auscultation. Gastrointestinal: Abdomen is soft. Musculoskeletal: No tenderness. No edema. Dermatologic: No skin rash. Neurologic: Alert and awake and oriented X3. No focal neurologic deficits. Moving all the extremit ies. Psychiatric: Mood and affect normal. LABORATORY DATA: Potassium is 4.0, BUN 29, creatinine is 4.7. ASSESSMENT AND PLAN: 1. End-stage renal disease. Continue dialysis Thursday, Thursday and Thursday. 2. Edema. 3. Hypertension. 4. Anemia. We will continue on dialysis as tolerated.
[2018-06-08] MEDS: Nicotine 14 MG PATCH TD SCH (10:56)
--- NOTE | 2018-06-08 11:10 | PDOC.PN ---
- Subjective Encounter Start Date: 06/08/18 Encounter Start Time: 11:08 Ms. Contreras was seen today in follow-up of Hypertensive Urgency. She is complaining of rectal pain. - Objective Resuscitation Status: Resuscitation Status FULL:Full Resuscitation MAR Reviewed: Yes Vital Signs & Weight: Vital Signs (12 hours) Temp Pulse Resp BP Pulse Ox 06/08/18 09:07 71 12 06/08/18 07:52 98.1 F 71 16 146/75 H 98 06/08/18 04:00 98.2 F 66 16 138/64 97 Weight Weight 150 lb 12.8 oz I&O: 06/07/18 06/08/18 06/09/18 06:59 06:59 06:59 Intake Total 240 740 Output Total 1500 Balance 240 -760 Result Diagrams: 06/08/18 05:11 06/08/18 05:11 Additional Labs: Accuchecks 06/07/18 06/07/18 19:52 16:36 POC Glucose 83 70 Phys Exam - Physical Examination HEENT: PERRLA Respiratory: no wheezing, no rales, no rhonchi, clear to auscultation bilateral Cardiovascular: RRR, no significant murmur, no rub Gastrointestinal: soft, non-tender, no distention, positive bowel sounds rectal- small external hemorrhoid, non-thrombosed stool was dark brown, no visible blood, no masses, no fissures Musculoskeletal: no edema Neurological: non-focal Psychiatric: normal affect, A&O x 3 Dx/Plan (1) Hypertensive urgency Code(s): I16.0 - HYPERTENSIVE URGENCY Status: Acute (2) Rectal pain Code(s): K62.89 - OTHER SPECIFIED DISEASES OF ANUS AND RECTUM Status: Acute (3) Acute on chronic diastolic heart failure Code(s): I50.33 - ACUTE ON CHRONIC DIASTOLIC (CONGESTIVE) HEART FAILURE Status : Acute (4) DM type 2 (diabetes mellitus, type 2) Status: Chronic Qualifiers: Comment: accucheckcholo, insulin sliding scale (5) ESRD (end stage renal disease) on dialysis Code(s): N18.6 - END STAGE RENAL DISEASE; Z99.2 - DEPENDENCE ON RENAL DIALYSIS Status: Chronic Comment: dialysis per nephrology (6) Chest pain Code(s): R07.9 - CHEST PAIN, UNSPECIFIED Status: Resolved Comment: Likely from Hypertensive Urgency - Plan * Hypertensive Urgency- resolved- blood pressure is much better, and is controlled on her usual blood pressure medications. * Rectal pain- ? etology, possiby due to hemorrhoids. There is no evidence of active bleeding, and her H&H has been stable- I have recommended outpatient GI evaluation. She has a Primary Care Provider who can refer her * ESRD- stable * She is stable for discharge home..
[2018-06-08 14:27] LABS: Hemoglobin 11.7 g/dL (12.0-16.0); Platelet Count 124 thou/uL (130-400)
[2018-06-08 18:01] VITALS: TEMP 98
[2018-06-08 18:09] VITALS: BP 134/61
--- NOTE | 2018-06-08 22:49 | DIS ---
DATE OF ADMISSION: 06/07/2018 DATE OF DISCHARGE: 06/08/2018 PRIMARY CARE PHYSICIAN: Dr. Rajwinder Dc. DISCHARGE DISPOSITION: Home. PRIMARY DISCHARGE DIAGNOSES: 1. Hypertensive urgency. 2. End-stage renal disease. 3. Acute on chronic diastolic heart failure. 4. Rectal pain. 5. Hypertension. 6. Medical noncompliance. DISCHARGE MEDICATIONS: There is no change in her medications and these include simvastatin 40 mg александр ly; sertraline 100 mg at bedtime; Lyrica 25 mg at bedtime; Protonix 40 mg daily; losartan 50 mg daily ; Humulin 70/30, 20 units daily; Advair Diskus 250/50, one inhalation twice a day; clonidine 0.1 mg t .i.d.; carvedilol 6.25 mg twice daily; PhosLo 667 mg, 2 capsules 3 times a day; baclofen 10 mg daily; aspirin 81 mg daily; Ventolin 2 puffs q.6 hours as needed; Ambien 5 mg at bedtime; Zofran 4 mg q.6 h ours as needed; docusate 100 mg daily; Tylenol #3 as needed. PROCEDURES: No special procedures done. CODE STATUS: FULL CODE. ALLERGIES: LISINOPRIL, AMITRIPTYLINE, HEPARIN, and TRAMADOL. HOSPITAL COURSE: Ms. Contreras is a 62-year-old female, who presented to the emergency room with compl aints of chest pain. She was found to have an elevated blood pressure as well as pulmonary edema. S he was admitted for hypertensive urgency with a blood pressure of 211 systolic with slightly elevated troponins. She was dialyzed urgently and started back on her blood pressure medications. After minh lysis and the re-institution of her blood pressure medications, her blood pressure came back to gustavo l. I suspect that she may have some degree of noncompliance, which is causing the elevated blood pre ssures as they seemed to be controlled when she started back on her medications. Also, she mentions some rectal pain. She says that she had failed to go to an outpatient colonoscopy evaluation that patino d been arranged. Rectal exam was performed. She did have a small external hemorrhoid, but no eviden ce of any palpable internal masses or fissures. There was quite a bit of stool at the vault. The st ool was very dark brown, almost blackish green in color, but there was no evidence of any active blee ding or bright red blood per rectum. Her H&H had remained stable during her hospital stay and this c an be further investigated as an outpatient. This was explained to the patient and that she would ne ed to get referral to a GI doctor, bee rancher, in order to rule out potential etiology such a s occult malignancy or cancer. She voiced understanding and is being discharged home today to have c lose outpatient followup.
== END 2018-06-08 18:48 | disposition home health service (06) | DRG 304 ==
LOC: ERS 19:02 → IMCU/EMU 23:31 → 2NO 06-07 23:56
PROVIDERS: ADMIT Internal Medicine; ATTEND Internal Medicine
PROC: 5A1D70Z Performance of Urinary Filtration, Intermittent, Less than 6 Hours Per Day (ICD-10-PCS; principal; 2018-06-07)
DX: I16.0 Hypertensive urgency (principal); I50.33 Acute on chronic diastolic (congestive) heart failure; N18.6 End stage renal disease; I16.1 Hypertensive emergency; K62.89 Other specified diseases of anus and rectum; Z91.81 History of falling; J44.9 Chronic obstructive pulmonary disease, unspecified; Z99.2 Dependence on renal dialysis; F41.9 Anxiety disorder, unspecified; F32.9 Major depressive disorder, single episode, unspecified; E11.22 Type 2 diabetes mellitus with diabetic chronic kidney disease; I13.2 Hypertensive heart and chronic kidney disease with heart failure and with stage 5 chronic kidney disease, or end stage renal disease; D63.1 Anemia in chronic kidney disease; Z91.19 Patient's noncompliance with other medical treatment and regimen; K64.4 Residual hemorrhoidal skin tags; E86.0 Dehydration; R19.7 Diarrhea, unspecified
CPT/HCPCS: 36415; 36416; 71045; 80048; 80053; 82550; 82553; 83690; 83880; 84484; 85014; 85018; 85025; 93005; 93798; A4216; J2270

== ENCOUNTER 2019-10-07 18:20 | Inpatient (IN) | payer MEDICARE, MEDICAID ==
[2019-10-07 19:24] LABS: #Basophils 0.1 thou/uL (0.0-0.2); #Eosinphils 0.1 thou/uL (0.0-0.7); #Monocytes 0.6 thou/uL (0.11-0.59); %Basophils 0.8 % (0.0-1.0); %Eosinophils 1.6 % (0.0-10.0); %Lymphocytes 11.3 % (21.0-51.0); %Monocytes 6.8 % (0.0-10.0); %Neutrophils 79.5 % (42.0-75.0); Hemoglobin 11.5 g/dL (12.0-16.0); Mean Corpuscular Hemoglobin 28.5 pg (27.0-31.0); Mean Corpuscular Volume 89.2 fL (78.0-98.0); Mean Platelet Volume 10.2 fL (7.4-10.4); Platelet Count 129 thou/uL (130-400); RBC Distribution Width 16.1 % (11.5-14.5); Red Blood Cell (RBC) Count 4.02 mill/uL (4.20-5.40); White Blood Cell (WBC) Count 8.8 thou/uL (4.8-10.8)
[2019-10-07 19:45] LABS: ALT (SGPT) 7 U/L (8-55); AST (SGOT) 17 U/L (5-34); Albumin 3.3 g/dL (3.4-4.8); Alkaline Phosphatase 130 U/L (40-110); Anion Gap 14 mmol/L (10-20); BUN (Urea Nitrogen) 16 mg/dL (9.8-20.1); Bilirubin, Total 0.7 mg/dL (0.2-1.2); Calc. Creatinine Clearance 0 mL/min (70-130); Carbon Dioxide 34 mmol/L (23-31); Chloride 96 mmol/L (98-107); Estimated GFR-MDRD 12; Globulin 5.9 g/dL (2.4-3.5); Glucose 132 mg/dL (80-115); Potassium 4.2 mmol/L (3.5-5.1); Protein, Total 9.2 g/dL (6.0-8.3); Sodium 140 mmol/L (136-145)
--- NOTE | 2019-10-07 19:57 | CT ---
CT BRAIN WITHOUT CONTRAST: HISTORY: Altered mental status COMPARISON: 04/03/2018 FINDINGS: No evidence of acute infarct, hemorrhage, midline shift or abnormal extra-axial fluid collections is seen. Changes of mild chronic small vessel ischemic disease are again seen. The ventricular size is appropriate and the basilar cisterns are patent. The bony calvarium is intact. The visualized paranas al sinuses and mastoid air cells are well aerated. IMPRESSION: No CT evidence of acute intracranial process.
--- NOTE | 2019-10-07 20:01 | RAD ---
XR Chest 1 View Portable HISTORY: Altered mental status. Patient is on dialysis. COMPARISON: 06/06/2018 FINDINGS: The heart size is normal. The lungs are well expanded without pneumothorax or pleural effus ions. There patchy opacities in the lungs bilaterally likely due to pulmonary vascular congestion/edema. No pneumothoraces or large effusions are seen. No lobar consolidation is noted. The re is a left-sided vascular stent.
[2019-10-07] MEDS ORDERED: cefTRIAXone\\ROCEPHIN 2 GM VIAL ONE (20:50)
[2019-10-07] MEDS ORDERED: Sodium Chloride 0.9% 100 ML ONE (20:50)
--- NOTE | 2019-10-07 20:52 | CT ---
CT ABDOMEN AND PELVIS WITHOUT CONTRAST USING STONE PROTOCOL: 10/07/19 HISTORY: Abdominal pain. Multiple myeloma. COMPARISON: 04/10/17. FINDINGS: Absence of oral and IV contrast reduces the sensitivity of exam particularly for the evaluation of s olid organs and bowel. There are small bilateral pleural effusions with adjacent infiltrate/atelecta tic changes. There are probable calcified gallstones. No free air or free fluid is seen in the abdome n or pelvis. A left sided lower quadrant colostomy is seen. There are vascular calcifications without evidence of aneurysmal dilatation of the abdominal aorta. No osteolytic lesions are seen. No calculi seen in the kidneys, ureters or the urinary bladder. No hydroureteronephrosis seen. Calcif ied uterine fibroids are again noted. IMPRESSION: 1. No CT evidence of urinary tract calculi or obstruction. Small bilateral pleural effusions wit h adjacent atelectatic changes/infiltrates. 2. Probable cholelithiasis. 3. Uterine fibroids. POS: OFF
[2019-10-07 21:05] LABS: CKMB 1.3 ng/mL (0-6.6)
[2019-10-07] MEDS ORDERED: Dextrose 5% in Water 1,000 ML IV PRN (22:41)
[2019-10-07] MEDS ORDERED: Dextrose 50% Abboject 50 ML SYRINGE SLOW IVP PRN (22:41)
--- NOTE | 2019-10-07 22:49 | PDOC.EVN ---
Event Note - Event Note Event Note: [id number] HP
[2019-10-07 23:49] LABS: Troponin I 0.115 ng/mL (< 0.028)
[2019-10-08 00:26] VITALS: BMI 26.4
--- NOTE | 2019-10-08 01:48 | HP ---
CHIEF COMPLAINT: Altered mental status. HISTORY OF PRESENT ILLNESS: Ms. Contreras is a 64-year-old female with past medical history of end-stage renal disease, on hemodialysis Thursday, Thursday, Thursday; COPD; congestive heart failure; hypertension; asthma, was brought to the emergency room by EMS transport from [facility]. The patient reported that she does not know what is going on, alert, oriented x1. The patient was at Dialysis and EMS reports the patient burst out in anger. On workup in the emergency room, the patient had a glucose of 60. The patient was angry, restless, difficult to get any history from her. CT of the brain, no acute finding. Electrolytes; BUN 16, creatinine 4.5, bedside glucose initially was 64, repeat glucose is 139. Chest x-ray, pulmonary vascular congestion, no consolidations. Lactic acid 1.7, lipase 16. Troponin is 0.1. The patient denies chest pain. The patient is being admitted to hospital for further management. PAST MEDICAL HISTORY: As mentioned above in the history of present illness. PAST PSYCHIATRIC HISTORY: Anxiety, bipolar disorder, and depression. PAST SURGICAL HISTORY: 1. Carpal tunnel release, hand. 2. Left upper extremity dialysis shunt. 3. Colostomy. FAMILY HISTORY: Reviewed and noncontributory. HOME MEDICATIONS: Please see home medication reconciliation form for updated medications. ALLERGIES: ALLERGIC TO AMITRIPTYLINE, HEPARIN, LISINOPRIL, TIZANIDINE, AND TRAMADOL. REVIEW OF SYSTEMS: Difficult to obtain history from the patient because of her mental condition, but review of 14 systems negative except what is mentioned in history of present illness. PHYSICAL EXAMINATION: GENERAL: The patient is awake, alert, and restless. NECK: Supple. CHEST: Fair bilateral air entry. HEART: S1 and S2, regular. ABDOMEN: Soft, nontender. Bowel sounds present. NEUROLOGIC: Awake, alert, moving extremities. PSYCH: Restless, angry. EXTREMITIES: No clubbing, no cyanosis. LABORATORY DATA: As mentioned above in history of present illness. IMAGING STUDIES: As mentioned above in the history of present illness. CT of the abdomen, no CT evidence of urinary calculi or obstruction, small bilateral effusions, adjacent atelectasis, possible cholelithiasis. ASSESSMENT: 1. Acute encephalopathy, metabolic. 2. End-stage renal disease, on hemodialysis. 3. Indeterminate troponin. 4. Anxiety, depression. 5. Bipolar disorder. 6. Congestive heart failure history. 7. Chronic obstructive pulmonary disease. 8. Diabetes mellitus, type 2. 9. Hypertension. PLAN: 1. Admit, frequent neuro checks. 2. Fall precautions. 3. Serial troponins. 4. Reassess the patient in a.m., if no improvement, possible further neurological workup. 5. Reassess the patient in the a.m. If the patient is going to need to stay in the hospital for another day or so, needed to consult Nephrology. 6. Reconcile home medications. 7. DVT prophylaxis as appropriate. 8. Expected length of stay at least 1 midnight if the patient is stable and further workup negative. Job ID: [id number]
[2019-10-08 05:41] LABS: Troponin I 0.181 ng/mL (< 0.028)
[2019-10-08 05:42] LABS: Anion Gap 16 mmol/L (10-20); BUN (Urea Nitrogen) 20 mg/dL (9.8-20.1); Calc. Creatinine Clearance 13 mL/min (70-130); Calcium 7.9 mg/dL (7.8-10.44); Carbon Dioxide 29 mmol/L (23-31); Chloride 99 mmol/L (98-107); Estimated GFR-MDRD 10; Glucose 86 mg/dL (80-115); Potassium 5.1 mmol/L (3.5-5.1); Sodium 139 mmol/L (136-145)
[2019-10-08] MEDS ORDERED: Calcium Carbonate 600 MG TAB PO PRN (10:20)
[2019-10-08] MEDS ORDERED: cloNIDine 0.1 MG TAB PO PRN (10:20)
[2019-10-08] MEDS ORDERED: PROVENTIL INHALER 6.7 G (200 INHALATIONS) INH PRN (10:20)
[2019-10-08] MEDS: Calcium Acetate 667 MG CAP PO SCH ×2 (11:21→17:33)
[2019-10-08] MEDS: Acetaminophen/Codeine 30-300mg Tablet PO PRN (11:21)
[2019-10-08 11:23] LABS: #Eosinphils 0.3 thou/uL (0.0-0.7); #Lymphocytes 1.4 thou/uL (1.20-3.40); #Monocytes 0.9 thou/uL (0.11-0.59); #Neutrophils 4.5 thou/uL (1.40-6.50); %Basophils 0.3 % (0.0-1.0); %Eosinophils 4.5 % (0.0-10.0); %Lymphocytes 19.6 % (21.0-51.0); %Monocytes 12.2 % (0.0-10.0); %Neutrophils 63.4 % (42.0-75.0); Mean Corpuscular HGB CONC 31.9 g/dL (32.0-36.0); Mean Corpuscular Hemoglobin 28.7 pg (27.0-31.0); Mean Corpuscular Volume 89.9 fL (78.0-98.0); Mean Platelet Volume 10.4 fL (7.4-10.4); Platelet Count 118 thou/uL (130-400); RBC Distribution Width 15.8 % (11.5-14.5); Red Blood Cell (RBC) Count 3.47 mill/uL (4.20-5.40)
[2019-10-08] MEDS ORDERED: metroNIDAZOLE 500 MG TAB PO SCH (11:30)
--- NOTE | 2019-10-08 13:24 | PRG ---
DATE OF SERVICE: 10/08/2019 SUBJECTIVE: Patient was seen and examined at bedside and overnight events noted. Patient denies any shortness of breath or chest pain or palpitation. No history of nausea or vomiting or diarrhea or fever or chills or cramps. OBJECTIVE: GENERAL: This is a well-built female, in no acute distress. VITAL SIGNS: Temperature 97.3, pulse 75, respiratory rate 18, blood pressure 136/63. HEENT: Atraumatic, normocephalic. Oral mucosa is moist NECK: Supple. CARDIOVASCULAR: S1, S2 heard. Rate and rhythm regular. RESPIRATORY: Clear to auscultation. GASTROINTESTINAL: Abdomen is soft. MUSCULOSKELETAL: No tenderness. No edema. DERMATOLOGIC: No skin rash. NEUROLOGIC: Alert and awake and oriented X3. No focal neurologic deficits. Moving all the extremities. PSYCHIATRIC: Mood and affect normal. LABORATORY DATA: Potassium 5.1, BUN is 20, creatinine is 5.1. ASSESSMENT AND PLAN: 1. End-stage renal disease, continue dialysis Thursday, Thursday, and Thursday. 2. Hypertension. 3. Anemia. 4. Edema, controlled. 5. Plan is to continue on dialysis as tolerated on Thursday, Thursday, Thursday. Job ID: [id number]
--- NOTE | 2019-10-08 14:50 | CON ---
DATE OF CONSULTATION: 10/07/2019 CONSULTING PHYSICIAN: Shoshana Noe MD REASON FOR CONSULTATION: End-stage renal disease evaluation. REASON FOR ADMISSION: Altered mentation. HISTORY OF PRESENT ILLNESS: A 64-year-old female with history of end-stage renal disease, hypertension, coronary artery disease, and asthma, came to the hospital with altered mentation. She was seen at [facility] but was sent to dialysis. At dialysis, she was very altered and was pulling on her dialysis sent to the ER. No fever or chills. No nausea or vomiting. PAST MEDICAL HISTORY: Positive for end-stage renal disease, congestive heart failure, and hypertension. PAST SURGICAL HISTORY: Carpal tunnel, dialysis shunt placement, colostomy. HOME MEDICATIONS: Please see the list. ALLERGIES: LISINOPRIL, AMITRIPTYLINE, HEPARIN, AND TRAMADOL. SOCIAL HISTORY: History of smoking. No alcohol or illicit drugs abuse. FAMILY HISTORY: No history of any kidney disease. REVIEW OF SYSTEMS: Could not be obtained. She is confused. PHYSICAL EXAMINATION: GENERAL: This is a well-built female, confused. VITAL SIGNS: Temperature 98.2, pulse 75, respiratory rate 18, and blood pressure 129/63. HEENT: Atraumatic, normocephalic. NECK: Supple. CARDIOVASCULAR: S1 and S2. Regular rate and rhythm. RESPIRATORY: Clear. GASTROINTESTINAL: Abdomen is soft. MUSCULOSKELETAL: 1+ edema. DERMATOLOGIC: No skin rash. NEUROLOGICAL: Confused. LABORATORY DATA: Potassium is 4.2, BUN is 16, and creatinine is 4.5. ASSESSMENT AND PLAN: 1. End-stage renal disease. Continue dialysis on Thursday, Thursday, and Thursday. 2. Hypertension. 3. Edema. 4. Anemia of chronic disease. 5. Altered mentation. We will follow. Thank you for the consult. We will continue dialysis on Thursday, Thursday, and Thursday. Job ID: [id number]
[2019-10-08] MEDS: Lubiprostone 24 MCG CAP PO SCH (17:35)
[2019-10-08] MEDS: Mometasone/Formoterol 120 PUFF INHALER INH SCH (19:00)
--- NOTE | 2019-10-08 19:09 | PDOC.HOSPP ---
- Subjective Encounter Date: 10/08/19 Encounter Time: 08:20 Subjective: Pt seen for followup re: acute metabolic encephalopathy. Feels better today. - Objective Vital Signs & Weight: Vital Signs (12 hours) Temp Pulse Resp BP Pulse Ox 10/08/19 19:00 77 16 95 10/08/19 15:20 97.7 F 77 18 149/67 H 94 L 10/08/19 11:25 97.3 F L 75 18 144/67 H 97 10/08/19 07:35 97 10/08/19 07:34 97.3 F L 74 18 136/63 96 Weight Weight 158 lb 14.4 oz I&O: 10/07/19 10/08/19 10/09/19 06:59 06:59 06:59 Intake Total 240 720 Output Total 450 500 Balance -210 220 Result Diagrams: 10/08/19 11:02 10/08/19 05:07 Additional Labs: Accuchecks 10/08/19 10/08/19 10/08/19 17:13 14:02 10:31 POC Glucose 126 H 126 H 155 H 10/08/19 10/07/19 00:06 19:18 POC Glucose 78 139 H labs and MARs reviewed by ar Hospitalist ROS - Review of Systems Constitutional: denies: fever, chills, sweats, weakness, malaise Cardiovascular: denies: chest pain, palpitations, orthopnea, paroxysmal noc. dyspnea, edema, light headedness Gastrointestinal: denies: nausea, vomiting, abdominal pain, diarrhea, constipation, melena, hematochezia Genitourinary: denies: dysuria, frequency, incontinence, hematuria, retention Skin: denies: rash, lesions, eliazar, bruising - Medication Medications: Active Medications Generic Name Dose Route Start Last Admin Trade Name Freq PRN Reason Stop Dose Admin Acetaminophen/Codeine Phosphate 1 tab 10/08/19 10:20 10/08/19 11:21 Tylenol #3 PO 1 tab BID PRN Administration Pain Calcium Acetate 2,001 mg 10/08/19 12:00 10/08/19 17:33 Phoslo PO 2,001 mg TID-WM [place] Administration Lubiprostone 24 mcg 10/08/19 17:00 10/08/19 17:35 Amitiza PO Not Given BID-WM [place] Mometasone Furoate/Formoterol Fumar 2 puff 10/08/19 18:30 10/08/19 19:00 Dulera 200 Mcg/5 Mcg Inhaler INH 2 puff BID-RT [place] Administration - Exam General Appearance: NAD Eye: anicteric sclera ENT: moist mucosa Neck: supple, symmetric, no thyromegaly, no lymphadenopathy Heart: RRR, no gallops, no rubs, normal peripheral pulses Respiratory: CTAB, no wheezes, no rales, no ronchi Gastrointestinal: soft, non-tender, non-distended, normal bowel sounds Psychiatric: normal affect, normal behavior, oriented to person, oriented to place Hosp A/P (1) Acute metabolic encephalopathy Code(s): G93.41 - METABOLIC ENCEPHALOPATHY Status: Acute (2) COPD (chronic obstructive pulmonary disease) Status: Chronic Qualifiers: (3) DM type 2 (diabetes mellitus, type 2) Status: Chronic Qualifiers: (4) ESRD (end stage renal disease) on dialysis Code(s): N18.6 - END STAGE RENAL DISEASE; Z99.2 - DEPENDENCE ON RENAL DIALYSIS Status: Chronic (5) Hyperlipidemia Code(s): E78.5 - HYPERLIPIDEMIA, UNSPECIFIED Status: Chronic - Plan Clinically improving. Check UDS (h/o cocaine use). Maintenance dialysis per nephrology. Continue accuchecks, insulin sliding scale. COPD stable.
[2019-10-08] MEDS: metroNIDAZOLE 500 MG TAB PO SCH (21:00)
[2019-10-08] MEDS: Pregabalin 50 MG CAP PO SCH (21:00)
[2019-10-08] MEDS: Atorvastatin Calcium 10 MG TAB PO SCH (22:03)
[2019-10-09] MEDS: Mometasone/Formoterol 120 PUFF INHALER INH SCH ×2 (07:13→18:55)
[2019-10-09] MEDS: Amlodipine 10 MG TAB PO SCH (08:39)
[2019-10-09] MEDS: Calcium Acetate 667 MG CAP PO SCH ×3 (08:39→17:37)
[2019-10-09] MEDS: Donepezil HCl 5 MG TAB PO SCH (08:39)
[2019-10-09] MEDS: metroNIDAZOLE 500 MG TAB PO SCH ×2 (08:39→22:01)
[2019-10-09] MEDS: Aspirin Chewable 81 MG TAB PO SCH (08:39)
[2019-10-09] MEDS: DULoxetine 60 MG CAP PO SCH (08:39)
[2019-10-09] MEDS: Docusate 100 MG CAP PO SCH (08:40)
[2019-10-09] MEDS: Lubiprostone 24 MCG CAP PO SCH ×2 (08:40→16:54)
[2019-10-09] MEDS: Acetaminophen/Codeine 30-300mg Tablet PO PRN (08:43)
--- NOTE | 2019-10-09 12:59 | PDOC.HOSPP ---
- Subjective Encounter Date: 10/09/19 Encounter Time: 08:20 Subjective: Pt seen for followup re: acute metabolic encephalopathy. Feels better today. - Objective Vital Signs & Weight: Vital Signs (12 hours) Temp Pulse Resp BP BP Pulse Ox 10/09/19 11:40 98.1 F 73 18 149/68 H 94 L 10/09/19 10:23 162/72 H 10/09/19 08:39 75 183/77 H 10/09/19 08:30 97.9 F 80 20 183/77 H 96 10/09/19 07:13 75 12 10/09/19 04:00 98.9 F 75 22 H 152/68 H 97 Weight Weight 166 lb 6.4 oz I&O: 10/08/19 10/09/19 10/10/19 06:59 06:59 06:59 Intake Total 240 1080 Output Total 450 550 Balance -210 530 Result Diagrams: 10/08/19 11:02 10/08/19 05:07 Additional Labs: Accuchecks 10/09/19 10/09/19 10/08/19 10:46 06:20 20:01 POC Glucose 158 H 110 170 H 10/08/19 10/08/19 17:13 14:02 POC Glucose 126 H 126 H Labs and MARs reviewed by me EKG Reviewed by me: Yes (Tele: NSR) Hospitalist ROS - Review of Systems Cardiovascular: denies: chest pain, palpitations, orthopnea, paroxysmal noc. dyspnea, edema, light headedness Gastrointestinal: denies: nausea, vomiting, abdominal pain, diarrhea, constipation, melena, hematochezia - Medication Medications: Active Medications Generic Name Dose Route Start Last Admin Trade Name Freq PRN Reason Stop Dose Admin Acetaminophen/Codeine Phosphate 1 tab 10/08/19 10:20 10/09/19 08:43 Tylenol #3 PO 1 tab BID PRN Administration Pain Amlodipine Besylate 10 mg 10/09/19 09:00 10/09/19 08:39 Norvasc PO 10 mg DAILY [place] Administration Aspirin 81 mg 10/09/19 09:00 10/09/19 08:39 Aspirin Chewable PO 81 mg DAILY [place] Administration Atorvastatin Calcium 10 mg 10/08/19 21:00 10/08/19 22:03 Lipitor PO 10 mg HS [place] Administration Calcium Acetate 2,001 mg 10/08/19 12:00 10/09/19 08:39 Phoslo PO 2,001 mg TID-WM [place] Administration Docusate Sodium 100 mg 10/09/19 09:00 10/09/19 08:40 Colace PO Not Given DAILY [place] Donepezil HCl 5 mg 10/09/19 09:00 10/09/19 08:39 Aricept PO 5 mg DAILY [place] Administration Duloxetine HCl 60 mg 10/09/19 09:00 10/09/19 08:39 Cymbalta PO 60 mg DAILY [place] Administration Lubiprostone 24 mcg 10/08/19 17:00 10/09/19 08:40 Amitiza PO Not Given BID-WM [place] Metronidazole 500 mg 10/08/19 21:00 10/09/19 08:39 Flagyl PO 500 mg Q12HR [place] Administration Mometasone Furoate/Formoterol Fumar 2 puff 10/08/19 18:30 10/09/19 07:13 Dulera 200 Mcg/5 Mcg Inhaler INH 2 puff BID-RT [place] Administration Pantoprazole Sodium 40 mg 10/09/19 09:00 10/09/19 08:38 Protonix PO 40 mg DAILY [place] Administration Pregabalin 100 mg 10/08/19 21:00 10/08/19 21:00 Lyrica PO 100 mg HS [place] Administration Sertraline HCl 100 mg 10/08/19 21:00 10/08/19 21:02 Zoloft PO 100 mg HS [place] Administration - Exam General Appearance: NAD Eye: anicteric sclera ENT: moist mucosa Neck: supple, symmetric, no JVD, no lymphadenopathy Heart: RRR, no rubs, normal peripheral pulses Respiratory: CTAB, no wheezes, no rales, no ronchi Gastrointestinal: soft, non-tender, non-distended, normal bowel sounds Gastrointestinal - other findings: ostomy Psychiatric: normal affect, normal behavior Hosp A/P (1) Acute metabolic encephalopathy Code(s): G93.41 - METABOLIC ENCEPHALOPATHY Status: Acute (2) COPD (chronic obstructive pulmonary disease) Status: Chronic Qualifiers: (3) DM type 2 (diabetes mellitus, type 2) Status: Chronic Qualifiers: (4) ESRD (end stage renal disease) on dialysis Code(s): N18.6 - END STAGE RENAL DISEASE; Z99.2 - DEPENDENCE ON RENAL DIALYSIS Status: Chronic (5) Hyperlipidemia Code(s): E78.5 - HYPERLIPIDEMIA, UNSPECIFIED Status: Chronic - Plan PT/OT, out of bed/ambulate Clinically improved. UDS pending. Maintenance dialysis per nephrology. Continue accuchecks, insulin sliding scale. COPD stable. Pt not ambulating much.
--- NOTE | 2019-10-09 14:07 | PRG ---
DATE OF SERVICE: 10/09/2019 SUBJECTIVE: Patient was seen and examined at bedside and overnight events noted. Patient denies any shortness of breath or chest pain or palpitation. No history of nausea or vomiting or diarrhea or fever or chills or cramps. OBJECTIVE: GENERAL: This is a well-built female, in no apparent distress. VITAL SIGNS: Temperature 98.1, heart rate 73, respiratory rate 18, and blood pressure 149/68 HEENT: Atraumatic, normocephalic. Oral mucosa is moist NECK: Supple. CARDIOVASCULAR: S1, S2 heard. Rate and rhythm regular. RESPIRATORY: Clear to auscultation. GASTROINTESTINAL: Abdomen is soft. MUSCULOSKELETAL: No tenderness. No edema. DERMATOLOGIC: No skin rash. NEUROLOGIC: Alert and awake and oriented X3. No focal neurologic deficits. Moving all the extremities. PSYCHIATRIC: Mood and affect normal. ASSESSMENT AND PLAN: 1. End-stage renal disease, continue on hemodialysis Thursday, Thursday, and Thursday. 2. Hypertension. 3. Anemia of chronic disease. 4. Edema, controlled. 5. Plan to continue on dialysis Thursday, Thursday, and Thursday as tolerated. Job ID: [id number]
[2019-10-09 17:30] LABS: Amphetamine Not Detected (NotDetected); Barbiturates Screen Not Detected (NotDetected); Benzodiazepine Screen Not Detected (NotDetected); Cocaine Metabolite Screen Not Detected (NotDetected); Medtox Reader # READER 1; Methadone Not Detected (NotDetected); Methamphetamine Not Detected (NotDetected); Opiate Screen Detected (NotDetected); Oxycodone Screen Not Detected (NotDetected); Phencyclidine (PCP) Not Detected (NotDetected); THC/Cannabinoid Screen Not Detected (NotDetected); Tricyclic Screen Not Detected (NotDetected)
[2019-10-09 17:31] LABS: Medtox Control Line Valid? VALID (VALID)
[2019-10-09] MEDS: Atorvastatin Calcium 10 MG TAB PO SCH (22:01)
[2019-10-09] MEDS: Pregabalin 50 MG CAP PO SCH (22:02)
[2019-10-09] MEDS: Guaifenesin DM 100-10/5 ML UDCUP PO PRN (22:09)
[2019-10-10] MEDS: Acetaminophen/Codeine 30-300mg Tablet PO PRN ×2 (02:17→14:28)
[2019-10-10] MEDS ORDERED: Morphine 2 MG/ML SYRINGE SLOW IVP SCH (05:45)
[2019-10-10] MEDS: Mometasone/Formoterol 120 PUFF INHALER INH SCH ×2 (06:54→18:50)
[2019-10-10] MEDS: Calcium Acetate 667 MG CAP PO SCH ×3 (09:02→20:49)
[2019-10-10] MEDS: DULoxetine 60 MG CAP PO SCH (09:03)
[2019-10-10] MEDS: metroNIDAZOLE 500 MG TAB PO SCH ×2 (09:04→20:51)
[2019-10-10] MEDS: Lubiprostone 24 MCG CAP PO SCH ×2 (09:05→20:52)
[2019-10-10] MEDS: Docusate 100 MG CAP PO SCH (09:06)
[2019-10-10] MEDS: Donepezil HCl 5 MG TAB PO SCH (09:06)
[2019-10-10] MEDS: Amlodipine 10 MG TAB PO SCH (09:07)
[2019-10-10] MEDS: Aspirin Chewable 81 MG TAB PO SCH (09:07)
[2019-10-10] MEDS: Guaifenesin DM 100-10/5 ML UDCUP PO PRN ×3 (09:19→20:57)
--- NOTE | 2019-10-10 11:04 | RAD ---
RIGHT KNEE 4 VIEWS: Date: 10/10/2019 HISTORY: Fall 2 weeks ago, persistent pain. FINDINGS: Extensive vascular calcifications are noted. Severe arthritic changes of the knee are noted. Changes are particular pronounced in the medial compartment. There are no signs of fracture or joint effusion . IMPRESSION: Marked arthritic changes of the knee and extensive atherosclerosis. POS: TPC
--- NOTE | 2019-10-10 11:40 | PRG ---
DATE OF SERVICE: 10/10/2019 SUBJECTIVE: A 64-year-old female, being seen for end-stage renal disease. The patient denies any nausea, vomiting, or chest pain. OBJECTIVE: GENERAL: The patient is awake and alert. VITAL SIGNS: Afebrile, pulse 75, breathing 16, blood pressure 157/81. GENERAL APPEARANCE AND MENTAL STATUS: Fair. HEAD/NECK: Normocephalic. Atraumatic. EYES: EOMI. No deformity. EARS: Clear. No ulcers. NOSE: Intact. No lesions. MOUTH: Clear. No discharge. THROAT: Clear. No exudate. LUNGS: Clear. No crackles. CARDIAC: S1, S2. No rub. ABDOMEN: Benign. Bowel sounds positive. GENITALIA/RECTUM: Brannon absent. BACK/EXTREMITIES: Edema 0+. NEUROLOGICAL: Alert and motor intact. SKIN: LYMPHATICS: LABORATORY DATA: Reviewed. ASSESSMENT AND PLAN: 1. Stage 6 chronic kidney disease. Continue hemodialysis. 2. Hypertension, stable. 3. Anemia, stable. 4. Medications based on GFR, appropriate. Job ID: [id number]
[2019-10-10] MEDS ORDERED: HumaLOG 300 UNITS/3 ML VIAL SC PRN (12:56)
[2019-10-10 18:21] LABS: HBSAg Index 0.33 S/CO (0-0.99); Hep B Surf Ag Non-Reactive S/CO (NonReactive)
--- NOTE | 2019-10-10 19:13 | PDOC.HOSPP ---
- Subjective Encounter Date: 10/10/19 Encounter Time: 19:11 Subjective: Pt seen for followup re: acute metabolic encephalopathy. c/o ongoing right knee pain. - Objective Vital Signs & Weight: Vital Signs (12 hours) Temp Pulse Resp BP BP BP Pulse Ox 10/10/19 14:36 76 18 146/81 H 97 10/10/19 12:56 97.5 F L 77 18 153/75 H 99 10/10/19 09:07 75 157/81 H 10/10/19 09:00 100 10/10/19 08:38 98.3 F 75 20 159/81 H 100 Weight Weight 166 lb 6.4 oz I&O: 10/09/19 10/10/19 10/11/19 06:59 06:59 06:59 Intake Total 1080 950 300 Output Total 550 550 50 Balance 530 400 250 Result Diagrams: 10/08/19 11:02 10/08/19 05:07 Additional Labs: Accuchecks 10/10/19 10/10/19 10/09/19 11:24 05:11 22:04 POC Glucose 207 H 103 150 H Labs and MARs reviewed by nv Hospitalist ROS - Review of Systems Cardiovascular: denies: chest pain, palpitations, orthopnea, paroxysmal noc. dyspnea, edema, light headedness Gastrointestinal: denies: nausea, vomiting, abdominal pain, diarrhea, constipation, melena, hematochezia Musculoskeletal: reports: other (right knee pain) - Medication Medications: Active Medications Generic Name Dose Route Start Last Admin Trade Name Freq PRN Reason Stop Dose Admin Acetaminophen/Codeine Phosphate 1 tab 10/08/19 10:20 10/10/19 14:28 Tylenol #3 PO 1 tab BID PRN Administration Pain Amlodipine Besylate 10 mg 10/09/19 09:00 10/10/19 09:07 Norvasc PO 10 mg DAILY [place] Administration Aspirin 81 mg 10/09/19 09:00 10/10/19 09:07 Aspirin Chewable PO 81 mg DAILY [place] Administration Atorvastatin Calcium 10 mg 10/08/19 21:00 10/09/19 22:01 Lipitor PO 10 mg HS [place] Administration Calcium Acetate 2,001 mg 10/08/19 12:00 10/10/19 12:43 Phoslo PO 2,001 mg TID-WM [place] Administration Docusate Sodium 100 mg 10/09/19 09:00 10/10/19 09:06 Colace PO Not Given DAILY [place] Donepezil HCl 5 mg 10/09/19 09:00 10/10/19 09:06 Aricept PO 5 mg DAILY [place] Administration Duloxetine HCl 60 mg 10/09/19 09:00 10/10/19 09:03 Cymbalta PO 60 mg DAILY [place] Administration Guaifenesin/Dextromethorphan 5 ml 10/08/19 10:20 10/10/19 14:34 Robitussin Dm PO 5 ml Q6H PRN Administration Cough Insulin Human Lispro 0 units 10/10/19 12:56 10/10/19 13:54 Humalog SC 3 unit .MILD SLIDING SCALE PRN Administration Mild Correctional Scale Lubiprostone 24 mcg 10/08/19 17:00 10/10/19 09:05 Amitiza PO Not Given BID-WM [place] Metronidazole 500 mg 10/08/19 21:00 10/10/19 09:04 Flagyl PO 500 mg Q12HR [place] Administration Mometasone Furoate/Formoterol Fumar 2 puff 10/08/19 18:30 10/10/19 18:50 Dulera 200 Mcg/5 Mcg Inhaler INH Not Given BID-RT [place] Pantoprazole Sodium 40 mg 10/09/19 09:00 10/10/19 09:08 Protonix PO 40 mg DAILY [place] Administration Pregabalin 100 mg 10/08/19 21:00 10/09/19 22:02 Lyrica PO 100 mg HS [place] Administration Sertraline HCl 100 mg 10/08/19 21:00 10/09/19 22:02 Zoloft PO 100 mg HS [place] Administration - Exam General Appearance: awake alert Eye: anicteric sclera ENT: moist mucosa Neck: supple Heart: RRR Respiratory: CTAB, no rales Gastrointestinal: non-tender, non-distended Musculoskeletal - other findings: right knee tenderness Hosp A/P (1) Acute metabolic encephalopathy Code(s): G93.41 - METABOLIC ENCEPHALOPATHY Status: Acute (2) Right knee pain Code(s): M25.561 - PAIN IN RIGHT KNEE Status: Chronic (3) COPD (chronic obstructive pulmonary disease) Status: Chronic Qualifiers: (4) DM type 2 (diabetes mellitus, type 2) Status: Chronic Qualifiers: (5) ESRD (end stage renal disease) on dialysis Code(s): N18.6 - END STAGE RENAL DISEASE; Z99.2 - DEPENDENCE ON RENAL DIALYSIS Status: Chronic (6) Hyperlipidemia Code(s): E78.5 - HYPERLIPIDEMIA, UNSPECIFIED Status: Chronic - Plan Clinically improved. Right knee pain following fall 2 weeks ago; x-rays show arthritis. Will order knee immoblizer and CT knee. Maintenance dialysis per nephrology. Continue accuchecks, insulin sliding scale. COPD stable. Pt needs to ambulate more to go home. Once knee is ruled out for acute pathology, will mobilize her more.
--- NOTE | 2019-10-10 19:49 | CT ---
EXAM: CT Lower Ext Rt WO Con DATE: 10/10/2019 4:33 PM INDICATION: 64-year-old female with severe right knee pain after fall COMPARISON: Right knee radiograph dated October 10, 2019 FINDING: There is diffuse osteopenia. There is severe osteoarthrosis of the right knee predominantly affecting the patellofemoral and medial femoral tibial joint compartments. There are severe vascular calcifications seen involving the visualized vasculature. There is a moderate-sized Reyes's cyst. There is mild joint effusion. IMPRESSION:No acute fracture or subluxation demonstrated. Severe osteoarthrosis of the right knee.
[2019-10-10] MEDS: Pregabalin 50 MG CAP PO SCH (20:50)
[2019-10-10] MEDS: Atorvastatin Calcium 10 MG TAB PO SCH (20:51)
[2019-10-11] MEDS: Acetaminophen/Codeine 30-300mg Tablet PO PRN ×2 (02:23→14:29)
[2019-10-11] MEDS ORDERED: Acetaminophen 325 MG TAB PO PRN (05:48)
[2019-10-11] MEDS: Mometasone/Formoterol 120 PUFF INHALER INH SCH (06:47)
[2019-10-11] MEDS: Calcium Acetate 667 MG CAP PO SCH ×2 (08:44→12:21)
[2019-10-11] MEDS: Docusate 100 MG CAP PO SCH (08:45)
[2019-10-11] MEDS: Aspirin Chewable 81 MG TAB PO SCH (08:45)
[2019-10-11] MEDS: Lubiprostone 24 MCG CAP PO SCH (08:45)
[2019-10-11] MEDS: Amlodipine 10 MG TAB PO SCH (08:45)
[2019-10-11] MEDS: Donepezil HCl 5 MG TAB PO SCH (08:46)
[2019-10-11] MEDS: Guaifenesin DM 100-10/5 ML UDCUP PO PRN ×2 (08:47→14:30)
[2019-10-11] MEDS: metroNIDAZOLE 500 MG TAB PO SCH (08:47)
[2019-10-11] MEDS: DULoxetine 60 MG CAP PO SCH (08:47)
[2019-10-11 12:20] VITALS: TEMP 98.3
--- NOTE | 2019-10-11 12:44 | CON ---
DATE OF CONSULTATION: 10/11/2019 REQUESTING PHYSICIAN: Dr. Manjinder Pa. CONSULTING PHYSICIAN: Payam Amezcua. REASON FOR CONSULTATION: Right knee pain. HISTORY OF PRESENT ILLNESS: Irish is a 64-year-old female, who was admitted by the medicine team on 10/07/2019. Currently, she had a fall at home, resulting in right knee pain, which is why our service has been consulted. She is also admitted from their standpoint for encephalopathy, end-stage renal disease, indeterminate troponin, and congestive heart failure. She also has diabetes and is a dialysis patient currently. They are essentially following the troponins, but she began to complain of knee pain and plain radiographs obtained, which demonstrated DJD and also CT examination was obtained. No fracture is identified. No hemarthrosis or hematoma is identified. There has been no effusion noted. She has had injections in the prior from her physician at [facility]. She has remained relatively stable since the admission. PHYSICAL EXAMINATION: Visual inspection of the right knee demonstrates her to have normal external landmarks. She is in a long-leg immobilizer for protection. She is neurovascularly intact. She can straight leg raise. There is no defect palpable at the suprapatellar notch. She has good straight leg raise and adequate strength, internal and external rotation of the femur produces no pain. There is no provocative pain noted with palpation of the knee, patella, infrapatellar region, or patellar tendon. Stable to varus and valgus stressing. She has full range of motion essentially. No effusions identified. No erythema seen. LABORATORY DATA: CT examination essentially normal, but with also noted osteopenia. No fractures and no hematoma were identified and no effusions identified. IMPRESSION: 1. Right knee contusion. 2. Osteopenia. PLAN: 1. At this point, we will begin progressive weightbearing. See how she does. I am comfortable with her beginning stand, walk, or sit to reflect this plan. 2. Re-evaluate the patient tomorrow, but otherwise once she begins to walk and weightbear, we can eventually discontinue the long-leg immobilizer and she will be stable for discharge if she is able to ambulate without any problem. Job ID: [id number]
[2019-10-11 15:04] VITALS: BP 155/79
--- NOTE | 2019-10-11 17:28 | PRG ---
DATE OF SERVICE: 10/11/2019 SUBJECTIVE: A 64-year-old female, being seen for end-stage kidney disease. The patient denies any nausea, vomiting, or chest pain. OBJECTIVE: GENERAL: The patient is awake and alert. VITAL SIGNS: Pulse 65, breathing 16, blood pressure 154/55. GENERAL APPEARANCE AND MENTAL STATUS: Fair. HEAD/NECK: Normocephalic. Atraumatic. EYES: EOMI. No deformity. EARS: Clear. No ulcers. NOSE: Intact. No lesions. MOUTH: Clear. No discharge. THROAT: Clear. No exudate. LUNGS: Clear. No crackles. CARDIAC: S1, S2. No rub. ABDOMEN: Benign. Bowel sounds positive. GENITALIA/RECTUM: Brannon absent. BACK/EXTREMITIES: Edema 0+. NEUROLOGICAL: Alert and motor intact. SKIN: LYMPHATICS: LABORATORY DATA: Reviewed. ASSESSMENT AND PLAN: 1. Stage 6 chronic kidney disease, stable. 2. Hypertension, stable. 3. Anemia, stable. 4. Medication based on GFR, appropriate. Job ID: [id number]
--- NOTE | 2019-10-12 02:03 | DIS ---
DATE OF ADMISSION: 10/07/2019 DATE OF DISCHARGE: 10/11/2019 PRIMARY CARE PROVIDER: Rajwinder Paula. DISCHARGE DIAGNOSES: 1. Acute metabolic encephalopathy. 2. History of falls. 3. Right knee arthritis. 4. End-stage renal disease, on hemodialysis. CONDITION OF PATIENT ON THE DAY OF DISCHARGE: Stable. I assessed Ms. Contreras on the day of discharge. She denies any chest pain or shortness of breath. Vital signs are stable. S1 and S2 are heard, regular. Lungs are clear to auscultation bilaterally. DISCHARGE MEDICATIONS: 1. Robitussin p.r.n. 2. Zofran p.r.n. 3. Tylenol No. 3 p.r.n. 4. Amlodipine 10 mg daily. 5. PhosLo 3 capsules three times a day. 6. Calcium carbonate 600 mg every 4 hours as needed. 7. Coreg 3.125 mg 2 times a day. 8. Clonidine p.r.n. 9. Colace 100 mg daily. 10. Aricept 5 mg daily. 11. Duloxetine 60 mg daily. 12. Advair Diskus 250/50 two puffs daily. 13. Humalog as needed. 14. Hydrocortisone acetate suppositories as needed. 15. Toujeo 5 units at bedtime. 16. DuoNeb p.r.n. 17. Floranex two tablets 2 times a day. 18. Loratadine 10 mg daily. 19. Amitiza 24 mcg two times a day. 20. Milk of magnesium p.r.n. 21. Metronidazole 500 mg 2 times a day, indication unclear. This was a pre-admission medication. 22. Lyrica 100 mg at bedtime. 23. Zocor 20 mg at bedtime. 24. Trazodone 25 mg at bedtime. 25. Ventolin HFA p.r.n. 26. Aspirin 81 mg daily. 27. Protonix 40 mg daily. 28. Sertraline 100 mg at bedtime. HOSPITAL COURSE: Ms. Contreras is a pleasant 64-year-old lady, who was admitted to [facility] on October 07, 2019, for acute metabolic encephalopathy. Please refer to Dr. Noe's history and physical note dated October 07, 2019, for further details. She was seen by Nephrology Service for maintenance dialysis. There was no clear etiology for acute metabolic encephalopathy. She improved during this hospitalization. She also had significant right knee pain. X-rays showed arthritis. CT scan did not show any fracture. She was evaluated by Orthopedic Surgery Service. She is being discharged back to [facility] for further management. POST ACUTE CARE FOLLOWUP: With primary care provider in 3 days. DIET: Diabetic heart healthy and renal diet. ACTIVITY: As tolerated. Many thanks for allowing me to participate in your patient's care. Please feel free to contact me with any questions or concerns. DISCHARGE DESTINATION: [facility]. TIME SPENT: Total amount of time spent coordinating this discharge: 31 minutes. Job ID: [id number]
== END 2019-10-11 14:48 | DRG 40 ==
LOC: ERS 18:20 → 2NO 23:48 → T4-A 10-09 21:21
PROVIDERS: ADMIT Internal Medicine; ATTEND Internal Medicine
PROC: 5A1D70Z Performance of Urinary Filtration, Intermittent, Less than 6 Hours Per Day (ICD-10-PCS; principal; 2019-10-07)
PROC: 02H63JZ Insertion of Pacemaker Lead into Right Atrium, Percutaneous Approach (ICD-10-PCS; 2019-10-08)
PROC: 0JH606Z Insertion of Pacemaker, Dual Chamber into Chest Subcutaneous Tissue and Fascia, Open Approach (ICD-10-PCS; 2019-10-08)
PROC: 02HK3JZ Insertion of Pacemaker Lead into Right Ventricle, Percutaneous Approach (ICD-10-PCS; 2019-10-08)
DX: G93.41 Metabolic encephalopathy (principal); N18.6 End stage renal disease; I13.2 Hypertensive heart and chronic kidney disease with heart failure and with stage 5 chronic kidney disease, or end stage renal disease; Z99.2 Dependence on renal dialysis; M13.861 Other specified arthritis, right knee; Z91.81 History of falling; F41.9 Anxiety disorder, unspecified; I48.0 Paroxysmal atrial fibrillation; F31.9 Bipolar disorder, unspecified; Z93.3 Colostomy status; Z88.8 Allergy status to other drugs, medicaments and biological substances; J44.9 Chronic obstructive pulmonary disease, unspecified; I50.9 Heart failure, unspecified; E11.22 Type 2 diabetes mellitus with diabetic chronic kidney disease; D63.1 Anemia in chronic kidney disease; E78.5 Hyperlipidemia, unspecified
CPT/HCPCS: 36415; 36416; 70450; 71045; 74176; 80048; 80053; 80306; 82553; 83605; 83690; 84484; 85025; 87040; 87340; 93005; 96365; 96367; J0696; J2270; J3370; J3490

== ENCOUNTER 2020-06-08 23:36 | Emergency (ER) | payer MEDICARE, MEDICAID ==
[2020-06-09] MEDS ORDERED: Orphenadrine Citrate 60 MG/2 ML VIAL IM SCH (00:15)
== END 2020-06-09 02:08 | disposition home or self-care (01) ==
LOC: ERS 23:36
DX: M54.2 Cervicalgia (principal); I11.0 Hypertensive heart disease with heart failure; I50.9 Heart failure, unspecified; F03.90 Unspecified dementia, unspecified severity, without behavioral disturbance, psychotic disturbance, mood disturbance, and anxiety; F41.9 Anxiety disorder, unspecified; F31.9 Bipolar disorder, unspecified; F17.210 Nicotine dependence, cigarettes, uncomplicated; E11.9 Type 2 diabetes mellitus without complications; J45.909 Unspecified asthma, uncomplicated; Z99.2 Dependence on renal dialysis; Z79.82 Long term (current) use of aspirin; Z79.899 Other long term (current) drug therapy
CPT/HCPCS: 96372; 99283; J2360